=== PATIENT | male | born 1945 | race Caucasian/White ===

== ENCOUNTER → 2016-06-27 | Outpatient (CLI) | payer OTHER ==
[~2016-06-27] MED LIST: ACET-1256 PO; ADVIN10/60 INH; ALBU18002 INH; ALG PO; ANT25 PO; ASPI-428 PO; CEPH-571 PO; CEPH500C2 PO; DIPH1TAB87 PO; ERGO500037 PO; IBUP-103 PO; KFL500 PO; SPRIN/30 INH; TIOTCAP INH
[2016-06-27 13:53] LABS: BLOOD UREA NITROGEN 14 mg/dl (7-18); BUN/CREATININE RATIO 16.4 (10-20); CALCIUM 9.4 mg/dl (8.5-10.1); CARBON DIOXIDE 27 mmol/L (21-32); CHLORIDE 103 mmol/L (98-107); CREATININE 0.84 mg/dl (0.60-1.40); GLUCOSE 81 mg/dl (70-99); POTASSIUM 4.2 mmol/L (3.5-5.1); SODIUM 139 mmol/L (136-145)
== END | disposition home or self-care (01) ==
LOC: C.LABMFLN 10:56
PROVIDERS: ATTEND Family Medicine
DX: R73.01 Impaired fasting glucose (principal)

== ENCOUNTER → 2016-07-14 | Outpatient (CLI) | payer OTHER ==
[~2016-07-14] MED LIST changes: +AMOX1TAB43 PO; +RXC5 PO
--- NOTE | 2016-07-15 07:38 | PULMONARY FUNCTION TEST ---
Interpretation is based off ATS criteria. SPIROMETRY: Moderately severe obstructive ventilatory disease with borderline reversibility based off FVC standards. DICTATION ENDS HERE
== END | disposition home or self-care (01) ==
LOC: C.RC 08:47
PROVIDERS: ATTEND Family Medicine
DX: J44.0 Chronic obstructive pulmonary disease with (acute) lower respiratory infection (principal); R91.1 Solitary pulmonary nodule

== ENCOUNTER → 2016-08-16 | Day surgery (SDC) | payer OTHER ==
[~2016-08-16] VITALS: Ht 177.8 cm; Wt 83.0 kg
[~2016-08-16] MED LIST changes: -AMOX1TAB43 PO; +DIPH1TAB PO; -DIPH1TAB87 PO; -RXC5 PO; -SPRIN/30 INH
[2016-08-16 09:18] VITALS: BP 135/74; PULSE 74; TEMP 36.7; O2SAT 96; Ht 177.8 cm; Wt 83.0 kg
[2016-08-16 09:35] LABS: PLATELET COUNT 292 K/uL (130-400)
[2016-08-16 09:44] LABS: PARTIAL THROMBOPLASTIN RATIO 1.2; PROTHROMBIN TIME (PATIENT) 10.9 SECONDS (9.0-12.0)
== END | disposition home or self-care (01) ==
LOC: C.ACU 08:17
PROVIDERS: ATTEND Internal Medicine Critical Care Medicine
DX: R91.1 Solitary pulmonary nodule (principal); Z53.9 Procedure and treatment not carried out, unspecified reason

== ENCOUNTER 2016-08-17 10:45 | Day surgery (SDC) | payer OTHER ==
[2016-08-17] VITALS (9 sets, daily range): BP systolic 92–126; BP diastolic 64–75; PULSE 80–88; TEMP 36.8–37.1; O2SAT 95–98; Ht 177.8 cm; Wt 83.0 kg
[~2016-08-17] VITALS: Ht 177.8 cm; Wt 83.0 kg
[~2016-08-17 10:45] MED LIST changes: -ALG PO; -ASPI-428 PO; -CEPH-571 PO; -CEPH500C2 PO; -DIPH1TAB PO; -ERGO500037 PO; -KFL500 PO
[2016-08-17] MEDS ORDERED: ERGO500037 PO (12:11)
--- NOTE | 2016-08-17 14:28 | Discharge Instructions ---
Discharge Instructions Procedure Procedure Date: Aug 17, 2016. Reason for visit: Right Lung Nodule *Dr Zamarripa Doing*. Discharge Discharge Date: Aug 17, 2016. Discharge Diagnosis: Right lung nodule Instructions Activity Recommendations: 1 Day-May resume regular activity, 48 Hours of decreased exertion, 1 Day with no exercise/sex/sports, 1 Day with no driving/ machine use Return to School/Work: limitations (light activity x 48 hours) Recommended Home Diet: Resume Previous Diet Provider Instructions: ACTIVITY RECOMMENDATIONS: * Rest today. * Resume regular activity in one day. MEDICATIONS: * May take Tylenol or Ibuprofen as needed for pain. DIET: * Resume previous diet. SPECIAL CARE INSTRUCTIONS: Call your doctor if: * Temperature above 101 degrees F. * Pain not relieved by pain medicine ordered. * Increased drainage or redness from incision. * Notify your doctor with any questions or concerns. Call your doctor or go to the nearest Emergency Department if you experience: * Increased chest pain or shortness of breath. FOLLOW UP VISIT: Follow-up with Referring Physician as scheduled. Allergies Coded Allergies: Codeine (Verified Adverse Reaction, Intermediate, "sick in stomach", ) Ritika Wise Recommendations: Call your doctor if: * Temperature above 101 degrees * Pain not relieved by pain medicine ordered * There is increased drainage or redness from any incision * You have any unanswered questions or concerns. Your Doctors Instructions noted above were prepared by provider Troy Zamarripa. Patient Signature Section: Patient Instructions Signature Page Noah Emmanuel Patient (or Guardian) Signature/Date: I have read and understand the instructions given to me by my caregivers. Caregiver/RN/Doctor Signature/Date: The above-named patient and/or guardian has received patient instructions on this date. + Original Patient Signature Page (only) stays with chart. Please make copy for patient.
[2016-08-17] MEDS ORDERED: ACETAMINOPHEN 500 MG TAB PO PRN (14:30)
--- NOTE | 2016-08-17 14:45 | DIAGNOSTIC IMAGING REPORT ---
CT GUIDED LUNG BIOPSY CLINICAL HISTORY: Right pulmonary nodule. COMPARISON STUDY: Chest CT dated 07/06/2016 and PET/CT dated 07/18/2016. PROCEDURE: The risks, benefits, and alternatives to the procedure were discussed with patient who voiced understanding. Written informed consent was obtained. The patient was placed in the left lateral decubitus position and the patient's right lower lobe pulmonary nodule was localized for biopsy. The area was prepped and draped in the usual sterile fashion. 1% lidocaine was used for local anesthetic. The nodule was aspirated under CT guidance with 2 passes utilizing 25-gauge needles. This showed malignant cells, and to 18-gauge 1 cm core biopsies were performed without adequate tissue. An additional 25-gauge fine-needle aspiration was performed and submitted for cell block. A trace pneumothorax was identified at this time of the procedure was discontinued. The specimens were reviewed by the pathologist in real-time during the examination. The procedure was well tolerated, and postprocedural chest radiograph is performed at 3 hours prior to discharge. CT DOSE: 1144.46 mGycm FINDINGS: Again seen is a 1.9 cm irregular nodule at the lateral right lung base with irregular margins. This abuts the pleura. Surrounding emphysematous change is noted. There is a trace pneumothorax identified on the post procedure imaging. There is also trace pleural-based hemorrhage. IMPRESSION: 1. Completed fine-needle aspiration of a pulmonary nodule at the right lung base which showed neoplastic cells. See subsequent pathology report for detailed findings. 2. A trace pneumothorax is identified post procedure. A follow-up chest x-ray will be obtained prior to discharge. Electronically signed by: Troy Zamarripa M.D. 08/17/2016 2:44 PM Dictated Date/Time: 08/17/2016 2:38 PM
--- NOTE | 2016-08-17 17:45 | DIAGNOSTIC IMAGING REPORT ---
INSPIRATION AND EXPIRATION PORTABLE CHEST RADIOGRAPHS CLINICAL HISTORY: Right lung biopsy. COMPARISON STUDY: CT-guided right lung biopsy performed earlier today. FINDINGS: No pneumothorax is identified. Cardiac size is normal. Mediastinal contours are normal. There is minimal right lower lung opacity. IMPRESSION: No pneumothorax status post right lung biopsy. Electronically signed by: Obdulio Alexander M.D. 08/17/2016 5:43 PM Dictated Date/Time: 08/17/2016 5:39 PM
[2016-08-19] MEDS ORDERED: DIPH1TAB PO (09:55)
== END 2016-08-17 17:55 | disposition home or self-care (01) ==
LOC: C.ACU 10:45
PROVIDERS: ATTEND Internal Medicine Critical Care Medicine
DX: R10.9 Unspecified abdominal pain (principal); E55.9 Vitamin D deficiency, unspecified; R91.1 Solitary pulmonary nodule

== ENCOUNTER → 2016-08-18 | Outpatient (CLI) | payer OTHER ==
[~2016-08-18] MED LIST changes: +DIPH1TAB PO; +ERGO500037 PO
--- NOTE | 2016-08-18 11:38 | DIAGNOSTIC IMAGING REPORT ---
CHEST 2 VIEWS ROUTINE CLINICAL HISTORY: RIGHT LUNG NODULE, COPD, COUGH dyspnea COMPARISON STUDY: 08/17/2016 FINDINGS: The bones soft tissues and hemidiaphragms are normal. The cardiomediastinal silhouette is normal. The pulmonary vasculature is normal. No evidence pneumothorax. IMPRESSION: No evidence pneumothorax status post lung biopsy Electronically signed by: Leandro Jain M.D. 08/18/2016 11:37 AM Dictated Date/Time: 08/18/2016 11:36 AM
== END | disposition home or self-care (01) ==
LOC: C.RADBBURG 11:13
PROVIDERS: ATTEND Physician Assistant
DX: J44.0 Chronic obstructive pulmonary disease with (acute) lower respiratory infection (principal); R05 Cough; R91.1 Solitary pulmonary nodule

== ENCOUNTER 2016-08-26 05:05 | Day surgery (SDC) | payer OTHER ==
[2016-08-19 09:56] VITALS: BMI 26.0
--- NOTE | 2016-08-19 10:30 | PAT Medication Instructions ---
Service Date Aug 19, 2016. Current Home Medication List Acetaminophen (Tylenol), 1,000 MG PO Q6 Albuterol Sulfate (Proair Respiclick), 1 PUFF INH BID PRN for Wheezing Diphenhydramine Hcl (Benadryl Allergy), 25 MG PO PRN Ergocalciferol (Vitamin D 57918 Unit), 50,000 UNIT PO every two weeks Fluticasone Prop/Salmeterol (Advair Diskus 100/50 60 Dose), 1 PUFFS INH BID PRN for SOB/Wheezing Ibuprofen Tab (Advil), 200-400 MG PO BID PRN for Pain or Fever Meclizine HCl (Meclizine HCl), 25 MG PO tid PRN for Dizziness or Vertigo Tiotropium [place] (Spiriva Handihaler), 1 CAP INH DAILY PRN for Shortness of Breath Medication Instructions For Your Scheduled Surgery - Hold the following medications the morning of surgery: Diphenhydramine Hcl (Benadryl Allergy), 25 MG PO PRN Ergocalciferol (Vitamin D 69122 Unit), 50,000 UNIT PO every two weeks Ibuprofen Tab (Advil), 200-400 MG PO BID PRN for Pain or Fever (otherwise okay to continue per surgeon) - Take the following medications the morning of surgery with a sip of water OTHERWISE NOTHING TO EAT OR DRINK AFTER MIDNIGHT: Acetaminophen (Tylenol), 1,000 MG PO Q6 (may take if needed up to 4 hours prior to surgery) Albuterol Sulfate (Proair Respiclick), 1 PUFF INH BID PRN for Wheezing (use if needed; BRING TO HOSPITAL) Fluticasone Prop/Salmeterol (Advair Diskus 100/50 60 Dose), 1 PUFFS INH BID PRN for SOB/Wheezing Tiotropium [place] (Spiriva Handihaler), 1 CAP INH DAILY PRN for Shortness of Breath Meclizine HCl (Meclizine HCl), 25 MG PO tid PRN for Dizziness or Vertigo - Take the following medications as scheduled the night before surgery: Acetaminophen (Tylenol), 1,000 MG PO Q6 Albuterol Sulfate (Proair Respiclick), 1 PUFF INH BID PRN for Wheezing Fluticasone Prop/Salmeterol (Advair Diskus 100/50 60 Dose), 1 PUFFS INH BID PRN for SOB/Wheezing Tiotropium [place] (Spiriva Handihaler), 1 CAP INH DAILY PRN for Shortness of Breath Ibuprofen Tab (Advil), 200-400 MG PO BID PRN for Pain or Fever Meclizine HCl (Meclizine HCl), 25 MG PO tid PRN for Dizziness or Vertigo If you have any questions please call us at [phone] or [phone] or [phone]
[2016-08-19 11:41] LABS: BASO % 0.4 %; BASO ABS # 0.03 K/uL (0-0.2); COMPLETE YES; EOS % 0.7 %; IG% 0.1 %; LYMPH % 14.3 %; MEAN CELL VOLUME 83.7 fL (80-100); MEAN CORPUSCULAR HEMOGLOBIN 27.8 pg (25-34); MEAN CORPUSCULAR HGB CONC 33.2 g/dl (32-36); MEAN PLATELET VOLUME 9.5 fL (7.4-10.4); MONO % 12.1 %; NEUT % 72.4 %; PLATELET COUNT 358 K/uL (130-400); WHITE BLOOD COUNT 8.37 K/uL (4.8-10.8)
[~2016-08-26] VITALS: Ht 177.8 cm; Wt 81.9 kg
[2016-08-26 05:35] VITALS: BP 134/75; PULSE 85; TEMP 36.6; O2SAT 98; Ht 177.8 cm; Wt 81.9 kg
[2016-08-26] MEDS ORDERED: LACTATED RINGER'S 1000ML 1,000 ML IV SCH (06:00)
[2016-08-26] MEDS ORDERED: ROCURONIUM BROMIDE 10 MG/ML 5 ML VIAL ONE (06:33)
[2016-08-26] MEDS ORDERED: NEOSTIGMINE METHYLSULFATE 5 MG/5 ML SYR ONE (06:33)
[2016-08-26] MEDS ORDERED: GLYCOPYRROLATE INJ 0.2 MG/ML VIAL ONE (06:33)
[2016-08-26] MEDS ORDERED: ONDANSETRON INJ 2 MG/ML 2 ML VIAL ONE (06:33)
[2016-08-26] MEDS ORDERED: MIDAZOLAM HCL 1 MG/ML 2ML VIAL ONE (06:34)
[2016-08-26] MEDS ORDERED: FENTANYL CITRATE INJ 50 MCG/1 ML 2 ML VIAL ONE (06:34)
--- NOTE | 2016-08-26 07:11 | History & Physical Bridge Note ---
H&P Re-Evaluation Bridge Note: I have examined the patient, reviewed the History & Physical and in the interval since the performance of the History & Physical I have noted the following changes of clinical significance: No changes noted
[2016-08-26] MEDS ORDERED: CLINDAMYCIN PHOS 150 MG/ML 2 ML VIAL ONE (07:14)
--- NOTE | 2016-08-26 07:47 | Discharge Instructions ---
Discharge Instructions Date of Service Aug 26, 2016. Visit Reason for Visit: Non-Small Cell Lung Cancer Discharge Discharge Diagnosis / Problem: Non-Small Cell Lung Cancer Discharge Goals Goal(s): Learn about illness Activity Recommendations Activity Limitations: resume your previous activity (in 24 hours) Anesthesia . Post Anesthesia Instructions: If you have had General Anesthesia or IV Sedation: * Do not drive today. * Resume driving when surgeon permits. * Do not make important decisions or sign legal documents today. * Call surgeon for: 1. Temperature elevations greater than 101 degrees F. 2. Uncontrollable pain. 3. Excessive bleeding. 4. Persistent nausea and vomiting. 5. Medication intolerance (nausea, vomiting or rash). * For nausea and vomiting use only clear liquids such as: tea, soda, bouillon until nausea subsides, then gradually increase diet as tolerated. * If you have any concerns or questions, call your surgeon's office. If physician is unavailable and it is an emergency, call 911 or go to the nearest emergency room. . Instructions / Follow-Up Instructions / Follow-Up 1. You may cough up some blood. Call physician if excessive amount noted. 2. Keep your scheduled appointment with Dr. Mittal on September 01 @ 11:00. Diet Recommendations Recommended Home Diet: resume previous diet Pending Studies Studies pending at discharge: no Medical Emergencies . Who to Call and When: Medical Emergencies: If at any time you feel your situation is an emergency, please call 911 immediately. . Non-Emergent Contact Non-Emergency issues call your: Surgeon Call Non-Emergent contact if: you have a fever . . "Provider Documentation" section prepared by Lalo Jones. .
[2016-08-26] MEDS ORDERED: DEXAMETHASONE SOD INJ 4 MG/ML VIAL ONE (08:07)
[2016-08-26] MEDS ORDERED: ONDANSETRON INJ 2 MG/ML 2 ML VIAL IV PRN (09:15)
[2016-08-26] MEDS ORDERED: ATROPINE SULFATE 0.1 MG/ML 5ML SYR IV PRN (09:15)
[2016-08-26] MEDS ORDERED: FENTANYL CITRATE INJ 50 MCG/1 ML 2 ML VIAL IV PRN (09:15)
--- NOTE | 2016-08-26 09:50 | Anesthesiology Progress Note ---
Anesthesia Post Op Note Date & Time Aug 26, 2016 at 09:50 Vital Signs Pain Intensity: 0 Vital Signs Past 12 Hours Date Time Temp Pulse Resp B/P (MAP) Pulse Ox O2 Delivery O2 Flow Rate FiO2 08/26/16 09:40 98 18 130/72 96 Nasal Cannula 2 08/26/16 09:30 98 18 127/94 98 Oxymask 10 08/26/16 09:21 98 22 132/72 97 Oxymask 10 08/26/16 09:11 36.4 104 22 155/86 95 Oxymask 10 08/26/16 05:35 36.6 85 18 134/75 (94) 98 Room Air Notes Mental Status: alert / awake / arousable, participated in evaluation Pt Amnestic to Procedure: Yes Nausea / Vomiting: adequately controlled Pain: adequately controlled Airway Patency, RR, SpO2: stable & adequate BP & HR: stable & adequate Hydration State: stable & adequate Anesthetic Complications: no major complications apparent
--- NOTE | 2016-08-26 10:07 | DIAGNOSTIC IMAGING REPORT ---
CHEST ONE VIEW PORTABLE CLINICAL HISTORY: s/p EBU postoperative evaluation COMPARISON STUDY: 08/18/2016 FINDINGS: No evidence pneumothorax. Mild pulmonary vascular prominence. Diaphragms smooth. IMPRESSION: No evidence pneumothorax. Pulmonary vascular congestion The above report was generated using voice recognition software. It may contain grammatical, syntax or spelling errors. Electronically signed by: Leandro Jain M.D. 08/26/2016 10:05 AM Dictated Date/Time: 08/26/2016 10:05 AM
[2016-08-26 10:08] VITALS: BP 138/68; PULSE 91; TEMP 36.9; O2SAT 94
[2016-08-26 10:38] VITALS: BP 130/70; PULSE 90; O2SAT 93
[2016-08-26 11:08] VITALS: BP 126/63; PULSE 89; TEMP 36.9; O2SAT 93
--- NOTE | 2016-08-26 15:45 | OPERATIVE REPORT ---
DATE OF OPERATION: 08/26/2016 PREOPERATIVE DIAGNOSIS: Nonsmall cell lung carcinoma, right lower lobe. POSTOPERATIVE DIAGNOSIS: Nonsmall cell lung carcinoma, right lower lobe. PROCEDURE: Endobronchial ultrasound with biopsy. SURGEON: Dr. Mittal. FUR REPAIR INSPECTOR: Sherif Jones PA-C. ANESTHESIA: General anesthesia with laryngeal mask airway using an iGel. SPECIFICS OF PROCEDURE: Noah Emmanuel is a 71-year-old man who had a peripheral lung nodule and underwent a needle biopsy was found to have nonsmall cell lung carcinoma. PET scan was performed and 2 really not very large nodes, 1 at the hilar area at the level 11 was hypermetabolic and also what appears to be a paraesophageal or level 8 node. I actually presented this patient at the cancer conference this past week because this is a very interesting finding. If the level 8 node is positive he has N2 disease. If the level 11 node is positive he has N1 disease. This is important because if it is indeed N1 disease he needs a lobectomy now. If it is N2 disease he needs neoadjuvant chemotherapy and radiation. I felt the endobronchial ultrasound was indicated not only to diagnosis this hilar node but also to stage his mediastinum. He may require endoscopic ultrasound to biopsy the paraesophageal node. PROCEDURE: On 08/26/2016 the patient was brought to the operating room. General anesthesia induced and endotracheal intubation was performed. After antibiotics were given and an appropriate timeout had been called the laryngeal mask airway was placed and I went down through the cords and sprayed them with Xylocaine. I also sprayed the trachea. There were no endobronchial lesions. I closely inspected the tourniquet down to the tertiary bronchi and saw no abnormalities. I then started off on the left side and biopsied the level 11 nodes on the left, but they were very very small and we really did not get blood cells. I did get some level 10 and level 4's on the left as well as level 7 although I had to biopsy it 10 times to get any lymph yvette tissue. I then biopsied the right level 11 node and indeed this was positive for metastatic disease. I then came up and biopsied some right level 4 nodes. I really did not see any level 2 nodes. It was difficult to see the level 4 nodes. In fact all of the nodes except for this right level 11 node were all very small. There was no pathological enlargement on CT and no hypermetabolic activity on PET scan. At any rate, I irrigated out and suctioned out both airways and at the conclusion of the case will remove the endobronchial ultrasound and I really did not see any bleeding. I attest to the content of the Intraoperative Record and any orders documented therein. Any exception s are noted below.
== END 2016-08-26 11:16 | disposition home or self-care (01) ==
LOC: C.ACU 05:05
PROVIDERS: ATTEND Surgery
DX: C34.31 Malignant neoplasm of lower lobe, right bronchus or lung (principal); C77.1 Secondary and unspecified malignant neoplasm of intrathoracic lymph nodes; H81.10 Benign paroxysmal vertigo, unspecified ear; J44.0 Chronic obstructive pulmonary disease with (acute) lower respiratory infection; R73.01 Impaired fasting glucose; E55.9 Vitamin D deficiency, unspecified; M81.0 Age-related osteoporosis without current pathological fracture; N40.1 Benign prostatic hyperplasia with lower urinary tract symptoms; N13.8 Other obstructive and reflux uropathy; Z87.891 Personal history of nicotine dependence; Z79.899 Other long term (current) drug therapy

== ENCOUNTER → 2016-08-30 | Outpatient (CLI) | payer OTHER ==
[~2016-08-30] MED LIST changes: +GADAVIST IV PRN
--- NOTE | 2016-08-30 13:08 | DIAGNOSTIC IMAGING REPORT ---
ORBITS FOR MRI HISTORY: 71 years-old Male R/O FOREIGN BODY FOR MRI COMPARISON: PET CT 07/18/2016 TECHNIQUE: 3 views of the orbits FINDINGS: No acute fracture or dislocation of the orbits or facial bones identified. There is no radiopaque foreign body identified. Dental hardware noted. IMPRESSION: No radiopaque foreign body of the orbits. The above report was generated using voice recognition software. It may contain grammatical, syntax or spelling errors. Electronically signed by: Oneal Sorenson M.D. 08/30/2016 1:06 PM Dictated Date/Time: 08/30/2016 1:03 PM
[2016-08-30 13:12] LABS: ISTAT CREATININE 0.8 mg/dl (0.6-1.3); ISTAT HEMOGLOBIN 15.3 g/dl (14.0-18.0); ISTAT IONIZED CALCIUM 1.18 mmol/l (1.12-1.32)
--- NOTE | 2016-08-30 14:53 | DIAGNOSTIC IMAGING REPORT ---
THORACIC SPINE COMBO HISTORY: 71 years-old Male C34.90 Non-small cell lung cancer . Questionable mass of the thoracic spine. COMPARISON: Chest radiograph 08/26/2016, PET/CT 07/18/2016, CT chest low-dose study 07/06/2016. TECHNIQUE: Multiplanar multisequence MRI of the thoracic spine was obtained both with and without the use of 8 mL Gadavist. FINDINGS: There is a 2.0 x 1.6 cm lesion of the lateral right lung base which likely correlates with the noncalcified FDG avid nodule seen on comparison PET CT. The vertebral body heights are well-maintained without compression deformity. There is no focal bone marrow edema, fracture or marrow replacing process identified. T1 marrow signal is maintained. There is multilevel endplate spurring and facet arthropathy without evidence of high-grade central canal or foraminal narrowing identified. Broad-based posterior disc bulge is seen at T7-T8 without central canal or foraminal narrowing. Circumferential annular disc bulge at T8-T9 is present causing mild effacement of the ventral thecal sac without significant central canal or foraminal narrowing. Broad-based posterior disc bulge is also present at T11-T12 effacing the ventral thecal sac and causing mild right foraminal narrowing. Conus medullaris terminates at T12-L1. Partially imaged increased T2 signal within the central canal at C6-C7 measuring up to at least 1.3 cm in craniocaudal dimension is noted correlating with a 2 x 2 mm T2 hyperintense focus of the central cord on the axial images. There is no associated enhancement within this region. No abnormal enhancement identified to suggest metastasis. No soft tissue mass is identified. IMPRESSION: 1. No abnormal enhancement or evidence of metastatic disease within the thoracic spine. 2. 2.0 cm mass in the right lung base correlates with FDG avid nodule on comparison PET CT. 3. Partially imaged linear area of T2 hyperintensity of the lower cervical spine seen at C6-C7 and is nonspecific and may reflect a small syrinx. This can be further evaluated with MRI of the cervical spine. 4. Mild discogenic degeneration at several levels within the thoracic spine without significant central canal or foraminal narrowing. The above report was generated using voice recognition software. It may contain grammatical, syntax or spelling errors. Electronically signed by: Oneal Sorenson M.D. 08/30/2016 2:52 PM Dictated Date/Time: 08/30/2016 2:34 PM
--- NOTE | 2016-08-30 14:56 | DIAGNOSTIC IMAGING REPORT ---
ULTRASOUND OF THE CAROTID ARTERIES CLINICAL HISTORY: Carotid bruit. Non-small cell lung cancer. COMPARISON STUDY: No priors. TECHNIQUE: Real-time, grayscale, and color Doppler sonography of the carotid arteries is performed. Images are reviewed in the transverse and longitudinal planes. FINDINGS: Blood pressure in the right arm measures 133/73 and blood pressure in the left arm measures 133/79. The carotid arteries are patent bilaterally and demonstrate antegrade flow. There is mild atherosclerotic plaque identified. Normal doppler arterial waveforms are seen throughout. Velocity measurements are listed below. Common carotid peak systolic velocity (cm/sec): RIGHT: 78 LEFT: 61 ICA proximal peak systolic velocity (cm/sec): RIGHT: 42 LEFT: 28 ICA mid peak systolic velocity (cm/sec): RIGHT: 46 LEFT: 46 ICA distal peak systolic velocity (cm/sec): RIGHT: 60 LEFT: 51 ICA/CC peak systolic ratio: RIGHT: 0.8 LEFT: 0.8 Antegrade flow was shown in the vertebral arteries. The external carotid arteries are patent. IMPRESSION: 1. There is no sonographic evidence of hemodynamically significant stenosis in the right or left carotid arterial system. 2. Antegrade flow is shown in the vertebral arteries. Electronically signed by: Troy Zamarripa M.D. 08/30/2016 2:55 PM Dictated Date/Time: 08/30/2016 2:45 PM
== END | disposition home or self-care (01) ==
LOC: C.MRI 12:07
PROVIDERS: ATTEND Surgery
DX: C34.90 Malignant neoplasm of unspecified part of unspecified bronchus or lung (principal); R09.89 Other specified symptoms and signs involving the circulatory and respiratory systems

== ENCOUNTER → 2016-12-26 | Outpatient (CLI) | payer OTHER ==
[~2016-12-26] MED LIST changes: -DIPH1TAB PO; +DIPH1TAB87 PO; -GADAVIST IV PRN
--- NOTE | 2016-12-26 13:34 | DIAGNOSTIC IMAGING REPORT ---
PET/CT HISTORY: NON SMALL CELL LUNG CANCER TECHNIQUE: PET/CT was performed from the base of the skull through the pelvis following the intravenous administration of 12.7 mCi of F18-FDG. Non-contrast CT imaging was performed over the same range without breath-hold for attenuation correction of PET images and anatomic correlation, but not for primary interpretation as it is not of standard diagnostic quality. CT DOSE: COMPARISON: Outside hospital PET CT 07/18/2016. FINDINGS: HEAD AND NECK: There is no FDG-avid disease or significant lymphadenopathy in the imaged portions of the head and the neck. CHEST: The right lower lobe pulmonary nodule has essentially resolved in the interval with only minimal patchy density remaining at this location. No FDG uptake identified this location. Emphysema. No new or FDG avid pulmonary nodules identified. FDG avid mediastinal lymph nodes have also resolved in the interval. No FDG avid or enlarged. Hilar lymph nodes identified this time. FDG uptake within the mid to distal esophagus is improved. This is likely physiologic. ABDOMEN/PELVIS: Below the diaphragm, tracer is distributed physiologically in the gastrointestinal and genitourinary tracts. The FDG uptake within the left adrenal gland has improved and demonstrates an SUV max of 1.9, previously measuring 2.4. A 1 cm focus of FDG uptake seen within the lateral wall of the ascending colon on image 164. No corresponding CT abnormality. This is likely physiologic. Stable 2.4 cm lipoma within the third portion of the duodenum. MUSCULOSKELETAL: There is no FDG-avid or destructive bone lesion. IMPRESSION: 1. Interval resolution of the FDG avid right lower lobe pulmonary nodule and FDG avid mediastinal lymphadenopathy. 2. Mild nonspecific FDG uptake seen within the mid to distal esophagus and left adrenal gland has also improved. 3. No new sites of FDG uptake identified. Electronically signed by: Cuco Garcia M.D. 12/26/2016 1:33 PM Dictated Date/Time: 12/26/2016 1:23 PM
== END | disposition home or self-care (01) ==
LOC: C.PET 09:41
PROVIDERS: ATTEND Surgery
DX: C34.90 Malignant neoplasm of unspecified part of unspecified bronchus or lung (principal)

== ENCOUNTER 2017-01-09 05:15 | Inpatient (IN) | payer OTHER ==
[2017-01-05 09:06] VITALS: BMI 25.0
[~2017-01-09] VITALS: Ht 175.3 cm; Wt 79.5 kg
[2017-01-09] VITALS (10 sets, daily range): BP systolic 93–138; BP diastolic 54–83; PULSE 78–104; TEMP 36.1–36.8; O2SAT 93–97; Ht 175.3 cm; Wt 79.5 kg
[~2017-01-09 05:15] MED LIST changes: -IBUP-103 PO; +SPRIN/30 INH; -TIOTCAP INH
[2017-01-09 05:43] LABS: BASO % 0.6 %; BASO ABS # 0.04 K/uL (0-0.2); EOS % 2.4 %; EOS ABS # 0.17 K/uL (0-0.5); HEMATOCRIT 39.7 % (42-52); HEMOGLOBIN 13.8 g/dL (14.0-18.0); IG# 0.01 K/uL (0.00-0.02); LYMPH % 16.6 %; LYMPH ABS # 1.17 K/uL (1.2-3.4); MEAN CELL VOLUME 87.6 fL (80-100); MEAN CORPUSCULAR HEMOGLOBIN 30.5 pg (25-34); MEAN PLATELET VOLUME 9.1 fL (7.4-10.4); MONO % 16.8 %; MONO ABS # 1.18 K/uL (0.11-0.59); NEUT % 63.5 %; NEUT ABS # 4.46 K/uL (1.4-6.5); PLATELET COUNT 232 K/uL (130-400); RED CELL DISTRIBUTION WIDTH CV 15.4 % (11.5-14.5); RED CELL DISTRIBUTION WIDTH SD 49.3 fL (36.4-46.3); WHITE BLOOD COUNT 7.03 K/uL (4.8-10.8)
[2017-01-09 05:48] LABS: MEAN CORPUSCULAR HGB CONC 34.8 g/dl (32-36)
[2017-01-09] MEDS ORDERED: LACTATED RINGER'S 1000ML 1,000 ML IV SCH (06:00)
[2017-01-09] MEDS ORDERED: BUPIVACAINE LIPOSOME 1/3% 266 MG/20 ML VIAL INFIL ONE (06:53)
[2017-01-09] MEDS ORDERED: SODIUM CHLORIDE 0.9% PF 50 ML VIAL ONE (06:53)
[2017-01-09] MEDS ORDERED: SUCCINYLCHOLINE CHLORIDE 20 MG/ML 10 ML VIAL IV ONE (06:59)
[2017-01-09] MEDS ORDERED: LIDOCAINE HCL 2% 2 ML VIAL (20MG/ML) ONE (06:59)
[2017-01-09] MEDS ORDERED: GLYCOPYRROLATE INJ 0.2 MG/ML VIAL ONE (06:59)
[2017-01-09] MEDS ORDERED: NEOSTIGMINE METHYLSULFATE 5 MG/5 ML SYR ONE (06:59)
[2017-01-09] MEDS ORDERED: ONDANSETRON INJ 2 MG/ML 2 ML VIAL ONE ×2 (06:59→12:51)
[2017-01-09] MEDS ORDERED: EpHEDrine SULFATE INJ 50 MG/ML AMP ONE (06:59)
[2017-01-09] MEDS ORDERED: DEXAMETHASONE SOD INJ 4 MG/ML VIAL ONE ×2 (06:59→12:51)
[2017-01-09] MEDS ORDERED: PHENYLEPHRINE HCL INJ 10 MG/ML VIAL ONE ×2 (06:59→12:51)
[2017-01-09] MEDS ORDERED: PROPOFOL IV EMULSION 10 MG/ML 20 ML VIAL IV ONE (06:59)
[2017-01-09] MEDS ORDERED: FENTANYL CITRATE INJ 50 MCG/1 ML 2 ML VIAL ONE (07:00)
[2017-01-09] MEDS ORDERED: MIDAZOLAM HCL 1 MG/ML 2ML VIAL ONE (07:00)
[2017-01-09] MEDS ORDERED: ATROPINE SULFATE 0.1 MG/ML 5ML SYR IV PRN (08:45)
[2017-01-09] MEDS ORDERED: HYDROmorphone INJ 1 MG/ML SYR IV PRN (08:45)
[2017-01-09] MEDS ORDERED: EpHEDrine SULFATE INJ 50 MG/ML AMP IV PRN (08:45)
[2017-01-09] MEDS ORDERED: LABETALOL HCL IV 5 MG/ML 20ML IV PRN (08:45)
[2017-01-09] MEDS ORDERED: MEPERIDINE HCL 25 MG/ML CARP IV PRN (08:45)
[2017-01-09] MEDS ORDERED: ONDANSETRON INJ 2 MG/ML 2 ML VIAL IV PRN ×2 (08:45→12:00)
[2017-01-09] MEDS ORDERED: SURGICEL ABSORB HEMOSTAT 2IN X 14IN TOP ONE (09:00)
[2017-01-09] MEDS ORDERED: MECLIZINE HCL 25 MG TAB PO PRN (12:00)
[2017-01-09] MEDS: FENTANYL CITRATE INJ 50 MCG/1 ML 2 ML VIAL IV PRN ×2 (12:39→13:03)
[2017-01-09] MEDS ORDERED: NURSING VERBAL MED ORDER ONE (12:45)
--- NOTE | 2017-01-09 12:47 | DIAGNOSTIC IMAGING REPORT ---
CHEST ONE VIEW PORTABLE CLINICAL HISTORY: RLL postoperative COMPARISON STUDY: 08/26/2016 FINDINGS: Interval right-sided thoracotomy. Right-sided chest tube in position. Small right apical pneumothorax . Maximum pleural separation 1.3 cm. Mild interstitial prominence throughout both hemithoraces. No evidence for cardiac enlargement. Diaphragms are smooth. Trace subcutaneous emphysema lateral aspect right base. IMPRESSION: Postoperative changes of the chest status post right thoracotomy. Right-sided chest tube in good position. Small right apical pneumothorax with maximal pleural separation of 1.3 cm. The above report was generated using voice recognition software. It may contain grammatical, syntax or spelling errors. Electronically signed by: Leandro Jain M.D. 01/09/2017 12:45 PM Dictated Date/Time: 01/09/2017 12:40 PM
[2017-01-09] MEDS ORDERED: ROCURONIUM BROMIDE 10 MG/ML 5 ML VIAL IV ONE (12:51)
[2017-01-09] MEDS ORDERED: PROMETHAZINE HCL INJ 25 MG in SODIUM CHLORIDE 0.9% 50ML 50 ML IV ONE (13:00)
[2017-01-09 13:45] LABS: HEMATOCRIT 33.7 % (42-52); HEMOGLOBIN 11.6 g/dL (14.0-18.0); MEAN CELL VOLUME 87.8 fL (80-100); MEAN CORPUSCULAR HEMOGLOBIN 30.2 pg (25-34); PLATELET COUNT 192 K/uL (130-400); RED CELL DISTRIBUTION WIDTH CV 15.2 % (11.5-14.5); RED CELL DISTRIBUTION WIDTH SD 49.4 fL (36.4-46.3); WHITE BLOOD COUNT 12.46 K/uL (4.8-10.8)
[2017-01-09 13:48] LABS: MEAN CORPUSCULAR HGB CONC 34.4 g/dl (32-36)
[2017-01-09 14:03] LABS: CALCIUM 8.1 mg/dl (8.5-10.1); CREATININE 0.73 mg/dl (0.60-1.40); POTASSIUM 3.5 mmol/L (3.5-5.1)
--- NOTE | 2017-01-09 14:12 | Anesthesiology Progress Note ---
Anesthesia Post Op Note Date & Time Jan 09, 2017 at 14:12 Vital Signs Pain Intensity: 4 Vital Signs Past 12 Hours Date Time Temp Pulse Resp B/P (MAP) Pulse Ox O2 Delivery O2 Flow Rate FiO2 01/09/17 14:01 77 14 01/09/17 14:01 77 14 95/40 99 01/09/17 14:00 98/56 01/09/17 13:56 76 13 01/09/17 13:56 76 13 92/38 98 01/09/17 13:55 99/56 01/09/17 13:51 78 13 01/09/17 13:51 78 13 95/55 99 01/09/17 13:46 76 16 01/09/17 13:46 76 16 89/37 98 01/09/17 13:45 89/57 01/09/17 13:42 76 23 94/38 99 01/09/17 13:42 76 23 01/09/17 13:40 94/57 01/09/17 13:37 75 12 86/36 98 01/09/17 13:37 75 12 01/09/17 13:35 87/57 01/09/17 13:32 75 14 82/12 99 01/09/17 13:32 75 14 01/09/17 13:31 75 17 101/50 98 84/59 01/09/17 13:31 75 17 01/09/17 13:26 75 13 98/53 98 01/09/17 13:26 75 13 01/09/17 13:21 74 11 94/48 97 01/09/17 13:21 74 11 01/09/17 13:20 84/52 01/09/17 13:19 74 12 94/49 97 01/09/17 13:19 74 12 01/09/17 13:15 84/53 01/09/17 13:14 74 13 01/09/17 13:14 73 13 92/47 96 01/09/17 13:10 81/50 01/09/17 13:09 72 12 01/09/17 13:09 72 12 85/46 95 01/09/17 13:08 71 16 01/09/17 13:08 71 16 86/46 94 01/09/17 13:05 85/52 01/09/17 13:03 70 15 97/49 96 01/09/17 13:03 70 15 01/09/17 13:00 93/53 01/09/17 12:58 71 15 01/09/17 12:58 71 15 91/35 96 01/09/17 12:55 89/62 01/09/17 12:53 68 15 01/09/17 12:53 68 15 89/43 95 01/09/17 12:52 68 17 01/09/17 12:52 68 17 88/43 96 01/09/17 12:50 87/50 01/09/17 12:47 67 16 01/09/17 12:47 67 16 90/43 97 01/09/17 12:46 98/51 01/09/17 12:42 66 16 01/09/17 12:42 67 16 90/44 95 01/09/17 12:41 94/54 01/09/17 12:37 67 19 97/49 99 01/09/17 12:37 67 19 01/09/17 12:36 98/60 01/09/17 12:32 67 18 01/09/17 12:32 67 18 89/35 98 01/09/17 12:31 98/59 01/09/17 12:27 73 16 01/09/17 12:27 88 16 116/84 97 01/09/17 12:22 70 18 01/09/17 12:22 36.0 68 20 100/59 97 Oxymask 10 116/84 (94) 01/09/17 12:22 70 18 98 01/09/17 05:45 36.7 104 20 138/83 94 Room Air Notes Mental Status: alert / awake / arousable, participated in evaluation Pt Amnestic to Procedure: Yes Nausea / Vomiting: adequately controlled Pain: adequately controlled Airway Patency, RR, SpO2: stable & adequate BP & HR: stable & adequate Hydration State: stable & adequate Anesthetic Complications: no major complications apparent
[2017-01-09] MEDS: D5W AND 1/2NSS 1,000 ML IV SCH (18:01)
[2017-01-09] MEDS: CEFAZOLIN IV 2,000 MG in SYRINGE 0 ML IV SCH (18:03)
[2017-01-09] MEDS: KETOROLAC TROMETHAMINE 15 MG/ML VIAL IV. SCH (18:04)
[2017-01-09] MEDS: DOCUSATE SODIUM 100 MG CAP PO SCH (21:15)
[2017-01-09] MEDS: METOCLOPRAMIDE HCL INJ 5 MG/ML 2 ML VIAL IV. SCH (22:37)
[2017-01-09] MEDS: ACETAMINOPHEN IV 1,000 MG in EMPTY BAG 0 ML IV SCH (22:42)
[2017-01-10] VITALS (7 sets, daily range): BP systolic 96–136; BP diastolic 58–75; PULSE 74–115; TEMP 36.4–36.9; O2SAT 92–95
[2017-01-10] MEDS: KETOROLAC TROMETHAMINE 15 MG/ML VIAL IV. SCH ×3 (02:19→18:06)
[2017-01-10] MEDS: CEFAZOLIN IV 2,000 MG in SYRINGE 0 ML IV SCH (02:19)
[2017-01-10] MEDS: D5W AND 1/2NSS 1,000 ML IV SCH (03:53)
[2017-01-10] MEDS: ACETAMINOPHEN IV 1,000 MG in EMPTY BAG 0 ML IV SCH (05:32)
[2017-01-10] MEDS: METOCLOPRAMIDE HCL INJ 5 MG/ML 2 ML VIAL IV. SCH ×2 (05:32→13:34)
[2017-01-10 07:37] LABS: BASO % 0.1 %; BASO ABS # 0.01 K/uL (0-0.2); HEMATOCRIT 29.8 % (42-52); HEMOGLOBIN 10.1 g/dL (14.0-18.0); IG# 0.02 K/uL (0.00-0.02); LYMPH % 5.9 %; LYMPH ABS # 0.52 K/uL (1.2-3.4); MEAN CELL VOLUME 87.6 fL (80-100); MEAN CORPUSCULAR HEMOGLOBIN 29.7 pg (25-34); MEAN CORPUSCULAR HGB CONC 33.9 g/dl (32-36); MEAN PLATELET VOLUME 9.3 fL (7.4-10.4); MONO % 10.7 %; MONO ABS # 0.94 K/uL (0.11-0.59); NEUT % 83.1 %; NEUT ABS # 7.31 K/uL (1.4-6.5); PLATELET COUNT 195 K/uL (130-400); RED CELL DISTRIBUTION WIDTH CV 15.4 % (11.5-14.5); RED CELL DISTRIBUTION WIDTH SD 49.4 fL (36.4-46.3)
--- NOTE | 2017-01-10 07:44 | DIAGNOSTIC IMAGING REPORT ---
CHEST ONE VIEW PORTABLE CLINICAL HISTORY: Postoperative evaluation. COMPARISON STUDY: Chest radiograph January 09, 2017. FINDINGS: A lateral right chest tube is in place. A small right pneumothorax is similar to prior exam with apical and medial component. Right infrahilar opacity has increased. Subcutaneous gas within the right chest wall has increased. There is no evidence of pulmonary edema. Cardiac size is normal. IMPRESSION: 1. No significant change in a small right pneumothorax with lateral right chest tube in place. Increase in subcutaneous gas within the right chest wall. 2. Increase in right infrahilar opacity. Electronically signed by: Obdulio Alexander M.D. 01/10/2017 7:43 AM Dictated Date/Time: 01/10/2017 7:37 AM
[2017-01-10 08:08] LABS: CREATININE 0.87 mg/dl (0.60-1.40); POTASSIUM 4.2 mmol/L (3.5-5.1)
--- NOTE | 2017-01-10 09:02 | Anesthesiology Progress Note ---
Anesthesia Post Op Note Date & Time Jan 10, 2017 at 08:59 Vital Signs Pain Intensity: 0.0 Vital Signs Past 12 Hours Date Time Temp Pulse Resp B/P (MAP) Pulse Ox O2 Delivery O2 Flow Rate FiO2 01/10/17 07:55 36.4 91 16 126/65 (85) 94 Room Air 01/10/17 03:45 36.7 74 16 96/62 (73) 92 Room Air 01/10/17 01:45 36.7 82 16 99/58 (72) 93 Room Air 01/09/17 23:45 Room Air 01/09/17 23:45 36.6 80 18 103/62 (76) 94 Room Air 01/09/17 21:45 36.5 86 18 112/64 (80) 94 Room Air Notes Mental Status: alert / awake / arousable, participated in evaluation Pt Amnestic to Procedure: Yes Nausea / Vomiting: adequately controlled Pain: adequately controlled Airway Patency, RR, SpO2: stable & adequate BP & HR: stable & adequate Hydration State: stable & adequate Anesthetic Complications: no major complications apparent Pt states his Right rib cage still feels slightly numb, csm completely intact in all extremities, pt appears well and not exhibiting any signs of distress. Breathing is adequate and non labored.
[2017-01-10] MEDS: ENOXAPARIN 40 MG/0.4 ML SYR SQ SCH (09:30)
[2017-01-10] MEDS: DOCUSATE SODIUM 100 MG CAP PO SCH ×2 (09:30→20:52)
[2017-01-10] MEDS: ACETAMINOPHEN 325 MG TAB PO SCH ×3 (11:51→23:38)
--- NOTE | 2017-01-10 13:06 | Surgery Progress Note ---
Subjective Date of Service: Jan 10, 2017. Pt. denies CP or SOB. He is ambulating and tolerating oral intake. Objective Vitals Date Time Temp Pulse Resp B/P (MAP) Pulse Ox O2 Delivery O2 Flow Rate FiO2 01/10/17 11:45 36.6 106 16 129/75 (93) 93 Room Air 01/10/17 07:55 36.4 91 16 126/65 (85) 94 Room Air 01/10/17 07:45 Room Air 01/10/17 03:45 36.7 74 16 96/62 (73) 92 Room Air 01/10/17 01:45 36.7 82 16 99/58 (72) 93 Room Air 01/09/17 23:45 Room Air 01/09/17 23:45 36.6 80 18 103/62 (76) 94 Room Air 01/09/17 21:45 36.5 86 18 112/64 (80) 94 Room Air 01/09/17 20:06 36.8 84 20 96/60 (72) 95 Nasal Cannula 2.0 01/09/17 19:06 36.5 85 16 121/75 (90) 93 Nasal Cannula 2.0 01/09/17 17:50 36.5 88 18 93/54 (67) 97 Nasal Cannula 4.0 01/09/17 16:43 36.4 84 18 98/62 (74) 97 Nasal Cannula 4.0 01/09/17 15:45 36.2 79 18 110/72 (85) 95 Nasal Cannula 4.0 01/09/17 15:15 93 Nasal Cannula 4.0 01/09/17 15:15 36.1 78 18 109/74 (86) 93 Nasal Cannula 4.0 01/09/17 15:15 95 Nasal Cannula 2.0 01/09/17 14:45 36.5 82 16 107/72 (84) 93 Nasal Cannula 4.0 01/09/17 14:32 80 15 01/09/17 14:32 80 15 96 01/09/17 14:30 108/66 01/09/17 14:27 79 16 01/09/17 14:27 79 16 98 01/09/17 14:26 79 13 99 01/09/17 14:26 81 13 01/09/17 14:25 99/59 01/09/17 14:21 75 18 101/41 99 01/09/17 14:21 77 18 01/09/17 14:20 96/60 01/09/17 14:16 76 20 01/09/17 14:16 76 20 97/41 99 01/09/17 14:15 36.3 01/09/17 14:15 105/58 01/09/17 14:11 77 15 98/41 99 01/09/17 14:11 77 15 01/09/17 14:10 103/58 01/09/17 14:07 75 16 01/09/17 14:07 75 16 96/40 99 01/09/17 14:05 100/59 01/09/17 14:02 76 15 01/09/17 14:02 75 15 95/40 99 01/09/17 14:01 77 14 01/09/17 14:01 77 14 95/40 99 01/09/17 14:00 98/56 01/09/17 13:56 76 13 01/09/17 13:56 76 13 92/38 98 01/09/17 13:55 99/56 01/09/17 13:51 78 13 01/09/17 13:51 78 13 95/55 99 01/09/17 13:46 76 16 01/09/17 13:46 76 16 89/37 98 01/09/17 13:45 89/57 01/09/17 13:42 76 23 94/38 99 01/09/17 13:42 76 23 01/09/17 13:40 94/57 01/09/17 13:37 75 12 86/36 98 01/09/17 13:37 75 12 01/09/17 13:35 87/57 01/09/17 13:32 75 14 82/12 99 01/09/17 13:32 75 14 01/09/17 13:31 75 17 101/50 98 84/59 01/09/17 13:31 75 17 01/09/17 13:26 75 13 98/53 98 01/09/17 13:26 75 13 01/09/17 13:21 74 11 94/48 97 01/09/17 13:21 74 11 01/09/17 13:20 84/52 01/09/17 13:19 74 12 94/49 97 01/09/17 13:19 74 12 01/09/17 13:15 84/53 01/09/17 13:14 74 13 01/09/17 13:14 73 13 92/47 96 01/09/17 13:10 81/50 01/09/17 13:09 72 12 01/09/17 13:09 72 12 85/46 95 01/09/17 13:08 71 16 01/09/17 13:08 71 16 86/46 94 01/09/17 13:05 85/52 Physical Exam General: + well developed, + well nourished CV: + RRR Pulmonary: + pertinent finding (decreasedat righ base), No accessory muscle use, No respiratory distress, No wheezing Extremities: No calf tenderness Neurologic: + alert & oriented x 3 Laboratory Item Value Date Time White Blood Count 8.80 K/uL 01/10/17 0704 Hemoglobin 10.1 g/dL L 01/10/17 0704 Hematocrit 29.8 % L 01/10/17 0704 Platelet Count 195 K/uL 01/10/17 0704 Item Value Date Time Sodium Level 135 mmol/L L 01/10/17 0704 Potassium Level 4.2 mmol/L # 01/10/17 0704 Blood Urea Nitrogen 12 mg/dl 01/10/17 0704 Creatinine 0.87 mg/dl 01/10/17 0704 Radiology CXR today showed small apical and medial pneumothorax Drains / Tubes chest tube (no air leak; 80 cc last shift) Assessment & Plan 71 year old male s/p RLL -continue pain mgt. -encourage ambulation and use of IS -keep CT in today ACUTE BLOOD LOSS ANEMIA -hemodynamically stable -follow clinically OTHER -lovenox for DVT prevention
[2017-01-10] MEDS: HYDROmorphone INJ 0.5 MG/0.5 ML SYR IV PRN ×2 (15:10→21:02)
[2017-01-10] MEDS ORDERED: NURSING VERBAL MED ORDER ONE ×2 (18:00→18:30)
[2017-01-10] MEDS: ALBUTEROL HFA 8 GM INHALER INH PRN (18:02)
[2017-01-10] MEDS: TIOTROPIUM BROMIDE 5 PUFF/90 MCG INH INH PRN (18:02)
[2017-01-10] MEDS: FLUTICASONE/SALMETEROL 100/50 (ADVAIR) 14 PUFF/1 INHALER INH PRN (18:02)
[2017-01-10] MEDS ORDERED: LORATADINE 10 MG TAB PO ONE (18:30)
[2017-01-10] MEDS ORDERED: LORAZEPAM 0.5 MG TAB PO ONE (18:45)
--- NOTE | 2017-01-10 20:47 | DIAGNOSTIC IMAGING REPORT ---
CHEST ONE VIEW PORTABLE CLINICAL HISTORY: MD Aparicio dyspnea. COMPARISON STUDY: 01/10/2017 7:24 AM FINDINGS: Right-sided chest tube has been pulled back slightly. Small right apical pneumothorax persists. Interval development of diffuse subcutaneous emphysema throughout the cervical regions bilaterally as well as right lateral hemithorax. Slightly progressive bibasilar interstitial change. Diaphragms are smooth. IMPRESSION: 1. Slight interval pullback a right-sided chest tube. 2. Minimal residual right apical pneumothorax. 3. Interval development of a diffuse cervical and right lateral hemithoracic subcutaneous emphysema 4. Slightly progressive bibasilar interstitial change. The above report was generated using voice recognition software. It may contain grammatical, syntax or spelling errors. Electronically signed by: Leandro Jain M.D. 01/10/2017 8:46 PM Dictated Date/Time: 01/10/2017 8:44 PM
--- NOTE | 2017-01-10 20:50 | SURGERY PROGRESS NOTE ---
DATE: 01/10/2017 Mr. Emmanuel was seen about 8:00 on the evening of 01/10/2017. He began complaining of breathlessness and shortness of breath and then had subcutaneous emphysema. I checked his chest tube, we had no fluctuation. He also had subcutaneous emphysema involving his neck and face and right side of his chest. I cut the suture, pulled it back about 3 cm and rotated it 360 degrees and then resutured it back in place. He now has an air leak. He had initial mayorga of air and now it is a small but persistent leak. We will check a chest x-ray and see how he looks in the morning.
[2017-01-11] VITALS (12 sets, daily range): BP systolic 115–149; BP diastolic 71–84; PULSE 81–123; TEMP 36.7–37.1; O2SAT 84–98
[2017-01-11] MEDS: KETOROLAC TROMETHAMINE 15 MG/ML VIAL IV. SCH ×2 (02:35→10:36)
[2017-01-11] MEDS: ACETAMINOPHEN 325 MG TAB PO SCH ×4 (05:25→23:44)
[2017-01-11] MEDS: HYDROmorphone INJ 0.5 MG/0.5 ML SYR IV PRN ×4 (05:26→20:32)
--- NOTE | 2017-01-11 07:15 | DIAGNOSTIC IMAGING REPORT ---
CHEST ONE VIEW PORTABLE CLINICAL HISTORY: Postoperative evaluation. COMPARISON STUDY: Chest radiograph January 10, 2017 at 8:33 PM. FINDINGS: A lateral right chest tube remains in place. Extensive subcutaneous gas within the lower neck and right chest wall is noted. There is suspected pneumomediastinum. A small to moderate right pneumothorax is present with apical and inferomedial component. There is no left pneumothorax. Linear bibasilar opacities suggest atelectasis. There is mild right infrahilar opacity. IMPRESSION: 1. Lateral right chest tube in place. Persistent small to moderate right pneumothorax with apical and inferomedial components. 2. Persistent extensive subcutaneous gas within the neck and right chest wall with suspected pneumomediastinum. 3. Right infrahilar opacity. Electronically signed by: Obdulio Alexander M.D. 01/11/2017 7:13 AM Dictated Date/Time: 01/11/2017 7:09 AM
[2017-01-11] MEDS: ENOXAPARIN 40 MG/0.4 ML SYR SQ SCH (08:50)
[2017-01-11] MEDS: DOCUSATE SODIUM 100 MG CAP PO SCH ×2 (09:12→20:31)
[2017-01-11] MEDS: FLUTICASONE/SALMETEROL 100/50 (ADVAIR) 14 PUFF/1 INHALER INH PRN (17:38)
[2017-01-11] MEDS: TIOTROPIUM BROMIDE 5 PUFF/90 MCG INH INH PRN (17:38)
[2017-01-11] MEDS: ALBUTEROL HFA 8 GM INHALER INH PRN (17:39)
--- NOTE | 2017-01-11 18:05 | DIAGNOSTIC IMAGING REPORT ---
CHEST ONE VIEW PORTABLE CLINICAL HISTORY: Chest tube, SOB dyspnea COMPARISON STUDY: 01/11/2017 FINDINGS: Baseline to slightly improved postprocedural chest dimension. No pneumothorax present described is perhaps slightly diminished. Subcutaneous emphysema is stable. Diaphragms remain smooth. IMPRESSION: Stable to slightly improved exam. No significant and/or only minimal residual pneumothorax. Stable subcutaneous emphysema The above report was generated using voice recognition software. It may contain grammatical, syntax or spelling errors. Electronically signed by: Leandro Jain M.D. 01/11/2017 6:04 PM Dictated Date/Time: 01/11/2017 6:01 PM
[2017-01-11] MEDS: AMOXICILLIN/CLAVULANATE TAB 875 MG TAB PO SCH (20:31)
[2017-01-11] MEDS: GUAIFENESIN 600 MG TABCR PO SCH (20:32)
[2017-01-12 03:30] VITALS: BP 134/83; PULSE 104; TEMP 36.6; O2SAT 99
[2017-01-12] MEDS: ACETAMINOPHEN 325 MG TAB PO SCH ×4 (05:28→23:53)
--- NOTE | 2017-01-12 07:22 | DIAGNOSTIC IMAGING REPORT ---
CHEST ONE VIEW PORTABLE CLINICAL HISTORY: lobectomy postoperative COMPARISON STUDY: 01/11/2017 FINDINGS: Unchanged exam. Subcutaneous emphysema bilaterally is similar. No significant postprocedural pneumothorax. Right-sided chest tube is unchanged in position. Focal atelectatic change medial right base is diminished. IMPRESSION: Stable exam with unchanging subcutaneous emphysema The above report was generated using voice recognition software. It may contain grammatical, syntax or spelling errors. Electronically signed by: Leandro Jain M.D. 01/12/2017 7:21 AM Dictated Date/Time: 01/12/2017 7:20 AM
[2017-01-12 07:43] VITALS: BP 129/75; PULSE 106; TEMP 36.7; O2SAT 93
[2017-01-12] MEDS ORDERED: FLUTICASONE PROPIONATE NA SPR 16 GM BTL ONE (08:45)
[2017-01-12] MEDS: FLUTICASONE/SALMETEROL 100/50 (ADVAIR) 14 PUFF/1 INHALER INH PRN ×2 (08:46→21:17)
[2017-01-12] MEDS: DOCUSATE SODIUM 100 MG CAP PO SCH ×2 (08:47→21:16)
[2017-01-12] MEDS: GUAIFENESIN 600 MG TABCR PO SCH ×2 (08:47→21:16)
[2017-01-12] MEDS: HYDROmorphone INJ 0.5 MG/0.5 ML SYR IV PRN ×3 (08:50→18:47)
[2017-01-12] MEDS: ENOXAPARIN 40 MG/0.4 ML SYR SQ SCH (08:51)
[2017-01-12] MEDS: AMOXICILLIN/CLAVULANATE TAB 875 MG TAB PO SCH ×2 (09:51→18:42)
[2017-01-12] MEDS: ALBUTEROL HFA 8 GM INHALER INH PRN ×2 (11:03→21:17)
[2017-01-12 12:00] VITALS: BP_SYST 127; BP_SYST 144; BP_DIAS 74; BP_DIAS 75; PULSE 68; PULSE 99; TEMP 36.5; TEMP 36.7; O2SAT 91; O2SAT 94
[2017-01-12 15:00] VITALS: BP 111/73; PULSE 119; TEMP 36.7; O2SAT 93
--- NOTE | 2017-01-12 18:33 | SURGERY PROGRESS NOTE ---
DATE: 01/12/2017 Mr. Emmanuel looks very good today. Subcutaneous emphysema is resolving. His x-ray looks better. He has drained a fair amount of fluid from his chest tube. He put out 460 mL yesterday, but this is decreasing. It is serous in nature. Mr. Emmanuel looks pretty good. At this point, I would hold off pulling chest tube until tomorrow in which case we will remove it if his drainage remains low and let him go home. I had a long talk with the patient and his . Pathology came out and we see no evidence of residual cancer which is extremely encouraging. In addition, all these lymph nodes are negative for carcinoma. At this point, I am quite pleased with findings. It appears that he had a complete response to chemotherapy and radiation. I have discussed this with Dr. Alexandro Cavazos. ASSESSMENT AND PLAN: Postoperative day #3. We will probably allow him to be discharged tomorrow after his chest tube is pulled.
--- NOTE | 2017-01-12 18:38 | SURGERY PROGRESS NOTE ---
DATE: 01/11/2017 Mr. Emmanuel was seen on 3 separate occasions today. There have been some issues with his chest tube and it does not appear to have an air leak now and subcutaneous emphysema seems to be decreasing. He does get a bit anxious. At this point, I am happy with how well he looks. He is afebrile. His pulse ox has dropped at times as low as 84, but 97% currently on room air. He did have some wheezing last night, this wheezing has resolved. He coughed up a large mucous plug this morning and I will start him on antibiotics and Mucinex to help get the sputum up. I will tentatively plan to pull his chest tube in the next day or so. TAYLOR
--- NOTE | 2017-01-12 18:43 | SURGERY PROGRESS NOTE ---
DATE: 01/12/2017 Mr. Emmanuel is seen today on 01/12/2017. He is now postop day 3 status post a thoracoscopic right lower lobectomy, status post chemotherapy and radiation for IIIA disease. Went over the pathology results with Dr. Zaki Sharp from pathology and all of his nodes are negative and they do not find any viable tumor in the scar which was the original cancer. His subcutaneous emphysema is better. He is draining a bit more serous fluid than I would like from his chest tube, but overall I think he looks quite good. He is ambulating in the hallway. He is on room air. He is tolerating house diet. I am going to give him 1 more day and remove his chest tube in the morning and allow him to be discharged. I am quite pleased with results of his pathology.
[2017-01-12 22:56] VITALS: BP 115/73; PULSE 110; TEMP 36.9; O2SAT 91
[2017-01-13 04:19] VITALS: O2SAT 93
[2017-01-13] MEDS: HYDROmorphone INJ 0.5 MG/0.5 ML SYR IV PRN ×2 (04:34→09:39)
[2017-01-13] MEDS: ACETAMINOPHEN 325 MG TAB PO SCH ×4 (05:23→23:38)
[2017-01-13 07:53] VITALS: BP 122/74; PULSE 116; TEMP 36.5; O2SAT 92
--- NOTE | 2017-01-13 07:55 | DIAGNOSTIC IMAGING REPORT ---
SINGLE VIEW CHEST CLINICAL HISTORY: Status post lobectomy FINDINGS: An AP, portable, upright chest radiograph is compared to study dated 01/12/2017. Correlation is made with PET/CT dated 12/26/2016. The examination is degraded by portable technique and patient rotation. The cardiomediastinal silhouette is unremarkable. There is atherosclerotic calcification of the thoracic aorta. A right-sided chest tube is in place. Suture material is seen at the right apex. A small residual right apical pneumothorax is suspected. There is volume loss in the right lung consistent with a history of surgical resection. Consolidative change and pleural fluid is seen at the right lung base. Atelectasis is seen at the left lung base. The skeletal structures are osteopenic. The bony thorax is grossly intact. Extensive subcutaneous emphysema is similar to previous. IMPRESSION: 1. Postoperative changes and right-sided chest tube as above. 2. Suspect a small residual right apical pneumothorax. 3. Consolidative change and pleural fluid is seen at the right lung base. 4. Emphysema and postoperative change from right-sided pulmonary resection as above. Electronically signed by: Troy Zamarripa M.D. 01/13/2017 7:54 AM Dictated Date/Time: 01/13/2017 7:27 AM
[2017-01-13 08:00] VITALS: O2SAT 92
[2017-01-13] MEDS: ENOXAPARIN 40 MG/0.4 ML SYR SQ SCH (08:29)
[2017-01-13] MEDS: FLUTICASONE PROPIONATE NA SPR 16 GM BTL SCH (08:30)
[2017-01-13] MEDS: DOCUSATE SODIUM 100 MG CAP PO SCH ×2 (08:30→21:51)
[2017-01-13] MEDS: GUAIFENESIN 600 MG TABCR PO SCH ×2 (08:30→21:51)
[2017-01-13] MEDS: AMOXICILLIN/CLAVULANATE TAB 875 MG TAB PO SCH ×2 (08:30→17:59)
[2017-01-13] MEDS: ALBUTEROL HFA 8 GM INHALER INH PRN ×2 (09:29→21:50)
[2017-01-13] MEDS: FLUTICASONE/SALMETEROL 100/50 (ADVAIR) 14 PUFF/1 INHALER INH PRN ×2 (09:29→21:50)
[2017-01-13] MEDS: TIOTROPIUM BROMIDE 5 PUFF/90 MCG INH INH PRN ×2 (09:30→21:51)
--- NOTE | 2017-01-13 10:33 | DIAGNOSTIC IMAGING REPORT ---
CHEST 2 VIEWS ROUTINE CLINICAL HISTORY: s/p chest tube removal subcutaneous emphysema COMPARISON STUDY: 01/14/2000 1717 a.m. FINDINGS: Interval removal of the right hemithoracic chest tube. The study is otherwise identical compared to the prior exam. There are new or interval findings. IMPRESSION: 1. Interval removal of the patient's right sided chest tube. 2. Study is otherwise identical compared to the prior exam. The above report was generated using voice recognition software. It may contain grammatical, syntax or spelling errors. Electronically signed by: Leandro Jain M.D. 01/13/2017 10:31 AM Dictated Date/Time: 01/13/2017 10:31 AM
[2017-01-13 11:58] VITALS: BP 116/74; PULSE 112; TEMP 36.7; O2SAT 92
--- NOTE | 2017-01-13 12:34 | SURGERY PROGRESS NOTE ---
DATE: 01/13/2017 SUBJECTIVE: Mr. Emmanuel was seen today. The subcutaneous emphysema has not really changed much. He still has episodes where he becomes hypoxic and in fact dropped down into the high 70s today when he became anxious. I listened to him and he sounds good on auscultation. He does not have any wheezing. When he settles down, his saturations improved and he was able to get off the oxygen again. I removed his chest tube and I am concerned about his x-ray. He has no evidence of a pneumothorax and subcutaneous emphysema was resolving; however, there are some changes in the right lower lung field, which are concerning to me. We have him on Augmentin. He is not really been producing sputum, but I am concerned about an acute lung injury. I feel this is especially in light of the fact that he desaturated today. I am going to watch him overnight and see what he looks like in the morning.
[2017-01-13] MEDS ORDERED: NURSING VERBAL MED ORDER ONE (14:00)
[2017-01-13] MEDS: OXYCODONE HCL IR 5 MG TAB (IMMEDIATE RELEASE) PO PRN (14:24)
[2017-01-13 15:40] VITALS: BP 102/64; PULSE 111; TEMP 36.6; O2SAT 92
[2017-01-13 23:12] VITALS: BP 105/68; PULSE 109; TEMP 36.8; O2SAT 92
[2017-01-14] MEDS: ACETAMINOPHEN 325 MG TAB PO SCH (06:06)
--- NOTE | 2017-01-14 07:00 | DIAGNOSTIC IMAGING REPORT ---
CHEST ONE VIEW PORTABLE CLINICAL HISTORY: Lobectomy. COMPARISON STUDY: Chest radiograph January 13, 2017 10:23 AM. FINDINGS: Subcutaneous gas within the right chest wall and neck persists. A small right apical pneumothorax with pleural separation of 2.7 cm is unchanged. There are mild bibasilar opacities, right greater than left. There is mild interstitial thickening within the right lung. Curvilinear lucency projecting of the right lower hemithorax is indeterminate although pneumoperitoneum is considered unlikely. IMPRESSION: 1. No change in a small right pneumothorax with extensive subcutaneous gas within the lower neck and chest wall since prior exam. 2. Persistent mild interstitial thickening and right basilar opacity within the right lung. Electronically signed by: Obdulio Alexander M.D. 01/14/2017 6:58 AM Dictated Date/Time: 01/14/2017 6:55 AM
[2017-01-14 07:54] VITALS: BP 129/62; PULSE 92; TEMP 36.3; O2SAT 92
[2017-01-14] MEDS: FLUTICASONE PROPIONATE NA SPR 16 GM BTL SCH (07:57)
[2017-01-14] MEDS: AMOXICILLIN/CLAVULANATE TAB 875 MG TAB PO SCH (07:57)
[2017-01-14] MEDS: GUAIFENESIN 600 MG TABCR PO SCH (07:57)
[2017-01-14] MEDS: DOCUSATE SODIUM 100 MG CAP PO SCH (07:57)
[2017-01-14] MEDS: ENOXAPARIN 40 MG/0.4 ML SYR SQ SCH (07:58)
[2017-01-14] MEDS: OXYCODONE HCL IR 5 MG TAB (IMMEDIATE RELEASE) PO PRN (07:58)
[2017-01-14] MEDS ORDERED: RXC5 PO (09:05)
[2017-01-14] MEDS ORDERED: AMOX1TAB43 PO (09:05)
--- NOTE | 2017-01-14 09:08 | Discharge Instructions ---
Discharge Instructions Date of Service Jan 14, 2017. Admission Reason for Admission: Lung Cancer Discharge Discharge Diagnosis / Problem: lung cancer Discharge Goals Goal(s): Decrease discomfort (Use pain meds as needed) Activity Recommendations Activity Limitations: as noted below Lifting Limitations: gradually increase as tolerated Exercise/Sports Limitations: as tolerated May Resume Sexual Activity: when tolerated Shower/Bathe: may shower/bathe in 3 days Driving or Machine Use: resume 3 days after discharge . Instructions / Follow-Up Instructions / Follow-Up Remove all dressings on 01-16-[address] Mittal with any problems ([phone]) and page him. My office will call to make appointment for next week with a chest xray. Current Hospital Diet Patient's current hospital diet: Regular Diet Discharge Diet Recommended Diet: Regular Diet Procedures Procedures Performed: Right Video Assisted Thoracoscopy, with Right Lower Lobectomy and Mediastinal Lymphadenectomy Pending Studies Studies pending at discharge: no Medical Emergencies . Who to Call and When: Medical Emergencies: If at any time you feel your situation is an emergency, please call 911 immediately. . Non-Emergent Contact Non-Emergency issues call your: Surgeon Contact Number: [phone] Call Non-Emergent contact if: temperature is above 101.5, wound has increased drainage, wound has increased redness, wound has increased pain, you have any medication questions . "Provider Documentation" section prepared by Andrew Mittal. . VTE Core Measure Inpt VTE Proph given/why not?: Enoxaparin (Lovenox)SQ, SCD's
[2017-01-14 09:50] VITALS: BP 129/62; PULSE 92; TEMP 36.3; O2SAT 92
--- NOTE | 2017-01-16 07:48 | DISCHARGE SUMMARY ---
DISCHARGE DIAGNOSES: 1. Stage IIIa nonsmall cell lung carcinoma, right lower lobe, status post chemotherapy and radiation in neoadjuvant fashion. 2. Status post thoracoscopic right lower lobectomy with mediastinal lymphadenectomy. 3. Right pulmonary infiltrate. HOSPITAL COURSE: Noah Emmanuel is a very nice 71-year-old male who was found to have a stage IIIa lung carcinoma. His level 8 and level 11 nodes were positive for a peripheral right lower lobe lung nodule. On 01/09/2017, after restaging the patient following his neoadjuvant chemoradiation, he was felt to be a candidate for surgery. He underwent uncomplicated thoracoscopic right lower lobectomy with mediastinal lymphadenectomy. He did well and we watched him on the floor. He had some subcutaneous emphysema, but he developed a cough. He had had a cough, but it had worsened. It really was not producing much in the way of sputum but coughed a great deal and had some subcutaneous emphysema. I elected to leave his chest tube until the 4th postoperative day. Even he really did not have much of an air leak after postop day #1. Subcutaneous emphysema, was a bit concerning. At any rate, I was a bit concerned about the infiltrative pattern on the x-ray in his right lower lung field. This was actually his right upper lobe. At any rate, he was on room air, ambulating and he sounded good. His x-ray did not really change much but I kept him on amoxicillin. He had a couple episodes where he coughed up some thick sputum, but really this had abated. He had no leukocytosis, no fever, but I was just concerned given the fact that he had had chemotherapy and radiation preoperatively. I kept him an extra day to make sure we did not run into an acute lung injury, which could potentially be a major problem. His incisions were clean. He was having some mild pain and we gave him oxycodone to go home with. We are also going to continue the Augmentin for a week just to be on the safe side. I will see him back in the office this week with a chest x-ray. He is to call me should any problems arise.
--- NOTE | 2017-01-20 12:52 | OPERATIVE REPORT ---
DATE OF OPERATION: 01/09/2017 PREOPERATIVE DIAGNOSIS: Stage IIIa non-small cell lung carcinoma right upper lobe. He had a right level 11 and level 8 nodes on the right positive and underwent neoadjuvant chemoradiation. We restaged him and felt he was a candidate. PROCEDURE: On 01/09/2017 he underwent an uncomplicated thoracoscopic right lower lobectomy and mediastinal lymphadenectomy. He tolerated it very well. SURGEON: Dr. Mittal. ANESTHESIOLOGIST: Lalo Jones PA-C. (MrTaty Jones was present for the entirety of the case. He handled the camera and was instrumental and first assisted in closing the incisions at the end.) ANESTHESIA: General anesthesia endotracheal intubation with a double lumen tube. SPECIFICS OF PROCEDURE: This 71-year-old male has stage III lung carcinoma. He presented to [facility] on 01/09/2017 and underwent uncomplicated intubation and induction of anesthesia. A double lumen tube was inserted. The patient was placed in the left lateral decubitus position, his right chest was prepped and draped in the usual sterile fashion. After appropriate timeout had been called and antibiotics had been given incision was made at about the fourth interspace anterior to the mid axillary line and latissimus dorsi muscle. Upon entering the chest it could be seen there was very little in the way of adhesions. I then made another incision down at about the seventh interspace anteriorly and then about the eighth interspace below the scapular tip. We were then able to grasp the lung. The inferior pulmonary ligament was taken down and lymph nodes were biopsied. I dissected out the the posterior hilum here and identified the lower lobe bronchus as well as the upper lobe bronchus and the bronchus intermedius. Level 7, level 4, and level 2 lymph nodes were sent as well as level 10. I then slipped the lung back posteriorly and anteriorly came up and was able to separate the middle lobe from the lower lobe anteriorly. The dissection was a bit difficult because of the prior chemotherapy and radiation but was able to dissect off the vessels and identified the branches to the middle lobe. I then dissected out the artery and was able to fire an Endo-SHANNON stapler across this. I then freed up the inferior pulmonary vein and dissected it out and after assuring there were 2 veins, 1 superiorly and 1 inferiorly, I divided the inferior pulmonary vein with Endo-SHANNON stapler. Upon pulling this up I then dissected out the bronchus and I could see the takeoff of the middle lobe very nicely. The Endo-SHANNON stapler was fired without difficulty distal to this. The specimen was then delivered off through an Endobag. We took out a few more lymph nodes and then performed an intercostal block with 266 mg of Exparel and 20 mL of solution mixed with 40 mL more of normal saline, so a total of 60 mL were injected from the 2nd to the 11th rib under thoracoscopic guidance intrathoracically for this intercostal block. The margins came back negative for carcinoma on the bronchus. I then placed a 24-Palauan chest tube and directed towards the apex and brought it out through the inferior thoracoscopy incision. It was sutured in place with heavy silk suture. 0 Polysorb was used to close the muscle layers of the other 2 port sites and then 4-0 Monocryl was used in running subcuticular fashion to approximate wound edges. He had a tiny air leak and was extubated in the room. He really did not lose much much in the way of blood. He tolerated it quite well really. I attest to the content of the Intraoperative Record and any orders documented therein. Any exception s are noted below.
== END 2017-01-14 11:16 | disposition home or self-care (01) | DRG 164 ==
LOC: C.ACU 05:15 → C.MSN 12:01 → ENRESERV 14:10
PROVIDERS: ADMIT Surgery; ATTEND Surgery
PROC: 0BTF4ZZ Resection of Right Lower Lung Lobe, Percutaneous Endoscopic Approach (ICD-10-PCS; principal; 2017-01-09 07:15)
PROC: 07B74ZX Excision of Thorax Lymphatic, Percutaneous Endoscopic Approach, Diagnostic (ICD-10-PCS; principal; 2017-01-09 07:15)
DX: C34.11 Malignant neoplasm of upper lobe, right bronchus or lung (principal); D62 Acute posthemorrhagic anemia; J44.9 Chronic obstructive pulmonary disease, unspecified; Z80.42 Family history of malignant neoplasm of prostate; Z87.891 Personal history of nicotine dependence

== ENCOUNTER → 2017-01-24 | Outpatient (CLI) | payer OTHER ==
[~2017-01-24] MED LIST changes: +AMOX1TAB43 PO; +RXC5 PO
--- NOTE | 2017-01-24 13:06 | DIAGNOSTIC IMAGING REPORT ---
CHEST 2 VIEWS ROUTINE CLINICAL HISTORY: 71 years-old Male presenting with R91.1 Nodule of right [id number]. TECHNIQUE: PA and lateral views of the chest were obtained. COMPARISON: 01/14/2017. FINDINGS: Atherosclerosis of aortic arch. Cardiac silhouette normal in size. Persistent elevation of the right hemidiaphragm. Extensive subcutaneous emphysema along the right chest wall. A surgical clip projects over the right apex. Suture margin also noted at the right apex. No convincing evidence of apical pneumothorax. Reticular and hazy opacities at the right lung base with small right pleural effusion. Osseous structures normal. Lucency at the right lung base may represent a subpulmonic pneumothorax rather than free intraperitoneal gas. IMPRESSION: 1. A subpulmonic pneumothorax on the right may be present versus, less likely, free intraperitoneal gas. 2. Persistent right basilar consolidation and effusion. 3. Postsurgical changes of the right apex. Electronically signed by: Luc Abrams M.D. 01/24/2017 1:05 PM Dictated Date/Time: 01/24/2017 1:02 PM
== END | disposition home or self-care (01) ==
LOC: C.RAD 12:47
PROVIDERS: ATTEND Surgery
DX: R91.1 Solitary pulmonary nodule (principal)

== ENCOUNTER → 2017-02-27 | Outpatient (CLI) | payer BC ==
--- NOTE | 2017-02-27 10:22 | DIAGNOSTIC IMAGING REPORT ---
CHEST 2 VIEWS ROUTINE HISTORY: C34.90 Non-small cell lung [id number] COMPARISON: Chest 01/24/2017. FINDINGS: Suspect a small loculated right medial pneumothorax which is likely unchanged. Suture material within the right lung apex. Small right pleural effusion persist. Right basilar interstitial thickening, unchanged. The left lung is clear. The heart is normal in size. IMPRESSION: 1. Small right pleural effusion, unchanged. 2. Suspect a small loculated right medial pneumothorax which is likely unchanged. Electronically signed by: Cuco Garcia M.D. 02/27/2017 10:21 AM Dictated Date/Time: 02/27/2017 10:18 AM
== END | disposition home or self-care (01) ==
LOC: C.RAD 09:23
PROVIDERS: ATTEND Surgery
DX: C34.90 Malignant neoplasm of unspecified part of unspecified bronchus or lung (principal); J90 Pleural effusion, not elsewhere classified

== ENCOUNTER → 2017-03-01 | Outpatient (CLI) | payer BC | END | disposition home or self-care (01) | LOC: C.LABMFLN 11:59 | PROVIDERS: ATTEND Family Medicine | DX: E55.9 Vitamin D deficiency, unspecified (principal) ==

== ENCOUNTER → 2017-05-31 | Outpatient (CLI) | payer BC ==
--- NOTE | 2017-05-31 12:00 | DIAGNOSTIC IMAGING REPORT ---
THORACIC SPINE WITHOUT HISTORY: Compression fracture C34.90 Non-small cell lung [id number] Vertebral compression TECHNIQUE: Multiplanar multisequence MRI of the thoracic spine was performed without the use of contrast. COMPARISON: 08/30/2016 FINDINGS: Alignment and curvature are intact. 75% compression deformity of T9. No significant retropulsion of any component of vertebral body. Signal characteristics are nonspecific but are suggestive of a potential osteoporotic compression deformity. There is suggestion of a possible decrease in signal involving the superior aspect of the T1 vertebral body. No significant increase in sagittal inversion recovery sequence activity is present. Possibility of artifact is considered old possibly of a bone marrow replacing process is not excluded. All remaining components of the thoracic region are negative for significant disc herniation or spinal stenosis. There is moderate degenerative disc change throughout. IMPRESSION: 1. Indeterminate compression deformity of T9 and possibly 9 osteoporotic in nature. 2. Potential abnormal signal characteristics of T1. Other specific MRI of the region or bone scan is suggested as follow-up. 3. Mild degenerative disc change throughout the remainder of the thoracic region with no evidence for disc herniation or compromise of the spinal canal. The above report was generated using voice recognition software. It may contain grammatical, syntax or spelling errors. Electronically signed by: Leandro Jain M.D. 05/31/2017 11:59 AM Dictated Date/Time: 05/31/2017 11:01 AM
== END | disposition home or self-care (01) ==
LOC: C.MRI 09:29
PROVIDERS: ATTEND Family Medicine
DX: C34.90 Malignant neoplasm of unspecified part of unspecified bronchus or lung (principal); M48.50XA Collapsed vertebra, not elsewhere classified, site unspecified, initial encounter for fracture

== ENCOUNTER → 2017-06-12 | Outpatient (CLI) | payer BC ==
--- NOTE | 2017-06-12 15:03 | DIAGNOSTIC IMAGING REPORT ---
PET/CT HISTORY: LUNG CANCER TECHNIQUE: PET/CT was performed from the base of the skull through the pelvis following the intravenous administration of 12.5 mCi of F18-FDG. Non-contrast CT imaging was performed over the same range without breath-hold for attenuation correction of PET images and anatomic correlation, but not for primary interpretation as it is not of standard diagnostic quality. CT DOSE: COMPARISON: Thoracic spine MRI 05/31/2017. PET CT 12/26/2016. FINDINGS: HEAD AND NECK: There is no FDG-avid disease or significant lymphadenopathy in the imaged portions of the head and the neck. CHEST: Emphysema. Interval postoperative changes consistent with a right lower lobectomy. Trace right pleural effusion. Linear scarlike density seen within the base of the right lung. No pneumothorax. Right mediastinal shift due to the volume loss from the recent postoperative change. No suspicious or FDG avid pulmonary nodules. There is right retrohilar FDG avid soft tissue density and fluid which demonstrates mild patchy FDG uptake with an SUV max of 3. There is associated suture material at this location. Therefore, these findings favor postoperative changes at this time. Subcentimeter mediastinal lymph nodes do not demonstrate significant FDG uptake. No FDG avid or supraclavicular lymphadenopathy. ABDOMEN/PELVIS: Below the diaphragm, tracer is distributed physiologically in the gastrointestinal and genitourinary tracts. There is no significant lymphadenopathy and no FDG-avid disease. MUSCULOSKELETAL: Linear FDG uptake associated with the T9 vertebral body. This demonstrates an SUV max of 3.8. This is likely due to the subacute moderate compression fracture. Patchy sclerosis within the right lateral eighth rib without corresponding FDG uptake. This may be due to postoperative change. IMPRESSION: 1. Interval right lower lobectomy. 2. Trace right pleural effusion. 3. Right retrohilar soft tissue and fluid density with associated suture material. This demonstrates mild patchy FDG uptake. This favors postoperative change at this time. However, follow-up is recommended to ensure stability/resolution and to exclude the less likely possibility of residual disease. 4. Otherwise, no evidence for FDG avid metastatic disease. 5. Emphysema. 6. Linear FDG uptake associated with the moderate T9 compression fracture. This favors a subacute fracture. Electronically signed by: Cuco Garcia M.D. 06/12/2017 3:01 PM Dictated Date/Time: 06/12/2017 2:50 PM
== END | disposition home or self-care (01) ==
LOC: C.PET 11:52
PROVIDERS: ATTEND Family Medicine
DX: C34.90 Malignant neoplasm of unspecified part of unspecified bronchus or lung (principal); M48.50XA Collapsed vertebra, not elsewhere classified, site unspecified, initial encounter for fracture

== ENCOUNTER → 2017-09-19 | Outpatient (CLI) | payer BC ==
--- NOTE | 2017-09-19 09:39 | DIAGNOSTIC IMAGING REPORT ---
CT SCAN OF THE CHEST WITHOUT IV CONTRAST CLINICAL HISTORY: Follow-up lung cancer. COMPARISON STUDY: Chest x-ray dated 02/27/2017. PET/CT dated 06/12/2017. Chest CT dated 07/06/2016. TECHNIQUE: CT scan of the thorax was performed from the thoracic inlet to the upper abdomen. Images are reviewed in the axial, sagittal, and coronal planes. IV contrast was not administered for this examination as per the referring clinician. A dose lowering technique was utilized adhering to the principles of ALARA. CT DOSE: 627.21 mGycm FINDINGS: Thyroid: Imaged portions of the thyroid gland are normal in size and attenuation. Thoracic aorta: There is atherosclerotic calcification of the thoracic aorta, which is normal in caliber and demonstrates standard 3-vessel arch anatomy. Heart: The heart is normal in size and without pericardial effusion. There are coronary artery calcifications. The main pulmonary arteries are dilated suggesting pulmonary artery hypertension. Lungs and pleural spaces: Advanced emphysema is identified. There are postoperative changes from right lower lobe resection, with volume loss in the right lung and compensatory hyperinflation of the left lung. Pleural fluid is noted at the right lung base. The trachea and central airways are clear. An indeterminant 3 mm pulmonary nodule seen in the right lower lung image #175. Mediastinum: There is rightward shift of mediastinum. No mediastinal lymphadenopathy is seen. Susan: Not well assessed without IV contrast. Axillae: There is no axillary lymphadenopathy. Upper abdomen: There is a small hiatal hernia. No adrenal lesion is identified. Skeletal structures: The skeletal structures are osteopenic. There is a severe compression deformity of T9, unchanged from the 06/12/[address] No lytic or blastic bony lesions are seen. Degenerative change is noted in the shoulders. There is sclerotic change from a healed right eighth rib fracture as well as healed left-sided rib fractures. IMPRESSION: 1. There is no evidence of intrathoracic metastatic disease. 2. Advanced emphysema with postoperative change from right lower lobe resection. 3. There is no airspace consolidation typical for pneumonia. 4. A 3 mm indeterminate pulmonary nodule in the right lower lung is unchanged from 06/12/2017. Continued attention at follow-up is recommended. 5. Additional findings as above. Electronically signed by: Troy Zamarripa M.D. 09/19/2017 9:37 AM Dictated Date/Time: 09/19/2017 9:21 AM
== END | disposition home or self-care (01) ==
LOC: C.CTS 09:05
PROVIDERS: ATTEND Surgery
DX: C34.90 Malignant neoplasm of unspecified part of unspecified bronchus or lung (principal); J43.9 Emphysema, unspecified

== ENCOUNTER 2018-09-23 12:43 | Inpatient (IN) ==
[2018-09-23] MEDS ORDERED: ONDANSETRON INJ 2 MG/ML 2 ML VIAL ONE (12:48)
[2018-09-23] MEDS ORDERED: DiphenhydrAMINE 12.5 MG in SYRINGE 0 ML IV STA (13:03)
[2018-09-23] MEDS ORDERED: DIAZEPAM 5 MG/ML INJ 10ML VIAL IV STA (13:03)
[2018-09-23] MEDS ORDERED: METOCLOPRAMIDE HCL INJ 5 MG/ML 2 ML VIAL IV ONE ×2 (13:03→15:24)
[2018-09-23] MEDS ORDERED: SODIUM CHLORIDE 0.9% 1000ML 500 ML IV ONE (13:04)
[2018-09-23] MEDS ORDERED: SODIUM CHLORIDE 0.9% 1000ML 1,000 ML IV STA (13:04)
[2018-09-23] MEDS ORDERED: DiphenhydrAMINE HCL 50 MG/ML VIAL ONE (13:10)
[2018-09-23 13:17] LABS: Hematocrit (blood only) 41.6 % (42-52); Hemoglobin 14.7 g/dL (14.0-18.0); Mean Corpuscular Hemoglobin 29.8 pg (25-34); Mean Corpuscular Hgb Conc 35.3 g/dL (32-36); Mean Corpuscular Volume 84.4 fL (80-100); Mean Platelet Volume 9.6 fL (7.4-10.4); Platelet Count 275 K/uL (130-400); RDW Coefficient of Variation 12.5 % (11.5-14.5); RDW Standard Deviation 38.3 fL (36.4-46.3); Red Blood Count 4.93 M/uL (4.7-6.1); White Blood Count 16.59 K/uL (4.8-10.8)
[2018-09-23 13:24] LABS: iSTAT Creatinine 0.9 mg/dl (0.6-1.3); iSTAT Ionized Calcium 1.18 mmol/l (1.12-1.32); iSTAT Potassium 3.3 mEq/L (3.3-5.0)
[2018-09-23 13:28] LABS: Partial Thromboplastin Ratio 0.8; Partial Thromboplastin Time 22.1 Seconds (21.0-31.0); Prothrombin Time 10.7 Seconds (9.0-12.0)
[2018-09-23 13:32] LABS: Alanine Aminotransferase 17 U/L (12-78); Albumin Level 3.5 gm/dl (3.4-5.0); Aspartate Aminotransferase 14 U/L (15-37); BUN Creatinine Ratio 15.1 (10-20); Blood Urea Nitrogen 15 mg/dl (7-18); Calcium 8.6 mg/dl (8.5-10.1); Carbon Dioxide 23 mmol/L (21-32); Chloride 105 mmol/L (98-107); Creatinine Clr Calc Pharmacy 75.4 ml/min; Est GFR (African American) 88.4; Est GFR (Non-African American) 76.3; Glucose 155 mg/dl (70-99); Potassium 3.3 mmol/L (3.5-5.1); Sodium 140 mmol/L (136-145)
[2018-09-23] MEDS ORDERED: TPA for Stroke IV STA ×2 (13:34→15:50)
[2018-09-23 13:35] LABS: Basophils # (auto) 0.05 K/uL (0-0.2); Basophils % (auto) 0.3 %; Eosinophils # (auto) 0.07 K/uL (0-0.5); Eosinophils % (auto) 0.4 %; Immature Granulocytes # (auto) 0.07 K/uL (0.00-0.02); Immature Granulocytes % (auto) 0.4 %; Lymphocytes # (auto) 1.39 K/uL (1.2-3.4); Lymphocytes % (auto) 8.4 %; Monocytes # (auto) 1.26 K/uL (0.11-0.59); Monocytes % (auto) 7.6 %; Neutrophils # (auto) 13.75 K/uL (1.4-6.5); Neutrophils % (auto) 82.9 %
[2018-09-23 13:37] LABS: Albumin Globulin Ratio 0.9 (0.9-2); Alkaline Phosphatase 75 U/L (45-117); Bilirubin,Total 0.3 mg/dl (0.2-1); Globulin 3.7 gm/dl (2.5-4.0); Total Protein 7.2 gm/dl (6.4-8.2); Troponin I < 0.015 ng/ml (0-0.045)
[2018-09-23] MEDS ORDERED: OPTIRAY 320 125ml IV PRN (13:41)
[2018-09-23] MEDS ORDERED: ALTEPLASE IV ONE ×2 (13:44)
[2018-09-23] MEDS ORDERED: RECOMBINANT IV ONE ×2 (13:44)
[2018-09-23] MEDS ORDERED: ALTEPLASE, RECOMBINANT 72 MG in EMPTY BAG 0 ML IV ONE (13:45)
--- NOTE | 2018-09-23 13:53 | CT Scan Report ---
CT angio head wo/w HISTORY: Mental status change severe vertigo, neck pain TECHNIQUE: Multiaxial CT angiography of the head was performed IV contrast: 100 cc Maximum intensi ty projection images were also obtained. A dose lowering technique was utilized adhering to the prin ciples of MESERET. COMPARISON: None. FINDINGS: There is no mass, hematoma, midline shift, or acute infarct. Visualized intracranial communications marketing intern al carotid arteries, distal vertebral arteries, and basilar artery are widely patent. There is no sig nificant stenosis, occlusion, or aneurysm seen within the bilateral ACAs, MCAs, or senior quality assurance analyst. IMPRESSION: No significant stenosis, occlusion, or aneurysm within the [place]. Negative CT of the brain The above report was generated using voice recognition software. It may contain grammatical, syntax or spelling errors. Electronically signed by: Leandro Jain M.D. 09/23/2018 1:52 PM
--- NOTE | 2018-09-23 14:19 | History & Physical Report ---
Date of Service September 23, 2018 Assessment & Plan (1) CVA (cerebral vascular accident): Telemed eval recs for tpa given sx and pt within window Pt much improved s/p tpa per pt and family CTA head/neck WNL MRI pending CBC WNL Mild hypoK on PRP, otherwise WNL Trop neg x1, serials pending ECHO pending Admit to ICU for monitoring with neuro checks (2) Hypokalemia: Mild, monitor with IVF (3) Lung cancer: s/p chemo and lobectomy in 2017 No current tx (4) COPD (chronic obstructive pulmonary disease): continue home meds (5) DVT prophylaxis: SCDs History of Present Illness Primary Care Provider: Morro Wilde MD 73 y/o M c/o vertigo. states that pt did note feeling like his "ears were full" earlier today during breakfast. He has no other concerns at that time. They were at the grocery when pt had sudden onset of intense ear fullness, dizziness, lightheadedness, n/v, and inability to keep his balance. had to help him to the car. They went home, but pt got worse so they called EMS. Pt had some SOB and chest tightness as sx worsened. Family states that his face was white and "he looked terrible". He had no issues using his UE/LE but required assistance to walk due to balance. Pt has hx of vertigo, which is what he thought was happening initially, however states that he has never had sx as intense as today. He was not confused or slurring his speech, but thought his voice sounded "weak". Pt had a syncopal episode during some portion of EMS assistance. states that pt had a usual day yesterday. They attended a and the luncheon after without incident. Pt denies fever, abd pain, c/d, LE pain or swelling. Pt was evaluated by [facility] telemed neurology upon arrival to the ED. CTA was read as neg, however pt was within tpa window and given sx, it was decided that pt s hould be tx with tpa. Family states that pt looks much improved. His color is almost at his usual. Pt states he is still mildly nauseated, but better. Ear fullness and dizziness are present but much better. No further SOB or chest tightness. Allergies Allergy/AdvReac Type Severity Reaction Status Date / Time pneumococcal vaccine Allergy Intermediate ARM Verified 09/23/18 13:24 SWELLING codeine AdvReac Intermediate "sick in Verified 09/23/18 13:24 stomach" Home Medications Home Medications Medication Instructions Recorded Confirmed Type meclizine 25 mg PO BID PRN #0 10/03/14 09/23/18 History acetaminophen [Tylenol Extra 1,000 mg PO Q6H #20 tab 08/16/16 09/23/18 History Strength] cholecalciferol (vitamin D3) 2,000 unit PO DAILY #0 cap 08/17/16 09/23/18 History [Vitamin D3] diphenhydramine HCl [Benadryl 25 mg PO HS PRN #0 08/19/16 09/23/18 History Allergy] tiotropium bromide [Spiriva with 1 cap INHALATION DAILY PRN #0 01/05/17 09/23/18 History HandiHaler] albuterol sulfate [ProAir 1 inh INHALATION BID PRN 09/23/18 09/23/18 History RespiClick] alendronate 70 mg PO WK 09/23/18 09/23/18 History calcium carbonate-vitamin D3 1 tab PO DAILY 09/23/18 09/23/18 History [Calcium 600 + D(3)] Past Med/Surg History Medical History Lung cancer Pulmonary infiltrate in right lung on chest x-ray Surgical History S/P lobectomy of lung Family History Father Stroke Social History Feels Safe at Home: Yes Smoking Status: Former smoker Cigarettes Per Day: 20 ; Number of Years Since Quit: 6 ; Hx Alcohol Use: Yes (one beer a few times a month) Hx Substance Use: No Review of Systems Review of Systems: Pertinent positives and negatives reviewed in HPI--all others negative Physical Exam Constitutional: WD/WN, vitals as above Eyes: normal visual ontiver[place] by confrontation and + anicteric sclerae Neck: normal visual inspection and trachea midline Respiratory: normal respiratory effort, lungs clear to auscultation Cardiovascular: Rate/Rhythm: regular rate and regular rhythm Gastrointestinal (Abdomen): Inspection/Auscultation: abdomen not distended Percussion/Palpation: abdomen soft; abdomen nontender Musculoskeletal: Head/Neck/Chest: normocephalic and head atraumatic negative for edema, peripheral pulses intact Skin: no rashes, warm and dry Neurologic: CN's II-XI intact bilaterally and awake; not confused Speech / Cognition: normal speech moving all extremities calciner feeder strength 5/5 b/l LE strength against resistance 5/5 b/l Psychiatric: A+Ox3, euthymic affect Results & Data Vital Signs (Past 12 Hours) Vital Signs Temp Pulse Resp BP Pulse Ox 09/23/18 12:59 37.4 C 85 24 131/92 97 Diagnostic Findings CTA head/neck: neg for acute ECG Rhythm: normal sinus Code Status & VTE Plan Code Status Full code, although family states no prolonged mechanical life support, feeding tubes, etc PG Care Time/CCT Total # of Minutes Spent Total Time Spent with Patient: Total time spent is greater than 50% in coordination of care (as documented) at patient's floor/unit and/or counseling patient:
--- NOTE | 2018-09-23 14:27 | XRay Report ---
XR chest 1V portable CLINICAL HISTORY: dizziness, GET IMAGE AFTER STOKE PROTOCOL IS FINISHED COMPARISON STUDY: 01/14/2017 FINDINGS: Interstitial infiltrative process left lung base. Slight blunting right lateral costophreni c angle. Baseline emphysematous changes noted. IMPRESSION: Parenchymal infiltrate left base. The above report was generated using voice recognition software. It may contain grammatical, syntax or spelling errors. Electronically signed by: Leandro Jain M.D. 09/23/2018 2:25 PM
[2018-09-23] MEDS ORDERED: METOCLOPRAMIDE HCL INJ 5 MG/ML 2 ML VIAL ONE (15:25)
[2018-09-23] MEDS ORDERED: MECLIZINE HCL 25 MG TAB PO PRN (15:50)
[2018-09-23] MEDS ORDERED: ICU PROTOCOL FOR HYPERGLYCEMIA PRN (15:50)
[2018-09-23] MEDS ORDERED: ALBUTEROL HFA INHALER 8.5 GM INH PRN (16:15)
[2018-09-23] MEDS: D5NSS + 20MEQ KCL 20 MEQ/1,000 ML BAG IV SCH (16:32)
[2018-09-23] MEDS: ACETAMINOPHEN 500 MG TAB PO SCH (16:33)
--- NOTE | 2018-09-23 17:59 | Magnetic Resonance Report ---
MR brain wo con HISTORY: Mental status change stroke TECHNIQUE: Multiplanar multisequence MRI of the brain was performed without the use of contrast. COMPARISON STUDY: None. FINDINGS: There are no areas of restricted diffusion to suggest acute infarction. The midline structu res are intact. The paranasal sinuses are clear. The mastoid air cells are clear. The ventricles and sulci are within normal limits for age. There is no mass, hematoma, midline shift. The major vascular flow-voids at the skull base are well maintained. Age-related atrophy and chronic small vessel or[place] e is noted throughout. IMPRESSION: 1. No evidence for an acute ischemic insult.. 2. Atrophy and chronic small vessel change. The above report was generated using voice recognition software. It may contain grammatical, syntax or spelling errors. Electronically signed by: Leandro Jain M.D. 09/23/2018 5:58 PM
--- NOTE | 2018-09-23 18:05 | Emergency Department Note ---
Entered by Nell Ocampo acting as a scribe for ED Provider Note CHIEF COMPLAINT: Vertigo HISTORY OF PRESENT ILLNESS: The patient is a 73 year old male who presents to the Emergency Room with complaints of vertigo that began 4 hours ago. Per , the patient walked into the grocery store less than 1 hour ago and complained that the room was spinning. The patient states that he had cold sweats, was nauseas, and felt like he was going to pass out. Per EMS, the patient had a syncopal episode in the ambulance. The patient states that he now has a headache, neck pain and chest pain. Per , the patient has had vertigo in the past, but it has never been this bad. Per , the patient said that his ears felt closed a few hours ago. The patient notes that he has double vision. Pt denies fevers, breathing difficulties, abdominal pain, back pain, melena, hematochezia, urinary symptoms, numbness, weakness, lymphadenopathy, rash, or other complaints. REVIEW OF SYSTEMS: See HPI for pertinent positives and negatives. A total of ten systems were reviewed and were otherwise negative. PMHx/PSHx: Lung cancer, lobectomy of lung. SOCIAL HISTORY: Patient lives at home. PHYSICAL EXAM: GENERAL: Awake, alert, uncomfortable-appearing, in severe distress HENT: Vertical and rotatory nystagmus. Normocephalic, atraumatic. Oropharynx unremarkable. EYES: PERRL. Normal conjunctiva. Sclera non-icteric. NECK: Inspection normal. Non-tender. Supple. No nuchal rigidity. FROM. No masses. RESPIRATORY: Clear to auscultation. No wheezes. No rales. Normal respiratory effort. CARDIAC: Normal rate. Normal rhythm. No murmurs. No rubs. Extremities warm and well perfused. Pulses equal. No JVD. GI: Soft, non-distended. No tenderness to palpation. No rebound or guarding. No masses. RECTAL: Deferred. MUSCULOSKELETAL: Atraumatic. Chest examination reveals no tenderness. The back is symmetrical on inspection without obvious abnormality. There is no CVA tenderness to palpation. No joint edema. LOWER EXTREMITIES: Calves are equal size bilaterally and non-tender. No edema. No discoloration. NEURO: Normal sensorium. No sensory or motor deficits noted. SKIN: No rash or jaundice noted. EMERGENCY DEPARTMENT COURSE: 1257: Past medical records reviewed. The patient was evaluated in room C3, and a complete history and physical examination were performed. 1320: The patient had a near syncopal episode and complains to trouble breathing. The patient is lethargic. The patient's O2 Sat is in the 80s. We put the patient on a nonrebreather and his O2 Sat increased to 100. The patient states the nausea and dizziness is better. 1325: I discussed the patient's case with Dr. Kari Garber Neurology. She recommends transfer once CT is complete. I will consult with pharmacy about TPA. 1401: I spoke with Dr. Pinto again and she is concerned about posterior circulation stroke. She requested TPA to be given. 1406: The patient's consents to the TPA. TPA administering. 1416: I discussed the patient's case with Dr. Islas- [facility] Hospitalist. She will evaluate the patient for further management. 1434: I reevaluated the patient and he is feeling better, but is still slightly nauseated. He looks better clinically. Patient has already been evaluated by Dr. Islas for admission. MEDICAL DECISION MAKING: C3 Triage Nursing notes reviewed and agree them. The patient's history was concerning for dizziness, vomiting, syncope. Differential diagnosis: Etiologies such as benign positional vertigo, tumor, infection, hypoglycemia, electrolyte abnormalities, cardiac sources, intracerebral event, toxicologic, neurologic, as well as others were entertained. Physical examination: As above. Concerning for vertical and rotatory nystagmus. Patient was noting double vision. ER treatment provided: Supplemental oxygen IV Zofran 4 mg On reassessment the patient was still very nauseated and dry heaving. IV Reglan 5 mg IV Benadryl 12.5 mg IV Valium 2.5 mg On reassessment the patient was feeling somewhat better. His nausea had improved. Dizziness had improved somewhat. IV TPA On reassessment the patient was doing much better. Symptoms improved significantly. Patient still has some mild nausea IV Reglan Diagnostics interpretation by me: ECG: Normal sinus rhythm without ischemic change or evidence of dysrhythmia. Laboratory studies: The labs revealed a mild leukocytosis on CBC and chemistry panel was unremarkable. Imaging studies: CT angiography of the head and neck were performed. No acute process noted. The patient had acute onset of his symptoms at 10 AM. He was significantly ill and had a near syncopal episode in the emergency department when x-ray attempted to get his portable chest. The patient had a near syncopal episode prior to EMS arrival and then had a syncopal episode for EMS. His physical examination was concerning for posterior circulation event. He did note neck pain, double vision and had intense dizziness and vomiting. After I initially evaluated the patient I was concerned and a stroke alert was initiated. Consultation: A consultation was placed with Dr. Gallego was at [facility]. We discussed the case. Given the presentation she has for TPA to be mixed. I did consult with the pharmacy and ordered the TPA. She evaluated the patient via tele-stroke. She felt the patient was dealing with a posterior circulation event even though the CTA was negative. She recommended initiation of IV TPA and admission to the ICU. She did discuss this with the patient and family. I also discussed the risks and benefits with the patient and family. We had a long discussion. Patient was consented. Given the patient's disability it was felt that the patient was at risk for significant impairment and that TPA would be beneficial. I gave my usual and customary discussion regarding this issue. A consultation was placed with the hospitalist, Dr. Islas. The case was discussed and diagnostics were reviewed. The patient was evaluated in the ER for further treatment. The patient had a presentation that was somewhat atypical and therefore a prehospital stroke alert was not initiated. After seeing the patient and gaining additional history and physical examination findings the stroke alert was performed and the patient underwent emergent treatment. Prior to admission he was doing much better and clinically looked well. IMPRESSION: Stroke-like symptoms, dizziness, vomiting, syncope. PLAN: Evaluated by Hospitalist CRITICAL CARE: I have personally spent 80 minutes of critical care time in the direct management of this patient. This includes bedside care, interpretation of ej gnostic studies, and testing, discussion with consultants, patient, and family members, and other required patient management activities. This 80 minutes is in excess of all separately billable procedures. The scribe's documentation has been prepared under my direction and personally reviewed by me in its entirety. I confirm that the note above accurately reflects all work, treatment, procedures, and medical decision making performed by me. Impression & Plan Stroke-like symptoms, Dizziness, Vomiting, Syncope Past Med/Surg History Medical History Lung cancer Pulmonary infiltrate in right lung on chest x-ray Surgical History S/P lobectomy of lung Family History Father Stroke Social History Preferred Language: Polish Communication Ability: Effective Typewriters Functional Tester Required: No Beliefs That Will Affect Care: None Current Living Situation: Spouse Other Information That Helps Us Care for You: No Feels Safe at Home: Yes Safety Concerns: Feels Safe At This Time Smoking Status: Former smoker Cigarettes Per Day: 20 ; Smoking End Date: quit approx 7 years ago ; Number of Years Since Quit: 6 ; Hx Alcohol Use: Yes Alcohol type: beer Hx Substance Use: No Results & Data Vital Signs Vital Signs - 24 hr 09/23/18 12:47 09/23/18 12:59 09/23/18 13:00 Temperature 37.4 C Temperature Source Oral Sepsis Recent Fever Within 48 Hours No Sepsis Action Taken by Nursing No Action Required Pulse Rate 99 H 85 82 Pulse Rate from SpO2 Sensor 84 Pulse Rhythm Regular Pulse Strength Normal Respiratory Rate 26 H 24 22 Respiratory Effort / Characteristics Non-Labored Spontaneous Respiratory Depth Normal Blood Pressure 131/92 131/92 134/74 Blood Pressure Mean 105 105 94 Blood Pressure Position Sitting Pulse Oximetry 97 91 Oxygen Delivery Method Room Air Oxygen Flow Rate 09/23/18 13:15 09/23/18 13:18 09/23/18 13:36 Temperature Temperature Source Sepsis Recent Fever Within 48 Hours Sepsis Action Taken by Nursing Pulse Rate 136 H 88 85 Pulse Rate from SpO2 Sensor 128 H 88 85 Pulse Rhythm Pulse Strength Respiratory Rate 22 23 19 Respiratory Effort / Characteristics Respiratory Depth Blood Pressure 133/69 110/60 Blood Pressure Mean 90 76 Blood Pressure Position Pulse Oximetry 90 100 100 Oxygen Delivery Method Oxygen Flow Rate 09/23/18 13:45 09/23/18 13:56 09/23/18 14:00 Temperature Temperature Source Sepsis Recent Fever Within 48 Hours Sepsis Action Taken by Nursing Pulse Rate 88 82 85 Pulse Rate from SpO2 Sensor Pulse Rhythm Pulse Strength Respiratory Rate 19 19 19 Respiratory Effort / Characteristics Respiratory Depth Blood Pressure 117/66 121/72 Blood Pressure Mean 83 88 Blood Pressure Position Pulse Oximetry Oxygen Delivery Method Oxygen Flow Rate 09/23/18 14:15 09/23/18 14:20 09/23/18 14:30 Temperature Temperature Source Sepsis Recent Fever Within 48 Hours Sepsis Action Taken by Nursing Pulse Rate 82 82 Pulse Rate from SpO2 Sensor 82 81 Pulse Rhythm Pulse Strength Respiratory Rate 16 13 Respiratory Effort / Characteristics Respiratory Depth Blood Pressure 116/69 115/64 Blood Pressure Mean 84 81 Blood Pressure Position Pulse Oximetry 95 96 96 Oxygen Delivery Method Nasal Cannula Oxygen Flow Rate 2 Home Medications Current Medication List: was personally reviewed by me Laboratory Data Attestation: I reviewed the patient's lab results. Result diagrams: 09/23/18 13:08 09/23/18 13:08 Lab Results 09/23/18 09/23/18 09/23/18 Range/Units 13:08 13:08 13:08 WBC 16.59 H (4.8-10.8) K/uL RBC 4.93 (4.7-6.1) M/uL Hgb 14.7 (14.0-18.0) g/dL POC Hgb (14.0-18.0) g/dl Hct 41.6 L (42-52) % POC Hct (42-52) % MCV 84.4 (80-100) fL MCH 29.8 (25-34) pg MCHC 35.3 (32-36) g/dL RDW Std Deviation 38.3 (36.4-46.3) fL RDW Coeff of Ap 12.5 (11.5-14.5) % Plt Count 275 (130-400) K/uL MPV 9.6 (7.4-10.4) fL Immature Gran % (Auto) 0.4 % Neut % (Auto) 82.9 % Lymph % (Auto) 8.4 % [place] % (Auto) 7.6 % Eos % (Auto) 0.4 % Baso % (Auto) 0.3 % Immature Gran # (Auto) 0.07 H (0.00-0.02) K/uL Neut # (Auto) 13.75 H (1.4-6.5) K/uL Lymph # (Auto) 1.39 (1.2-3.4) K/uL [place] # (Auto) 1.26 H (0.11-0.59) K/uL Eos # (Auto) 0.07 (0-0.5) K/uL Baso # (Auto) 0.05 (0-0.2) K/uL PT 10.7 (9.0-12.0) Seconds INR 1.0 (0.9-1.1) APTT 22.1 (21.0-31.0) Seconds PTT Ratio 0.8 POC Sodium (135-144) mEq/L Sodium 140 (136-145) mmol/L POC Potassium (3.3-5.0) mEq/L Potassium 3.3 L (3.5-5.1) mmol/L POC Chloride (101-112) mEq/L Chloride 105 (98-107) mmol/L Carbon Dioxide 23 (21-32) mmol/L POC Total CO2 (24-31) mEq/l Anion Gap 12.0 H (3-11) POC Anion Gap (16-25) mmol/L POC BUN (7-18) mg/dl BUN 15 (7-18) mg/dl Creatinine 0.99 (0.6-1.4) mg/dl POC Creatinine (0.6-1.3) mg/dl Est Cr Clr Drug Dosing 75.4 ml/min Est GFR ( Amer) 88.4 Est GFR (Non-Af Amer) 76.3 BUN/Creatinine Ratio 15.1 (10-20) Glucose 155 H (70-99) mg/dl POC Glucose (other) (70-99) mg/dl Calcium 8.6 (8.5-10.1) mg/dl POC Ioniz Calcium Qamar (1.12-1.32) mmol/l Total Bilirubin 0.3 (0.2-1) mg/dl AST 14 L (15-37) U/L ALT 17 (12-78) U/L Alkaline Phosphatase 75 (45-117) U/L Troponin I < 0.015 (0-0.045) ng/ml Total Protein 7.2 (6.4-8.2) gm/dl Albumin 3.5 (3.4-5.0) gm/dl Globulin 3.7 (2.5-4.0) gm/dl Albumin/Globulin Ratio 0.9 (0.9-2) / Range/Units 13:11 WBC (4.8-10.8) K/uL RBC (4.7-6.1) M/uL Hgb (14.0-18.0) g/dL POC Hgb 15.0 (14.0-18.0) g/dl Hct (42-52) % POC Hct 44 (42-52) % MCV (80-100) fL MCH (25-34) pg MCHC (32-36) g/dL RDW Std Deviation (36.4-46.3) fL RDW Coeff of Ap (11.5-14.5) % Plt Count (130-400) K/uL MPV (7.4-10.4) fL Immature Gran % (Auto) % Neut % (Auto) % Lymph % (Auto) % [place] % (Auto) % Eos % (Auto) % Baso % (Auto) % Immature Gran # (Auto) (0.00-0.02) K/uL Neut # (Auto) (1.4-6.5) K/uL Lymph # (Auto) (1.2-3.4) K/uL [place] # (Auto) (0.11-0.59) K/uL Eos # (Auto) (0-0.5) K/uL Baso # (Auto) (0-0.2) K/uL PT (9.0-12.0) Seconds INR (0.9-1.1) APTT (21.0-31.0) Seconds PTT Ratio POC Sodium 139 (135-144) mEq/L Sodium (136-145) mmol/L POC Potassium 3.3 (3.3-5.0) mEq/L Potassium (3.5-5.1) mmol/L POC Chloride 104 (101-112) mEq/L Chloride (98-107) mmol/L Carbon Dioxide (21-32) mmol/L POC Total CO2 22 L (24-31) mEq/l Anion Gap (3-11) POC Anion Gap 17.0 (16-25) mmol/L POC BUN 15 (7-18) mg/dl BUN (7-18) mg/dl Creatinine (0.6-1.4) mg/dl POC Creatinine 0.9 (0.6-1.3) mg/dl Est Cr Clr Drug Dosing ml/min Est GFR ( Amer) Est GFR (Non-Af Amer) BUN/Creatinine Ratio (10-20) Glucose (70-99) mg/dl POC Glucose (other) 162 H (70-99) mg/dl Calcium (8.5-10.1) mg/dl POC Ioniz Calcium Qamar 1.18 (1.12-1.32) mmol/l Total Bilirubin (0.2-1) mg/dl AST (15-37) U/L ALT (12-78) U/L Alkaline Phosphatase (45-117) U/L Troponin I (0-0.045) ng/ml Total Protein (6.4-8.2) gm/dl Albumin (3.4-5.0) gm/dl Globulin (2.5-4.0) gm/dl Albumin/Globulin Ratio (0.9-2) Administered Medications Acetaminophen (Tylenol) 1,000 mg PO Q6 HAILEY Stop: 10/23/18 16:14 Last Admin: 09/23/18 16:33 Dose: Not Given Documented by: [id number] Sodium Chloride (Nss 1000ml) 1,000 mls @ 125 mls/hr IV .Q8H STA Stop: 09/23/18 21:03 Last Admin: 09/23/18 14:16 Dose: 125 mls/hr Documented by: [id number] Potassium Chloride/Dextrose/Sod Cl (D5nss + 20meq Kcl) 20 meq in 1,000 mls @ 110 mls/hr IV .Q9H6M HAILEY Stop: 10/23/18 16:14 Last Admin: 09/23/18 16:32 Dose: 110 mls/hr Documented by: [id number] Ioversol (Optiray 320 125ml) 119 ml IV ONCE PRN PRN Reason: Interaction Checking Stop: 09/27/18 13:40 Last Admin: 09/23/18 13:41 Dose: 1 ml Documented by: [id number] Discontinued Medications Alteplase, Recombinant (Activase For Stroke) 1 ea IV NOW STA; Protocol Stop: 09/23/18 13:35 Last Admin: 09/23/18 14:46 Dose: Not Given Documented by: [id number] Alteplase, Recombinant (Activase For Stroke) 1 ea IV NOW STA; Protocol Stop: 09/23/18 15:51 Last Admin: 09/23/18 17:05 Dose: Not Given Documented by: [id number] Diazepam (Valium) 2.5 mg IV NOW STA Stop: 09/23/18 13:04 Last Admin: 09/23/18 13:10 Dose: 2.5 mg Documented by: [id number] Diphenhydramine HCl (Benadryl) Confirm Administered Dose 50 mg .ROUTE .STK-MED ONE Stop: 09/23/18 13:11 Last Admin: 09/23/18 14:26 Dose: Not Given Documented by: [id number] Diphenhydramine HCl 12.5 mg/ (Syringe) 0.25 mls @ 1 mls/hr IV NOW STA Stop: 09/23/18 13:17 Last Admin: 09/23/18 13:10 Dose: 1 mls/hr Documented by: [id number] Sodium Chloride (Nss 1000ml) 500 mls @ 999 mls/hr IV .Q31M ONE Stop: 09/23/18 13:34 Last Infusion: 09/23/18 14:00 Dose: 999 mls/hr Documented by: [id number] Admin: 09/23/18 13:10 Dose: 999 mls/hr Documented by: [id number] Alteplase, Recombinant 72 mg/ (EMPTY BAG) 72 mls @ 72 mls/hr IV NOW ONE Stop: 09/23/18 13:46 Last Infusion: 09/23/18 15:08 Dose: 0 mls/hr Documented by: [id number] Cosigned by: [id number] Admin: 09/23/18 14:08 Dose: 72 mls/hr Documented by: [id number] Cosigned by: [id number] Alteplase, Recombinant 8 mg/ (Syringe) 8 mls @ 8 mls/min IV ONE ONE Stop: 09/23/18 13:45 Last Admin: 09/23/18 14:05 Dose: 8 mls/min Documented by: [id number] Cosigned by: [id number] Metoclopramide HCl (Reglan) 5 mg IV ONE ONE Stop: 09/23/18 13:04 Last Admin: 09/23/18 13:10 Dose: 5 mg Documented by: [id number] Metoclopramide HCl (Reglan) 5 mg IV ONE ONE Stop: 09/23/18 15:25 Last Admin: 09/23/18 15:27 Dose: Not Given Documented by: [id number] Metoclopramide HCl (Reglan) Confirm Administered Dose 10 mg .ROUTE .STK-MED ONE Stop: 09/23/18 15:26 Last Admin: 09/23/18 15:27 Dose: 5 mg Documented by: [id number] Ondansetron HCl (Zofran) Confirm Administered Dose 4 mg .ROUTE .Digistrive-Vyatta ONE Stop: 09/23/18 12:49 Last Admin: 09/23/18 13:01 Dose: 4 mg Documented by: [id number] Imaging Data Radiologist's Impression: Radiology results as stated below per my review and the radiologist's interpretation: CT angio head wo/w HISTORY: Mental status change severe vertigo, neck pain TECHNIQUE: Multiaxial CT angiography of the head was performed IV contrast: 100 cc Maximum intensity projection images were also obtained. A dose lowering technique was utilized adhering to the principles of ALARA. COMPARISON: None. FINDINGS: There is no mass, hematoma, midline shift, or acute infarct. Visuali zed intracranial internal carotid arteries, distal vertebral arteries, and basilar artery are widely patent. There is no significant stenosis, occlusion, or aneurysm seen within the bilateral ACAs, MCAs, or garage laborer. IMPRESSION: No significant stenosis, occlusion, or aneurysm within the [place] of [place]. Negative CT of the brain The above report was generated using voice recognition software. It may contain grammatical, syntax or spelling errors. Electronically signed by: Leandro Jain M.D. 09/23/2018 1:52 PM XR chest 1V portable CLINICAL HISTORY: dizziness, GET IMAGE AFTER STOKE PROTOCOL IS FINISHED COMPARISON STUDY: 01/14/2017 FINDINGS: Interstitial infiltrative process left lung base. Slight blunting right lateral costophrenic angle. Baseline emphysematous changes noted. IMPRESSION: Parenchymal infiltrate left base. The above report was generated using voice recognition software. It may contain grammatical, syntax or spelling errors. Electronically signed by: Leandro Jain M.D. 09/23/2018 2:25 PM ECG Data Attestation: I personally reviewed and interpreted this ECG as follows: Indication: syncope and vomiting Rate (beats per minute): 87 Rhythm: normal sinus Findings: + nonspecific-ST abn and + prolonged QT; no PVC Blood Pressure Blood Pressure Findings: Normal blood pressure Blood Pressure Disposition: did not require urgent referral Discharge Plan Visit Data *Final* Discharge Date/Time: 09/23/18 15:44 Chief Complaint: Vertigo Stated Complaint: dizzy/nausea ED Provider: Elvis Lund Discharge Problem: Stroke-like symptoms, Dizziness, Vomiting, Syncope Patient Disposition: Admitted As Inpatient Discharge Instructions Interventions: ED Discharge Assessment Last Done: 09/23/18 15:44 Discharge Problem: Vomiting Qualifiers: Vomiting type: unspecified Vomiting Intractability: unspecified Nausea presence: unspecified Qualified Code(s): R11.10 - Vomiting, unspecified Syncope Qualifiers: Syncope type: unspecified Qualified Code(s): R55 - Syncope and collapse The scribe's documentation has been prepared under my direction and personally reviewed by me in its entirety. I confirm that the note above accurately reflects all work, treatment, procedures, and medical decision making performed by me.
--- NOTE | 2018-09-23 23:34 | Critical Care Consultation ---
Date of Consultation September 23, 2018 Assessment & Plan (1) Stroke-like symptoms: Reason Critically Ill: 73-year-old male status post TPA administration PLAN: Neuro: Initial NIH stroke scale in emergency department was 1: Drowsy level of consciousness -TPA administered at 1405 -NIH stroke scale subsequently have been 0 Dizziness -Vertigo and inner ear pathology should also be considered. Resp: COPD Lung cancer status post pneumonectomy -Continue bronchodilators CV: Syncope -Troponins negative x3 -Patient does have history of lung cancer, pulmonary embolism doubtful, patient did receive TPA for possible stroke which would also have beneficial effects for acute PE Fluids/Renal: Hypokalemia: Mild -20 M EQ potassium chloride tomorrow x2 doses GI/Nutrition: Patient passed bedside swallow -Heart healthy diet -Fasting lipid profile Heme: Status post TPA administration of 1400 DVT prophylaxis: SCDs Endocrine: ICU hyperglycemia protocol Vascular access: Peripheral IVs Code Status: Full code (2) Dizziness: (3) Vomiting: (4) Syncope: (5) COPD (chronic obstructive pulmonary disease): History of Present Illness Attending Physician: Dot Islas DO Patient is a 73-year-old male with significant medical history of COPD, status post lobectomy of lung who presented via EMS after progressive dizziness and unsteadiness and episode of nausea vomiting and reported syncopal episode. During evaluation in the emergency department there was concern of a posterior circulation stroke given the dizziness and unsteadiness, he was still within the TPA window. The patient was nauseated and had experienced vomiting. In consultation with the [facility] stroke service they administered TPA. Since the time of administration of the TPA the patient has felt significantly improved. During my evaluation the patient has no complaints of headache, dizziness, nausea, vomiting, chest pain, shortness of breath. He also reports he was not dysarthric nor had any facial droop or weakness during the presenting events. Allergies Allergy/AdvReac Type Severity Reaction Status Date / Time pneumococcal vaccine Allergy Intermediate ARM Verified 09/23/18 13:24 SWELLING codeine AdvReac Intermediate "sick in Verified 09/23/18 13:24 stomach" Home Medications Home Medications Medication Instructions Recorded Confirmed Type meclizine 25 mg PO BID PRN #0 10/03/14 09/23/18 History acetaminophen [Tylenol Extra 1,000 mg PO Q6H #20 tab 08/16/16 09/23/18 History Strength] cholecalciferol (vitamin D3) 2,000 unit PO DAILY #0 cap 08/17/16 09/23/18 History [Vitamin D3] diphenhydramine HCl [Benadryl 25 mg PO HS PRN #0 08/19/16 09/23/18 History Allergy] tiotropium bromide [Spiriva with 1 cap INHALATION DAILY #0 01/05/17 09/23/18 History HandiHaler] albuterol sulfate [ProAir 1 inh INHALATION BID PRN 09/23/18 09/23/18 History RespiClick] alendronate 70 mg PO WK 09/23/18 09/23/18 History calcium carbonate-vitamin D3 1 tab PO DAILY 09/23/18 09/23/18 History [Calcium 600 + D(3)] Patient History Medical History Lung cancer Pulmonary infiltrate in right lung on chest x-ray Surgical History S/P lobectomy of lung Family History Father Stroke Social History Preferred Language: Turkmen Communication Ability: Effective 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 Beliefs That Will Affect Care: None Current Living Situation: Spouse Other Information That Helps Us Care for You: No Feels Safe at Home: Yes Safety Concerns: Feels Safe At This Time Smoking Status: Former smoker Cigarettes Per Day: 20 ; Smoking End Date: quit approx 7 years ago ; Number of Years Since Quit: 6 ; Hx Alcohol Use: Yes Alcohol type: beer Hx Substance Use: No Review of Systems Review of Systems: All systems reviewed & are unremarkable except as noted in HPI & below No diarrhea no abdominal pain Physical Exam Physical Exam: General: Well-nourished elderly male who appears his stated age I have reviewed the recorded vital signs Neurological: RASS score: 0, Moves all 4 extremities, cranial nerves II through XII are grossly intact, no cerebellar findings of pronator drift and normal heel men[place], finger-nose function. No facial drooping. Psychological: GCS 15 following complex commands Eyes: Pupils are equal, round and reactive to light, anicteric sclera. Symmetrical lids. HENT: Oropharynx Clear, moist Mucous Membranes, tympanic membranes are clear without effusion bilaterally Neck: Supple. Symmetric. trachea midline. No thyromegaly. Cardiovascular: Normal peripheral perfusion. Distal pulses and capillary refill intact. No JVD. Respiratory: Respirations are non-labored, no accessory muscle use. Breath sounds are equal. Gastrointestinal: Soft. Non-distended. Lymphatic: No cervical lymphadenopathy. Musculoskeletal: No deformity. No clubbing nor cyanosis. 5 out of 5 strength bilaterally of the upper and lower extremities. Results & Data Vital Signs (Past 12 Hours) Vital Signs Temp Pulse Pulse Resp BP BP Pulse Ox 09/23/18 22:00 89 20 126/75 94 09/23/18 21:30 82 14 115/66 94 09/23/18 21:00 80 16 116/61 95 09/23/18 20:30 86 18 117/68 95 09/23/18 20:00 36.4 C L 84 18 113/74 96 09/23/18 19:30 86 22 113/71 96 09/23/18 19:00 86 20 115/70 96 09/23/18 18:31 85 16 117/66 96 09/23/18 18:00 36.2 C L 89 17 119/66 96 09/23/18 17:30 88 16 124/70 97 09/23/18 17:00 36.2 C L 88 20 110/63 95 09/23/18 16:30 36.2 C L 82 17 116/73 93 09/23/18 16:11 36.4 C L 79 16 111/63 94 09/23/18 16:00 36.4 C L 80 15 116/64 93 09/23/18 15:45 36.4 C L 79 16 111/63 94 09/23/18 15:15 79 15 126/69 99 09/23/18 15:00 79 15 115/68 97 09/23/18 14:45 82 17 116/69 98 09/23/18 14:30 82 13 115/64 96 09/23/18 14:20 96 09/23/18 14:15 82 16 116/69 95 09/23/18 14:00 85 19 121/72 09/23/18 13:56 82 19 117/66 09/23/18 13:45 88 19 09/23/18 13:36 85 19 110/60 100 09/23/18 13:18 88 23 133/69 100 09/23/18 13:15 136 H 22 90 09/23/18 13:00 82 22 134/74 91 09/23/18 12:59 37.4 C 85 24 131/92 97 09/23/18 12:47 99 H 26 H 131/92 Laboratory Results 09/23/18 09/23/18 09/23/18 Range/Units 21:49 21:47 16:24 WBC (4.8-10.8) K/uL RBC (4.7-6.1) M/uL Hgb (14.0-18.0) g/dL POC Hgb (14.0-18.0) g/dl Hct (42-52) % POC Hct (42-52) % MCV (80-100) fL MCH (25-34) pg MCHC (32-36) g/dL RDW Std Deviation (36.4-46.3) fL RDW Coeff of Ap (11.5-14.5) % Plt Count (130-400) K/uL MPV (7.4-10.4) fL Immature Gran % (Auto) % Neut % (Auto) % Lymph % (Auto) % [place] % (Auto) % Eos % (Auto) % Baso % (Auto) % Immature Gran # (Auto) (0.00-0.02) K/uL Neut # (Auto) (1.4-6.5) K/uL Lymph # (Auto) (1.2-3.4) K/uL [place] # (Auto) (0.11-0.59) K/uL Eos # (Auto) (0-0.5) K/uL Baso # (Auto) (0-0.2) K/uL PT (9.0-12.0) Seconds INR (0.9-1.1) APTT (21.0-31.0) Seconds PTT Ratio POC Sodium (135-144) mEq/L Sodium (136-145) mmol/L POC Potassium (3.3-5.0) mEq/L Potassium (3.5-5.1) mmol/L POC Chloride (101-112) mEq/L Chloride (98-107) mmol/L Carbon Dioxide (21-32) mmol/L POC Total CO2 (24-31) mEq/l Anion Gap (3-11) POC Anion Gap (16-25) mmol/L POC BUN (7-18) mg/dl BUN (7-18) mg/dl Creatinine (0.6-1.4) mg/dl POC Creatinine (0.6-1.3) mg/dl Est Cr Clr Drug Dosing ml/min Est GFR ( Amer) Est GFR (Non-Af Amer) BUN/Creatinine Ratio (10-20) Glucose (70-99) mg/dl POC Glucose 126 H (70-99) POC Glucose (other) (70-99) mg/dl Calcium (8.5-10.1) mg/dl POC Ioniz Calcium Qamar (1.12-1.32) mmol/l Total Bilirubin (0.2-1) mg/dl AST (15-37) U/L ALT (12-78) U/L Alkaline Phosphatase (45-117) U/L Troponin I < 0.015 < 0.015 (0-0.045) ng/ml Total Protein (6.4-8.2) gm/dl Albumin (3.4-5.0) gm/dl Globulin (2.5-4.0) gm/dl Albumin/Globulin Ratio (0.9-2) Nasal Screen MRSA (PCR) (Negative) 09/23/18 09/23/18 09/23/18 Range/Units 15:43 13:11 13:08 WBC (4.8-10.8) K/uL RBC (4.7-6.1) M/uL Hgb (14.0-18.0) g/dL POC Hgb 15.0 (14.0-18.0) g/dl Hct (42-52) % POC Hct 44 (42-52) % MCV (80-100) fL MCH (25-34) pg MCHC (32-36) g/dL RDW Std Deviation (36.4-46.3) fL RDW Coeff of Ap (11.5-14.5) % Plt Count (130-400) K/uL MPV (7.4-10.4) fL Immature Gran % (Auto) % Neut % (Auto) % Lymph % (Auto) % [place] % (Auto) % Eos % (Auto) % Baso % (Auto) % Immature Gran # (Auto) (0.00-0.02) K/uL Neut # (Auto) (1.4-6.5) K/uL Lymph # (Auto) (1.2-3.4) K/uL [place] # (Auto) (0.11-0.59) K/uL Eos # (Auto) (0-0.5) K/uL Baso # (Auto) (0-0.2) K/uL PT (9.0-12.0) Seconds INR (0.9-1.1) APTT (21.0-31.0) Seconds PTT Ratio POC Sodium 139 (135-144) mEq/L Sodium 140 (136-145) mmol/L POC Potassium 3.3 (3.3-5.0) mEq/L Potassium 3.3 L (3.5-5.1) mmol/L POC Chloride 104 (101-112) mEq/L Chloride 105 (98-107) mmol/L Carbon Dioxide 23 (21-32) mmol/L POC Total CO2 22 L (24-31) mEq/l Anion Gap 12.0 H (3-11) POC Anion Gap 17.0 (16-25) mmol/L POC BUN 15 (7-18) mg/dl BUN 15 (7-18) mg/dl Creatinine 0.99 (0.6-1.4) mg/dl POC Creatinine 0.9 (0.6-1.3) mg/dl Est Cr Clr Drug Dosing 75.4 ml/min Est GFR ( Amer) 88.4 Est GFR (Non-Af Amer) 76.3 BUN/Creatinine Ratio 15.1 (10-20) Glucose 155 H (70-99) mg/dl POC Glucose (70-99) POC Glucose (other) 162 H (70-99) mg/dl Calcium 8.6 (8.5-10.1) mg/dl POC Ioniz Calcium Qamar 1.18 (1.12-1.32) mmol/l Total Bilirubin 0.3 (0.2-1) mg/dl AST 14 L (15-37) U/L ALT 17 (12-78) U/L Alkaline Phosphatase 75 (45-117) U/L Troponin I < 0.015 (0-0.045) ng/ml Total Protein 7.2 (6.4-8.2) gm/dl Albumin 3.5 (3.4-5.0) gm/dl Globulin 3.7 (2.5-4.0) gm/dl Albumin/Globulin Ratio 0.9 (0.9-2) Nasal Screen MRSA (PCR) Negative (Negative) 09/23/18 09/23/18 Range/Units 13:08 13:08 WBC 16.59 H (4.8-10.8) K/uL RBC 4.93 (4.7-6.1) M/uL Hgb 14.7 (14.0-18.0) g/dL POC Hgb (14.0-18.0) g/dl Hct 41.6 L (42-52) % POC Hct (42-52) % MCV 84.4 (80-100) fL MCH 29.8 (25-34) pg MCHC 35.3 (32-36) g/dL RDW Std Deviation 38.3 (36.4-46.3) fL RDW Coeff of Ap 12.5 (11.5-14.5) % Plt Count 275 (130-400) K/uL MPV 9.6 (7.4-10.4) fL Immature Gran % (Auto) 0.4 % Neut % (Auto) 82.9 % Lymph % (Auto) 8.4 % [place] % (Auto) 7.6 % Eos % (Auto) 0.4 % Baso % (Auto) 0.3 % Immature Gran # (Auto) 0.07 H (0.00-0.02) K/uL Neut # (Auto) 13.75 H (1.4-6.5) K/uL Lymph # (Auto) 1.39 (1.2-3.4) K/uL [place] # (Auto) 1.26 H (0.11-0.59) K/uL Eos # (Auto) 0.07 (0-0.5) K/uL Baso # (Auto) 0.05 (0-0.2) K/uL PT 10.7 (9.0-12.0) Seconds INR 1.0 (0.9-1.1) APTT 22.1 (21.0-31.0) Seconds PTT Ratio 0.8 POC Sodium (135-144) mEq/L Sodium (136-145) mmol/L POC Potassium (3.3-5.0) mEq/L Potassium (3.5-5.1) mmol/L POC Chloride (101-112) mEq/L Chloride (98-107) mmol/L Carbon Dioxide (21-32) mmol/L POC Total CO2 (24-31) mEq/l Anion Gap (3-11) POC Anion Gap (16-25) mmol/L POC BUN (7-18) mg/dl BUN (7-18) mg/dl Creatinine (0.6-1.4) mg/dl POC Creatinine (0.6-1.3) mg/dl Est Cr Clr Drug Dosing ml/min Est GFR ( Amer) Est GFR (Non-Af Amer) BUN/Creatinine Ratio (10-20) Glucose (70-99) mg/dl POC Glucose (70-99) POC Glucose (other) (70-99) mg/dl Calcium (8.5-10.1) mg/dl POC Ioniz Calcium Qamar (1.12-1.32) mmol/l Total Bilirubin (0.2-1) mg/dl AST (15-37) U/L ALT (12-78) U/L Alkaline Phosphatase (45-117) U/L Troponin I (0-0.045) ng/ml Total Protein (6.4-8.2) gm/dl Albumin (3.4-5.0) gm/dl Globulin (2.5-4.0) gm/dl Albumin/Globulin Ratio (0.9-2) Nasal Screen MRSA (PCR) (Negative) Diagnostic Findings I have reviewed the MRI report: No evidence for acute ischemic insult, atrophy and chronic small vessel change. I reviewed the CTA report of the head, no significant stenosis, occlusion, or aneurysm within the cervical of Hameed. PG Care Time/CCT Total # of Minutes Spent Total Time Spent with Patient: Total time spent is greater than 50% in coordination of care (as documented) at patient's floor/unit and/or counseling patient: (1) Vomiting Nausea presence: unspecified Vomiting Intractability: unspecified Vomiting type: unspecified Qualified Code(s): R11.10 - Vomiting, unspecified (2) Syncope Syncope type: unspecified Qualified Code(s): R55 - Syncope and collapse
[2018-09-24] MEDS: ACETAMINOPHEN 500 MG TAB PO SCH ×3 (00:43→12:42)
[2018-09-24] MEDS: D5NSS + 20MEQ KCL 20 MEQ/1,000 ML BAG IV SCH ×2 (02:29→11:44)
[2018-09-24 04:48] LABS: Basophils # (auto) 0.02 K/uL (0-0.2); Basophils % (auto) 0.2 %; Eosinophils # (auto) 0.06 K/uL (0-0.5); Eosinophils % (auto) 0.6 %; Hematocrit (blood only) 37.6 % (42-52); Hemoglobin 12.8 g/dL (14.0-18.0); Immature Granulocytes # (auto) 0.02 K/uL (0.00-0.02); Immature Granulocytes % (auto) 0.2 %; Lymphocytes # (auto) 0.72 K/uL (1.2-3.4); Lymphocytes % (auto) 7.5 %; Mean Corpuscular Hemoglobin 28.8 pg (25-34); Mean Corpuscular Volume 84.7 fL (80-100); Mean Platelet Volume 9.6 fL (7.4-10.4); Monocytes # (auto) 1.03 K/uL (0.11-0.59); Monocytes % (auto) 10.7 %; Neutrophils # (auto) 7.75 K/uL (1.4-6.5); Neutrophils % (auto) 80.8 %; Platelet Count 178 K/uL (130-400); RDW Coefficient of Variation 12.7 % (11.5-14.5); RDW Standard Deviation 38.8 fL (36.4-46.3); Red Blood Count 4.44 M/uL (4.7-6.1)
[2018-09-24 05:10] LABS: BUN Creatinine Ratio 13.9 (10-20); Calcium 7.6 mg/dl (8.5-10.1); Creatinine Clr Calc Pharmacy 98.3 ml/min; Est GFR (African American) 106.4; Est GFR (Non-African American) 91.8; Magnesium 2.1 mg/dl (1.8-2.4); Phosphorus 2.3 mg/dl (2.5-4.9)
--- NOTE | 2018-09-24 07:19 | CT Scan Report ---
CT angio neck with con HISTORY: Mental status change severe vertigo, neck pain TECHNIQUE: Multiaxial CT angiography of the neck was performed IV contrast: On 100 cc All measuremen ts were calculated based on NASCET criteria. Maximum intensity projection images were also obtained. A dose lowering technique was utilized adhering to the principles of ALARA. COMPARISON STUDY: None. FINDINGS: The aortic arch and proximal great vessels are widely patent. There is no significant sten osis, occlusion, or dissection identified within the bilateral common carotid, internal carotid, or v ertebral arteries. Mild plaque aeration bilaterally IMPRESSION: No significant stenosis, occlusion, or dissection identified within the carotid or vertebral arteries . Mild scattered plaque formation bilaterally The above report was generated using voice recognition software. It may contain grammatical, syntax or spelling errors. Electronically signed by: Leandro Jain M.D. 09/23/2018 1:50 PM
[2018-09-24] MEDS: CALCIUM 600MG + VIT D 400 IU TAB PO SCH (08:43)
[2018-09-24] MEDS: CHOLECALCIFEROL 1,000 UNITS TAB PO SCH (08:43)
[2018-09-24] MEDS: TIOTROPIUM BROMIDE 5 PUFF/90 MCG INH INH SCH (08:44)
[2018-09-24] MEDS: POTASSIUM CHLORIDE 20 MEQ/15 ML UDC PO SCH ×3 (08:44→20:38)
--- NOTE | 2018-09-24 11:00 | Critical Care Progress Note ---
Date of Service September 24, 2018 Assessment & Plan (1) Stroke-like symptoms: Reason Critically Ill: 73-year-old male status post TPA administration PLAN: Neuro: Initial NIH stroke scale in emergency department was 1: Drowsy level of consciousness -TPA administered at 1405 -NIH stroke scale subsequently have been 0 -CT and MRI negative -Day 2 TPA protocol to be initiated after 24 hours -We will follow-up 24-hour head CT -Follow-up echo with bubble study -Neurology consult -PT OT eval's Resp: COPD Lung cancer status post pneumonectomy -Continue bronchodilators -Currently maintaining sats on room air, monitor CV: Syncope -Troponins negative x3 -Patient does have history of lung cancer, pulmonary embolism doubtful, patient did receive TPA for possible stroke which would also have beneficial effects for acute PE Patient sinus rhythm on monitor, remains hemodynamically stable without need for pressors Fluids/Renal: Creatinine stable, monitor routine BMPs and replete electrolytes as necessary GI/Nutrition: Patient passed bedside swallow, speech consulted for official eval Heart healthy diet Heme: Status post TPA administration of 1400 DVT prophylaxis: SCDs Endocrine: ICU hyperglycemia protocol Vascular access: Peripheral IVs Code Status: Full code (2) Dizziness: (3) Vomiting: (4) Syncope: (5) COPD (chronic obstructive pulmonary disease): Supervising Physician Co-Signing Physician Notes I personally evaluated and examined this patient. I agree with the assessment and plan of Cira DON. 73-year-old male who came in initially due to vertigo. Was found to have an NIH score of 1 in the emergency department. His main symptoms were dizziness and nausea. He said some the nausea actually resolved prior to receiving TPA and after he received antiemetics. Initial head CT was negative for any bleed. MRI was negative for any acute stroke. He received TPA and did not have any complications. His subsequent stroke scale was 0. He appears to be doing comfortably today. He denies any weakness and has no obvious focal weakness on exam. CT of the head 24 hours status post TPA was negative. Troponins were negative. Neurology was consulted. At this time, we are still waiting for their note. He is stable and transferred to the floor with monitoring. Subjective 73-year-old male that was admitted to ICU following TPA administration at 1405 on 09/24. All imaging negative at this point, will obtain CT head at 24 hours post administration. If negative, patient stable for downgrade from ICU status. Patient denies headache, nausea vomiting, dizziness or syncope, shortness of breath, palpitations or chest pain, abdominal pain, trouble speaking or swallowing, numbness or tingling, extremity weakness. He does report dizziness described as the room spinning from the prior day but denies current symptoms. Of note patient has past medical history of vertigo. Review of Systems Review of Systems: All systems reviewed & are unremarkable except as noted in HPI & below Physical Exam Eyes: PERRL, conjunctivae normal, anicteric sclerae ENMT: external ear and nose normal, oropharynx normal Neck: trachea midline, no thyromegaly Respiratory: normal respiratory effort, lungs clear to auscultation Cardiovascular: RRR, no murmur, no edema Gastrointestinal (Abdomen): normal bowel sounds, soft, nontender, no hepatosplenomegaly Musculoskeletal: no cyanosis or clubbing, extremities motor strength 5/5 Skin: no rashes, warm and dry Neurologic: PERRL, EOMI, accommodation nl, no face palsy, no dysarthria CN's II-XI intact bilaterally Psychiatric: A+Ox3, euthymic affect Results & Data Vital Signs (Past 12 Hours) Vital Signs Temp Pulse Pulse Resp BP BP Pulse Ox 09/24/18 10:00 88 20 117/75 94 09/24/18 09:00 87 18 116/72 96 09/24/18 08:00 36.4 C L 84 21 123/65 96 09/24/18 07:00 79 16 118/72 95 09/24/18 06:00 80 14 136/91 97 09/24/18 05:00 78 16 117/70 97 09/24/18 04:00 36.6 C 72 15 122/64 97 09/24/18 03:00 76 17 122/71 96 09/24/18 02:00 80 14 108/66 97 09/24/18 01:00 77 17 121/63 96 09/24/18 00:00 36.6 C 78 14 117/61 95 09/23/18 23:00 83 14 125/74 94 Laboratory Results Laboratory Results - last 24 hr 09/23/18 09/23/18 09/23/18 13:08 13:08 13:08 WBC 16.59 H RBC 4.93 Hgb 14.7 POC Hgb Hct 41.6 L POC Hct MCV 84.4 MCH 29.8 MCHC 35.3 RDW Std Deviation 38.3 RDW Coeff of Ap 12.5 Plt Count 275 MPV 9.6 Immature Gran % (Auto) 0.4 Neut % (Auto) 82.9 Lymph % (Auto) 8.4 [place] % (Auto) 7.6 Eos % (Auto) 0.4 Baso % (Auto) 0.3 Immature Gran # (Auto) 0.07 H Neut # (Auto) 13.75 H Lymph # (Auto) 1.39 Placer # (Auto) 1.26 H Eos # (Auto) 0.07 Baso # (Auto) 0.05 PT 10.7 INR 1.0 APTT 22.1 PTT Ratio 0.8 POC Sodium Sodium 140 POC Potassium Potassium 3.3 L POC Chloride Chloride 105 Carbon Dioxide 23 POC Total CO2 Anion Gap 12.0 H POC Anion Gap POC BUN BUN 15 Creatinine 0.99 POC Creatinine Est Cr Clr Drug Dosing 75.4 Est GFR ( Amer) 88.4 Est GFR (Non-Af Amer) 76.3 BUN/Creatinine Ratio 15.1 Glucose 155 H POC Glucose POC Glucose (other) Calcium 8.6 POC Ioniz Calcium Qamar Phosphorus Magnesium Total Bilirubin 0.3 AST 14 L ALT 17 Alkaline Phosphatase 75 Troponin I < 0.015 Total Protein 7.2 Albumin 3.5 Globulin 3.7 Albumin/Globulin Ratio 0.9 Triglycerides Cholesterol LDL Cholesterol, Calc VLDL Cholesterol, Calc HDL Cholesterol Cholesterol/HDL Ratio Specimen Hemolysis Nasal Screen MRSA (PCR) 09/23/18 09/23/18 09/23/18 13:11 15:43 16:24 WBC RBC Hgb POC Hgb 15.0 Hct POC Hct 44 MCV MCH MCHC RDW Std Deviation RDW Coeff of Ap Plt Count MPV Immature Gran % (Auto) Neut % (Auto) Lymph % (Auto) [place] % (Auto) Eos % (Auto) Baso % (Auto) Immature Gran # (Auto) Neut # (Auto) Lymph # (Auto) Placer # (Auto) Eos # (Auto) Baso # (Auto) PT INR APTT PTT Ratio POC Sodium 139 Sodium POC Potassium 3.3 Potassium POC Chloride 104 Chloride Carbon Dioxide POC Total CO2 22 L Anion Gap POC Anion Gap 17.0 POC BUN 15 BUN Creatinine POC Creatinine 0.9 Est Cr Clr Drug Dosing Est GFR ( Amer) Est GFR (Non-Af Amer) BUN/Creatinine Ratio Glucose POC Glucose POC Glucose (other) 162 H Calcium POC Ioniz Calcium Qamar 1.18 Phosphorus Magnesium Total Bilirubin AST ALT Alkaline Phosphatase Troponin I < 0.015 Total Protein Albumin Globulin Albumin/Globulin Ratio Triglycerides Cholesterol LDL Cholesterol, Calc VLDL Cholesterol, Calc HDL Cholesterol Cholesterol/HDL Ratio Specimen Hemolysis Nasal Screen MRSA (PCR) Negative 09/23/18 09/23/18 09/24/18 21:47 21:49 04:29 WBC 9.60 RBC 4.44 L Hgb 12.8 L POC Hgb Hct 37.6 L POC Hct MCV 84.7 MCH 28.8 MCHC 34.0 RDW Std Deviation 38.8 RDW Coeff of Ap 12.7 Plt Count 178 MPV 9.6 Immature Gran % (Auto) 0.2 Neut % (Auto) 80.8 Lymph % (Auto) 7.5 [place] % (Auto) 10.7 Eos % (Auto) 0.6 Baso % (Auto) 0.2 Immature Gran # (Auto) 0.02 Neut # (Auto) 7.75 H Lymph # (Auto) 0.72 L [place] # (Auto) 1.03 H Eos # (Auto) 0.06 Baso # (Auto) 0.02 PT INR APTT PTT Ratio POC Sodium Sodium POC Potassium Potassium POC Chloride Chloride Carbon Dioxide POC Total CO2 Anion Gap POC Anion Gap POC BUN BUN Creatinine POC Creatinine Est Cr Clr Drug Dosing Est GFR ( Amer) Est GFR (Non-Af Amer) BUN/Creatinine Ratio Glucose POC Glucose 126 H POC Glucose (other) Calcium POC Ioniz Calcium Qamar Phosphorus Magnesium Total Bilirubin AST ALT Alkaline Phosphatase Troponin I < 0.015 Total Protein Albumin Globulin Albumin/Globulin Ratio Triglycerides Cholesterol LDL Cholesterol, Calc VLDL Cholesterol, Calc HDL Cholesterol Cholesterol/HDL Ratio Specimen Hemolysis Nasal Screen MRSA (PCR) 09/24/18 04:29 WBC RBC Hgb POC Hgb Hct POC Hct MCV MCH MCHC RDW Std Deviation RDW Coeff of Ap Plt Count MPV Immature Gran % (Auto) Neut % (Auto) Lymph % (Auto) [place] % (Auto) Eos % (Auto) Baso % (Auto) Immature Gran # (Auto) Neut # (Auto) Lymph # (Auto) Placer # (Auto) Eos # (Auto) Baso # (Auto) PT INR APTT PTT Ratio POC Sodium Sodium 142 POC Potassium Potassium 4.0 D POC Chloride Chloride 111 H Carbon Dioxide 24 POC Total CO2 Anion Gap 7.0 POC Anion Gap POC BUN BUN 10 D Creatinine 0.76 POC Creatinine Est Cr Clr Drug Dosing 98.3 Est GFR ( Amer) 106.4 Est GFR (Non-Af Amer) 91.8 BUN/Creatinine Ratio 13.9 Glucose 123 H POC Glucose POC Glucose (other) Calcium 7.6 L POC Ioniz Calcium Qamar Phosphorus 2.3 L Magnesium 2.1 Total Bilirubin AST ALT Alkaline Phosphatase Troponin I Total Protein Albumin Globulin Albumin/Globulin Ratio Triglycerides 99 Cholesterol 156 LDL Cholesterol, Calc 96 VLDL Cholesterol, Calc 20 HDL Cholesterol 40 Cholesterol/HDL Ratio 4 Specimen Hemolysis Nasal Screen MRSA (PCR) Medications Administered Home Medications meclizine 25 mg PO BID PRN #0 10/03/14 [History Confirmed 09/23/18] acetaminophen [Tylenol Extra Strength] 1,000 mg PO Q6H #20 tab 08/16/16 [History Confirmed 09/23/18] cholecalciferol (vitamin D3) [Vitamin D3] 2,000 unit PO DAILY #0 cap 08/17/16 [History Confirmed 09/23/18] diphenhydramine HCl [Benadryl Allergy] 25 mg PO HS PRN #0 08/19/16 [History Confirmed 09/23/18] tiotropium bromide [Spiriva with HandiHaler] 1 cap INHALATION DAILY #0 01/05/17 [History Confirmed 09/23/18] albuterol sulfate [ProAir RespiClick] 1 inh INHALATION BID PRN 09/23/18 [History Confirmed 09/23/18] alendronate 70 mg PO WK 09/23/18 [History Confirmed 09/23/18] calcium carbonate-vitamin D3 [Calcium 600 + D(3)] 1 tab PO DAILY 09/23/18 [History Confirmed 09/23/18] Active Medications Acetaminophen (Tylenol) 1,000 mg PO Q6 HAILEY Stop: 10/23/18 16:14 Last Admin: 09/24/18 05:36 Dose: Not Given Documented by: Albuterol (Proair Hfa) 1 puffs INH BID PRN PRN Reason: Shortness Of Breath Stop: 10/23/18 16:14 Diphenhydramine HCl (Benadryl Capsule) 25 mg PO HS PRN PRN Reason: Allergy Symptoms Potassium Chloride/Dextrose/Sod Cl (D5nss + 20meq Kcl) 20 meq in 1,000 mls @ 110 mls/hr IV .Q9H6M HAILEY Stop: 10/23/18 16:14 Last Admin: 09/24/18 02:29 Dose: 110 mls/hr Documented by: Ioversol (Optiray 320 125ml) 119 ml IV ONCE PRN PRN Reason: Interaction Checking Stop: 09/27/18 13:40 Last Admin: 09/23/18 13:41 Dose: 1 ml Documented by: Meclizine HCl (Antivert) 25 mg PO BID PRN PRN Reason: Vertigo Stop: 10/23/18 15:49 Miscellaneous (Icu Protocol For Hyperglycemia) 1 ea N/A PRN PRN; Protocol PRN Reason: Hyperglycemia Protocol Stop: 09/25/18 15:49 Multivitamins/Minerals (Caltrate Plus) 1 tab PO DAILY HAILEY Stop: 10/24/18 08:59 Last Admin: 09/24/18 08:43 Dose: 1 tab Documented by: Potassium Chloride (Stacy Ciel Elix) 20 meq PO BID HAILEY Stop: 09/24/18 21:01 Last Admin: 09/24/18 08:59 Dose: Not Given Documented by: Tiotropium [place] (Spiriva) 1 puffs INH DAILY HAILEY Stop: 10/24/18 08:59 Last Admin: 09/24/18 08:44 Dose: 1 puffs Documented by: Vitamin D (Vitamin D3) 2,000 units PO DAILY HAILEY Stop: 10/24/18 08:59 Last Admin: 09/24/18 08:43 Dose: 2,000 units Documented by: PG Care Time/CCT Total # of Minutes Spent Total Time Spent with Patient: Total time spent is greater than 50% in coordination of care (as documented) at patient's floor/unit and/or counseling patient: Critical Care Time: No (1) Syncope Syncope type: unspecified Qualified Code(s): R55 - Syncope and collapse (2) Vomiting Nausea presence: unspecified Vomiting Intractability: unspecified Vomiting type: unspecified Qualified Code(s): R11.10 - Vomiting, unspecified
[2018-09-24] MEDS ORDERED: ACETAMINOPHEN 500 MG TAB PO PRN (12:39)
--- NOTE | 2018-09-24 14:06 | Hospitalist Progress Note ---
Date of Service September 24, 2018 Assessment & Plan (1) CVA (cerebral vascular accident): Telemed eval recs for tpa given sx and pt within window Pt much improved s/p tpa per pt and family initially on admission, now WNL CTA head/neck WNL MRI neg Repeat CT pending CBC WNL Mild hypoK on PRP, otherwise WNL Trop neg x3 ECHO pending Can transfer from ICU once cleared from the tpa monitoring window Neuro c/s pending PT/OT/ST pending Lipid panel WNL (2) Hypokalemia: Mild, monitor with IVF (3) Lung cancer: s/p chemo and lobectomy in 2017 No current tx (4) COPD (chronic obstructive pulmonary disease): continue home meds (5) DVT prophylaxis: SCDs Subjective Pt is markedly improved today. He has had no further vertigo, n/v. He has been tolerating PO without issue. No new concerns. Pt denies fever, SOB, chest pain, abd pain, n/v/c/d, LE pain or swelling. Review of Systems Review of Systems: Pertinent positives and negatives reviewed in HPI--all others negative Physical Exam Constitutional: WD/WN, vitals as above Eyes: normal visual ontiveros by confrontation and + anicteric sclerae Neck: normal visual inspection and trachea midline Respiratory: normal respiratory effort, lungs clear to auscultation Cardiovascular: Rate/Rhythm: regular rate and regular rhythm Gastrointestinal (Abdomen): Inspection/Auscultation: abdomen not distended Percussion/Palpation: abdomen soft; abdomen nontender Musculoskeletal: Head/Neck/Chest: normocephalic and head atraumatic Skin: no rashes, warm and dry Neurologic: CN's II-XI intact bilaterally and awake; not confused Speech / Cognition: normal speech Much more alert and conversant today Psychiatric: A+Ox3, euthymic affect Results & Data Vital Signs (Past 12 Hours) Vital Signs Temp Pulse Pulse Resp BP BP Pulse Ox 09/24/18 13:00 85 23 125/74 91 09/24/18 12:00 36.5 C 85 18 128/76 94 09/24/18 11:00 82 17 124/70 92 09/24/18 10:00 88 20 117/75 94 09/24/18 09:00 87 18 116/72 96 09/24/18 08:00 36.4 C L 84 21 123/65 96 09/24/18 07:00 79 16 118/72 95 09/24/18 06:00 80 14 136/91 97 09/24/18 05:00 78 16 117/70 97 09/24/18 04:00 36.6 C 72 15 122/64 97 09/24/18 03:00 76 17 122/71 96 PG Care Time/CCT Total # of Minutes Spent Total Time Spent with Patient: Total time spent is greater than 50% in coordination of care (as documented) at patient's floor/unit and/or counseling patient:
--- NOTE | 2018-09-24 14:38 | CT Scan Report ---
CT head/brain wo con CT DOSE: 614.27 mGy.cm HISTORY: Mental status change post 24 hr TPA administration TECHNIQUE: Multiaxial CT images of the head were performed without the use of intravenous contrast. A dose lowering technique was utilized adhering to the principles of ALARA. Comparison: 09/23/2018 Findings: The paranasal sinuses and mastoid air cells are clear. The calvarium and skull base are int act. The ventricles and sulci are within normal limits. There is no mass, hematoma, midline shift, or acute infarct. Age-related atrophy and chronic small vessel change is stable. Impression: No acute intracranial abnormality. No evidence for acute intracranial hemorrhage. Chronic and age-rel ated change. The above report was generated using voice recognition software. It may contain grammatical, syntax or spelling errors. Electronically signed by: Leandro Jain M.D. 09/24/2018 2:36 PM
[2018-09-24] MEDS ORDERED: ASPIRIN 81 MG ECTAB PO ONE (15:15)
[2018-09-25 06:22] LABS: Basophils # (auto) 0.04 K/uL (0-0.2); Basophils % (auto) 0.5 %; Eosinophils % (auto) 1.3 %; Hematocrit (blood only) 40.3 % (42-52); Immature Granulocytes # (auto) 0.02 K/uL (0.00-0.02); Immature Granulocytes % (auto) 0.3 %; Lymphocytes # (auto) 0.74 K/uL (1.2-3.4); Lymphocytes % (auto) 9.5 %; Mean Corpuscular Hemoglobin 29.2 pg (25-34); Mean Corpuscular Hgb Conc 34.7 g/dL (32-36); Mean Corpuscular Volume 84.1 fL (80-100); Mean Platelet Volume 9.5 fL (7.4-10.4); Monocytes # (auto) 0.66 K/uL (0.11-0.59); Monocytes % (auto) 8.5 %; Neutrophils % (auto) 79.9 %; Platelet Count 217 K/uL (130-400); RDW Coefficient of Variation 12.5 % (11.5-14.5); RDW Standard Deviation 38.2 fL (36.4-46.3); Red Blood Count 4.79 M/uL (4.7-6.1); White Blood Count 7.76 K/uL (4.8-10.8)
[2018-09-25 06:55] LABS: BUN Creatinine Ratio 13.9 (10-20); Calcium 8.3 mg/dl (8.5-10.1); Creatinine Clr Calc Pharmacy 96.6 ml/min; Est GFR (African American) 105.8; Est GFR (Non-African American) 91.3; Magnesium 2.2 mg/dl (1.8-2.4); Potassium 3.6 mmol/L (3.5-5.1)
[2018-09-25 06:56] LABS: Phosphorus 2.1 mg/dl (2.5-4.9)
[2018-09-25] MEDS: TIOTROPIUM BROMIDE 5 PUFF/90 MCG INH INH SCH (08:30)
[2018-09-25] MEDS: CHOLECALCIFEROL 1,000 UNITS TAB PO SCH (08:31)
[2018-09-25] MEDS: CALCIUM 600MG + VIT D 400 IU TAB PO SCH (08:32)
--- NOTE | 2018-09-25 08:57 | Neurology Consultation ---
Date of Consultation September 25, 2018 Assessment & Plan (1) Syncope: Many of this patient's reported symptoms including dizziness/vertigo, nausea, diaphoresis followed by a syncopal episode in the ambulance the most consistent with a vasovagal episode. However, vertigo was a more prominent s ymptom and he had reported some associated diplopia as well prompting some concern for vertebrobasilar insufficiency. However, there were no objective findings on his neurological examination that would otherwise have suggested a posterior circulation stroke or TIA. Also, his neuro imaging including CT of the head, CT angiography of the head and neck, and follow-up brain MRI are completely unremarkable in terms of any evidence of acute or subacute infarct or thrombus. Ultimately, I do not think this patient had a stroke or TIA but rather suspect that his symptoms are best explained by a vasovagal episode or possibly benign positional paroxysmal vertigo given his history of this disorder. However, given that it is impossible to completely exclude a vertebrobasilar territory TIA with absolute certainty, I think continuing with daily low-dose aspirin is reasonable for this patient. I do not have any further recommendations for this issue at this time. (2) Vertigo: Vertigo/spinning sensation as described above. Patient does relate a history of what sounds like benign positional paroxysmal vertigo with episodes triggered by lying back and looking up. In fact, he has a prescription for meclizine for this issue and also has some home exercises that were given to him by his PCP, Dr. Wilde. His vertigo is currently resolved. He may continue to use meclizine on an as-needed basis. I also discussed a referral to physical therapy for Jag maneuvers if his symptoms should become a more recurrent problem. History of Present Illness Reason for Consultation: Stroke alert status post TPA Requesting Physician: Dot Islas Attending Physician: Dot Islas, DO History of Present Illness The patient is a 73-year old male with a chief complaint of vertigo that began acutely while walking into a grocery store about 1 hour prior to arrival in the emergency department. He reported that it felt as if the room was spinning. He also complained of associated nausea, cold sweats, and feeling rather dizzy, as if he was going to pass out. He apparently had a brief syncopal episode while in the ambulance. He was complaining of a headache, ear fullness, neck pain, and chest pain during his assessment in the emergency department and had also reported some vision disturbance/diplopia although he now attributes this to sweat in his eyes. The patient does endorse a past medical history of episodic vertigo, typically triggered by lying back and/or looking up. He is often had episodes while working underneath his car and has a prescription for meclizine. Given that his initial symptoms were somewhat concerning for a possible posterior circulation stroke he underwent emergent CT of the head and CT a ngiography of the head and neck. These tests were unremarkable. A tele-stroke consultation with [facility] was obtained as well. Given persistent concerns regarding a possible posterior circulation stroke and lack of contraindications, TPA was administered. The patient's symptoms were completely resolved yesterday. He has had an unremarkable follow-up brain MRI and CT of the head. Additional details as below. Allergies Allergy/AdvReac Type Severity Reaction Status Date / Time pneumococcal vaccine Allergy Intermediate ARM Verified 09/23/18 13:24 SWELLING codeine AdvReac Intermediate "sick in Verified 09/23/18 13:24 stomach" Home Medications Home Medications Medication Instructions Recorded Confirmed Type meclizine 25 mg PO BID PRN #0 10/03/14 09/23/18 History acetaminophen [Tylenol Extra 1,000 mg PO Q6H #20 tab 08/16/16 09/23/18 History Strength] cholecalciferol (vitamin D3) 2,000 unit PO DAILY #0 cap 08/17/16 09/23/18 History [Vitamin D3] diphenhydramine HCl [Benadryl 25 mg PO HS PRN #0 08/19/16 09/23/18 History Allergy] tiotropium bromide [Spiriva with 1 cap INHALATION DAILY #0 01/05/17 09/23/18 History HandiHaler] albuterol sulfate [ProAir 1 inh INHALATION BID PRN 09/23/18 09/23/18 History RespiClick] alendronate 70 mg PO WK 09/23/18 09/23/18 History calcium carbonate-vitamin D3 1 tab PO DAILY 09/23/18 09/23/18 History [Calcium 600 + D(3)] Patient History Medical History Lung cancer Pulmonary infiltrate in right lung on chest x-ray Surgical History S/P lobectomy of lung Family History Father Stroke Social History Preferred Language: Macanese Communication Ability: Effective 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 Beliefs That Will Affect Care: None Current Living Situation: Spouse Other Information That Helps Us Care for You: No Feels Safe at Home: Yes Safety Concerns: Feels Safe At This Time Smoking Status: Former smoker Cigarettes Per Day: 20 ; Smoking End Date: quit approx 7 years ago ; Number of Years Since Quit: 6 ; Hx Alcohol Use: Yes Alcohol type: beer Hx Substance Use: No Review of Systems Constitutional: no fever and no chills Eyes: no blind spots and no eye pain Ear, Nose, Mouth, Throat: as per Subjective / HPI and + dizziness; no tinnitus and no hearing loss Respiratory: no cough and no dyspnea Cardiovascular: no chest pain and no palpitations Gastrointestinal: + nausea Genitourinary: no dysuria and no urinary incontinence Musculoskeletal: no myalgia Integumentary: no rash and no lesions Neurologic: as per Subjective / HPI Psychiatric: no depression and no anxiety Hematologic / Lymphatic: no easy bleeding and no easy bruising Physical Exam Physical Exam: The patient is a well-developed, well-nourished elderly male. He is alert and fully oriented. Recent and remote memory intact. Attention and concentration normal. Patient exhibits a normal spontaneous speech pattern as well as an age-appropriate fund of knowledge and normal comprehension of vocabulary. Visual ontiveros full to confrontation. Visual acuity normal. Pupils equal round react to light and accommodation. Eye movements normal. No nystagmus. Facial sensation intact. There is no facial droop or weakness. Hearing intact. Palate elevates to midline. Shoulder shrug intact. Tongue protrudes to midline. Sensation intact to all modalities in all 4 limbs. Deep tendon reflexes intact and symmetrical for the arms and legs. Plantar responses downgoing bilaterally. There is no dysdiadochokinesia or dysmetria fing er-to-nose or [id number] bilaterally. Ophthalmoscopic examination reveals normal-appearing optic disks and posterior segments. No papilledema or hemorrhages. Carotid pulses normal bilaterally. There are bilateral carotid bruits although probably radiating heart sounds from a loud systolic murmur. Cardiac rhythm regular. Gait and station not tested due to safety concerns. Patient exhibits normal muscle strength and tone for all 4 limbs proximally and distally. There is no atrophy. No abnormal movements observed. Results & Data Vital Signs (Past 12 Hours) Vital Signs Temp Pulse Resp BP BP Pulse Ox 09/25/18 07:58 139/90 09/25/18 06:57 36.9 C 94 H 16 177/97 H 90 09/25/18 03:35 36.7 C 80 16 153/90 H 91 09/24/18 23:29 36.5 C 80 16 138/89 95 Laboratory Results WBC 7.76, hemoglobin 14.0, hematocrit 40.3, platelet count 217, sodium 140, potassium 3.6, BUN 11, creatinine 0.77, glucose 103, calcium 8.3, triglycerides 99, cholesterol 156, LDL 96, VLDL 20, HDL [address] of the head including CT angiography of the head and neck completed September 23, 2018 were unremarkable. Images and report reviewed. MRI of the brain completed September 23, 2018- for acute or subacute infarct. There is mild cerebral atrophy and chronic small vessel ischemic change. No specific evidence for vertebrobasilar territory infarct. Images and report reviewed. Follow-up CT of the head completed yesterday unremarkable. No evidence for interval development of hemorrhage or subacute/acute infarct. Images and report reviewed. An echocardiogram completed yesterday revealed normal left ventricular systolic function. No regional wall motion abnormalities. No intra-atrial shunt. No evidence for cardioembolic source. Electrocardiogram completed today revealed a normal sinus rhythm, 95 bpm. PG Care Time/CCT Total # of Minutes Spent Total Time Spent with Patient: Total time spent is greater than 50% in coordination of care (as documented) at patient's floor/unit and/or counseling patient: (1) Syncope Syncope type: unspecified Qualified Code(s): R55 - Syncope and collapse
[2018-09-25] MEDS ORDERED: ASPIRIN 81 MG ECTAB PO SCH (09:00)
--- NOTE | 2018-09-25 09:40 | Discharge Summary ---
Date of Service September 25, 2018 Admission HPI Per Admitting Provider 73 y/o M c/o vertigo. states that pt did note feeling like his "ears were full" earlier today during breakfast. He has no other concerns at that time. They were at the grocery when pt had sudden onset of intense ear fullness, dizziness, lightheadedness, n/v, and inability to keep his balance. had to help him to the car. They went home, but pt got worse so they called EMS. Pt had some SOB and chest tightness as sx worsened. Family states that his face was white and "he looked terrible". He had no issues using his UE/LE but required assistance to walk due to balance. Pt has hx of vertigo, which is what he thought was happening initially, however states that he has never had sx as intense as today. He was not confused or slurring his speech, but thought his voice sounded "weak". Pt had a syncopal episode during some portion of EMS assistance. states that pt had a usual day yesterday. They attended a and the luncheon after without incident. Pt denies fever, abd pain, c /d, LE pain or swelling. Pt was evaluated by [facility] telemed neurology upon arrival to the ED. CTA was read as neg, however pt was within tpa window and given sx, it was decided that pt should be tx with tpa. Family states that pt looks much improved. His color is almost at his usual. Pt states he is still mildly nauseated, but better. Ear fullness and dizziness are present but much better. No further SOB or chest tightness. Principal Diagnosis Pt continues to feel well. He has had no return of sx, even mild vertigo, since admission. He is tolerating PO without issue. Pt denies fever, SOB, chest pain, abd pain, n/v/c/d, LE pain or swelling. Discharge Exam Constitutional WD/WN, vitals as above Eyes normal visual ontiveros by confrontation and + anicteric sclerae Neck normal visual inspection and trachea midline Respiratory normal respiratory effort, lungs clear to auscultation Cardiovascular Rate/Rhythm: regular rate and regular rhythm Gastrointestinal (Abdomen) Inspection/Auscultation: abdomen not distended Percussion/Palpation: abdomen soft; abdomen nontender Musculoskeletal Head/Neck/Chest: normocephalic and head atraumatic Skin no rashes, warm and dry Neurologic CN's II-XI intact bilaterally and awake; not confused Speech / Cognition: normal speech Psychiatric A+Ox3, euthymic affect Discharge Data Allergies Allergy/AdvReac Type Severity Reaction Status Date / Time pneumococcal vaccine Allergy Intermediate ARM Verified 09/23/18 13:24 SWELLING codeine AdvReac Intermediate "sick in Verified 09/23/18 13:24 stomach" Consultations 09/23/18 15:50 Consult Case Management - Discharge Planning Routine Consult Producer Routine 09/24/18 11:35 Consult Neurology Routine Ordered Studies 09/23/18 13:02 CT angio head wo/w Stat CT angio neck with con Stat 09/23/18 15:50 MR brain wo con Stat 09/24/18 13:29 CT head/brain wo con Routine Hospital Course (1) CVA (cerebral vascular accident): Telemed eval recs for tpa given sx and pt within window Pt much improved s/p tpa per pt and family initially on admission, now WNL CTA head/neck WNL MRI neg Repeat CT s/p tpa WNL CBC WNL Mild hypoK on PRP on admission, otherwise WNL Trop neg x3 ECHO with EF 55-60% and moderate Neuro feels that pt's sx were not related to a CVA given neg imaging, but more likely a very severe episode of BPPV Recs for aspirin 81mg and PT eval for Jag's PT/OT/ST WNL Lipid panel WNL (2) Hypokalemia: Resolved (3) Lung cancer: s/p chemo and lobectomy in 2017 No current tx (4) COPD (chronic obstructive pulmonary disease): continue home meds (5) DVT prophylaxis: SCDs Total Time Total Time Spent Total Time Spent (In Minutes): >30 Discharge Plan Discharge Items Patient Disposition: Home - Self-Care Reason For Visit: STROKE Discharge Diagnosis: benign positional paroxysmal vertigo Discharge Goals: Decrease discomfort and Improve function Activity: Resume your previous activity Non-emergency contact: Primary Care Provider Call non-emergency contact if: you have any medication questions and your symptoms worsen Follow-up/Referrals: Morro Wilde MD [Primary Care Provider] - 10/01/18 3:00 pm (Please, follow up with Dr. Morro Wilde on MondayOctober 01 at 3:00 pm. *If you need to change this appointment, call the office at [phone].) Diet: Regular Addtl Provider Instructions: You can pursue physical therapy if you have ongoing vertigo issues. It may be helpful to meet with them at least once, even if you are feeling fine, so they can show you maneuvers that will help if you do have repeat of your symptoms. Prescriptions: New aspirin 81 mg tablet,delayed release (DR/EC) 81 mg PO DAILY Qty: 1 RF: 0 Continued meclizine 25 mg Tablet 25 mg PO BID PRN (Reason: Vertigo) Qty: 0 RF: 0 acetaminophen [Tylenol Extra Strength] 500 mg Tablet 1,000 mg PO Q6H Qty: 20 RF: 3 cholecalciferol (vitamin D3) [Vitamin D3] 2,000 unit Tablet 2,000 unit PO DAILY Qty: 0 RF: 0 diphenhydramine HCl [Benadryl Allergy] 25 mg Tablet 25 mg PO HS PRN (Reason: Allergy Symptoms) Qty: 0 RF: 0 Spiriva with HandiHaler 18 mcg Capsule, W/Inhalation Device 1 cap INHALATION DAILY Qty: 0 RF: 0 alendronate 70 mg tablet 70 mg PO WK RF: 0 calcium carbonate-vitamin D3 [Calcium 600 + D(3)] 600 mg(1,500mg) -400 unit Tablet 1 tab PO DAILY RF: 0 ProAir RespiClick 90 mcg/actuation Aerosol Powdr Breath Activated 1 inh INHALATION BID PRN (Reason: copd) Qty: 1 RF: 0 Stand-Alone Forms: [facility] Discharge Orders: Discharge Order (Routine); Ordered 09/25/18 Ordered By: Dot Islas Admission Data Admit Date/Time: 09/23/18 14:44 Attending Provider: Dot Islas Admit Provider: Dot Islas Primary Care Provider: Morro Wilde Other Providers: Bull Hyde ; Bull Hendrix Service: Telemetry Other Interventions: Discharge Summary Assessment (RN) Last Done: 09/25/18 11:15 DC Date/Time DO NOT enter until pt leaves facility: 09/25/18 12:30
--- NOTE | 2018-10-24 05:58 | Coding Query ---
CODING QUERY To promote full compliance with coding requirements relating to patient care, provider participation is requested in all cases of label printing machinist uncertainty. Please assist us with the question(s) below: Coding Question(s): CVA is documented as PDx throughout the record along with documentation of a negative brain MRI and "neuro feels that pt's sx were not related to a CVA given neg imaging, but more likely a very severe episode of BPPV". Please indicate below if CVA was ruled out or not. Thank you. Physician's Response(s): ( ) CVA is a possible diagnosis along with BPPV ( x ) CVA is ruled out, PDx is BPPV ( ) Other, please specify Thank you Cher Mason Principal Diagnosis: "that condition established after study, to be chiefly responsible for occasioning the admission of the patient to the hospital for care." Co-Existing Principal Diagnosis: "when two or more diagnoses equally meet the criteria for principal diagnosis as determined by the circumstances of admission, diagnostic work up, and/or therapy provided, and the Alphabetic Index, Tabular List, or another coding guideline does not provide sequencing direction, any one of the diagnoses may be sequenced first." "When the physician has documented what appears to be a current diagnosis in the body of the record, but has not included the diagnosis in the final diagnostic statement, the physician should be asked whether the diagnosis should be added." (Source Coding [facility] 2 QTR90. p3-4) TAYLOR
== END 2018-09-25 12:30 | disposition home or self-care (01) | DRG 149 ==
LOC: ED 12:43 → 1E 14:44 → 2E 09-24 16:19

== ENCOUNTER 2019-01-09 09:03 | Inpatient (IN) ==
--- NOTE | 2019-01-02 10:16 | Anesthesiology Consultation ---
Date of Service January 02, 2019 Assessment & Plan Chart Review Chart Review: Acceptable Risk for Surgery and Patient NOT seen in Pre Admission Testing Consults Requested none ASA ASA4 Proposed Anesthesia Anesthesia Type: General Anesthesia Line Insertion: Arterial line History Surgery Operation Date: 01/09/19 11:00 Proposed Procedures p Navigational Bronchoscopy with ICG Markings, - Andrew Mittal MD, FACS s Robotic Left Video Assisted Thoracoscopy with Left Upper Lobe Wedge Resection, Possible Left Upper Lobectomy with Mediastinal Lymphadenectomy - Andrew Mittal MD, FACS Height/Weight Height: 5 ft 9 in Weight: 88.451 kg Allergies Allergy/AdvReac Type Severity Reaction Status Date / Time pneumococcal vaccine Allergy Intermediate ARM Verified 12/26/18 08:34 SWELLING codeine AdvReac Intermediate "sick in Verified 12/26/18 08:34 stomach" Medications Home Medications Medication Instructions Recorded Confirmed Last Taken acetaminophen [Tylenol Extra 1,000 mg PO Q6H #20 tab 08/16/16 12/26/18 Unknown Strength] diphenhydramine HCl [Benadryl 25 mg PO HS PRN #0 08/19/16 12/26/18 12/08/18 21:00 Allergy] calcium carbonate-vitamin D3 1 tab PO 1300 09/23/18 12/26/18 12/09/18 14:00 [Calcium 600 + D(3)] ProAir RespiClick 1 inh INHALATION BID PRN #1 ea 09/25/18 12/26/18 12/07/18 14:00 alendronate 70 mg PO WK 12/07/18 12/26/18 12/09/18 09:00 aspirin 81 mg PO 1300 12/07/18 12/26/18 12/09/18 14:00 cholecalciferol (vitamin D3) 1,000 unit PO 1300 12/07/18 12/26/18 12/09/18 14:00 [Vitamin D3] tiotropium bromide 18 mcg capsule See Rx Instructions .ROUTE 12/28/18 Unknown with inhalation device .COMPLEX #30 capsule Past Medical History Medical History 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, 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 COPD (chronic obstructive pulmonary disease) Left upper lobe pulmonary nodule Lung cancer CHEMO AND RADIATION Osteoarthritis Osteoporosis (Acute) Vertigo Exercise / Class Metabolic Activity III < 4 Walking/Shop/Light housework Past Family History Family History Father FHx: bladder cancer Mother Family history of diabetes mellitus Past Surgical History Surgical History History of cataract surgery RT History of herniorrhaphy INGUINAL History of tonsillectomy History of tooth extraction S/P bronchoscopy with biopsy (12/10/18) S/P lobectomy of lung (01/09/17) Right lower lobectomy and mediastinal lymphadenectomy 01-09-17 Past Anesthesia History No Hx of Anesthesia Complications and No Family Hx of Anesthesia Complications History of PONV No Hx of PONV and No Hx of Motion Sickness Social History Smoking Status: Former smoker tobacco type: cigarettes Do You Dip or Chew Tobacco: No Smoking End Date: 7-8 YEARS AGO Hx Alcohol Use: Yes Alcohol type: beer alcohol intake frequency: holidays/special occasions only Hx Substance Use: No substance use type: does not use Testing Laboratory Results WBC: 6.42 Hc.2 Hct: 44 PLATELETS:263 SODIUM: 136 POTASSIUM: 4.0 CHLORIDE: 105 CO2: 27 BUN: 13 CREATININE: 0.92 GLUCOSE: 81 PT: 10.7 PTT: 22.1 INR: 1.0 UA: TYPE AND SCREEN: Electrocardiogram Date: 09/28/18 Findings: + NSR @ (at 80) Chest X-Ray Date: 12/10/18 Findings: + NAD and + other (emphysema;chronic volume loss right lung) Echocardiogram Date: 09/24/18 EF: 55 LV Function: normal RWMA: + none Other Findings: + LVH (mild) Valvular Disease: + (moderate -JOSELO-0.97 cm2)
[~2019-01-09 09:03] MED LIST changes: -ACET-1256 PO; -ADVIN10/60 INH; -ALBU18002 INH; -AMOX1TAB43 PO; -ANT25 PO; +DEXAMETHASONE SOD INJ 4 MG/ML VIAL ONE; -DIPH1TAB87 PO; -ERGO500037 PO; +LARYING-O-JET KIT (LTA) ONE; +LIDOCAINE HCL 2% 2 ML VIAL/AMP(20MG/ML) INFIL ONE; +LR 15ML/HR IV SCH; +MIDAZOLAM HCL 1 MG/ML 2ML VIAL ONE; +ONDANSETRON INJ 2 MG/ML 2 ML VIAL ONE; +PROPOFOL IV EMULSION 10 MG/ML 20 ML VIAL IV ONE; +ROCURONIUM BROMIDE 10 MG/ML 5 ML VIAL ONE; -RXC5 PO; -SPRIN/30 INH; +fentaNYL citrate 100 MCG/2 ML VIAL ONE
--- NOTE | 2019-01-09 09:30 | History & Physical Bridge Note ---
Date of Service January 09, 2019 History & Physical Bridge Note I have examined the patient, reviewed the History & Physical and in the interval since the performance of the History & Physical I have noted the following changes of clinical significance: no changes noted
[2019-01-09] MEDS ORDERED: ATROPINE SULFATE 0.1 MG/ML 10ML SYR IV PRN (10:33)
[2019-01-09] MEDS ORDERED: ONDANSETRON INJ 2 MG/ML 2 ML VIAL IV PRN ×2 (10:33→17:17)
[2019-01-09] MEDS ORDERED: PROMETHAZINE HCL 12.5 MG in SODIUM CHLORIDE 0.9% 50 ML IV PRN (10:33)
[2019-01-09] MEDS ORDERED: fentaNYL citrate 100 MCG/2 ML VIAL IV PRN (10:33)
[2019-01-09] MEDS ORDERED: HYDROmorphone INJ 2 MG/ML SYR/VIAL IV PRN (10:33)
[2019-01-09] MEDS ORDERED: METOCLOPRAMIDE HCL INJ 5 MG/ML 2 ML VIAL IV PRN (10:33)
[2019-01-09] MEDS ORDERED: ePHEDrine sulfate 50 MG/ML AMP IV PRN (10:33)
[2019-01-09] MEDS ORDERED: SODIUM CHLORIDE 0.9% PF 50 ML VIAL ONE (11:14)
[2019-01-09] MEDS ORDERED: BUPIVACAINE 0.5 % 5 MG/1 ML MPF 30ML VIAL ONE (11:14)
[2019-01-09] MEDS ORDERED: BUPIVACAINE LIPOSOME 1.3% 266 MG/20 ML VIAL ONE (11:15)
[2019-01-09] MEDS ORDERED: ONDANSETRON INJ 2 MG/ML 2 ML VIAL ONE (11:52)
[2019-01-09] MEDS ORDERED: PROPOFOL IV EMULSION 10 MG/ML 20 ML VIAL IV ONE (11:52)
[2019-01-09] MEDS ORDERED: GLYCOPYRROLATE 0.2 MG/ML VIAL ONE (11:53)
[2019-01-09] MEDS ORDERED: CLINDAMYCIN PHOS 300 MG/2 ML VIAL ONE (11:53)
[2019-01-09] MEDS ORDERED: NEOSTIGMINE METHYLSULFATE 5 MG/5 ML SYR ONE (11:53)
[2019-01-09] MEDS ORDERED: PHENYLEPHRINE 100MCG/ML 5ML SYR ONE (12:32)
[2019-01-09] MEDS ORDERED: ePHEDrine sulfate 50 MG/ML SYR ONE (12:32)
--- NOTE | 2019-01-09 12:35 | Fluoroscopy Report ---
FL chest 1V frontal CLINICAL HISTORY: FLORECITA BRONCH WITH ICG MARKINGS COMPARISON STUDY: None FLUOROSCOPY TIME: 39 seconds NUMBER OF FLUOROSCOPIC IMAGES: 1 FINDINGS: No additional bronchoscopy IMPRESSION: Image intensifier support for navigational bronchoscopy The above report was generated using voice recognition software. It may contain grammatical, syntax or spelling errors. Electronically signed by: Leandro Jain M.D. 01/09/2019 12:34 PM
[2019-01-09] MEDS ORDERED: fentaNYL citrate 100 MCG/2 ML VIAL ONE ×2 (14:16→16:08)
--- NOTE | 2019-01-09 15:01 | Operative Report ---
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 I identified the patient and participated in the time-out.: Yes Procedure Operation Date: 01/09/19 11:00 Actual Procedures p Navigational Bronchoscopy with ICG Markings, - Andrew Mittal MD, FACS s Robotic Left Video Assisted Thoracoscopy with wedge Resection SATNAM nodule with Mediastinal Lymph node sampling (Left) - Andrew Mittal MD, FACS Surgeon Andrew Mittal MD, FACS Watch And Clock Repairer Ivania ALVAREZ Estimated Blood Loss 75 Findings Consistent with Post-Op Diagnosis Specimens lymph nodes, wedge resections SATNAM X 2, Small wedge LLL Drains 24 ecuadorean chest tube Anesthesia Type General Complications none Disposition Accompanied Patient To Recovery: No Disposition: Recovery Room Indications Alton Emmanuel is a 73-year-old male well-known to me who underwent neoadjuvant chemotherapy and radiation and then underwent a robot-assisted thoracoscopic right lower lobectomy 2 years ago on 01/09/2017. I been following the patient was found to have a small but hypermetabolic mass in his left upper lobe. We were unable to get a diagnosis of the navigational bronchoscopy. He was not a candidate for a needle biopsy. We had a long talk and I brought him to the operating room and explained we may do an anatomic resection however, the pathology showed this may be metastatic disease we would stop it a wedge. On 01/09/2019 the patient brought the operating room and underwent uncomplicated robot-assisted thoracoscopic wedge resection. Took down a few adhesions. I performed a navigational bronchoscopy and marked this area with indocyanine green dye and then upon placing the robotic camera was then in switching to firefly fluorescence we were able to see the mass and wedged it out. Unfortunately we did not get an answer with this so I made a larger wedge resection and indeed the patient did have a poorly differentiated carcinoma. I discussed this with Dr. Luc Wilde. I did stick out several lymph nodes. I was concerned because the patient was not tolerating one lung ventilation well which is not surprising however, of more concern to me is the fact that I saw him before the operation as he was getting undressed and he was markedly short of breath and tachypneic. He states "I been like this since the surgery ". Even though his pulmonary function showed he would tolerate a lobectomy I was concerned about offering him such. For this reason I did a wedge resection as it may well prove to be metastatic. He tolerated it well. Description of Procedure Patient brought to the operating room laid supine position. General anesthesia induced was taken before and single-lumen tube. Appropriate timeout was called and prophylactic antibiotics given a fiberoptic bronchoscope was placed to the adapter with an endotracheal tube and the airways were mapped. His prior right lower lobe bronchial staple line is intact. We then placed a navigational probe and we were able to get out to the mass fairly easily. I then injected a cc of indocyanine green dye with a biopsy needle under fluoroscopic guidance. I suctioned out the patient well and we really had no bleeding and no significant mucus. Patient was then switched over to a double-lumen tube in place in the right lateral decub position his left chest prepped and draped in sterile fashion. Again a timeout was been called and he had already received a dose of prophylactic antibiotics. I then proceeded to go to [facility] and his saturations promptly dropped. He was maintained in the mid to low 80s. I then placed 5 ports. A 12 mm camera port was placed in the mid axillary line at about the eighth interspace. We then placed an 8 mm port posterior and anterior and then a 5 mm port even further posterior. A 12 mm assistance port was then placed anterior just above the diaphragm between the anterior port and camera port although several interspaces below. The robot was docked. There were adhesions noted from the upper lobe to the chest wall these were taken down using cautery. We then switched to firefly fluorescence and we are able to see the area we had marked. Grasping this with a forcep we then fired an Endo SHANNON stapler several times removed a wedge. This was sent to the lab. I was not comfortable as I did not feel a mass in this. For this reason we wedged out another portion of the left upper lobe and I could feel a mass in this specimen. Dr. Luc Wilde confirmed that this indeed was a carcinoma. It was a poorly differentiated carcinoma. I elected to stop at this point as he was not able to maintain his saturations well and symptomatically I was more concerned about him. In addition, if this is metastatic disease, a lobectomy is not indicated. While waiting for the frozen section I dissected out several level 7 nodes, level 5 node, level 10 node, level 11 node. Frozen section came back consistent with a poorly differentiated carcinoma. We had grossly free margins so I decided to stop here. 24 Greenlandic chest tube was placed for the media center assistant's port and sutured in place with heavy silk suture. We then closed the camera port muscle layers with a single 0 Polysorb. Skin was reapproximated using 4-0 Monocryl in a running subcuticular fashion. Beginning the case we had mixed 266 mg of Exparel and 20 cc of solution with 30 cc of 0.5% bupivacaine and 250 cc of normal saline. We injected each of the port sites before making our incisions and then used the remainder to perform an intercostal block from the second to the 12th rib under thoracoscopic guidance. He tolerated it well. Did not have a significant air leak conclusion of the case and a blood loss was negligible. Extubated in the room and transported to the postanesthesia care unit stable condition. I attest to the content of the Intraoperative Record and any orders documented therein. Any exceptions are noted below.
[2019-01-09] MEDS ORDERED: METOCLOPRAMIDE HCL INJ 5 MG/ML 2 ML VIAL IV STA (15:03)
--- NOTE | 2019-01-09 15:51 | XRay Report ---
SINGLE VIEW CHEST CLINICAL HISTORY: Status post wedge resection of the left upper lobe. FINDINGS: An AP, portable, upright chest radiograph is compared to study dated 12/10/2018 and correlat ed with chest CT dated 09/28/2018. The examination is degraded by portable technique and patient rotat ion. The heart is enlarged noting atherosclerotic calcification of the thoracic aorta. Advanced emphy sema and chronic interstitial thickening are similar to previous. Volume loss in the left lung is con sistent with the reported history of surgical resection. A chest tube is present at the left apex. No pneumothorax is seen. Patchy airspace opacities are noted at the left apex. A small pleural effusion is noted on the right. The skeletal structures are osteopenic. The bony thorax is grossly intact. IMPRESSION: 1. Cardiomegaly, advanced emphysema, and postoperative change from left upper lobe wedge resection. 2. A left apical chest tube is in place. No pneumothorax is seen. 3. Patchy airspace opacities are noted at the left apex, likely on a postoperative basis. 4. A small right pleural effusion. Electronically signed by: Troy Zamarripa M.D. 01/09/2019 3:49 PM
--- NOTE | 2019-01-09 16:20 | Anesthesiology Progress Note ---
Date of Service January 09, 2019 Anesthesia Post Procedure Vital Signs Vital Signs: Temp Pulse Pulse Resp BP Pulse Ox 01/09/19 16:15 85 15 87/59 L 92 01/09/19 16:05 88 20 98/62 L 93 01/09/19 15:55 85 16 93/55 L 94 01/09/19 15:45 84 16 97/55 L 97 01/09/19 15:35 82 17 88/52 L 97 01/09/19 15:25 90 17 96/65 L 98 01/09/19 15:15 95 H 16 117/71 98 01/09/19 15:09 36.1 C L 106 H 18 134/66 96 01/09/19 09:58 36.9 C 105 H 18 136/93 96 Pain Intensity Left Chest: Pain Intensity: 0 Transfer of Care Handoff Completed per policy Notes Mental Status: alert / awake / arousable Patient Amnestic to Procedure: Yes Nausea / Vomiting: adequately controlled Pain: adequately controlled Airway Patency, RR, SpO2: stable & adequate BP & HR: stable & adequate Hydration State: stable & adequate Anesthetic Complications: no major complications apparent
[2019-01-09] MEDS ORDERED: ALBUTEROL HFA 8 GM INHALER INH PRN (17:53)
--- NOTE | 2019-01-09 17:54 | Anesthesiology Progress Note ---
Date of Service January 09, 2019 Anesthesia Post Procedure Vital Signs Vital Signs: Temp Pulse Pulse Resp BP Pulse Ox 01/09/19 17:42 36.6 C 97 H 16 100/66 94 01/09/19 16:55 36.7 C 94 H 17 107/64 94 01/09/19 16:45 95 H 16 91/67 L 93 01/09/19 16:35 91 H 16 96/57 L 93 01/09/19 16:25 90 17 91/58 L 95 01/09/19 16:15 85 15 87/59 L 92 01/09/19 16:05 88 20 98/62 L 93 01/09/19 15:55 85 16 93/55 L 94 01/09/19 15:45 84 16 97/55 L 97 01/09/19 15:35 82 17 88/52 L 97 01/09/19 15:25 90 17 96/65 L 98 01/09/19 15:15 95 H 16 117/71 98 01/09/19 15:09 36.1 C L 106 H 18 134/66 96 01/09/19 09:58 36.9 C 105 H 18 136/93 96 Pain Intensity Left Chest: Pain Intensity: 8 Transfer of Care Handoff Completed per policy Notes Mental Status: alert / awake / arousable Patient Amnestic to Procedure: Yes Nausea / Vomiting: adequately controlled Pain: adequately controlled (Pain with coughing mostly) Airway Patency, RR, SpO2: stable & adequate BP & HR: stable & adequate Hydration State: stable & adequate Anesthetic Complications: no major complications apparent Notes: patient c/o his lleft eye hurting and watering when opened - noticed as soon as got to floor - eye is slightly red and watering. will treat with erythromycin ointment and told him and his family to make sure to let us know if it isnt improving
[2019-01-09] MEDS: ACETAMINOPHEN 1,000 MG/100 ML VIAL IV SCH (17:59)
[2019-01-09] MEDS ORDERED: ERYTHROMYCIN OP OINT 1 GM PKT OP SCH (18:00)
[2019-01-09] MEDS: D5W AND 1/2NSS 1,000 ML IV SCH (18:24)
[2019-01-09] MEDS: ERYTHROMYCIN OP OINT 5 MG/GM 3.5 GM TUBE OP SCH (18:46)
[2019-01-09] MEDS: DOCUSATE SODIUM 100 MG CAP PO SCH (20:34)
[2019-01-09] MEDS ORDERED: COUGH DROP (SUGAR FREE) LOZ 24 LOZ/1 BOX BUCCAL PRN (21:01)
[2019-01-10] MEDS: ACETAMINOPHEN 1,000 MG/100 ML VIAL IV SCH (00:37)
[2019-01-10] MEDS: MoRPHine SULFATE 2 MG/ML CARP IV PRN ×2 (00:37→05:26)
[2019-01-10] MEDS: ERYTHROMYCIN OP OINT 5 MG/GM 3.5 GM TUBE OP SCH ×4 (00:37→17:46)
[2019-01-10] MEDS: METOCLOPRAMIDE HCL INJ 5 MG/ML 2 ML VIAL IV SCH ×5 (00:37→19:38)
[2019-01-10] MEDS ORDERED: TAMSULOSIN HCL 0.4 MG CAP PO ONE (03:04)
[2019-01-10] MEDS: D5W AND 1/2NSS 1,000 ML IV SCH (03:18)
[2019-01-10] MEDS: OXYCODONE HCL IR 5 MG TAB (IMMEDIATE RELEASE) PO PRN ×2 (03:30→12:22)
[2019-01-10] MEDS ORDERED: CLINDAMYCIN PHOS 900 MG/6 ML VIAL IV SCH (06:00)
--- NOTE | 2019-01-10 07:10 | XRay Report ---
XR chest 1V portable CLINICAL HISTORY: left lung wedge resection postoperative COMPARISON STUDY: 01/09/2019 FINDINGS: Left-sided catheter has been pulled back somewhat. No evidence of thorax. Stable postoperat pablo change the left upper lobe is noted. Lung remains clear. Diaphragms are smooth. IMPRESSION: Unchanged exam from the prior study. Left-sided chest tube has been pulled back slightly . The above report was generated using voice recognition software. It may contain grammatical, syntax or spelling errors. Electronically signed by: Leandro Jain M.D. 01/10/2019 7:09 AM
[2019-01-10 07:51] LABS: Creatinine Clr Calc Pharmacy 28.4 ml/min; Est GFR (African American) 91.8; Est GFR (Non-African American) 79.2
[2019-01-10] MEDS: DOCUSATE SODIUM 100 MG CAP PO SCH ×2 (08:05→19:38)
[2019-01-10] MEDS: ENOXAPARIN INJ 40 MG/0.4 ML SYR SQ SCH (08:06)
[2019-01-10] MEDS: TIOTROPIUM BROMIDE 5 PUFF/90 MCG INH INH SCH (08:06)
[2019-01-10] MEDS: ACETAMINOPHEN 325 MG TAB PO SCH ×3 (08:37→19:38)
[2019-01-10] MEDS ORDERED: POLYETHYLENE (MIRALAX) 17 GM PACK PO PRN (08:46)
[2019-01-10] MEDS ORDERED: bisacodyL 10 MG SUPP PR STA (08:46)
--- NOTE | 2019-01-10 09:01 | Surgery Progress Note ---
Date of Service January 10, 2019 Assessment & Plan (1) Status post lung surgery: Mr. Emmanuel is uncomfortable. He looked better yesterday afternoon. His chest x-ray looks pretty good. We are going to give him a suppository try to get his bowels moving. He is also having pain in his chest. It is more medial and he feels it may be from his abdominal distention. I will see him later this afternoon. I would like for him to get up and walk which I think would be very helpful although he states he is very "weak". Present on Admission?: Yes Subjective "I am not feeling good ". Physical Exam Physical Exam: Patient is draining some serous fluid around his chest tube. He has a tiny air leak which is intermittent. He has good fluctuation in the chest tube. He has decreased breath sounds with some rhonchi and some mild wheezing. He has a regular rate and rhythm his heart at about 100 bpm. His abdomen is distended and tympanitic. A Quintanilla catheter was placed and is draining clear urine. Logically is intact. He is requiring 3 L of O2 with a 95% saturation. Results & Data Vital Signs (Past 12 Hours) Vital Signs Temp Pulse Pulse Resp BP Pulse Ox 01/10/19 07:12 36.7 C 98 H 20 119/70 95 01/10/19 04:16 91 01/10/19 04:15 36.5 C 92 H 17 106/69 86 L 01/10/19 02:15 36.5 C 90 17 127/72 92 01/09/19 23:11 36.7 C 88 18 108/67 96 01/09/19 22:19 36.7 C 98 H 16 116/70 93 01/09/19 21:19 36.5 C 107 H 16 116/67 92 PG Care Time/CCT Total # of Minutes Spent Total Time Spent with Patient: Total time spent is greater than 50% in coordination of care (as documented) at patient's floor/unit and/or counseling patient:
[2019-01-10] MEDS: TAMSULOSIN HCL 0.4 MG CAP PO SCH (09:36)
--- NOTE | 2019-01-10 09:39 | XRay Report ---
KUB HISTORY: Abdominal distention. ileus COMPARISON: PET/CT 11/07/2018. FINDINGS: Multiple nondilated gas-filled loops of large and small bowel seen throughout the abdomen. Findings favor a low-grade ileus. No evidence for bowel obstruction. No renal calculi. No ureteral c alculi. No pneumoperitoneum or pneumatosis. IMPRESSION: Multiple nondilated gas-filled loops of large and small bowel seen throughout the abdomen. Findings f avor low-grade ileus. Electronically signed by: Cuco Garcia M.D. 01/10/2019 9:38 AM
[2019-01-10] MEDS: SODIUM CHLORIDE 0.9% 1000ML 1,000 ML IV SCH (11:02)
[2019-01-10] MEDS: CHOLECALCIFEROL 1,000 UNITS TAB PO SCH (12:23)
[2019-01-10] MEDS: CALCIUM 600MG + VIT D 400 IU TAB PO SCH (12:23)
[2019-01-10] MEDS: ASPIRIN 81 MG ECTAB PO SCH (12:23)
[2019-01-11] MEDS: ERYTHROMYCIN OP OINT 5 MG/GM 3.5 GM TUBE OP SCH ×4 (00:09→17:46)
[2019-01-11] MEDS: ACETAMINOPHEN 325 MG TAB PO SCH ×4 (02:47→21:50)
[2019-01-11] MEDS: SODIUM CHLORIDE 0.9% 1000ML 1,000 ML IV SCH ×2 (03:01→19:59)
[2019-01-11] MEDS: METOCLOPRAMIDE HCL INJ 5 MG/ML 2 ML VIAL IV SCH ×4 (03:02→21:53)
--- NOTE | 2019-01-11 07:08 | XRay Report ---
XR KUB/Abdomen 1 view CLINICAL HISTORY: ileus pain COMPARISON STUDY: 01/10/2019 FINDINGS: Improved bowel pattern. Mild residual nonobstructive ileus. No evidence for free air. IMPRESSION: Improving nonobstructive ileus. The above report was generated using voice recognition software. It may contain grammatical, syntax or spelling errors. Electronically signed by: Leandro Jain M.D. 01/11/2019 7:07 AM
--- NOTE | 2019-01-11 07:08 | XRay Report ---
XR chest 1V portable CLINICAL HISTORY: left lung wedge resection COMPARISON STUDY: 01/10/2019 FINDINGS: The cardiac and mediastinal contours remain stable. There is pulmonary emphysema. There is a left-sided chest tube. There is no significant pneumothorax. There is diffuse asymmetric interstiti al thickening left greater than right. There are right basilar atelectatic changes. There is slight i mproved aeration of the left paramediastinal region.[ IMPRESSION: Postsurgical change. Slight improved aeration of the left paramediastinal region. No lópez ge in the position left-sided chest tube. No significant pneumothorax. Electronically signed by: Uche Montemayor M.D. 01/11/2019 7:07 AM
--- NOTE | 2019-01-11 08:44 | XRay Report ---
XR chest 1V portable HISTORY: 73 years-old Male tube removal follow-up study in a patient with recent left sided chest tu be removal COMPARISON: Chest radiograph 01/11/2019 at 6:52 AM TECHNIQUE: Portable AP view of the chest FINDINGS: Status post removal of the left-sided chest tube. No definite pneumothorax. Cardiomediastinal and hil ar silhouettes are unchanged. Postoperative changes of the left lung redemonstrated with persistent l eft perihilar and medial left upper lung opacities. Diffuse left greater than right asymmetric inters titial thickening redemonstrated along with bibasilar atelectasis. Chronic blunting of the right cost ophrenic angle. Emphysema. Degenerative changes of the shoulders and spine. IMPRESSION: 1. Status post removal of the left-sided chest tube. No definite pneumothorax identified. 2. The remainder of the chest appears unchanged as above. The above report was generated using voice recognition software. It may contain grammatical, syntax o r spelling errors. Electronically signed by: Oneal Sorenson M.D. 01/11/2019 8:43 AM
[2019-01-11] MEDS ORDERED: bisacodyL 10 MG SUPP PR PRN (09:04)
--- NOTE | 2019-01-11 09:04 | Surgery Progress Note ---
Date of Service January 11, 2019 Assessment & Plan (1) Non-small cell lung cancer: -pt. underwent RLL on 01/09/17 after completing chemo and XRT ( stage IIIa) -due to left lung nodule EBUS and ENB completed 12/10/18 with all specimens noted to be (-) for malignancy -LVATS with SATNAM wedge resection performed 01/09/19: -NSCLA noted on frozen section with final path pending -as chest tube had minimal drainage last shift, had no air leak and no Pneumothrax noted on CXR it was removed today: -post-pull CXR showed no pneumothorax -encourage use of IS, coughing, deep breathing and ambulation -wean oxygen off -continue pain control measure, but attempt to limit narcotics due to ileus -lovenox in place for DVT prevention (2) Ileus: -this appears to be resolving clinically as well as radiographiaclly -as pt. does not feel hungry will continue IVF for hydration -advance diet once this resolves further -bowel regimen in place (mirilax, dulcolax, reglan, colace) -ambulation encouraged -attempt to minimize narcotics (3) Urinary retention: -flomax has been initiated -guillen removed this am for voiding trial: -if this is not successful will ask urology to see Subjective Pt. notes his breathing is not labored. He denies significant pain. He had guillen removed this am but has yet to void. He notes he is belching but also passing flatus. He does not feel hungry. No abdominal pain or N/V. He feels as though he abdomen is "softer" than yesterday. He has been ambulating in hallway. Physical Exam Constitutional: well developed and well nourished; no acute distress Respiratory: normal respiratory effort; no respiratory distress and no labored breathing BS are present but decreased at bases L>R Cardiovascular: Rate/Rhythm: regular rate and regular rhythm Gastrointestinal (Abdomen): Percussion/Palpation: abdomen nontender mild distention noted; BS are present, no pain with palaption Musculoskeletal: no calf tenderness Results & Data Vital Signs (Past 12 Hours) Vital Signs Temp Pulse Resp BP Pulse Ox Pulse Ox 01/11/19 08:00 96 01/11/19 07:11 36.9 C 123 H 20 125/67 95 01/11/19 00:06 111 H 01/11/19 00:00 37.1 C 116 H 17 138/69 92 PG Care Time/CCT Total # of Minutes Spent Total Time Spent with Patient: Total time spent is greater than 50% in coordination of care (as documented) at patient's floor/unit and/or counseling patient:
[2019-01-11] MEDS: TIOTROPIUM BROMIDE 5 PUFF/90 MCG INH INH SCH (09:31)
[2019-01-11] MEDS: ENOXAPARIN INJ 40 MG/0.4 ML SYR SQ SCH (09:33)
[2019-01-11] MEDS: DOCUSATE SODIUM 100 MG CAP PO SCH ×2 (09:33→21:50)
[2019-01-11] MEDS: TAMSULOSIN HCL 0.4 MG CAP PO SCH (09:33)
[2019-01-11] MEDS: CALCIUM 600MG + VIT D 400 IU TAB PO SCH (13:08)
[2019-01-11] MEDS: ASPIRIN 81 MG ECTAB PO SCH (13:08)
[2019-01-11] MEDS: CHOLECALCIFEROL 1,000 UNITS TAB PO SCH (13:08)
[2019-01-12] MEDS: ERYTHROMYCIN OP OINT 5 MG/GM 3.5 GM TUBE OP SCH ×3 (01:10→12:42)
[2019-01-12] MEDS: ACETAMINOPHEN 325 MG TAB PO SCH ×2 (03:00→07:51)
[2019-01-12] MEDS: METOCLOPRAMIDE HCL INJ 5 MG/ML 2 ML VIAL IV SCH ×2 (03:01→07:56)
[2019-01-12] MEDS: ENOXAPARIN INJ 40 MG/0.4 ML SYR SQ SCH (07:51)
[2019-01-12] MEDS: DOCUSATE SODIUM 100 MG CAP PO SCH (07:51)
[2019-01-12] MEDS: TAMSULOSIN HCL 0.4 MG CAP PO SCH (07:52)
[2019-01-12] MEDS: TIOTROPIUM BROMIDE 5 PUFF/90 MCG INH INH SCH (07:54)
--- NOTE | 2019-01-12 08:43 | XRay Report ---
XR chest 1V portable HISTORY: s/p lung resection COMPARISON: Chest 01/11/2019. FINDINGS: Suture material again noted within the lung apices. Volume loss within the right hemithorax likely due to the postoperative change. This also likely accounts for the blunting of the right late ral costophrenic sulcus. Mild diffuse interstitial thickening, unchanged is likely chronic. Bandlike opacity within the left suprahilar location is also stable. No pneumothorax. IMPRESSION: 1. No pneumothorax. 2. Chronic interstitial thickening and postoperative changes as described above. Electronically signed by: Cuco Garcia M.D. 01/12/2019 8:42 AM
--- NOTE | 2019-01-12 09:51 | Discharge Summary ---
Date of Service January 12, 2019 Discharge Data Procedures Performed Operation Date: 01/09/19 11:00 Actual Procedures s Navigational Bronchoscopy with ICG Markings, - Andrew Mittal MD, FACS p Robotic Left Video Assisted Thoracoscopy with Left Upper Lobe Wedge Resection with Mediastinal Lymphadenectomy(Left) - Andrew Mittal MD, FACS Hospital Course (1) Status post lung surgery: (2) Non-small cell lung cancer: Noah Emmanuel is a 73-year-old male that I know very well. He was diagnosed as having a non-small cell lung carcinoma of the right lower lobe more than 2 years ago and underwent neoadjuvant chemotherapy and radiation as it was a stage IIIa. Brought the patient to the operating room after he completed this regimen and performed a pot assisted thoracoscopic right lower lobectomy with mediastinal lymphadenectomy. His lymph nodes were negative. He essentially had a near complete response to the chemotherapy and radiation. I have been followi ng for the last 2 years we see no evidence of disease however he came back in with a new nodule in his left upper lobe which was hypermetabolic although small. We discussed this at our multidisciplinary cancer conference it was felt that a needle biopsy should be offered however it was very small in the interventional radiologist here at [facility] did not think they would be successful. The consensus of the group was that we should send the patient to a tertiary care center where a needle biopsy could potentially be offered. Mr. Emmanuel refused this. He did not want to leave town. For this reason I brought him to the operating room and did an electromagnetic navigational bronchoscopy and marked to this lesion and wedged it out. Mr. Emmanuel did not tolerate one lung ventilation very well. In addition he concerns me somewhat preoperatively it was quite short of breath just getting undressed. Frozen section showed this to be a carcinoma and appeared we had clean margins. I also did add a lymphadenectomy. Mr. Emmanuel struggled a bit with some urinary retention and he also had problems with a postoperative ileus. Both of these resolved in short order. The patient was discharged home on postoperative day 3 after he removed his chest tube and had him ambulating. We removed the chest tube on postop day 2 was there was no air leak and the patient's ambulation helped him more than anything. Unfortunately remained a bit hypoxic so we put him on home oxygen. I am sure he will get off of this quite soon. His x-ray look quite good. His final pathology was a poorly differentiated carcinoma. Lymph nodes were negative as were his margins. Having said that, we did not do an anatomic resection due to his poor lung function. We are going to present him at the multidisciplinary cancer conference again. I feel like he is going to need treatment it still unclear to me whether we are dealing with recurrent disease or new primary. He look quite good time of his discharge ambulating in the hallway. Is also tolerating a diet and his GI function returned quite nicely.
[2019-01-12] MEDS: SODIUM CHLORIDE 0.9% 1000ML 1,000 ML IV SCH (12:43)
[2019-01-12] MEDS: ASPIRIN 81 MG ECTAB PO SCH (12:46)
[2019-01-12] MEDS: CALCIUM 600MG + VIT D 400 IU TAB PO SCH (12:46)
[2019-01-12] MEDS: CHOLECALCIFEROL 1,000 UNITS TAB PO SCH (12:46)
[2019-01-13] MEDS ORDERED: ALENDRONATE SODIUM 70 MG TAB PO SCH (09:00)
--- NOTE | 2019-01-22 04:55 | Coding Query ---
CODING QUERY To promote full compliance with coding requirements relating to patient care, provider participation is requested in all cases of house painting instructor uncertainty. Please assist us with the question(s) below: Coding Question(s): Patient status post lung wedge biopsy developed postoperative ileus. Please check below the phrase that describes the ileus. Thanks for your help! VEE Waddell [facility] Physician's Response(s): The Postoperative ileus is an expected outcome of the surgery The Postoperative ileus is a complication of the surgery __X Cannot Clinically correlate if the Postoperative Ileus is a complication or expected outcome of the surgery Other / Please document: Principal Diagnosis: "that condition established after study, to be chiefly responsible for occasioning the admission of the patient to the hospital for care." Co-Existing Principal Diagnosis: "when two or more diagnoses equally meet the criteria for principal diagnosis as determined by the circumstances of admission, diagnostic work up, and/or therapy provided, and the Alphabetic Index, Tabular List, or another coding guideline does not provide sequencing direction, any one of the diagnoses may be sequenced first." "When the physician has documented what appears to be a current diagnosis in the body of the record, but has not included the diagnosis in the final diagnostic statement, the physician should be asked whether the diagnosis should be added." (Source Coding Clinic 2 QTR90. p3-4) TAYLOR
== END 2019-01-12 13:34 | disposition home or self-care (01) | DRG 167 ==
LOC: ASU 09:03 → 3N 14:57

== ENCOUNTER 2022-05-29 09:36 | Inpatient (IN) ==
[2022-05-29] MEDS ORDERED: CEFEPIME 2,000 MG/20 ML VIAL IV STA (09:53)
[2022-05-29] MEDS ORDERED: SODIUM CHLORIDE 0.9% 1000ML 1,000 ML IV SCH (10:00)
[2022-05-29] MEDS ORDERED: ALBUT/IPRATROP 3MG/0.5MG NEB 3 ML VIAL NEB ONE (10:18)
[2022-05-29] MEDS ORDERED: VANCOMYCIN HCL 2,000 MG in SODIUM CHLORIDE 0.9% 500 ML IV ONE (10:19)
[2022-05-29] MEDS ORDERED: VANCOMYCIN CONSULT ACTIVE PRN (10:19)
--- NOTE | 2022-05-29 10:21 | XRay Report ---
XR chest 1V portable HISTORY: 76 years-old Male Sepsis acute sepsis COMPARISON: 05/11/2022 TECHNIQUE: AP view of the chest FINDINGS: Cardiac silhouette is enlarged. Mild right hemidiaphragmatic elevation. No pneumothorax. Unchanged ri ght hemidiaphragmatic elevation with costophrenic angle blunting. Pulmonary vascular congestion. Ther e are new right greater left bibasilar and right midlung patchy airspace opacities. Bones appear karena sly intact. IMPRESSION: 1. Cardiomegaly with unchanged right hemidiaphragmatic elevation. 2. New bibasilar and right midlung patchy airspace opacities suspicious for pneumonia. ACT 112: Negative or not required by law. The above report was generated using voice recognition software. It may contain grammatical, syntax o r spelling errors. Electronically signed by: Dom Sorenson M.D. 05/29/2022 10:19 AM
[2022-05-29 10:40] LABS: Base Excess ABG 0.3 mEq/L (-9-1.8); HCO3 ABG 23 mmol/L (19-24); Oxygen Saturation ABG 96.6 % (90-95); PCO2 ABG 32 mmHg (35-46); PO2 ABG 68 mmHg (80-95); pH ABG 7.47 (7.35-7.45)
[2022-05-29 10:41] LABS: Allen Test POS (Pos)
[2022-05-29 10:43] LABS: Hematocrit (blood only) 44.3 % (42.0-52.0); Hemoglobin 15.2 g/dl (14.0-18.0); Mean Corpuscular Hgb Conc 34.3 g/dL (32.0-36.0); Mean Corpuscular Volume 84.4 fL (80.0-100.0); Mean Platelet Volume 9.6 fL (9.4-12.4); Platelet Count 351 K/uL (130-400); RDW Coefficient of Variation 12.9 % (11.5-14.5); RDW Standard Deviation 39.7 fL (36.4-46.3); Red Blood Count 5.25 M/uL (4.70-6.10); White Blood Count 20.39 K/ul (4.8-10.8)
[2022-05-29] MEDS ORDERED: Patient's HEIGHT &/or WEIGHT Needed STA (10:55)
[2022-05-29 11:02] LABS: Alanine Aminotransferase 23 U/L (7-52); Albumin Level 3.6 gm/dl (3.4-5.0); Alkaline Phosphatase 118 U/L (34-104); Anion Gap 11 (3-11); Aspartate Aminotransferase 19 U/L (13-39); BUN Creatinine Ratio 15.3 (10-20); Bilirubin Direct 0.5 mg/dl (0-0.2); Bilirubin,Total 1.4 mg/dl (0.2-1.0); Blood Urea Nitrogen 13 mg/dl (6-23); Calcium 9.1 mg/dl (8.6-10.3); Carbon Dioxide 26 mmol/L (21-32); Chloride 94 mmol/L (98-107); Est GFR (African American) 99.5 ml/min; Est GFR (Non-African American) 85.8 ml/min; Glucose 149 mg/dl (70-99(Fasting)); Potassium 3.8 mmol/L (3.5-5.1); Sodium 131 mmol/L (136-145)
[2022-05-29 11:05] LABS: Basophils # (auto) 0.07 K/uL (0-0.2); Basophils % (auto) 0.3 %; Dohle Bodies 1+; Eosinophils # (auto) 0.15 K/uL (0-0.50); Eosinophils % (auto) 0.7 %; Immature Granulocytes # (auto) 0.13 K/uL (0.01-0.20); Immature Granulocytes % (auto) 0.6 %; Lymphocytes # (auto) 0.36 K/uL (1.2-3.4); Lymphocytes % (auto) 1.8 %; Monocytes % (auto) 5.9 %; Neutrophils # (auto) 18.48 K/uL (1.40-6.50); Neutrophils % (auto) 90.7 %
[2022-05-29 11:09] LABS: Troponin I High Sensitivity 31.7 pg/ml (0-20)
[2022-05-29] MEDS ORDERED: LACTATED RINGER'S 1,000 ML IV ONE (11:14)
[2022-05-29] MEDS ORDERED: AZITHROMYCIN 500 MG in DEXTROSE 5% 250 ML IV STA (11:15)
[2022-05-29] MEDS ORDERED: OPTIRAY 320 500ml IV ONE (11:25)
--- NOTE | 2022-05-29 11:33 | Emergency Department Note ---
Impression & Plan Bilateral interstitial pneumonia ED Provider Note INFORMANT: Patient and ED PROVIDER(S): Jesus Amaya DO CHIEF COMPLAINT: Shortness of breath PLAN: Disposition: Admission Outpatient prescription management: none Discussion with: I spoke with the hospitalist, who will see the patient for ad mission/observation and further evaluation and consultation. MEDICAL DECISION MAKING: This is a 76-year-old male who presents to the ED with a chief complaint of shortness of breath. The patient, according to the did not require oxygen up until a few weeks ago. He does have history of a right lower lobeectomy in the past related to a non-small cell lung cancer. The patient recently has been seeing Dr. Plummer from pulmonology for his shortness of breath. The patient's shortness of breath is worsened over the past week or so with a productive cough of brown and green sputum. He was found to be hypoxic on 8 L of oxygen here. The patient does use 4 L of oxygen at all times. The patient required oxy mask oxygen at 8 to 10 L to maintain saturations in the low 90s. He does appear to be in mild respiratory distress with tachypnea on my exam. Lungs reveal some crackles in the bases. Heart is tachycardic. No significant pedal edema. The patient has a leukocytosis of 20. Lactic acid is elevated 2.8. EKG shows a sinus tach in the 120s. ABG shows a pH of 7.47 with a PCO2 of 32 and a oxygen of 168 on 3 L. Chest x-ray reveals bilateral lower lobe pneumonia. Procalcitonin is elevated. Troponin is mildly elevated. Metabolic panel was without electrolyte abnormality. Bio fire nasal swab is negative the patient was treated with IV fluids. He was given 30 cc/kg of IV fluids between my orders and the hospitalist orders. The patient was also given IV cefepime as well as IV vancomycin. The patient was given a DuoNeb treatment for 1 hour but did not tolerate this as he developed SVT intermittently during the nebulizer treatment. The patient will be seen for further evaluation and care by the hospitalist. Triage Nursing notes reviewed. Vital Signs: reviewed Prior /Outside records reviewed: none Differential diagnosis: The differential was considered includes acute myocardial infarction, acute coronary syndrome, myocarditis, pericarditis, pericardial effusions /tamponad, e sophageal perforation, pulmonary embolism, pneumonia, pneumothorax, cardiomyopathy, congestive heart, anemia , COPD/asthma exacerbation. Diagnostics, as interpreted by me: 12 lead ECG: Sinus tachycardia rate of 123. No ST elevation. No PVCs. Normal QTc. Cardiac Monitoring ordered: Sinus tachycardia and occasional SVT during the nebulizer treatment. Medical decision rules: [none] Imaging studies: Chest x-ray: Bilateral lower lobe pneumonia. CT scan of the chest: No PE. Bilateral pneumonia. Procedures: none. Critical care: none. HPI: See MDM above. PAST MEDICAL HISTORY: See Below PAST SURGICAL HISTORY: See Below SOCIAL HISTORY: See Below HOME MEDICATIONS: See Below ALLERGIES: See Below VITALS: See Below PHYSICAL EXAMINATION: See MDM for positive findings otherwise unremarkable. CONSTITUTIONAL/VITAL SIGNS: Reviewed GENERAL:done as appropriate INTEGUMENTARY: done as appropriate HEAD: done as appropriate EYES: done as appropriate RESPIRATORY: done as appropriate CARDIOVASCULAR:done as appropriate GI/ABDOMEN:done as appropriate EXTREMITIES: done as appropriate NEUROLOGICAL: done as appropriate PSYCHIATRIC:done as appropriate MUSCULOSKELETAL:done as appropriate TRIAGE NURSING DOCUMENTATION REVIEWED. Past Med/Surg History Medical History 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, no leverman COPD (chronic obstructive pulmonary disease) Left upper lobe pulmonary nodule Lung cancer CHEMO AND RADIATION Osteoarthritis Osteoporosis Vertigo Surgical History History of cataract surgery RT History of herniorrhaphy INGUINAL History of tonsillectomy History of tooth extraction S/P bronchoscopy with biopsy (12/10/18) S/P lobectomy of lung (01/09/17) Right lower lobectomy and mediastinal lymphadenectomy 01-09-17 Family History Father FHx: bladder cancer Mother Family history of diabetes mellitus Social History Smoking Status: Former smoker Tobacco Type: Cigarettes Age Started Using Tobacco: 12; Age Quit Using Tobacco: 68; Cigarettes Per Day: 20; Second Hand Exposure: No; Hx Alcohol Use: No Hx Substance Use: No Preferred Language: Guinean Communication Ability: Effective Visual Impairment: No Limitations Hearing Ability: Normal Director Corporate Communications Required: No Beliefs That Will Affect Care: None marital status: Current Living Situation: Alone How many Children do You have: 3 Feels Safe at Home: Yes Childhood Exposure to Second-Hand Smoke: Yes Seatbelt Use: always Sunscreen Use: No Assistive Devices: Denture - Upper, Denture - Lower and Glasses Allergies Allergies Allergy/AdvReac Type Severity Reaction Status Date / Time pneumococcal vaccine Allergy Intermediate ARM Verified 05/10/22 13:33 SWELLING codeine AdvReac Intermediate "sick in Verified 05/10/22 13:33 stomach" Home Meds Home Medications Medication Instructions Recorded Confirmed diphenhydramine HCl 25 mg tablet 25 mg PO HS PRN Allergy Symptoms 08/19/16 05/10/22 (Benadryl Allergy) ##0 aspirin 81 mg tablet,delayed 81 mg PO 1300 12/07/18 05/10/22 release cholecalciferol (vitamin D3) 25 1,000 unit PO 1300 12/07/18 05/10/22 mcg (1,000 unit) capsule (Vitamin D3) acetaminophen 500 mg tablet 1,000 mg PO Q6H PRN Pain or Fever 05/13/20 05/10/22 (Tylenol Extra Strength) #20 tabs Previous Rx's Medication Instructions Recorded albuterol sulfate 90 mcg/actuation 2 puff inhalation Q6H PRN 05/11/22 aerosol inhaler (ProAir HFA) shortness of breath or wheezing #8.5 grams Portable Oxygen #1 ea 05/13/22 azithromycin 250 mg tablet See Rx Instructions PO .COMPLEX #6 05/25/22 tabs budesonide 0.25 mg/2 mL suspension 0.25 mg (2 mL) inhalation BID #180 05/25/22 for nebulization mL nebulizers (Aeroneb Go Nebulizer) #1 ea 05/25/22 prednisone 20 mg tablet 20 mg PO .as directed #15 tabs 05/25/22 tiotropium 2.5 mcg-olodaterol 2.5 2 puff inhalation DAILY #3 Inhalers 05/25/22 mcg/actuation mist for inhalation (Stiolto Respimat) Results & Data (ED) Vital Signs Vital Signs - 24 hr 05/29/22 09:37 05/29/22 09:37 05/29/22 10:05 Temperature 37.5 C Temperature Source Temporal Artery Scan Pulse Rate 125 H 124 H Pulse Rate [Right Finger] Respiratory Rate 18 Respiratory Effort / Characteristics Blood Pressure 126/66 Blood Pressure Mean 86 Pulse Oximetry 89 L Oxygen Delivery Method Nasal Cannula Nasal Cannula Oxymask Oxygen Flow Rate 8 8 Sepsis Recent Fever Within 48 Hours No Sepsis New/Unexplained Change in Mental Status N/A Sepsis Action Taken by Nursing No Action Required 05/29/22 10:17 05/29/22 10:34 05/29/22 11:11 Temperature Temperature Source Pulse Rate 185 H Pulse Rate [Right Finger] 123 H Respiratory Rate 26 H Respiratory Effort / Characteristics Spontaneous Short of Breath Blood Pressure Blood Pressure Mean Pulse Oximetry 91 93 Oxygen Delivery Method Oxymask Oxymask Oxygen Flow Rate 8 7 Sepsis Recent Fever Within 48 Hours Sepsis New/Unexplained Change in Mental Status Sepsis Action Taken by Nursing 05/29/22 10:00 05/29/22 10:30 05/29/22 11:38 Temperature Temperature Source Pulse Rate 125 H 122 H 129 H Pulse Rate [Right Finger] Respiratory Rate 26 H 23 27 H Respiratory Effort / Characteristics Blood Pressure 146/89 H 127/77 151/87 H Blood Pressure Mean 108 93 108 Pulse Oximetry 91 94 91 Oxygen Delivery Method Oxymask Oxymask Oxymask Oxygen Flow Rate 8 8 8 Sepsis Recent Fever Within 48 Hours Sepsis New/Unexplained Change in Mental Status Sepsis Action Taken by Nursing Laboratory Data 05/29/22 09:54 05/29/22 09:54 Lab Results 05/29/22 05/29/22 05/29/22 Range/Units 09:54 09:54 09:54 WBC 20.39 H (4.8-10.8) K/ul RBC 5.25 (4.70-6.10) M/uL Hgb 15.2 (14.0-18.0) g/dl Hct 44.3 (42.0-52.0) % MCV 84.4 (80.0-100.0) fL MCH 29.0 (25.0-34.0) pg MCHC 34.3 (32.0-36.0) g/dL RDW Std Deviation 39.7 (36.4-46.3) fL RDW Coeff of Ap 12.9 (11.5-14.5) % Plt Count 351 (130-400) K/uL MPV 9.6 (9.4-12.4) fL Immature Gran % (Auto) 0.6 % Neut % (Auto) 90.7 % Lymph % (Auto) 1.8 % Sear[place] % (Auto) 5.9 % Eos % (Auto) 0.7 % Baso % (Auto) 0.3 % Neut # (Auto) 18.48 H (1.40-6.50) K/uL Lymph # (Auto) 0.36 L (1.2-3.4) K/uL [place] # (Auto) 1.20 H (0.11-0.59) K/uL Eos # (Auto) 0.15 (0-0.50) K/uL Baso # (Auto) 0.07 (0-0.2) K/uL Immature Gran # (Auto) 0.13 (0.01-0.20) K/uL Dohle Bodies 1+ PT Cancelled INR Cancelled APTT Cancelled PTT Ratio Cancelled ABG pH (7.35-7.45) ABG pCO2 (35-46) mmHg ABG pO2 (80-95) mmHg ABG HCO3 (19-24) mmol/L ABG O2 Saturation (90-95) % ABG Base Excess (-9-1.8) mEq/L Nelson Test (Pos) Oxygen Given Sodium 131 L (136-145) mmol/L Potassium 3.8 (3.5-5.1) mmol/L Chloride 94 L (98-107) mmol/L Carbon Dioxide 26 (21-32) mmol/L Anion Gap 11 (3-11) BUN 13 (6-23) mg/dl Creatinine 0.85 (0.6-1.4) mg/dl Est Cr Clr Drug Dosing Not Reportable Est GFR ( Amer) 99.5 ml/min Est GFR (Non-Af Amer) 85.8 ml/min BUN/Creatinine Ratio 15.3 (10-20) Glucose 149 H (70-99(Fasting)) mg/dl Lactate (0.4-2.0) mmol/L Calcium 9.1 (8.6-10.3) mg/dl Magnesium 2.0 (1.7-2.4) mg/dl Total Bilirubin 1.4 H (0.2-1.0) mg/dl Direct Bilirubin 0.5 H (0-0.2) mg/dl AST 19 (13-39) U/L ALT 23 (7-52) U/L Alkaline Phosphatase 118 H (34-104) U/L Troponin I High Sens 31.7 H (0-20) pg/ml Total Protein 8.0 (6.0-8.3) gm/dl Albumin 3.6 (3.4-5.0) gm/dl Procalcitonin (0-0.5) ng/ml Adenovirus (PCR) (NotDetected) B. pertussis DNA (PCR) (NotDetected) B.parapertussis DNA PCR (NotDetected) C. pneumoniae DNA (PCR) (NotDetected) Coronavirus OC43 (PCR) (NotDetected) Coronavirus HKU1 (PCR) (NotDetected) Coronavirus 229E (PCR) (NotDetected) SARS-CoV-2 (PCR) (NotDetected) Coronavirus NL63 (PCR) (NotDetected) Human Metapneumovir PCR (NotDetected) Influenza Type A (PCR) (NotDetected) Influenza Type B (PCR) (NotDetected) M. pneumoniae (PCR) (NotDetected) Parainfluenza 1 (PCR) (NotDetected) Parainfluenza 2 (PCR) (NotDetected) Parainfluenza 3 (PCR) (NotDetected) Parainfluenza 4 (PCR) (NotDetected) RSV (PCR) (NotDetected) Entero/Rhino (PCR) (NotDetected) 05/29/22 05/29/22 05/29/22 Range/Units 09:54 10:00 10:30 WBC (4.8-10.8) K/ul RBC (4.70-6.10) M/uL Hgb (14.0-18.0) g/dl Hct (42.0-52.0) % MCV (80.0-100.0) fL MCH (25.0-34.0) pg MCHC (32.0-36.0) g/dL RDW Std Deviation (36.4-46.3) fL RDW Coeff of Ap (11.5-14.5) % Plt Count (130-400) K/uL MPV (9.4-12.4) fL Immature Gran % (Auto) % Neut % (Auto) % Lymph % (Auto) % Sear[place] % (Auto) % Eos % (Auto) % Baso % (Auto) % Neut # (Auto) (1.40-6.50) K/uL Lymph # (Auto) (1.2-3.4) K/uL Sear[place] # (Auto) (0.11-0.59) K/uL Eos # (Auto) (0-0.50) K/uL Baso # (Auto) (0-0.2) K/uL Immature Gran # (Auto) (0.01-0.20) K/uL Dohle Bodies PT INR APTT PTT Ratio ABG pH (7.35-7.45) ABG pCO2 (35-46) mmHg ABG pO2 (80-95) mmHg ABG HCO3 (19-24) mmol/L ABG O2 Saturation (90-95) % ABG Base Excess (-9-1.8) mEq/L Nelson Test (Pos) Oxygen Given Sodium (136-145) mmol/L Potassium (3.5-5.1) mmol/L Chloride (98-107) mmol/L Carbon Dioxide (21-32) mmol/L Anion Gap (3-11) BUN (6-23) mg/dl Creatinine (0.6-1.4) mg/dl Est Cr Clr Drug Dosing Est GFR ( Amer) ml/min Est GFR (Non-Af Amer) ml/min BUN/Creatinine Ratio (10-20) Glucose (70-99(Fasting)) mg/dl Lactate 2.8 H* (0.4-2.0) mmol/L Calcium (8.6-10.3) mg/dl Magnesium (1.7-2.4) mg/dl Total Bilirubin (0.2-1.0) mg/dl Direct Bilirubin (0-0.2) mg/dl AST (13-39) U/L ALT (7-52) U/L Alkaline Phosphatase (34-104) U/L Troponin I High Sens (0-20) pg/ml Total Protein (6.0-8.3) gm/dl Albumin (3.4-5.0) gm/dl Procalcitonin 2.25 H (0-0.5) ng/ml Adenovirus (PCR) Not Detected (NotDetected) B. pertussis DNA (PCR) Not Detected (NotDetected) B.parapertussis DNA PCR Not Detected (NotDetected) C. pneumoniae DNA (PCR) Not Detected (NotDetected) Coronavirus OC43 (PCR) Not Detected (NotDetected) Coronavirus HKU1 (PCR) Not Detected (NotDetected) Coronavirus 229E (PCR) Not Detected (NotDetected) SARS-CoV-2 (PCR) Not Detected (NotDetected) Coronavirus NL63 (PCR) Not Detected (NotDetected) Human Metapneumovir PCR Not Detected (NotDetected) Influenza Type A (PCR) Not Detected (NotDetected) Influenza Type B (PCR) Not Detected (NotDetected) M. pneumoniae (PCR) Not Detected (NotDetected) Parainfluenza 1 (PCR) Not Detected (NotDetected) Parainfluenza 2 (PCR) Not Detected (NotDetected) Parainfluenza 3 (PCR) Not Detected (NotDetected) Parainfluenza 4 (PCR) Not Detected (NotDetected) RSV (PCR) Not Detected (NotDetected) Entero/Rhino (PCR) Not Detected (NotDetected) 05/29/22 05/29/22 Range/Units 10:33 11:03 WBC (4.8-10.8) K/ul RBC (4.70-6.10) M/uL Hgb (14.0-18.0) g/dl Hct (42.0-52.0) % MCV (80.0-100.0) fL MCH (25.0-34.0) pg MCHC (32.0-36.0) g/dL RDW Std Deviation (36.4-46.3) fL RDW Coeff of Ap (11.5-14.5) % Plt Count (130-400) K/uL MPV (9.4-12.4) fL Immature Gran % (Auto) % Neut % (Auto) % Lymph % (Auto) % [place] % (Auto) % Eos % (Auto) % Baso % (Auto) % Neut # (Auto) (1.40-6.50) K/uL Lymph # (Auto) (1.2-3.4) K/uL [place] # (Auto) (0.11-0.59) K/uL Eos # (Auto) (0-0.50) K/uL Baso # (Auto) (0-0.2) K/uL Immature Gran # (Auto) (0.01-0.20) K/uL Dohle Bodies PT 12.4 H INR 1.1 APTT 28.2 PTT Ratio 1.0 ABG pH 7.47 H (7.35-7.45) ABG pCO2 32 L (35-46) mmHg ABG pO2 68 L (80-95) mmHg ABG HCO3 23 (19-24) mmol/L ABG O2 Saturation 96.6 H (90-95) % ABG Base Excess 0.3 (-9-1.8) mEq/L Nelson Test POS (Pos) Oxygen Given 8 L Sodium (136-145) mmol/L Potassium (3.5-5.1) mmol/L Chloride (98-107) mmol/L Carbon Dioxide (21-32) mmol/L Anion Gap (3-11) BUN (6-23) mg/dl Creatinine (0.6-1.4) mg/dl Est Cr Clr Drug Dosing Est GFR ( Amer) ml/min Est GFR (Non-Af Amer) ml/min BUN/Creatinine Ratio (10-20) Glucose (70-99(Fasting)) mg/dl Lactate (0.4-2.0) mmol/L Calcium (8.6-10.3) mg/dl Magnesium (1.7-2.4) mg/dl Total Bilirubin (0.2-1.0) mg/dl Direct Bilirubin (0-0.2) mg/dl AST (13-39) U/L ALT (7-52) U/L Alkaline Phosphatase (34-104) U/L Troponin I High Sens (0-20) pg/ml Total Protein (6.0-8.3) gm/dl Albumin (3.4-5.0) gm/dl Procalcitonin (0-0.5) ng/ml Adenovirus (PCR) (NotDetected) B. pertussis DNA (PCR) (NotDetected) B.parapertussis DNA PCR (NotDetected) C. pneumoniae DNA (PCR) (NotDetected) Coronavirus OC43 (PCR) (NotDetected) Coronavirus HKU1 (PCR) (NotDetected) Coronavirus 229E (PCR) (NotDetected) SARS-CoV-2 (PCR) (NotDetected) Coronavirus NL63 (PCR) (NotDetected) Human Metapneumovir PCR (NotDetected) Influenza Type A (PCR) (NotDetected) Influenza Type B (PCR) (NotDetected) M. pneumoniae (PCR) (NotDetected) Parainfluenza 1 (PCR) (NotDetected) Parainfluenza 2 (PCR) (NotDetected) Parainfluenza 3 (PCR) (NotDetected) Parainfluenza 4 (PCR) (NotDetected) RSV (PCR) (NotDetected) Entero/Rhino (PCR) (NotDetected) Administered Medications Vancomycin HCl 2,000 mg/ (Sodium Chloride) 540 mls @ 200 mls/hr IV NOW ONE Stop: 05/29/22 12:48 Last Admin: 05/29/22 11:36 Dose: 200 mls/hr Documented By: SHIRLEY Discontinued Medications Albuterol (Albut/Ipratrop 3mg/0.5mg Neb 3 Ml Vial) 12 ml NEB ONE ONE; Protocol Stop: 05/29/22 10:19 Last Admin: 05/29/22 10:33 Dose: 12 ml Documented By: OFELIA Cefepime HCl (Maxipime) 2,000 mg in 20 mls @ 5 mls/min IV NOW STA; Protocol Stop: 05/29/22 09:56 Last Admin: 05/29/22 10:27 Dose: 5 mls/min Documented By: SHIRLEY Sodium Chloride (Nss 1000ml) 1,000 mls @ 999 mls/hr IV .Q1H1M HAILEY Stop: 05/29/22 11:00 Last Infusion: 05/29/22 11:36 Dose: 0 mls/hr Documented By: Admin: 05/29/22 10:29 Dose: 999 mls/hr Documented By: SHIRLEY Ioversol (Optiray 320 500ml) 117 ml IV ONCE ONE Stop: 05/29/22 11:26 Last Admin: 05/29/22 11:28 Dose: 117 ml Documented By: TIFFANY Miscellaneous (Patient's Height &/Or Weight Needed) 1 each N/A NOW STA Stop: 05/29/22 10:56 Last Admin: 05/29/22 11:10 Dose: 1 each Documented By: SHIRLEY Imaging Data Radiologist's Impression: Chest X-Ray 05/29/22 09:54 XR chest 1V portable HISTORY: 76 years-old Male Sepsis acute sepsis COMPARISON: 05/11/2022 TECHNIQUE: AP view of the chest FINDINGS: Cardiac silhouette is enlarged. Mild right hemidiaphragmatic elevation. No pneumothorax. Unchanged right hemidiaphragmatic elevation with costophrenic angle blunting. Pulmonary vascular congestion. There are new right greater left bibasilar and right midlung patchy airspace opacities. Bones appear grossly intact. IMPRESSION: 1. Cardiomegaly with unchanged right hemidiaphragmatic elevation. 2. New bibasilar and right midlung patchy airspace opacities suspicious for pneumonia. ACT 112: Negative or not required by law. The above report was generated using voice recognition software. It may contain grammatical, syntax or spelling errors. Electronically signed by: Dom Sorenson M.D. 05/29/2022 10:19 AM Chest CTA 05/29/22 10:00 CT angio chest PE protocol CT DOSE: 459.23 mGy.cm HISTORY: 76 years-old Male with sob. Acute shortness of breath. Prior right lower lobectomy with left upper lobe pulmonary resection. TECHNIQUE: Multiple CTA images of the chest were obtained after the intravenous administration of 117 ml Optiray. Coronal and sagittal MIPS were obtained from the axial data set and were submitted for review. All measurements were obtained according to NASCET criteria. A dose lowering technique was utilized adhering to the principles of ALARA. COMPARISON: Chest radiograph of same day, chest CT from outside hospital 01/18/2022 FINDINGS: CTA: Mild cardiomegaly without pericardial effusion. Moderate coronary artery calcifications. Thoracic aortic calcifications without aneurysm. No pulmonary emboli identified, however evaluation is limited secondary to respiratory motion artifact. CT CHEST: Unremarkable thyroid. Mediastinal and hilar lymphadenopathy again noted. Right tracheoesophageal recess lymph node on image 254 measures 1.2 cm in short axis is a 9 mm. Pretracheal lymph node measures 1.4 x 1.7 cm, previously 1.2 x 1.1 cm. Subcarinal lymph node measures 1.5 cm in short axis. Right hilar lymph node measures 1.5 cm. Additional subcarinal lymphadenopathy which is also progressed. Trace pleural effusions. No pneumothorax. Severe pulmonary emphysema with chronic interstitial coarsening. Prior wedge resection of the left upper lobe. Mild scarring noted along the staple line. Prior right lower lobectomy. Reticular interstitial with patchy bibasilar groundglass and alveolar opacities, most pronounced in the right greater than left lower lobes. Mild intralobular septal thickening. Central airways appear patent. No acute process of the imaged upper abdomen. Unremarkable soft tissues. No acute fracture. Chronic T9 burst fracture. IMPRESSION: 1. Limited study secondary to respiratory motion artifact. No central pulmonary emboli are identified. 2. Patchy multifocal multilobar distribution of groundglass and alveolar opacities which are most pronounced in the right greater than left lung bases suggestive of multifocal pneumonia. Follow-up imaging after treatment course recommended in order to document resolution. 3. Trace pleural effusions. 4. Enlarged mediastinal and hilar lymph nodes have increased in size from the 01/18/2022 exam. 5. Prior left upper lobe wedge resection and right lower lobectomy. ACT 112: Negative or not required by law. The above report was generated using voice recognition software. It may contain grammatical, syntax or spelling errors. Electronically signed by: Dom Sorenson M.D. 05/29/2022 11:52 AM Discharge Plan Visit Data Chief Complaint: Shortness of Breath/Dyspnea Stated Complaint: DIFFICULTY BREATHING ED Provider: Jesus Amaya Discharge Problem: Bilateral interstitial pneumonia Patient Disposition: Being Evaluated by Hospitalist Forms Stand Alone Forms: [facility] Prescriptions Prescriptions: No Action diphenhydramine HCl [Benadryl Allergy] 25 mg Tablet 25 mg PO HS PRN (Reason: Allergy Symptoms) Qty: 0 acetaminophen [Tylenol Extra Strength] 500 mg tablet 1,000 mg PO Q6H PRN (Reason: Pain or Fever) Qty: 20 (DME) Portable Oxygen Misc See Rx Instructions .MEDSUPPLY Qty: 1 0RF Rx Instructions: Oxygen 4 liters via nasal cannula on exertion with portablility azithromycin 250 mg tablet See Rx Instructions PO .COMPLEX Qty: 6 0RF Rx Instructions: take 500 mg today (day 1), then 250 mg for 4 days (days 2-5) budesonide 0.25 mg/2 mL suspension for nebulization 0.25 mg inhalation BID Qty: 180 4RF Stiolto Respimat 2.5-2.5 mcg/actuation mist 2 puff inhalation DAILY Qty: 3 4RF (DME) nebulizers [Aeroneb Go Nebulizer[place] [facility] [place] [facility] [place]MEDSUPPLY Qty: 1 0RF Rx Instructions: With tubing and supplies. J44.9. J45.9. prednisone 20 mg tablet 20 mg PO .as directed Qty: 15 0RF Rx Instructions: Take 2 tabs p.o. daily for the 3 days followed by 1 tab p.o. daily for 2 days.Stop after total of 5 days. albuterol sulfate [ProAir HFA] 90 mcg/actuation HFA aerosol inhaler 2 puff inhalation Q6H PRN (Reason: shortness of breath or wheezing) Qty: 8.5 3RF cholecalciferol (vitamin D3) [Vitamin D3] 1,000 unit Capsule 1,000 unit PO 1300 aspirin 81 mg tablet,delayed release (DR/EC) 81 mg PO 1300 Referrals Referrals: Morro Wilde MD [Primary Care Provider] -
[2022-05-29 11:54] LABS: INR 1.1 (0.9-1.1); Partial Thromboplastin Time 28.2 Seconds (21.0-31.0); Prothrombin Time 12.4 Seconds (9.0-12.0)
--- NOTE | 2022-05-29 11:54 | CT Scan Report ---
CT angio chest PE protocol CT DOSE: 459.23 mGy.cm HISTORY: 76 years-old Male with sob. Acute shortness of breath. Prior right lower lobectomy with le ft upper lobe pulmonary resection. TECHNIQUE: Multiple CTA images of the chest were obtained after the intravenous administration of 117 ml Optiray. Coronal and sagittal MIPS were obtained from the axial data set and were submitted for review. All measurements were obtained according to NASCET criteria. A dose lowering technique was u tilized adhering to the principles of ALARA. COMPARISON: Chest radiograph of same day, chest CT from outside hospital 01/18/2022 FINDINGS: CTA: Mild cardiomegaly without pericardial effusion. Moderate coronary artery calcifications. Thoracic ao rtic calcifications without aneurysm. No pulmonary emboli identified, however evaluation is limited s econdary to respiratory motion artifact. CT CHEST: Unremarkable thyroid. Mediastinal and hilar lymphadenopathy again noted. Right tracheoesophageal rece ss lymph node on image 254 measures 1.2 cm in short axis is a 9 mm. Pretracheal lymph node measures 1 .4 x 1.7 cm, previously 1.2 x 1.1 cm. Subcarinal lymph node measures 1.5 cm in short axis. Right yuriy r lymph node measures 1.5 cm. Additional subcarinal lymphadenopathy which is also progressed. Trace pleural effusions. No pneumothorax. Severe pulmonary emphysema with chronic interstitial coarse bisi. Prior wedge resection of the left upper lobe. Mild scarring noted along the staple line. Prior right lower lobectomy. Reticular interstitial with patchy bibasilar groundglass and alveolar opacities, most pronounced in t he right greater than left lower lobes. Mild intralobular septal thickening. Central airways appear p atent. No acute process of the imaged upper abdomen. Unremarkable soft tissues. No acute fracture. Chronic T 9 burst fracture. IMPRESSION: 1. Limited study secondary to respiratory motion artifact. No central pulmonary emboli are identified . 2. Patchy multifocal multilobar distribution of groundglass and alveolar opacities which are most pro nounced in the right greater than left lung bases suggestive of multifocal pneumonia. Follow-up imagi ng after treatment course recommended in order to document resolution. 3. Trace pleural effusions. 4. Enlarged mediastinal and hilar lymph nodes have increased in size from the 01/18/2022 exam. 5. Prior left upper lobe wedge resection and right lower lobectomy. ACT 112: Negative or not required by law. The above report was generated using voice recognition software. It may contain grammatical, syntax o r spelling errors. Electronically signed by: Dom Sorenson M.D. 05/29/2022 11:52 AM
[2022-05-29 12:01] LABS: Adenovirus PCR Not Detected (NotDetected); Bordetella parapertussis PCR Not Detected (NotDetected); Bordetella pertussis PCR Not Detected (NotDetected); Chlamydia pneumoniae PCR Not Detected (NotDetected); Coronavirus 229E PCR Not Detected (NotDetected); Coronavirus CoV-2 (COVID19)PCR Not Detected (NotDetected); Coronavirus HKU1 PCR Not Detected (NotDetected); Coronavirus NL63 PCR Not Detected (NotDetected); Coronavirus OC43PCR Not Detected (NotDetected); Human Metapneumovirus PCR Not Detected (NotDetected); Influenza A PCR Not Detected (NotDetected); Influenza B PCR Not Detected (NotDetected); Mycoplasma pneumoniae PCR Not Detected (NotDetected); Parainfluenza Virus 1 PCR Not Detected (NotDetected); Parainfluenza Virus 2 PCR Not Detected (NotDetected); Parainfluenza Virus 3 PCR Not Detected (NotDetected); Parainfluenza Virus 4 PCR Not Detected (NotDetected); Respiratory Syncytial VirusPCR Not Detected (NotDetected); Rhinovirus/Enterovirus PCR Not Detected (NotDetected)
[2022-05-29] MEDS ORDERED: guaiFENesin 600 MG TABCR PO STA (12:05)
[2022-05-29] MEDS ORDERED: DEXTROMETHORPHAN POLYMR COMPLX 60 MG/10 ML UDP PO STA (12:11)
[2022-05-29] MEDS ORDERED: DOXYCYCLINE HYCLATE 100 MG in DEXTROSE 5% 100 ML IV STA (12:11)
[2022-05-29] MEDS ORDERED: FORMOTEROL 20 MCG/2 ML VIAL NEB STA (12:29)
[2022-05-29] MEDS ORDERED: BUDESONIDE 0.5 MG/2 ML VIAL (PULMICORT) NEB STA (12:29)
[2022-05-29] MEDS ORDERED: methylPREDNISolone 125 MG/2 ML VIAL IV STA (12:30)
[2022-05-29 12:38] LABS: Appearance Urine Clear (Clear); Bacteria Urine Automated Negative (Negative); Bilirubin Urine Negative (Negative); Blood Urine 1+ (Negative); Color Urine Dark Yellow; Glucose Urine UA Negative (Negative); Ketones Urine 1+ (Negative); Leukocyte Esterase Urine Negative (Negative); Nitrite Urine Negative (Negative); Protein Urine 1+ (Negative); Specific Gravity Urine > 1.045 (1.000-1.030); Urobilinogen Urine Negative (Negative); pH Urine 5.5 (4.5-7.5)
--- NOTE | 2022-05-29 12:43 | History & Physical Report ---
Date of Service May 29, 2022 Assessment & Plan (1) Sepsis: Plan: Source multifocal Pneumonia Follow up blood and urine cultures Lactate 2.8 s/p NSS 1L bolus, will give addition LR 1L bolus now and repeat, since BP normal will avoid over hydration due maintain better respiratory status and determine further fluids based on repeat lactate (although this is going to be somewhat driven by his ongoing hypoxia and SVT in ER) Empiric antibiotics with vancomycin, cefepime and doxycycline (2) Multifocal pneumonia: Plan: Vancomycin, cefepime, doxycycline given in ER. Doxycycline chosen due to recent course of azithromycin for COPD exacerbation. If MRSA nasal swab negative can d/c vancomycin Urine legionella Biofire pending Given poor baseline, concurrent COPD and complex oncological/surgical history will consult pulmonology for their recommendations (3) Acute respiratory failure with hypoxia: Plan: ?baaseline 2LPM O2 however this is a recent phenomenon No CO2 retention on ABG Aim O2 sats > 90% Given severe respiratory distress will start patient on BiPAP Guaifenesin 1200mg PO BID, Dextromethorphan for cough PRN (4) COPD exacerbation: Plan: Solu-medrol 60mg IV now, then 40mg IV BID Levalbuterol/iptratroium, formeterol NEB BID, budesonide NEB BID Given ongoing severe respiratory distress despite duoneb will given Mg sulphate 2g over 20 minutes (5) Lung cancer: Plan: 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 Continue to monitor on telemetry with ongoing levalbuterol use. Relatively asymptomatic with this since (8) Elevated troponin: Plan: Suspect demand-ischemia in setting of hypoxia, sepsis, SVT etc... Continue to trend to peak Plan VTE Prophylaxis - Lovenox 40mg SQ QPM Diet - NPO pending improvement in respitory status Disposition - admit to PCU Admission and Anticipated Discharge Date Admission Date: May 29, 2022 History of Present Illness Chief Complaint: Shortness of breath Primary Care Provider: Morro Wilde MD Gt Emmanuel is a 76 year old male with COPD and history non-small cell lung cancer status post wedge resection and radiation treatment who presents to the ER with shortness of breath. Initial worsening when he switched from [facility] to [facility] he became progressively more short of breath on May 11. CXR at that time did not show pneumonia. He did not require oxygen prior to this but was started on 2LPM O2 at that time. Since his breathing was getting progressively worse his polysomnography technician treated him for COPD exacerbation on May 25, without repeat CXR, with prednisone and azithromycin and he appeared to get much worse. No fever or chills. Productive cough of brown sputum for the last three days. No chest pain or tightness. No nasal congestion or sinus pain. Due to progressive decline with reduced appetite and weakness This is on a background of COVID-19 diagnosis in March although he only had 3-4 days of mild nasal congestion symptoms with this, without hospitalization and complete resolution of symptoms. In the ER he received an hour long duoneb to good effect for his shortness of breath however he did go into a paroxysmal narrow complex regular tachycardia during the treatment with hour long duoneb and converted back to sinus tachycardia after this. Allergies Allergy/AdvReac Type Severity Reaction Status Date / Time pneumococcal vaccine Allergy Intermediate ARM Verified 05/10/22 13:33 SWELLING codeine AdvReac Intermediate "sick in Verified 05/10/22 13:33 stomach" Home Medications Medication Instructions Recorded Confirmed Type diphenhydramine HCl 25 mg tablet 25 mg PO HS PRN Allergy Symptoms 08/19/16 05/10/22 History (Benadryl Allergy) ##0 aspirin 81 mg tablet,delayed 81 mg PO 1300 12/07/18 05/10/22 History release cholecalciferol (vitamin D3) 25 1,000 unit PO 1300 12/07/18 05/10/22 History mcg (1,000 unit) capsule (Vitamin D3) acetaminophen 500 mg tablet 1,000 mg PO Q6H PRN Pain or Fever 05/13/20 05/10/22 History (Tylenol Extra Strength) #20 tabs albuterol sulfate 90 mcg/actuation 2 puff inhalation Q6H PRN 05/11/22 05/11/22 Rx aerosol inhaler (ProAir HFA) shortness of breath or wheezing #8.5 grams Portable Oxygen #1 ea 05/13/22 Rx azithromycin 250 mg tablet See Rx Instructions PO .COMPLEX #6 05/25/22 Rx tabs budesonide 0.25 mg/2 mL suspension 0.25 mg (2 mL) inhalation BID #180 05/25/22 Rx for nebulization mL nebulizers (Aeroneb Go Nebulizer) #1 ea 05/25/22 Rx prednisone 20 mg tablet 20 mg PO .as directed #15 tabs 05/25/22 Rx tiotropium 2.5 mcg-olodaterol 2.5 2 puff inhalation DAILY #3 Inhalers 05/25/22 Rx mcg/actuation mist for inhalation (Stiolto Respimat) Past Med/Surg History Medical History Acute anxiety Acute dyspnea Aortic stenosis 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, 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 COPD (chronic obstructive pulmonary disease) Left upper lobe pulmonary nodule Lung cancer CHEMO AND RADIATION Osteoarthritis Osteoporosis Vertigo Surgical History History of cataract surgery RT History of herniorrhaphy INGUINAL History of tonsillectomy History of tooth extraction S/P bronchoscopy with biopsy (12/10/18) S/P lobectomy of lung (01/09/17) Right lower lobectomy and mediastinal lymphadenectomy 01-09-17 Family History Father FHx: bladder cancer Mother Family history of diabetes mellitus Social History Smoking Status: Former smoker Tobacco Type: Cigarettes Age Started Using Tobacco: 12; Age Quit Using Tobacco: 68; Cigarettes Per Day: 20; Second Hand Exposure: No; Hx Alcohol Use: No Hx Substance Use: No Preferred Language: [place] Communication Ability: Effective Visual Impairment: No Limitations Hearing Ability: Normal Towel Hemmer Required: No Beliefs That Will Affect Care: None marital status: Current Living Situation: Spouse How many Children do You have: 3 Feels Safe at Home: Yes Childhood Exposure to Second-Hand Smoke: Yes Seatbelt Use: always Sunscreen Use: No Assistive Devices: Denture - Upper, Denture - Lower and Glasses Review of Systems Review of Systems: All systems reviewed & are unremarkable except as noted in HPI & below Physical Exam Constitutional: well developed and + acute distress (respiratory); + not well nourished Eyes: PERRL, conjunctivae normal, anicteric sclerae ENMT: external ear and nose normal, oropharynx normal Neck: trachea midline, no thyromegaly Respiratory: + respiratory distress, + labored breathing, + retractions and + uses accessory muscles; + abnormal respiratory effort (tripod breathing) Auscultation: + breath sounds absent (bibasal) and + diminished lung sounds (throughout); no crackles and no wheezes Cardiovascular: Rate/Rhythm: regular rhythm and + tachycardic Heart Sounds: no murmur Extremities: normal capillary refill; no calf tenderness and no pedal edema Gastrointestinal (Abdomen): Percussion/Palpation: abdomen soft; abdomen nontender, no guarding and abdomen not rigid Musculoskeletal: no cyanosis or clubbing, extremities motor strength 5/5 Skin: no rashes, warm and dry Neurologic: moves all extremities and awake; not confused Psychiatric: A+Ox3, euthymic affect Results & Data Results & Data Vital Signs (Past 12 Hours) Vital Signs Temp Pulse Pulse Resp BP Pulse Ox O2 Del Method 05/29/22 12:28 123 H 24 97 05/29/22 11:38 129 H 27 H 151/87 H 91 Oxymask 05/29/22 10:30 122 H 23 127/77 94 Oxymask 05/29/22 10:00 125 H 26 H 146/89 H 91 Oxymask 05/29/22 11:11 185 H 05/29/22 10:34 123 H 26 H 93 Oxymask 05/29/22 10:17 91 Oxymask 05/29/22 10:05 124 H 05/29/22 09:37 Nasal Cannula, Oxymask 05/29/22 09:37 37.5 C 125 H 18 126/66 89 L Nasal Cannula O2 Flow Rate FiO2 05/29/22 12:28 50 05/29/22 11:38 8 05/29/22 10:30 8 05/29/22 10:00 8 05/29/22 11:11 05/29/22 10:34 7 05/29/22 10:17 8 05/29/22 10:05 05/29/22 09:37 8 05/29/22 09:37 8 Laboratory Results Abnormal lab results 05/29/22 05/29/22 05/29/22 Range/Units 09:54 09:54 09:54 WBC 20.39 H (4.8-10.8) K/ul Neut # (Auto) 18.48 H (1.40-6.50) K/uL Lymph # (Auto) 0.36 L (1.2-3.4) K/uL [place] # (Auto) 1.20 H (0.11-0.59) K/uL PT (9.0-12.0) Seconds ABG pH (7.35-7.45) ABG pCO2 (35-46) mmHg ABG pO2 (80-95) mmHg ABG O2 Saturation (90-95) % Sodium 131 L (136-145) mmol/L Chloride 94 L (98-107) mmol/L Glucose 149 H (70-99(Fasting)) mg/dl Lactate (0.4-2.0) mmol/L Total Bilirubin 1.4 H (0.2-1.0) mg/dl Direct Bilirubin 0.5 H (0-0.2) mg/dl Alkaline Phosphatase 118 H (34-104) U/L Troponin I High Sens 31.7 H (0-20) pg/ml Procalcitonin 2.25 H (0-0.5) ng/ml Ur Specific [place] (1.000-1.030) Urine Protein (Negative) Urine Ketones (Negative) Urine Blood (Negative) Urine RBC (Auto) (0-4) /hpf U Epithel Cells (Auto) (0-5) /lpf 05/29/22 05/29/22 05/29/22 Range/Units 10:00 10:33 11:03 WBC (4.8-10.8) K/ul Neut # (Auto) (1.40-6.50) K/uL Lymph # (Auto) (1.2-3.4) K/uL [place] # (Auto) (0.11-0.59) K/uL PT 12.4 H (9.0-12.0) Seconds ABG pH 7.47 H (7.35-7.45) ABG pCO2 32 L (35-46) mmHg ABG pO2 68 L (80-95) mmHg ABG O2 Saturation 96.6 H (90-95) % Sodium (136-145) mmol/L Chloride (98-107) mmol/L Glucose (70-99(Fasting)) mg/dl Lactate 2.8 H* (0.4-2.0) mmol/L Total Bilirubin (0.2-1.0) mg/dl Direct Bilirubin (0-0.2) mg/dl Alkaline Phosphatase (34-104) U/L Troponin I High Sens (0-20) pg/ml Procalcitonin (0-0.5) ng/ml Ur Specific [place] (1.000-1.030) Urine Protein (Negative) Urine Ketones (Negative) Urine Blood (Negative) Urine RBC (Auto) (0-4) /hpf U Epithel Cells (Auto) (0-5) /lpf 05/29/22 Range/Units 12:17 WBC (4.8-10.8) K/ul Neut # (Auto) (1.40-6.50) K/uL Lymph # (Auto) (1.2-3.4) K/uL [place] # (Auto) (0.11-0.59) K/uL PT (9.0-12.0) Seconds ABG pH (7.35-7.45) ABG pCO2 (35-46) mmHg ABG pO2 (80-95) mmHg ABG O2 Saturation (90-95) % Sodium (136-145) mmol/L Chloride (98-107) mmol/L Glucose (70-99(Fasting)) mg/dl Lactate (0.4-2.0) mmol/L Total Bilirubin (0.2-1.0) mg/dl Direct Bilirubin (0-0.2) mg/dl Alkaline Phosphatase (34-104) U/L Troponin I High Sens (0-20) pg/ml Procalcitonin (0-0.5) ng/ml Ur Specific [place] > 1.045 H (1.000-1.030) Urine Protein 1+ H (Negative) Urine Ketones 1+ H (Negative) Urine Blood 1+ H (Negative) Urine RBC (Auto) 5-10 H (0-4) /hpf U Epithel Cells (Auto) 10-20 H (0-5) /lpf Diagnostic Findings XR chest 1V portable HISTORY: 76 years-old Male Sepsis acute sepsis COMPARISON: 05/11/2022 TECHNIQUE: AP view of the chest FINDINGS: Cardiac silhouette is enlarged. Mild right hemidiaphragmatic elevation. No pneumothorax. Unchanged right hemidiaphragmatic elevation with costophrenic angle blunting. Pulmonary vascular congestion. There are new right greater left bibasilar and right midlung patchy airspace opacities. Bones appear grossly intact. IMPRESSION: 1. Cardiomegaly with unchanged right hemidiaphragmatic elevation. 2. New bibasilar and right midlung patchy airspace opacities suspicious for pneumonia. CT angio chest PE protocol CT DOSE: 459.23 mGy.cm HISTORY: 76 years-old Male with sob. Acute shortness of breath. Prior right lower lobectomy with left upper lobe pulmonary resection. TECHNIQUE: Multiple CTA images of the chest were obtained after the intravenous administration of 117 ml Optiray. Coronal and sagittal MIPS were obtained from the axial data set and were submitted for review. All measurements were obtained according to NASCET criteria. A dose lowering technique was utilized adhering to the principles of ALARA. COMPARISON: Chest radiograph of same day, chest CT from outside hospital 01/18/2022 FINDINGS: CTA: Mild cardiomegaly without pericardial effusion. Moderate coronary artery calcifications. Thoracic aortic calcifications without aneurysm. No pulmonary emboli identified, however evaluation is limited secondary to respiratory motion artifact. CT CHEST: Unremarkable thyroid. Mediastinal and hilar lymphadenopathy again noted. Right tracheoesophageal recess lymph node on image 254 measures 1.2 cm in short axis is a 9 mm. Pretracheal lymph node measures 1.4 x 1.7 cm, previously 1.2 x 1.1 cm. Subcarinal lymph node measures 1.5 cm in short axis. Right hilar lymph node measures 1.5 cm. Additional subcarinal lymphadenopathy which is also progressed. Trace pleural effusions. No pneumothorax. Severe pulmonary emphysema with chronic interstitial coarsening. Prior wedge resection of the left upper lobe. Mild scarring noted along the staple line. Prior right lower lobectomy. Reticular interstitial with patchy bibasilar groundglass and alveolar opacities, most pronounced in the right greater than left lower lobes. Mild intralobular septal thickening. Central airways appear patent. No acute process of the imaged upper abdomen. Unremarkable soft tissues. No acute fracture. Chronic T9 burst fracture. IMPRESSION: 1. Limited study secondary to respiratory motion artifact. No central pulmonary emboli are identified. 2. Patchy multifocal multilobar distribution of groundglass and alveolar opacities which are most pronounced in the right greater than left lung bases suggestive of multifocal pneumonia. Follow-up imaging after treatment course recommended in order to document resolution. 3. Trace pleural effusions. 4. Enlarged mediastinal and hilar lymph nodes have increased in size from the 01/18/2022 exam. 5. Prior left upper lobe wedge resection and right lower lobectomy. Medications Administered ER Medications Given: Cefepime 2g IV NSS 1L bolus Duoneb 12ml ECG Indication: SOB/dyspnea Rate (beats per minute): 123 Rhythm: sinus tachycardia Findings: + nonspecific-ST abn Comparison ECG Date: from (September 28, 2018) Change: no significant change Code Status & VTE Plan Code Status Full VTE Prophylaxis Plan VTE Prophylaxis will be ordered: Yes Critical Care Time Critical Care Time: Yes Total Critical Care Time: 35 PG Care Time/CCT Total # of Minutes Spent Total Time Spent with Patient: Total time spent is greater than 50% in coordination of care (as documented) at patient's floor/unit and/or counseling patient: Critical Care Time: Yes Total Critical Care Time: 35 Coding Level of Care Code 60113 INT INP/OBS CARE 3/75MIN Diagnoses Sepsis A41.9 Multifocal pneumonia J18.9 Acute respiratory failure with hypoxia J96.01 COPD exacerbation J44.1 Lung cancer C34.90 S/P lobectomy of lung Z90.2 Paroxysmal supraventricular tachycardia I47.1 Elevated troponin R77.8 Additional Codes Critical Care Time - Critical Care Time: Yes ([id number])
[2022-05-29] MEDS: MAGNESIUM SULFATE / D5W 1 GM/100 ML BAG IV SCH ×2 (13:30→13:52)
--- NOTE | 2022-05-29 13:46 | Pulmonary Consultation ---
Date of Consultation May 29, 2022 Assessment & Plan (1) Multifocal pneumonia: (2) Acute respiratory failure with hypoxia: (3) Paroxysmal supraventricular tachycardia: (4) Acute dyspnea: (5) Acute anxiety: (6) Aortic stenosis: Plan 76-year-old male with a history of COPD (FEV1 61%, DLCO 37% in 2021), lung cancer status post radiation and resection, chronic hypoxia and extensive tobacco abuse history presenting to the hospital due to severe shortness of breath. Found to have multifocal pneumonia. Continue DuoNebs every 4 hours. Continue broad-spectrum antibiotics with doxycycline and cefepime. Vancomycin discontinued as MRSA screen was negative. Given the severity of his pneumonia and increased work of breathing, recommend admission to the ICU for close monitoring. Follow sputum and blood culture. Respiratory viral panel negative. Urine Legionella antigen ordered. He may benefit from Precedex given his severe anxiety, dyspnea and SVT. Recommend cardiology consultation as well. Echo from 2019 with moderate valvular aortic stenosis. EF 55 to 60%. Recommend repeating echo given prior history of aortic stenosis. Judicious use of fluids. Discussed with bedside RN, hospitalist and on-call case planner. History of Present Illness Reason for Consultation: COPD exacerbation multifocal pneumonia History of Present Illness 76-year-old male with history of non-small cell lung cancer status post wedge resection and radiation treatment presenting to the hospital due to rapidly increasing shortness of breath over the past 2 days. He was seen by Dr. Vegas 05/11/22 and was started on 4 L of oxygen at that time due to exertional hypoxemia. His Stiolto was also switched to Trelegy. He notes that he has been having thick sputum production. He denies any hemoptysis. He has been having chest tightness and severe dyspnea with minimal exertion over the last couple of days. He has roughly a [id number] smoking history and quit smoking about 10 years ago. While interviewing him he had periods of SVT with heart rates in the 200s which was spontaneously resolved with laying back down and resting. He is very anxious and saying that he feels warm. He is also requesting that the BiPAP mask be taken off. I discussed with nursing who endorsed that he has been very anxious and does appear slightly improved compared to when he first arrived. They were able to get a sputum sample. He has been started on cefepime and doxycycline. He received a dose of methylprednisone in the ER. He also completed a nebulizer treatment. His chest CTA reveals significant motion artifact. He has patchy multifocal infiltrates, right greater than left. There is evidence of severe emphysema. He has a prior left upper lobe wedge resection and right lower lobectomy for Allergies Allergy/AdvReac Type Severity Reaction Status Date / Time pneumococcal vaccine Allergy Intermediate ARM Verified 05/10/22 13:33 SWELLING codeine AdvReac Intermediate "sick in Verified 05/10/22 13:33 stomach" Home Medications Medication Instructions Recorded Confirmed Type diphenhydramine HCl 25 mg tablet 25 mg PO HS PRN Allergy Symptoms 08/19/16 05/10/22 History (Benadryl Allergy) ##0 aspirin 81 mg tablet,delayed 81 mg PO 1300 12/07/18 05/10/22 History release cholecalciferol (vitamin D3) 25 1,000 unit PO 1300 12/07/18 05/10/22 History mcg (1,000 unit) capsule (Vitamin D3) acetaminophen 500 mg tablet 1,000 mg PO Q6H PRN Pain or Fever 05/13/20 05/10/22 History (Tylenol Extra Strength) #20 tabs albuterol sulfate 90 mcg/actuation 2 puff inhalation Q6H PRN 05/11/22 05/11/22 Rx aerosol inhaler (ProAir HFA) shortness of breath or wheezing #8.5 grams Portable Oxygen #1 ea 05/13/22 Rx azithromycin 250 mg tablet See Rx Instructions PO .COMPLEX #6 05/25/22 Rx tabs budesonide 0.25 mg/2 mL suspension 0.25 mg (2 mL) inhalation BID #180 05/25/22 Rx for nebulization mL nebulizers (Aeroneb Go Nebulizer) #1 ea 05/25/22 Rx prednisone 20 mg tablet 20 mg PO .as directed #15 tabs 05/25/22 Rx tiotropium 2.5 mcg-olodaterol 2.5 2 puff inhalation DAILY #3 Inhalers 05/25/22 Rx mcg/actuation mist for inhalation (Stiolto Respimat) Patient History Medical History (Updated 05/29/22 @ 13:55 by Fabrice Clements MD) Acute anxiety Acute dyspnea Aortic stenosis 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, 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 COPD (chronic obstructive pulmonary disease) Left upper lobe pulmonary nodule Lung cancer CHEMO AND RADIATION Osteoarthritis Osteoporosis Vertigo Surgical History History of cataract surgery RT History of herniorrhaphy INGUINAL History of tonsillectomy History of tooth extraction S/P bronchoscopy with biopsy (12/10/18) S/P lobectomy of lung (01/09/17) Right lower lobectomy and mediastinal lymphadenectomy 01-09-17 Family History Father FHx: bladder cancer Mother Family history of diabetes mellitus Social History Smoking Status: Former smoker Tobacco Type: Cigarettes Age Started Using Tobacco: 12; Age Quit Using Tobacco: 68; Cigarettes Per Day: 20; Second Hand Exposure: No; Hx Alcohol Use: No Hx Substance Use: No Preferred Language: Greek Communication Ability: Effective Visual Impairment: No Limitations Hearing Ability: Normal Branch General Manager Required: No Beliefs That Will Affect Care: None marital status: Current Living Situation: Alone How many Children do You have: 3 Feels Safe at Home: Yes Childhood Exposure to Second-Hand Smoke: Yes Seatbelt Use: always Sunscreen Use: No Assistive Devices: Denture - Upper, Denture - Lower and Glasses Review of Systems Review of Systems: All systems reviewed & are unremarkable except as noted in HPI & below Physical Exam Physical Exam: Constitutional: Anxious appearing male in moderate distress. Tripoding at times. Eyes: Pupils are equal round and reactive to light. Conjunctivae are normal. Anicteric sclera. Ears nose, mouth and throat: Mallampati class 2. Normal posterior oropharynx. Uvula is midline. Neck: Trachea is midline. Visual inspection is normal. Respiratory: Crackles bilaterally with prolonged phase of exhalation. Mild wheezes. Cardiovascular: Tachycardic. Minimal edema in the lower extremities. No murmur. Gastrointestinal: Normal bowel sounds, soft, nontender and nondistended. No hepatosplenomegaly noted. Musculoskeletal: No cyanosis. Patient is able to move all extremities. Strength is 5 out of 5 in the upper and lower extremities. Skin: No rashes, warm dry and intact. Neurologic: No obvious focal neurological deficits seen. Psychiatric: Anxious appearing. Alert and oriented x3 Results & Data Results & Data Vital Signs (Past 12 Hours) Vital Signs Temp Pulse Pulse Resp BP Pulse Ox O2 Del Method 05/29/22 13:30 128 H 30 H 149/91 H 95 BiPAP 05/29/22 13:00 128 H 28 H 139/83 94 BiPAP 05/29/22 12:30 124 H 24 143/95 H 97 BiPAP 05/29/22 13:25 130 H 28 H 94 BiPAP 05/29/22 12:28 123 H 24 97 05/29/22 11:38 129 H 27 H 151/87 H 91 Oxymask 05/29/22 10:30 122 H 23 127/77 94 Oxymask 05/29/22 10:00 125 H 26 H 146/89 H 91 Oxymask 05/29/22 11:11 185 H 05/29/22 10:34 123 H 26 H 93 Oxymask 05/29/22 10:17 91 Oxymask 05/29/22 10:05 124 H 05/29/22 09:37 Nasal Cannula, Oxymask 05/29/22 09:37 37.5 C 125 H 18 126/66 89 L Nasal Cannula O2 Flow Rate FiO2 05/29/22 13:30 05/29/22 13:00 05/29/22 12:30 05/29/22 13:25 50 05/29/22 12:28 50 05/29/22 11:38 8 05/29/22 10:30 8 05/29/22 10:00 8 05/29/22 11:11 05/29/22 10:34 7 05/29/22 10:17 8 05/29/22 10:05 05/29/22 09:37 8 05/29/22 09:37 8 PG Care Time/CCT Total # of Minutes Spent Total Time Spent with Patient: Total time spent is greater than 50% in coordination of care (as documented) at patient's floor/unit and/or counseling patient: Coding Level of Care Code 88263 INT INP/OBS CARE 3/75MIN Diagnoses Multifocal pneumonia J18.9 Acute respiratory failure with hypoxia J96.01 Paroxysmal supraventricular tachycardia I47.1 Acute dyspnea R06.00 Acute anxiety F41.9 Aortic stenosis I35.0
[2022-05-29] MEDS ORDERED: LACTATED RINGER'S 500 ML IV ONE (13:47)
[2022-05-29] MEDS: LEVALBUTEROL HCL 0.63 MG/3 ML NEB NEB SCH ×2 (14:22→20:02)
--- NOTE | 2022-05-29 14:25 | Electrocardiogram Report ---
Test Reason : Blood Pressure : / mmHG Vent. Rate : 123 BPM Atrial Rate : 123 BPM P-R Int : 172 ms QRS Dur : 076 ms QT Int : 310 ms P-R-T Axes : 057 019 064 degrees QTc Int : 443 ms Poor data quality, interpretation may be adversely affected Sinus tachycardia Left atrial enlargement Nonspecific ST abnormality Abnormal ECG When compared with ECG of 28-SEP-2018 20:34, Vent. rate has increased BY 43 BPM Confirmed by Larry Otero ([id number]) on 05/29/2022 2:25:01 PM Referred By: Confirmed By:Larry Otero
[2022-05-29] MEDS: LACTATED RINGER'S 1,000 ML IV SCH (15:31)
[2022-05-29] MEDS: ICU Protocol for HYPERglycemia SCH ×2 (15:44→20:30)
[2022-05-29] MEDS ORDERED: ACETAMINOPHEN 1,000 MG/100 ML VIAL IV PRN (15:52)
[2022-05-29] MEDS: CEFEPIME 2,000 MG in SYRINGE 0 ML IV SCH (17:28)
[2022-05-29] MEDS ORDERED: BUDESONIDE 0.5 MG/2 ML VIAL (PULMICORT) NEB SCH (19:00)
[2022-05-29] MEDS ORDERED: FORMOTEROL 20 MCG/2 ML VIAL NEB SCH (19:00)
[2022-05-29] MEDS: FORMOTEROL 20 MCG/2 ML VIAL NEB SCH (20:02)
[2022-05-29] MEDS: BUDESONIDE 0.5 MG/2 ML VIAL (PULMICORT) NEB SCH (20:02)
[2022-05-29] MEDS: guaiFENesin 600 MG TABCR PO SCH (20:30)
[2022-05-29] MEDS: ENOXAPARIN INJ 40 MG/0.4 ML SYR SQ SCH (20:30)
[2022-05-29] MEDS ORDERED: methylPREDNISolone 40 MG in SYRINGE 0 ML IV SCH (21:00)
--- NOTE | 2022-05-29 21:01 | Critical Care Consultation ---
Date of Consultation May 29, 2022 Assessment & Plan (1) Acute respiratory failure with hypoxia: Impression: 76-year-old male with history of COPD and a lung cancer (status post lobectomy) that presents to the ICU following respiratory failure and CT imaging consistent with multifocal pneumonia. Now requiring BiPAP for respiratory support. Neuro - [facility] ICU: Negative Cardiac - Elevated troponinno chest pain and no ST elevation on EKG. Suspect this is likely demand ischemia due to hypoxia and SVT and will trend for now. Continuous monitoring on telemetry SVTno prior history and spontaneously resolved. Expect this was onset due to hypoxia. Patient was noted to have heart rate in the 200s. Continue to monitor for now as patient is currently in sinus rhythm. Respiratory - Acute on chronic hypoxic respiratory failuresecondary to multifocal pneumonia and patient with COPD (On 4 L nasal cannula at baseline) and previous lobectomy Lung cancer with non-small cell adenoma -CTA negative for PE, consistent with multifocal infiltrates -See ID for treatment of pneumonia below -Continue budesonide, formoterol, guaifenesin, leave albuterol -Continue Solu-Medrol - Follow-up a.m. checks x-ray - Appreciate pulmonary recommendations -Continue with BiPAP support for now, wean oxygen as tolerated - Continuous monitoring pulse ox GI - N.p.o. for now RENAL/LYTES - Creatinine within normal limits, monitor routine BMP and replete electrolytes as indicated Lactic acidosismild, likely due to sepsis versus hypoxia. Trend and treat underlying causes - FoleyStrict I's and O's ENDO - No history of diabetes or thyroid disease, ICU hyperglycemic protocol HEME - H&H stable, monitor routine CBC ID - PneumoniaCT imaging consistent with multifocal pneumonia. Elevated WBC, Procalcitonin, and lactate. -Sputum culture and blood cultures pending -Bio fire negative -Nasal MRSA negative -Continue cefepime and doxycycline LINES/IV ACCESS - Peripheral IVs DVT PROPHYLAXIS - SCDs, Lovenox Thank you for allowing us to participate in the care of this patient. Please refer to my attending physician's documentation for any further recommendations. (2) COPD with emphysema: (3) Status post lung surgery: (4) Aortic stenosis: (5) Paroxysmal supraventricular tachycardia: History of Present Illness Attending Physician: Shaji Moralez MD History of Present Illness Patient is a 76-year-old male with past medical history of non-small cell lung cancer status post wedge resection and radiation treatment, COPD, aortic stenosis, HTN, presented to the emergency department due to rapidly increased shortness of breath. Patient states that he has had progressive shortness of breath over the past few weeks and was placed on oxygen 3 weeks ago per pulmonology. Patient is currently on 4 L nasal cannula at home. Patient says that he has been having productive cough with green/yellow sputum production. In the emergency department he was found to be hypoxic and placed on BiPAP, he also had an an episode of SVT with heart rate in the 200s that spontaneously resolved. CTA chest negative for PE but imaging consistent with multifocal pneumonia. Patient was placed on broad-spectrum antibiotics. He is now admitted to the ICU for further management at this time. On evaluation the patient is currently maintaining oxygen saturations on BiPAP on FiO2 50%. He appears comfortable with no labored breathing and is mildly tachypneic. Patient reports progressive shortness of breath but feels better currently on BiPA and ongoing productive cough. He denies any headaches, dizziness, recent illness or fevers, sinus congestion, sore throat, chest pain or palpitations, abdominal pain, nausea vomiting or diarrhea, swelling in hands and feet, changes in gait. Allergies Allergy/AdvReac Type Severity Reaction Status Date / Time pneumococcal vaccine Allergy Intermediate ARM Verified 05/10/22 13:33 SWELLING codeine AdvReac Intermediate "sick in Verified 05/10/22 13:33 stomach" Home Medications Medication Instructions Recorded Confirmed Type diphenhydramine HCl 25 mg tablet 25 mg PO HS PRN Allergy Symptoms 08/19/16 05/10/22 History (Benadryl Allergy) ##0 aspirin 81 mg tablet,delayed 81 mg PO 1300 12/07/18 05/10/22 History release cholecalciferol (vitamin D3) 25 1,000 unit PO 1300 12/07/18 05/10/22 History mcg (1,000 unit) capsule (Vitamin D3) acetaminophen 500 mg tablet 1,000 mg PO Q6H PRN Pain or Fever 05/13/20 05/10/22 History (Tylenol Extra Strength) #20 tabs albuterol sulfate 90 mcg/actuation 2 puff inhalation Q6H PRN 05/11/22 05/11/22 Rx aerosol inhaler (ProAir HFA) shortness of breath or wheezing #8.5 grams Portable Oxygen #1 ea 05/13/22 Rx azithromycin 250 mg tablet See Rx Instructions PO .COMPLEX #6 05/25/22 Rx tabs budesonide 0.25 mg/2 mL suspension 0.25 mg (2 mL) inhalation BID #180 05/25/22 Rx for nebulization mL nebulizers (Aeroneb Go Nebulizer) #1 ea 05/25/22 Rx prednisone 20 mg tablet 20 mg PO .as directed #15 tabs 05/25/22 Rx tiotropium 2.5 mcg-olodaterol 2.5 2 puff inhalation DAILY #3 Inhalers 05/25/22 Rx mcg/actuation mist for inhalation (Stiolto Respimat) Patient History Medical History Acute anxiety Acute dyspnea Aortic stenosis 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, 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 COPD (chronic obstructive pulmonary disease) Left upper lobe pulmonary nodule Lung cancer CHEMO AND RADIATION Osteoarthritis Osteoporosis Vertigo Surgical History History of cataract surgery RT History of herniorrhaphy INGUINAL History of tonsillectomy History of tooth extraction S/P bronchoscopy with biopsy (12/10/18) S/P lobectomy of lung (01/09/17) Right lower lobectomy and mediastinal lymphadenectomy 01-09-17 Family History Father FHx: bladder cancer Mother Family history of diabetes mellitus Social History Smoking Status: Former smoker Tobacco Type: Cigarettes Age Started Using Tobacco: 12; Age Quit Using Tobacco: 68; Cigarettes Per Day: 20; Second Hand Exposure: No; Hx Alcohol Use: No Hx Substance Use: No Preferred Language: Kazakh Communication Ability: Effective Visual Impairment: No Limitations Hearing Ability: Normal 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 Beliefs That Will Affect Care: None marital status: Current Living Situation: Spouse How many Children do You have: 3 Feels Safe at Home: Yes Childhood Exposure to Second-Hand Smoke: Yes Seatbelt Use: always Sunscreen Use: No Assistive Devices: Denture - Upper, Denture - Lower and Glasses Review of Systems Review of Systems: All systems reviewed & are unremarkable except as noted in HPI & below Physical Exam Constitutional: WD/WN, vitals as above Eyes: PERRL, conjunctivae normal, anicteric sclerae ENMT: external ear and nose normal, oropharynx normal Neck: trachea midline, no thyromegaly Respiratory: Symmetrical chest wall movement, nonlabored breathing, mild tachypnea, lungs with coarse crackles bilaterally and diminished in bases. Cardiovascular: Rate/Rhythm: regular rate and + tachycardic Heart Sounds: normal S1 and normal S2; no murmur Extremities: normal capillary refill; no edema Gastrointestinal (Abdomen): normal bowel sounds, soft, nontender, no hepatosplenomegaly Musculoskeletal: no cyanosis or clubbing, extremities motor strength 5/5 Skin: no rashes, warm and dry Neurologic: PERRL, EOMI, accommodation nl, no face palsy, no dysarthria Psychiatric: A+Ox3, euthymic affect Results & Data Results & Data Vital Signs (Past 12 Hours) Vital Signs Temp Pulse Pulse Resp BP Pulse Ox O2 Del Method 05/29/22 20:02 104 H 23 96 BiPAP 05/29/22 20:02 103 H 23 96 05/29/22 17:00 37.8 C H 112 H 23 95 BiPAP 05/29/22 17:00 131/80 05/29/22 16:30 37.9 C H 115 H 23 96 BiPAP 05/29/22 16:30 131/79 05/29/22 16:00 37.9 C H 115 H 23 95 BiPAP 05/29/22 16:00 135/88 05/29/22 16:00 114 H 05/29/22 17:02 05/29/22 15:30 37.9 C H 119 H 28 H 93 BiPAP 05/29/22 15:30 143/82 H 05/29/22 15:00 38.0 C H 124 H 28 H 93 BiPAP 05/29/22 15:00 130/103 H 05/29/22 14:37 38.0 C H 126 H 16 05/29/22 14:37 147/105 H 05/29/22 14:36 121 H 23 05/29/22 14:00 124 H 27 H 94 BiPAP 05/29/22 14:00 144/110 H 05/29/22 15:31 120 H 26 H 94 05/29/22 13:30 128 H 30 H 149/91 H 95 BiPAP 05/29/22 13:00 128 H 28 H 139/83 94 BiPAP 05/29/22 12:30 124 H 24 143/95 H 97 BiPAP 05/29/22 13:25 130 H 28 H 94 BiPAP 05/29/22 12:28 123 H 24 97 05/29/22 11:38 129 H 27 H 151/87 H 91 Oxymask 05/29/22 10:30 122 H 23 127/77 94 Oxymask 05/29/22 10:00 125 H 26 H 146/89 H 91 Oxymask 05/29/22 11:11 185 H 05/29/22 10:34 123 H 26 H 93 Oxymask 05/29/22 10:17 91 Oxymask 05/29/22 10:05 124 H 05/29/22 09:37 Nasal Cannula, Oxymask 05/29/22 09:37 37.5 C 125 H 18 126/66 89 L Nasal Cannula O2 Flow Rate FiO2 05/29/22 20:02 50 05/29/22 20:02 50 05/29/22 17:00 05/29/22 17:00 05/29/22 16:30 05/29/22 16:30 05/29/22 16:00 05/29/22 16:00 05/29/22 16:00 05/29/22 17:02 50 05/29/22 15:30 05/29/22 15:30 05/29/22 15:00 05/29/22 15:00 05/29/22 14:37 05/29/22 14:37 05/29/22 14:36 05/29/22 14:00 05/29/22 14:00 05/29/22 15:31 50 05/29/22 13:30 05/29/22 13:00 05/29/22 12:30 05/29/22 13:25 50 05/29/22 12:28 50 05/29/22 11:38 8 05/29/22 10:30 8 05/29/22 10:00 8 05/29/22 11:11 05/29/22 10:34 7 05/29/22 10:17 8 05/29/22 10:05 05/29/22 09:37 8 05/29/22 09:37 8 Coding Level of Care Code 46366 IN/OBS CONSULT LVL 3,45M Diagnoses Acute respiratory failure with hypoxia J96.01 COPD with emphysema J43.9 Status post lung surgery Z98.890 Aortic stenosis I35.0 Paroxysmal supraventricular tachycardia I47.1 Time Spent (min) 45
[2022-05-29 23:24] LABS: BUN Creatinine Ratio 20.3 (10-20); Calcium 8.2 mg/dl (8.6-10.3); Creatinine Clr Calc Pharmacy 112.3 ml/min; Est GFR (African American) 115.6 ml/min; Est GFR (Non-African American) 99.7 ml/min
[2022-05-30] MEDS: LEVALBUTEROL HCL 0.63 MG/3 ML NEB NEB SCH ×2 (00:26→05:19)
[2022-05-30] MEDS: CEFEPIME 2,000 MG in SYRINGE 0 ML IV SCH ×3 (01:58→17:36)
[2022-05-30] MEDS: DOXYCYCLINE HYCLATE 100 MG in DEXTROSE 5% 100 ML IV SCH ×2 (03:24→17:36)
[2022-05-30] MEDS: LACTATED RINGER'S 1,000 ML IV SCH (03:25)
[2022-05-30] MEDS: BUDESONIDE 0.5 MG/2 ML VIAL (PULMICORT) NEB SCH ×2 (05:19→19:34)
[2022-05-30] MEDS: FORMOTEROL 20 MCG/2 ML VIAL NEB SCH ×2 (05:19→19:35)
[2022-05-30 06:04] LABS: Allen Test Pos (Pos); Base Excess ABG 2.4 mEq/L (-9-1.8); HCO3 ABG 26 mmol/L (19-24); Oxygen Saturation ABG 99.8 % (90-95); PCO2 ABG 38 mmHg (35-46); PO2 ABG 165 mmHg (80-95); pH ABG 7.45 (7.35-7.45)
[2022-05-30 06:15] LABS: Hemoglobin 12.8 g/dl (14.0-18.0); Mean Corpuscular Hemoglobin 28.8 pg (25.0-34.0); Mean Corpuscular Hgb Conc 33.7 g/dL (32.0-36.0); Mean Corpuscular Volume 85.6 fL (80.0-100.0); Mean Platelet Volume 9.5 fL (9.4-12.4); Platelet Count 270 K/uL (130-400); RDW Standard Deviation 40.5 fL (36.4-46.3); Red Blood Count 4.44 M/uL (4.70-6.10); White Blood Count 14.23 K/ul (4.8-10.8)
[2022-05-30 06:27] LABS: Albumin Globulin Ratio 0.8 (0.9-2); BUN Creatinine Ratio 22.2 (10-20); Bilirubin,Total 0.7 mg/dl (0.2-1.0); Calcium 8.4 mg/dl (8.6-10.3); Creatinine Clr Calc Pharmacy 105.1 ml/min; Est GFR (African American) 112.5 ml/min; Est GFR (Non-African American) 97.1 ml/min; Globulin 3.7 gm/dl (2.5-4.0); Magnesium 2.5 mg/dl (1.7-2.4); Potassium 3.9 mmol/L (3.5-5.1); Total Protein 6.7 gm/dl (6.0-8.3)
[2022-05-30 06:33] LABS: Basophils # (auto) 0.04 K/uL (0-0.2); Basophils % (auto) 0.3 %; Eosinophils # (auto) 0.04 K/uL (0-0.50); Eosinophils % (auto) 0.3 %; Immature Granulocytes # (auto) 0.09 K/uL (0.01-0.20); Immature Granulocytes % (auto) 0.6 %; Lymphocytes # (auto) 0.39 K/uL (1.2-3.4); Lymphocytes % (auto) 2.7 %; Monocytes # (auto) 0.55 K/uL (0.11-0.59); Monocytes % (auto) 3.9 %; Neutrophils # (auto) 13.12 K/uL (1.40-6.50); Neutrophils % (auto) 92.2 %
--- NOTE | 2022-05-30 07:37 | Critical Care Progress Note ---
Date of Service May 30, 2022 Assessment & Plan (1) Multifocal pneumonia: (2) COPD exacerbation: (3) Sepsis: (4) Paroxysmal supraventricular tachycardia: (5) Aortic stenosis: Plan Impression: 76-year-old male with oxygen dependent COPD and prior history of lung cancer status postresection admitted with multifocal pneumonia and hypoxemic respiratory failure. 24-hour events: Patient was admitted to the ICU. He is required noninvasive p ositive pressure ventilation. He has been weaned to high flow nasal cannula this morning. He is hemodynamically stable and appears to be making clinical progress. Recommendations: 1. Neurologic: No current issues. Continue to follow clinically. 2. Respiratory: Multifocal pneumonia with hypoxemic respiratory failure. Wean to high flow nasal cannula this morning and wean oxygen to maintain oxygen saturations at or above 90%. Patient is currently receiving nebulized budesonide, Perforomist and DuoNebs. He is also on IV Solu-Medrol. He does not appear bronchospastic this morning and I think steroids can be transitioned to oral and rapidly tapered off. Patient was on chronic azithromycin therapy as an outpatient. Biofire negative. 3. Cardiovascular: SVT. I think the patient would tolerate low-dose beta- karen which will be initiated this morning. Follow heart rate and blood pressure. No indication for anticoagulation. Lactate is cleared. 4. Renal: Mild hyponatremia this morning, slightly improved from admission. Electrolytes are improving. We will start ICU electrolyte replacement protocol. 5. GI: No current issues. If he is able to maintain off noninvasive positive pressure ventilation will advance diet as tolerated. 6. Heme-onc: Mild anemia this morning. Leukocytosis improving with treatment for antibiotics. Continue to trend. DVT prophylaxis initiated. History of prior lung cancer status postresection. Will need follow-up imaging to document resolution of the airspace opacities. 7. ID: Day #2 cefepime, and doxycycline. Received initial dose of vancomycin in the emergency room. Respiratory culture contaminated with oropharyngeal contents and culture unlikely to be beneficial. We will recheck procalcitonin in the morning and trend fever curve and white blood cell count. Can likely de- escalate antimicrobial therapy. Legionella pending. 8. Endocrine: Glycemic control per protocol. Patient was discussed with bedside critical care nurse and on multidisciplinary rounds. Total of 50 minutes was spent in evaluation management coordination of care for this patient. If he is able to maintain off of noninvasive positive pressure ventilation, we can likely transition him out of the intensive care unit to the floor. We will reassess later this afternoon. Admission and Anticipated Discharge Date Admission Date: May 29, 2022 Subjective Patient seen and examined. EMR reviewed. He was on noninvasive this morning. He was transitioned to facemask at 10 L/min and is doing reasonably well. He is coughing and expectorating some phlegm. He feels his breathing is better than yesterday. No chest pain or palpitations. No hemoptysis. Review of Systems Review of Systems: All systems reviewed & are unremarkable except as noted in Subjective Physical Exam Constitutional: WD/WN, vitals as above Neck: trachea midline, no thyromegaly Respiratory: + labored breathing and + tachypneic; no respiratory distress Auscultation: + crackles; no wheezes Cardiovascular: RRR, no murmur, no edema Gastrointestinal (Abdomen): normal bowel sounds, soft, nontender, no hepatosplenomegaly Musculoskeletal: Extremities: extremities normal to inspection Skin: no rashes, warm and dry Neurologic: Nonfocal exam Lymphatic: no cervical lymphadenopathy Results & Data Results & Data Vital Signs (Past 12 Hours) Vital Signs Temp Pulse Pulse Resp BP Pulse Ox O2 Del Method 05/30/22 06:00 36.5 C 101 H 21 98 05/30/22 06:00 121/77 05/30/22 05:00 36.7 C 100 H 19 96 05/30/22 05:00 126/82 05/30/22 05:24 100 H 20 96 05/30/22 05:19 110 H 24 93 Oxymask, BiPAP 05/30/22 04:00 36.6 C 98 H 20 96 05/30/22 04:00 127/82 05/30/22 04:00 95 H 20 96 05/30/22 03:00 36.6 C 95 H 20 95 05/30/22 03:00 128/73 05/30/22 02:00 36.6 C 97 H 33 H 95 05/30/22 02:00 120/73 05/30/22 01:00 36.7 C 95 H 24 97 05/30/22 01:00 136/83 05/30/22 00:00 36.8 C 101 H 23 96 05/30/22 00:00 142/85 H 05/29/22 23:00 36.9 C 96 H 23 95 05/29/22 23:00 114/73 05/30/22 00:00 95 H 05/30/22 00:27 93 H 24 95 BiPAP 05/29/22 22:00 37.0 C 98 H 21 95 05/29/22 22:00 113/76 05/29/22 21:00 37.1 C 99 H 39 H 95 05/29/22 21:00 129/79 05/29/22 20:00 37.2 C 101 H 19 95 05/29/22 20:00 123/83 05/29/22 22:53 100 H 20 95 05/29/22 20:00 BiPAP 05/29/22 20:02 104 H 23 96 BiPAP 05/29/22 20:02 103 H 23 96 O2 Flow Rate FiO2 05/30/22 06:00 05/30/22 06:00 05/30/22 05:00 05/30/22 05:00 05/30/22 05:24 50 05/30/22 05:19 6 50 05/30/22 04:00 05/30/22 04:00 05/30/22 04:00 50 05/30/22 03:00 05/30/22 03:00 05/30/22 02:00 05/30/22 02:00 05/30/22 01:00 05/30/22 01:00 05/30/22 00:00 05/30/22 00:00 05/29/22 23:00 05/29/22 23:00 05/30/22 00:00 05/30/22 00:27 50 05/29/22 22:00 05/29/22 22:00 05/29/22 21:00 05/29/22 21:00 05/29/22 20:00 05/29/22 20:00 05/29/22 22:53 50 05/29/22 20:00 05/29/22 20:02 50 05/29/22 20:02 50 Critical Care Results & Data Vital Signs (Past 12 Hours) Vital Signs Temp Pulse Pulse Resp BP Pulse Ox O2 Del Method 05/30/22 06:00 36.5 C 101 H 21 98 05/30/22 06:00 121/77 05/30/22 05:00 36.7 C 100 H 19 96 05/30/22 05:00 126/82 05/30/22 05:24 100 H 20 96 05/30/22 05:19 110 H 24 93 Oxymask, BiPAP 05/30/22 04:00 36.6 C 98 H 20 96 05/30/22 04:00 127/82 05/30/22 04:00 95 H 20 96 05/30/22 03:00 36.6 C 95 H 20 95 05/30/22 03:00 128/73 05/30/22 02:00 36.6 C 97 H 33 H 95 05/30/22 02:00 120/73 05/30/22 01:00 36.7 C 95 H 24 97 05/30/22 01:00 136/83 05/30/22 00:00 36.8 C 101 H 23 96 05/30/22 00:00 142/85 H 05/29/22 23:00 36.9 C 96 H 23 95 05/29/22 23:00 114/73 05/30/22 00:00 95 H 05/30/22 00:27 93 H 24 95 BiPAP 05/29/22 22:00 37.0 C 98 H 21 95 05/29/22 22:00 113/76 05/29/22 21:00 37.1 C 99 H 39 H 95 05/29/22 21:00 129/79 05/29/22 20:00 37.2 C 101 H 19 95 05/29/22 20:00 123/83 05/29/22 22:53 100 H 20 95 05/29/22 20:00 BiPAP 05/29/22 20:02 104 H 23 96 BiPAP 05/29/22 20:02 103 H 23 96 O2 Flow Rate FiO2 05/30/22 06:00 05/30/22 06:00 05/30/22 05:00 05/30/22 05:00 05/30/22 05:24 50 05/30/22 05:19 6 50 05/30/22 04:00 05/30/22 04:00 05/30/22 04:00 50 05/30/22 03:00 05/30/22 03:00 05/30/22 02:00 05/30/22 02:00 05/30/22 01:00 05/30/22 01:00 05/30/22 00:00 05/30/22 00:00 05/29/22 23:00 05/29/22 23:00 05/30/22 00:00 05/30/22 00:27 50 05/29/22 22:00 05/29/22 22:00 05/29/22 21:00 05/29/22 21:00 05/29/22 20:00 05/29/22 20:00 05/29/22 22:53 50 05/29/22 20:00 05/29/22 20:02 50 05/29/22 20:02 50 Lab & Micro Results (Past 24 Hours) RBC 4.44 M/uL (4.70-6.10) L 05/30/22 WBC 14.23 K/ul (4.8-10.8) H 05/30/22 Hgb 12.8 g/dl (14.0-18.0) L 05/30/22 Hct 38.0 % (42.0-52.0) L 05/30/22 MCV 85.6 fL (80.0-100.0) 05/30/22 MCH 28.8 pg (25.0-34.0) 05/30/22 MCHC 33.7 g/dL (32.0-36.0) 05/30/22 RDW Standard Deviation 40.5 fL (36.4-46.3) 05/30/22 RDW Coefficient of Variation 13.0 % (11.5-14.5) 05/30/22 Plt Count 270 K/uL (130-400) 05/30/22 MPV 9.5 fL (9.4-12.4) 05/30/22 Neutrophils (%) (Auto) 92.2 % 05/30/22 Lymphocytes (%) (Auto) 2.7 % 05/30/22 Monocytes # (Auto) 0.55 K/uL (0.11-0.59) 05/30/22 Eosinophils # (Auto) 0.04 K/uL (0-0.50) 05/30/22 Immature Granulocyte % (Auto) 0.6 % 05/30/22 Neutrophils # (Auto) 13.12 K/uL (1.40-6.50) H 05/30/22 Lymphocytes # (Auto) 0.39 K/uL (1.2-3.4) L 05/30/22 Monocytes # (Auto) 0.55 K/uL (0.11-0.59) 05/30/22 Eosinophils # (Auto) 0.04 K/uL (0-0.50) 05/30/22 Basophils # (Auto) 0.04 K/uL (0-0.2) 05/30/22 Immature Granulocyte # (Auto) 0.09 K/uL (0.01-0.20) 3 Dohle Bodies 1+ 05/29/22 Na 133 mmol/L (136-145) L 05/30/22 K 3.9 mmol/L (3.5-5.1) 05/30/22 Cl 99 mmol/L (98-107) 05/30/22 CO2 26 mmol/L (21-32) 05/30/22 Anion Gap 8 (3-11) 05/30/22 BUN 14 mg/dl (6-23) 05/30/22 Creatinine 0.63 mg/dl (0.6-1.4) 05/30/22 Estimated GFR ( Amer) 112.5 ml/min 05/30/22 Estimated GFR (Non-Af Amer) 97.1 ml/min 05/30/22 BUN/Creatinine Ratio 22.2 (10-20) H 05/30/22 Glu 163 mg/dl (70-99(Fasting)) H 05/30/22 Ca 8.4 mg/dl (8.6-10.3) L 05/30/22 Phosphorus Level 2.0 mg/dl (2.5-4.9) L 05/30/22 Total Bilirubin 0.7 mg/dl (0.2-1.0) 05/30/22 Direct Bilirubin 0.5 mg/dl (0-0.2) H 05/29/22 AST 11 U/L (13-39) L 05/30/22 ALT 16 U/L (7-52) 05/30/22 Alkaline Phosphatase 93 U/L (34-104) 05/30/22 TP 6.7 gm/dl (6.0-8.3) 05/30/22 Albumin 3.0 gm/dl (3.4-5.0) L 05/30/22 Globulin 3.7 gm/dl (2.5-4.0) 05/30/22 Albumin/Globulin Ratio 0.8 (0.9-2) L 05/30/22 Mg 2.5 mg/dl (1.7-2.4) H 05/30/22 05:51 Calcium Level 8.4 mg/dl (8.6-10.3) L 05/30/22 05:51 Prothromb Time International Ratio 1.1 (0.9-1.1) 05/29/22 11:0 3 Arterial Blood pH 7.45 (7.35-7.45) 05/30/22 05:51 Arterial Blood Partial Pressure CO2 38 mmHg (35-46) 05/30/22 05 :51 Arterial Blood Partial Pressure O2 165 mmHg (80-95) H 05/30/22 05:51 Arterial Blood HCO3 26 mmol/L (19-24) H 05/30/22 05:51 Arterial Blood Base Excess 2.4 mEq/L (-9-1.8) H 05/30/22 05:51 Arterial Blood Oxygen Saturation 99.8 % (90-95) H 05/30/22 05:5 1 Blood Gas Oxygen Given 50% FI02 05/30/22 05:51 Nelson Test Pos (Pos) 05/30/22 05:51 Microbiology 05/29/22 12:46 Gram Stain - Final Sputum, Expectorated Diagnostic Findings (Past 24 Hours) Chest X-Ray 05/29/22 09:54 XR chest 1V portable HISTORY: 76 years-old Male Sepsis acute sepsis COMPARISON: 05/11/2022 TECHNIQUE: AP view of the chest FINDINGS: Cardiac silhouette is enlarged. Mild right hemidiaphragmatic elevation. No pneumothorax. Unchanged right hemidiaphragmatic elevation with costophrenic angle blunting. Pulmonary vascular congestion. There are new right greater left bibasilar and right midlung patchy airspace opacities. Bones appear grossly intact. IMPRESSION: 1. Cardiomegaly with unchanged right hemidiaphragmatic elevation. 2. New bibasilar and right midlung patchy airspace opacities suspicious for pneumonia. ACT 112: Negative or not required by law. The above report was generated using voice recognition software. It may contain grammatical, syntax or spelling errors. Electronically signed by: Dom Sorenson M.D. 05/29/2022 10:19 AM Chest CTA 05/29/22 10:00 CT angio chest PE protocol CT DOSE: 459.23 mGy.cm HISTORY: 76 years-old Male with sob. Acute shortness of breath. Prior right lower lobectomy with left upper lobe pulmonary resection. TECHNIQUE: Multiple CTA images of the chest were obtained after the intravenous administration of 117 ml Optiray. Coronal and sagittal MIPS were obtained from the axial data set and were submitted for review. All measurements were obtained according to NASCET criteria. A dose lowering technique was utilized adhering to the principles of ALARA. COMPARISON: Chest radiograph of same day, chest CT from outside hospital 01/18/2022 FINDINGS: CTA: Mild cardiomegaly without pericardial effusion. Moderate coronary artery calcifications. Thoracic aortic calcifications without aneurysm. No pulmonary emboli identified, however evaluation is limited secondary to respiratory motion artifact. CT CHEST: Unremarkable thyroid. Mediastinal and hilar lymphadenopathy again noted. Right tracheoesophageal recess lymph node on image 254 measures 1.2 cm in short axis is a 9 mm. Pretracheal lymph node measures 1.4 x 1.7 cm, previously 1.2 x 1.1 cm. Subcarinal lymph node measures 1.5 cm in short axis. Right hilar lymph node measures 1.5 cm. Additional subcarinal lymphadenopathy which is also progressed. Trace pleural effusions. No pneumothorax. Severe pulmonary emphysema with c hronic interstitial coarsening. Prior wedge resection of the left upper lobe. Mild scarring noted along the staple line. Prior right lower lobectomy. Reticular interstitial with patchy bibasilar groundglass and alveolar opacities, most pronounced in the right greater than left lower lobes. Mild intralobular septal thickening. Central airways appear patent. No acute process of the imaged upper abdomen. Unremarkable soft tissues. No acute fracture. Chronic T9 burst fracture. IMPRESSION: 1. Limited study secondary to respiratory motion artifact. No central pulmonary emboli are identified. 2. Patchy multifocal multilobar distribution of groundglass and alveolar opacities which are most pronounced in the right greater than left lung bases suggestive of multifocal pneumonia. Follow-up imaging after treatment course recommended in order to document resolution. 3. Trace pleural effusions. 4. Enlarged mediastinal and hilar lymph nodes have increased in size from the 01/18/2022 exam. 5. Prior left upper lobe wedge resection and right lower lobectomy. ACT 112: Negative or not required by law. The above report was generated using voice recognition software. It may contain grammatical, syntax or spelling errors. Electronically signed by: Dom Sorenson M.D. 05/29/2022 11:52 AM I & O Totals 24 Hours 05/29/22 05/30/22 05/31/22 06:59 06:59 06:59 Intake Total 3472 / 3472 Output Total 1675 / 1675 Balance 1797 / 1797 Cumulative 05/29/22 09:36 thru 05/30/22 06:00 Intake Total 3472 Output Total 1675 Balance 1797 RT Ventilator Mngmt (Last Documented) Ventilator Ordered Settings Respiratory Rate 21 05/30/22 06:00 Fraction of Inspired Oxygen 50 05/30/22 05:24 Ventilator - PT Measurements Respiratory Rate 21 Coding Level of Care Code 28707 SUB INP/OBS CARE 3/50MIN Diagnoses Multifocal pneumonia J18.9 COPD exacerbation J44.1 Sepsis A41.9 Paroxysmal supraventricular tachycardia I47.1 Aortic stenosis I35.0
--- NOTE | 2022-05-30 09:25 | XRay Report ---
XR chest 1V portable CLINICAL HISTORY: Respiratory failure. COMPARISON STUDY: Chest radiograph and chest CT May 29, 2022. FINDINGS: Postoperative findings within both lungs are noted. There is no pneumothorax. Underlying em physema is better depicted on prior chest CT. Interstitial thickening and multifocal consolidation is again noted. The appearance of the chest is similar to prior chest radiograph and chest CT. Cardiome diastinal silhouette is stable. IMPRESSION: Persistent multifocal airspace opacities and interstitial thickening. The findings favor multifocal pneumonia. Radiographic follow-up is recommended to ensure resolution. ACT 112: Negative or not required by law. Electronically signed by: Obdulio Alexander M.D. 05/30/2022 9:23 AM
[2022-05-30] MEDS ORDERED: POTASSIUM PHOSPHATE 9 MMOL in SODIUM CHLORIDE 0.9% 250 ML IV ONE (10:00)
[2022-05-30] MEDS: ICU Protocol for HYPERglycemia SCH ×4 (10:43→22:20)
[2022-05-30] MEDS: predniSONE 20 MG TAB PO SCH (10:43)
[2022-05-30] MEDS: guaiFENesin 600 MG TABCR PO SCH ×2 (10:43→20:52)
[2022-05-30] MEDS: ACETAMINOPHEN 325 MG TAB PO PRN (13:14)
[2022-05-30] MEDS: ICU ELECTROLYTE REPLACEMENT PROTOCOL SCH (17:36)
[2022-05-30] MEDS: METOPROLOL TARTRATE 25 MG TAB PO SCH (20:31)
[2022-05-30] MEDS ORDERED: METOPROLOL TARTRATE 1 MG/ML VIAL IV STA (20:41)
[2022-05-30] MEDS ORDERED: METOPROLOL TARTRATE 1 MG/ML VIAL IV ONE (20:42)
[2022-05-30] MEDS: COUGH DROP (SUGAR FREE) LOZ 24 LOZ/1 BOX BUCCAL PRN (20:44)
[2022-05-30] MEDS: ENOXAPARIN INJ 40 MG/0.4 ML SYR SQ SCH (20:51)
[2022-05-30] MEDS ORDERED: STAT IV Infusion **Titration per Protocol STA (21:36)
--- NOTE | 2022-05-30 21:42 | Hospitalist Progress Note ---
Date of Service May 30, 2022 Assessment & Plan (1) Sepsis: Plan: Source multifocal Pneumonia Follow up blood and urine cultures Lactate 2.8 s/p NSS 1L bolus, will give addition LR 1L bolus now and repeat, since BP normal will avoid over hydration due maintain better respiratory status and determine further fluids based on repeat lactate (although this is going to be somewhat driven by his ongoing hypoxia and SVT in ER) Empiric antibiotics with vancomycin, cefepime and doxycycline will cont. doxycycline and cefepime. continue budesonide, perforomist, and duonebs. (2) Multifocal pneumonia: Plan: Vancomycin, cefepime, doxycycline given in ER. Doxycycline chosen due to recent course of azithromycin for COPD exacerbation. If MRSA nasal swab negative can d/c vancomycin Urine legionella Given poor baseline, concurrent COPD and complex oncological/surgical history will consult pulmonology for their recommendations (3) Acute respiratory failure with hypoxia: Plan: ?baaseline 2LPM O2 however this is a recent phenomenon No CO2 retention on ABG Aim O2 sats > 90% Given severe respiratory distress will start patient on BiPAP Guaifenesin 1200mg PO BID, Dextromethorphan for cough PRN (4) COPD exacerbation: Plan: Solu-medrol 60mg IV now, then 40mg IV BID Levalbuterol/iptratroium, formeterol NEB BID, budesonide NEB BID Given ongoing severe respiratory distress despite duoneb will given Mg sulphate 2g over 20 minutes (5) Lung cancer: Plan: 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 Continue to monitor on telemetry with ongoing levalbuterol use. Relatively asymptomatic with this since (8) Elevated troponin: Plan: Suspect demand-ischemia in setting of hypoxia, sepsis, SVT etc... Continue to trend to peak Plan VTE Prophylaxis - Lovenox 40mg SQ QPM currently in the ICU Admission and Anticipated Discharge Date Admission Date: May 29, 2022 Subjective 76 yo m reports feeling less short of breath. He continues to cough. Review of Systems Review of Systems: All systems reviewed & are unremarkable except as noted in HPI & below Physical Exam Physical Exam: Constitutional: well developed, on high flow; + not well nourished Eyes: PERRL, conjunctivae normal, anicteric sclerae ENMT: external ear and nose normal, oropharynx normal Neck: trachea midline, no thyromegaly Respiratory: clearer, not using accessory muscles to breath Cardiovascular: Rate/Rhythm: regular rhythm and + tachycardic Heart Sounds: no murmur Extremities: normal capillary refill; no calf tenderness and no pedal edema Gastrointestinal (Abdomen): Percussion/Palpation: abdomen soft; abdomen nontender, no guarding and abdomen not rigid Musculoskeletal: no cyanosis or clubbing, extremities motor strength 5/5 Skin: no rashes, warm and dry Neurologic: moves all extremities and awake; not confused Psychiatric: A+Ox3, euthymic affect Results & Data Results & Data Vital Signs (Past 12 Hours) Vital Signs Temp Pulse Pulse Resp BP Pulse Ox O2 Del Method 05/30/22 19:37 100 H 20 93 Nasal Cannula 05/30/22 17:00 37.2 C 100 H 21 92 05/30/22 17:00 137/82 05/30/22 16:00 37.2 C 103 H 22 91 05/30/22 16:00 138/81 05/30/22 15:00 37.3 C 109 H 24 88 L 05/30/22 15:00 142/87 H 05/30/22 14:01 37.2 C 112 H 21 95 05/30/22 14:01 130/82 05/30/22 14:00 37.2 C 101 H 25 H 05/30/22 13:00 37.1 C 109 H 22 91 05/30/22 13:00 138/83 05/30/22 12:00 37.0 C 109 H 23 88 L 05/30/22 12:00 141/85 H 05/30/22 14:47 101 H 05/30/22 11:00 36.9 C 108 H 21 91 05/30/22 11:00 138/79 05/30/22 10:00 36.8 C 103 H 20 91 05/30/22 10:00 125/79 05/30/22 11:31 101 H 05/30/22 11:03 High Flow Nasal Cannula O2 Flow Rate 05/30/22 19:37 10 05/30/22 17:00 05/30/22 17:00 05/30/22 16:00 05/30/22 16:00 05/30/22 15:00 05/30/22 15:00 05/30/22 14:01 05/30/22 14:01 05/30/22 14:00 05/30/22 13:00 05/30/22 13:00 05/30/22 12:00 05/30/22 12:00 05/30/22 14:47 05/30/22 11:00 05/30/22 11:00 05/30/22 10:00 05/30/22 10:00 05/30/22 11:31 05/30/22 11:03 10 PG Care Time/CCT Total # of Minutes Spent Total Time Spent with Patient: Total time spent is greater than 50% in coordination of care (as documented) at patient's floor/unit and/or counseling patient: Coding Level of Care Code 25918 SUB INP/OBS CARE 3/50MIN Diagnoses Sepsis A41.9 Multifocal pneumonia J18.9 Acute respiratory failure with hypoxia J96.01 COPD exacerbation J44.1 Lung cancer C34.90 S/P lobectomy of lung Z90.2 Paroxysmal supraventricular tachycardia I47.1 Elevated troponin R77.8
[2022-05-30] MEDS ORDERED: dilTIAZem HCL 125 MG in DEXTROSE 5% 100 ML IV SCH (22:00)
[2022-05-31] MEDS: CEFEPIME 2,000 MG in SYRINGE 0 ML IV SCH (01:54)
[2022-05-31] MEDS: COUGH DROP (SUGAR FREE) LOZ 24 LOZ/1 BOX BUCCAL PRN (01:54)
[2022-05-31] MEDS: DOXYCYCLINE HYCLATE 100 MG in DEXTROSE 5% 100 ML IV SCH (04:43)
[2022-05-31 06:39] LABS: BUN Creatinine Ratio 34.4 (10-20); Calcium 8.4 mg/dl (8.6-10.3); Creatinine Clr Calc Pharmacy 103.4 ml/min; Est GFR (African American) 111.8 ml/min; Est GFR (Non-African American) 96.5 ml/min; Magnesium 2.4 mg/dl (1.7-2.4); Phosphorus 2.2 mg/dl (2.5-4.9); Potassium 4.1 mmol/L (3.5-5.1)
[2022-05-31] MEDS: ICU ELECTROLYTE REPLACEMENT PROTOCOL SCH (06:42)
[2022-05-31 07:02] LABS: Basophils # (auto) 0.04 K/uL (0-0.2); Basophils % (auto) 0.2 %; Eosinophils # (auto) 0.03 K/uL (0-0.50); Eosinophils % (auto) 0.2 %; Hematocrit (blood only) 37.9 % (42.0-52.0); Hemoglobin 12.9 g/dl (14.0-18.0); Immature Granulocytes # (auto) 0.23 K/uL (0.01-0.20); Immature Granulocytes % (auto) 1.2 %; Lymphocytes # (auto) 0.68 K/uL (1.2-3.4); Lymphocytes % (auto) 3.5 %; Mean Corpuscular Hemoglobin 29.5 pg (25.0-34.0); Mean Corpuscular Volume 86.5 fL (80.0-100.0); Monocytes # (auto) 1.22 K/uL (0.11-0.59); Monocytes % (auto) 6.2 %; Neutrophils % (auto) 88.7 %; Platelet Count 350 K/uL (130-400); RDW Standard Deviation 40.9 fL (36.4-46.3); Red Blood Count 4.38 M/uL (4.70-6.10)
[2022-05-31] MEDS: BUDESONIDE 0.5 MG/2 ML VIAL (PULMICORT) NEB SCH ×2 (07:24→19:29)
[2022-05-31] MEDS: FORMOTEROL 20 MCG/2 ML VIAL NEB SCH ×2 (07:24→19:29)
--- NOTE | 2022-05-31 08:04 | XRay Report ---
XR chest 1V portable CLINICAL HISTORY: Pneumonia. Respiratory failure. COMPARISON STUDY: Chest CT May 29, 2022 and chest radiograph May 30, 2022. FINDINGS: Postoperative findings within the lungs are noted. No pneumothorax is present. Small right pleural effusion. Interstitial thickening and multifocal airspace opacities are similar to prior exam . These are greater within the right lung. Cardiomediastinal silhouette is stable. IMPRESSION: No change in multifocal airspace opacities and interstitial thickening greater within th e left lung. The findings favor multifocal pneumonia. Small right pleural effusion. ACT 112: Negative or not required by law. Electronically signed by: Obdulio Alexander M.D. 05/31/2022 8:02 AM
[2022-05-31] MEDS: POT PHOSPHATE MONOBASIC W/ SOD TAB PO SCH ×4 (08:05→16:32)
[2022-05-31] MEDS: METOPROLOL TARTRATE 25 MG TAB PO SCH ×5 (08:06→20:16)
[2022-05-31] MEDS: guaiFENesin 600 MG TABCR PO SCH ×2 (08:06→20:14)
[2022-05-31] MEDS: predniSONE 20 MG TAB PO SCH (08:07)
--- NOTE | 2022-05-31 08:23 | Critical Care Progress Note ---
Date of Service May 31, 2022 Assessment & Plan (1) Multifocal pneumonia: (2) COPD exacerbation: (3) Sepsis: (4) Paroxysmal supraventricular tachycardia: (5) Aortic stenosis: Plan Impression: 76-year-old male with oxygen dependent COPD and prior history of lung cancer status postresection admitted with multifocal pneumonia and hypoxemic respiratory failure. 24-hour events: A-fib with RVR last night converted with single dose of diltia zem. Hemodynamically stable. Oxygenation remained stable. No requirement for noninvasive positive pressure ventilation overnight. Recommendations: 1. Neurologic: No current issues. Continue to follow clinically. 2. Respiratory: Multifocal pneumonia with hypoxemic respiratory failure. Patient is currently receiving nebulized budesonide, Perforomist and DuoNebs. Continue prednisone taper. Chest x-ray today appears stable. There may be a small right-sided effusion which will be followed clinically at this point in time. No indication for thoracentesis. Patient was on chronic azithromycin therapy as an outpatient. Biofire negative. 3. Cardiovascular: SVT previously with A-fib last night. Increase metoprolol to 25 mg twice a day. Would favor using beta-blockers rather than calcium channel blockers. As this was a single episode last night, will hold off on anticoagulation currently. [id number] 2 score 2 4. Renal: Mild hyponatremia this morning, slightly improved from admission. Electrolytes are improving. We will start ICU electrolyte replacement protocol. 5. GI: Advancing diet as tolerated. 6. Heme-onc: Mild anemia this morning. Leukocytosis improving with treatment for antibiotics. Continue to trend. DVT prophylaxis initiated. History of prior lung cancer status postresection. Will need follow-up imaging to document resolution of the airspace opacities. 7. ID: Day #3 cefepime, and doxycycline. Received initial dose of vancomycin in the emergency room. Respiratory culture contaminated with oropharyngeal contents and culture unlikely to be beneficial. Fever curve improved but white count is slightly elevated today. Procalcitonin decreasing. Okay to de- escalate to oral Augmentin. 8. Endocrine: Glycemic control per protocol. Patient was discussed with bedside critical care nurse and on multidisciplinary rounds. Total of 50 minutes was spent in evaluation management coordination of care for this patient. Admission and Anticipated Discharge Date Admission Date: May 29, 2022 Subjective Patient seen and examined. EMR reviewed. Discussed with critical care REUBEN. The patient states he is improving. He had palpitations and was in A-fib with RVR last night. He converted with 1 additional dose of Cardizem. He is already started on metoprolol last night. Has been hemodynamically stable. He is not coughing or expectorating phlegm. He denies chest pain or palpitatio ns. He states his breathing continues to improve. He remains on nasal cannula at 8 to 10 L/min. Review of Systems Review of Systems: All systems reviewed & are unremarkable except as noted in Subjective Physical Exam Constitutional: WD/WN, vitals as above Neck: trachea midline, no thyromegaly Respiratory: normal respiratory effort, lungs clear to auscultation + labored breathing and + tachypneic; no respiratory distress Auscultation: + crackles; no wheezes Cardiovascular: RRR, no murmur, no edema Gastrointestinal (Abdomen): normal bowel sounds, soft, nontender, no hepatosplenomegaly Musculoskeletal: Extremities: extremities normal to inspection Skin: no rashes, warm and dry Lymphatic: no cervical lymphadenopathy Results & Data Results & Data Vital Signs (Past 12 Hours) Vital Signs Temp Pulse Pulse Resp BP Pulse Ox O2 Del Method 05/31/22 07:26 98 H 22 89 L Nasal Cannula 05/31/22 05:50 92 H 24 92 05/31/22 05:45 91 H 23 93 05/31/22 05:45 122/70 05/31/22 05:40 90 28 H 94 05/31/22 05:30 92 H 27 H 91 05/31/22 05:30 130/77 05/31/22 05:20 90 22 93 05/31/22 05:15 110/65 05/31/22 05:15 86 12 95 05/31/22 05:10 87 16 94 05/31/22 05:00 88 24 05/31/22 05:00 114/65 05/31/22 04:50 36.8 C 90 23 91 05/31/22 04:45 131/73 05/31/22 04:45 36.8 C 94 H 23 86 L 05/31/22 04:40 36.8 C 86 24 92 05/31/22 04:30 36.7 C 93 H 22 05/31/22 04:30 128/77 05/31/22 04:20 36.7 C 94 H 20 94 05/31/22 04:15 92 H 21 05/31/22 04:15 125/68 05/31/22 04:10 93 H 22 92 05/31/22 04:00 90 14 89 L 05/31/22 04:00 126/70 05/31/22 03:50 92 H 15 93 05/31/22 03:45 120/66 05/31/22 03:45 89 24 92 05/31/22 03:40 89 24 93 05/31/22 03:30 87 18 05/31/22 03:30 113/68 05/31/22 03:20 93 H 24 91 05/31/22 03:15 125/79 05/31/22 03:15 99 H 27 H 85 L 05/31/22 03:10 88 25 H 93 05/31/22 03:00 93 H 19 90 05/31/22 03:00 116/78 05/31/22 02:50 86 14 93 05/31/22 02:45 129/75 05/31/22 02:45 90 21 05/31/22 02:40 89 22 94 05/31/22 02:30 92 H 25 H 05/31/22 02:30 127/71 05/31/22 02:20 92 H 23 91 05/31/22 02:15 131/75 05/31/22 02:15 89 21 05/31/22 02:10 91 H 23 91 05/31/22 02:00 92 H 25 H 87 L 05/31/22 02:00 120/78 05/31/22 01:50 93 H 24 90 05/31/22 01:45 92 H 25 H 86 L 05/31/22 01:45 123/77 05/31/22 01:40 89 17 93 05/31/22 01:30 85 7 L 05/31/22 01:30 128/79 05/31/22 01:20 89 24 94 05/31/22 01:15 124/75 05/31/22 01:15 92 H 25 H 88 L 05/31/22 01:10 93 H 23 91 05/31/22 01:00 89 28 H 89 L 05/31/22 01:00 121/70 05/31/22 00:50 90 25 H 93 05/31/22 00:45 107/68 05/31/22 00:45 88 24 04/25/23 00:40 94 H 24 91 05/31/22 00:30 93 H 21 94 05/31/22 00:30 121/79 05/31/22 00:20 92 H 21 92 05/31/22 00:15 116/73 05/31/22 00:15 92 H 22 05/31/22 00:10 86 18 95 05/31/22 00:00 94 H 26 H 05/31/22 00:00 115/71 05/30/22 23:50 93 H 20 93 05/30/22 23:45 101 H 20 88 L 05/30/22 23:45 115/71 05/30/22 23:40 99 H 23 93 05/30/22 23:30 93 H 23 92 05/30/22 23:30 113/68 05/30/22 23:20 101 H 34 H 90 05/30/22 23:15 96 H 27 H 05/30/22 23:15 113/70 05/30/22 23:10 94 H 25 H 93 05/30/22 23:00 95 H 23 93 05/30/22 23:00 116/73 05/30/22 22:50 94 H 25 H 91 05/30/22 22:45 125/74 05/30/22 22:45 95 H 22 87 L 05/30/22 22:40 104 H 25 H 87 L 05/30/22 22:30 131 H 21 89 L 05/30/22 22:30 96/82 L 05/30/22 22:20 139 H 28 H 92 05/30/22 22:15 101/76 05/30/22 22:15 141 H 29 H 91 05/30/22 22:10 140 H 23 91 05/30/22 22:00 132 H 19 90 05/30/22 22:00 109/74 05/30/22 21:50 136 H 24 93 05/30/22 21:50 93/76 L 05/30/22 21:45 96/78 L 05/30/22 21:45 136 H 21 90 05/30/22 21:40 140 H 22 94 05/30/22 21:30 133 H 23 89 L 05/30/22 21:30 112/85 05/30/22 21:20 130 H 21 94 05/30/22 21:15 125 H 23 89 L 05/30/22 21:15 100/74 05/30/22 21:10 135 H 18 94 05/30/22 21:07 138 H 23 89 L 05/30/22 21:07 97/77 L 05/30/22 21:05 135 H 23 05/30/22 21:05 105/77 05/31/22 00:50 36.9 C 05/31/22 00:00 93 H 05/31/22 00:36 High Flow Nasal Cannula O2 Flow Rate 05/31/22 07:26 12 05/31/22 05:50 05/31/22 05:45 05/31/22 05:45 05/31/22 05:40 05/31/22 05:30 05/31/22 05:30 05/31/22 05:20 05/31/22 05:15 05/31/22 05:15 05/31/22 05:10 05/31/22 05:00 05/31/22 05:00 05/31/22 04:50 05/31/22 04:45 05/31/22 04:45 05/31/22 04:40 05/31/22 04:30 05/31/22 04:30 05/31/22 04:20 05/31/22 04:15 05/31/22 04:15 05/31/22 04:10 05/31/22 04:00 05/31/22 04:00 05/31/22 03:50 05/31/22 03:45 05/31/22 03:45 05/31/22 03:40 05/31/22 03:30 05/31/22 03:30 05/31/22 03:20 05/31/22 03:15 05/31/22 03:15 05/31/22 03:10 05/31/22 03:00 05/31/22 03:00 05/31/22 02:50 05/31/22 02:45 05/31/22 02:45 05/31/22 02:40 05/31/22 02:30 05/31/22 02:30 05/31/22 02:20 05/31/22 02:15 05/31/22 02:15 05/31/22 02:10 05/31/22 02:00 05/31/22 02:00 05/31/22 01:50 05/31/22 01:45 05/31/22 01:45 05/31/22 01:40 05/31/22 01:30 05/31/22 01:30 05/31/22 01:20 05/31/22 01:15 05/31/22 01:15 05/31/22 01:10 05/31/22 01:00 05/31/22 01:00 05/31/22 00:50 05/31/22 00:45 05/31/22 00:45 05/31/22 00:40 05/31/22 00:30 05/31/22 00:30 05/31/22 00:20 05/31/22 00:15 05/31/22 00:15 05/31/22 00:10 05/31/22 00:00 05/31/22 00:00 05/30/22 23:50 05/30/22 23:45 05/30/22 23:45 05/30/22 23:40 05/30/22 23:30 05/30/22 23:30 05/30/22 23:20 05/30/22 23:15 05/30/22 23:15 05/30/22 23:10 05/30/22 23:00 05/30/22 23:00 05/30/22 22:50 05/30/22 22:45 05/30/22 22:45 05/30/22 22:40 05/30/22 22:30 05/30/22 22:30 05/30/22 22:20 05/30/22 22:15 05/30/22 22:15 05/30/22 22:10 05/30/22 22:00 05/30/22 22:00 05/30/22 21:50 05/30/22 21:50 05/30/22 21:45 05/30/22 21:45 05/30/22 21:40 05/30/22 21:30 05/30/22 21:30 05/30/22 21:20 05/30/22 21:15 05/30/22 21:15 05/30/22 21:10 05/30/22 21:07 05/30/22 21:07 05/30/22 21:05 05/30/22 21:05 05/31/22 00:50 05/31/22 00:00 05/31/22 00:36 10 Critical Care Results & Data Vital Signs (Past 12 Hours) Vital Signs Temp Pulse Pulse Resp BP Pulse Ox O2 Del Method 05/31/22 07:26 98 H 22 89 L Nasal Cannula 05/31/22 05:50 92 H 24 92 05/31/22 05:45 91 H 23 93 05/31/22 05:45 122/70 05/31/22 05:40 90 28 H 94 05/31/22 05:30 92 H 27 H 91 05/31/22 05:30 130/77 05/31/22 05:20 90 22 93 05/31/22 05:15 110/65 05/31/22 05:15 86 12 95 05/31/22 05:10 87 16 94 05/31/22 05:00 88 24 05/31/22 05:00 114/65 05/31/22 04:50 36.8 C 90 23 91 05/31/22 04:45 131/73 05/31/22 04:45 36.8 C 94 H 23 86 L 05/31/22 04:40 36.8 C 86 24 92 05/31/22 04:30 36.7 C 93 H 22 05/31/22 04:30 128/77 05/31/22 04:20 36.7 C 94 H 20 94 05/31/22 04:15 92 H 21 05/31/22 04:15 125/68 05/31/22 04:10 93 H 22 92 05/31/22 04:00 90 14 89 L 05/31/22 04:00 126/70 05/31/22 03:50 92 H 15 93 05/31/22 03:45 120/66 05/31/22 03:45 89 24 92 05/31/22 03:40 89 24 93 05/31/22 03:30 87 18 05/31/22 03:30 113/68 05/31/22 03:20 93 H 24 91 05/31/22 03:15 125/79 05/31/22 03:15 99 H 27 H 85 L 05/31/22 03:10 88 25 H 93 05/31/22 03:00 93 H 19 90 05/31/22 03:00 116/78 05/31/22 02:50 86 14 93 05/31/22 02:45 129/75 05/31/22 02:45 90 21 05/31/22 02:40 89 22 94 05/31/22 02:30 92 H 25 H 05/31/22 02:30 127/71 05/31/22 02:20 92 H 23 91 05/31/22 02:15 131/75 05/31/22 02:15 89 21 05/31/22 02:10 91 H 23 91 05/31/22 02:00 92 H 25 H 87 L 05/31/22 02:00 120/78 05/31/22 01:50 93 H 24 90 05/31/22 01:45 92 H 25 H 86 L 05/31/22 01:45 123/77 05/31/22 01:40 89 17 93 05/31/22 01:30 85 7 L 05/31/22 01:30 128/79 05/31/22 01:20 89 24 94 05/31/22 01:15 124/75 05/31/22 01:15 92 H 25 H 88 L 05/31/22 01:10 93 H 23 91 05/31/22 01:00 89 28 H 89 L 05/31/22 01:00 121/70 05/31/22 00:50 90 25 H 93 05/31/22 00:45 107/68 05/31/22 00:45 88 24 05/31/22 00:40 94 H 24 91 05/31/22 00:30 93 H 21 94 05/31/22 00:30 121/79 05/31/22 00:20 92 H 21 92 05/31/22 00:15 116/73 05/31/22 00:15 92 H 22 05/31/22 00:10 86 18 95 05/31/22 00:00 94 H 26 H 05/31/22 00:00 115/71 05/30/22 23:50 93 H 20 93 05/30/22 23:45 101 H 20 88 L 05/30/22 23:45 115/71 05/30/22 23:40 99 H 23 93 05/30/22 23:30 93 H 23 92 05/30/22 23:30 113/68 05/30/22 23:20 101 H 34 H 90 05/30/22 23:15 96 H 27 H 05/30/22 23:15 113/70 05/30/22 23:10 94 H 25 H 93 05/30/22 23:00 95 H 23 93 05/30/22 23:00 116/73 05/30/22 22:50 94 H 25 H 91 05/30/22 22:45 125/74 05/30/22 22:45 95 H 22 87 L 05/30/22 22:40 104 H 25 H 87 L 05/30/22 22:30 131 H 21 89 L 05/30/22 22:30 96/82 L 05/30/22 22:20 139 H 28 H 92 05/30/22 22:15 101/76 05/30/22 22:15 141 H 29 H 91 05/30/22 22:10 140 H 23 91 05/30/22 22:00 132 H 19 90 05/30/22 22:00 109/74 05/30/22 21:50 136 H 24 93 05/30/22 21:50 93/76 L 05/30/22 21:45 96/78 L 05/30/22 21:45 136 H 21 90 05/30/22 21:40 140 H 22 94 05/30/22 21:30 133 H 23 89 L 05/30/22 21:30 112/85 05/30/22 21:20 130 H 21 94 05/30/22 21:15 125 H 23 89 L 05/30/22 21:15 100/74 05/30/22 21:10 135 H 18 94 05/30/22 21:07 138 H 23 89 L 05/30/22 21:07 97/77 L 05/30/22 21:05 135 H 23 05/30/22 21:05 105/77 05/31/22 00:50 36.9 C 05/31/22 00:00 93 H 05/31/22 00:36 High Flow Nasal Cannula O2 Flow Rate 05/31/22 07:26 12 05/31/22 05:50 05/31/22 05:45 05/31/22 05:45 05/31/22 05:40 05/31/22 05:30 05/31/22 05:30 05/31/22 05:20 05/31/22 05:15 05/31/22 05:15 05/31/22 05:10 05/31/22 05:00 05/31/22 05:00 05/31/22 04:50 05/31/22 04:45 05/31/22 04:45 05/31/22 04:40 05/31/22 04:30 05/31/22 04:30 05/31/22 04:20 05/31/22 04:15 05/31/22 04:15 05/31/22 04:10 05/31/22 04:00 05/31/22 04:00 05/31/22 03:50 05/31/22 03:45 05/31/22 03:45 05/31/22 03:40 05/31/22 03:30 05/31/22 03:30 05/31/22 03:20 05/31/22 03:15 05/31/22 03:15 05/31/22 03:10 05/31/22 03:00 05/31/22 03:00 05/31/22 02:50 05/31/22 02:45 05/31/22 02:45 05/31/22 02:40 05/31/22 02:30 05/31/22 02:30 05/31/22 02:20 05/31/22 02:15 05/31/22 02:15 05/31/22 02:10 05/31/22 02:00 05/31/22 02:00 05/31/22 01:50 05/31/22 01:45 05/31/22 01:45 05/31/22 01:40 05/31/22 01:30 05/31/22 01:30 05/31/22 01:20 05/31/22 01:15 05/31/22 01:15 05/31/22 01:10 05/31/22 01:00 05/31/22 01:00 05/31/22 00:50 05/31/22 00:45 05/31/22 00:45 05/31/22 00:40 05/31/22 00:30 05/31/22 00:30 05/31/22 00:20 05/31/22 00:15 05/31/22 00:15 05/31/22 00:10 05/31/22 00:00 05/31/22 00:00 05/30/22 23:50 05/30/22 23:45 05/30/22 23:45 05/30/22 23:40 05/30/22 23:30 05/30/22 23:30 05/30/22 23:20 05/30/22 23:15 05/30/22 23:15 05/30/22 23:10 05/30/22 23:00 05/30/22 23:00 05/30/22 22:50 05/30/22 22:45 05/30/22 22:45 05/30/22 22:40 05/30/22 22:30 05/30/22 22:30 05/30/22 22:20 05/30/22 22:15 05/30/22 22:15 05/30/22 22:10 05/30/22 22:00 05/30/22 22:00 05/30/22 21:50 05/30/22 21:50 05/30/22 21:45 05/30/22 21:45 05/30/22 21:40 05/30/22 21:30 05/30/22 21:30 05/30/22 21:20 05/30/22 21:15 05/30/22 21:15 05/30/22 21:10 05/30/22 21:07 05/30/22 21:07 05/30/22 21:05 05/30/22 21:05 05/31/22 00:50 05/31/22 00:00 05/31/22 00:36 10 Lab & Micro Results (Past 24 Hours) RBC 4.38 M/uL (4.70-6.10) L 05/31/22 WBC 19.60 K/ul (4.8-10.8) H 05/31/22 Hgb 12.9 g/dl (14.0-18.0) L 05/31/22 Hct 37.9 % (42.0-52.0) L 05/31/22 MCV 86.5 fL (80.0-100.0) 05/31/22 MCH 29.5 pg (25.0-34.0) 05/31/22 MCHC 34.0 g/dL (32.0-36.0) 05/31/22 RDW Standard Deviation 40.9 fL (36.4-46.3) 05/31/22 RDW Coefficient of Variation 13.0 % (11.5-14.5) 05/31/22 Plt Count 350 K/uL (130-400) 05/31/22 MPV 10.0 fL (9.4-12.4) 05/31/22 Neutrophils (%) (Auto) 88.7 % 05/31/22 Lymphocytes (%) (Auto) 3.5 % 05/31/22 Monocytes # (Auto) 1.22 K/uL (0.11-0.59) H 05/31/22 Eosinophils # (Auto) 0.03 K/uL (0-0.50) 05/31/22 Immature Granulocyte % (Auto) 1.2 % 05/31/22 Neutrophils # (Auto) 17.40 K/uL (1.40-6.50) H 05/31/22 Lymphocytes # (Auto) 0.68 K/uL (1.2-3.4) L 05/31/22 Monocytes # (Auto) 1.22 K/uL (0.11-0.59) H 05/31/22 Eosinophils # (Auto) 0.03 K/uL (0-0.50) 05/31/22 Basophils # (Auto) 0.04 K/uL (0-0.2) 05/31/22 Immature Granulocyte # (Auto) 0.23 K/uL (0.01-0.20) H 05/31 Na 134 mmol/L (136-145) L 05/31/22 K 4.1 mmol/L (3.5-5.1) 05/31/22 Cl 98 mmol/L (98-107) 05/31/22 CO2 30 mmol/L (21-32) 05/31/22 Anion Gap 6 (3-11) 05/31/22 BUN 22 mg/dl (6-23) 05/31/22 Creatinine 0.64 mg/dl (0.6-1.4) 05/31/22 Estimated GFR ( Amer) 111.8 ml/min 05/31/22 Estimated GFR (Non-Af Amer) 96.5 ml/min 05/31/22 BUN/Creatinine Ratio 34.4 (10-20) H 05/31/22 Glu 118 mg/dl (70-99(Fasting)) H 05/31/22 Ca 8.4 mg/dl (8.6-10.3) L 05/31/22 Phosphorus Level 2.2 mg/dl (2.5-4.9) L 05/31/22 Mg 2.4 mg/dl (1.7-2.4) 05/31/22 05:31 Calcium Level 8.4 mg/dl (8.6-10.3) L 05/31/22 05:31 Microbiology 05/29/22 10:00 Aerobic Blood Culture - Preliminary Blood No growth in Aerobic bottle after 24 hours. Anaerobic Blood Culture - Preliminary No growth in Anaerobic bottle after 24 hours. 05/29/22 10:10 Aerobic Blood Culture - Preliminary Blood No growth in Aerobic bottle after 24 hours. Anaerobic Blood Culture - Preliminary No growth in Anaerobic bottle after 24 hours. 05/29/22 12:46 Gram Stain - Final Sputum, Expectorated Sputum Culture - Preliminary Light normal elizabeth present, final report to follow. Diagnostic Findings (Past 24 Hours) Chest X-Ray 05/30/22 07:00 XR chest 1V portable CLINICAL HISTORY: Respiratory failure. COMPARISON STUDY: Chest radiograph and chest CT May 29, 2022. FINDINGS: Postoperative findings within both lungs are noted. There is no pneumothorax. Underlying emphysema is better depicted on prior chest CT. Interstitial thickening and multifocal consolidation is again noted. The appearance of the chest is similar to prior chest radiograph and chest CT. Cardiomediastinal silhouette is stable. IMPRESSION: Persistent multifocal airspace opacities and interstitial thick ening. The findings favor multifocal pneumonia. Radiographic follow-up is recommended to ensure resolution. ACT 112: Negative or not required by law. Electronically signed by: Obdulio Alexander M.D. 05/30/2022 9:23 AM Chest X-Ray 05/31/22 07:00 XR chest 1V portable CLINICAL HISTORY: Pneumonia. Respiratory failure. COMPARISON STUDY: Chest CT May 29, 2022 and chest radiograph May 30, 2022. FINDINGS: Postoperative findings within the lungs are noted. No pneumothorax is present. Small right pleural effusion. Interstitial thickening and multifocal airspace opacities are similar to prior exam. These are greater within the right lung. Cardiomediastinal silhouette is stable. IMPRESSION: No change in multifocal airspace opacities and interstitial thickening greater within the left lung. The findings favor multifocal pneumonia. Small right pleural effusion. ACT 112: Negative or not required by law. Electronically signed by: Obdulio Alexander M.D. 05/31/2022 8:02 AM I & O Totals 24 Hours 05/30/22 05/31/22 06/01/22 06:59 06:59 06:59 Intake Total 3472 / 3472 2123.416 / 2123.416 Output Total 1675 / 1675 1450 / 1450 Balance 1797 / 1797 673.416 / 673.416 Cumulative 05/29/22 09:36 thru 05/31/22 05:58 Intake Total 5595.416 Output Total 3125 Balance 2470.416 RT Ventilator Mngmt (Last Documented) Ventilator Ordered Settings Respiratory Rate 22 05/31/22 07:26 Fraction of Inspired Oxygen 50 05/30/22 05:24 Ventilator - PT Measurements Respiratory Rate 22 Coding Level of Care Code 73656 SUB INP/OBS CARE 3/50MIN Diagnoses Multifocal pneumonia J18.9 COPD exacerbation J44.1 Sepsis A41.9 Paroxysmal supraventricular tachycardia I47.1 Aortic stenosis I35.0
[2022-05-31] MEDS: ICU Protocol for HYPERglycemia SCH ×2 (08:34→11:31)
[2022-05-31] MEDS: DOXYCYCLINE HYCLATE 100 MG CAP PO SCH ×2 (10:15→20:16)
--- NOTE | 2022-05-31 12:50 | Electrocardiogram Report ---
Test Reason : Blood Pressure : / mmHG Vent. Rate : 153 BPM Atrial Rate : 163 BPM P-R Int : 000 ms QRS Dur : 094 ms QT Int : 244 ms P-R-T Axes : 000 020 148 degrees QTc Int : 389 ms Atrial fibrillation with rapid ventricular response Nonspecific ST and T wave abnormality Abnormal ECG When compared with ECG of 29-MAY-2022 10:05, Atrial fibrillation has replaced Sinus rhythm Nonspecific T wave abnormality, worse in Lateral leads Confirmed by Larry Otero ([id number]) on 05/31/2022 12:50:42 PM Referred By: REFERRED SELF Confirmed By:Larry Otero
[2022-05-31] MEDS: ACETAMINOPHEN 325 MG TAB PO PRN ×2 (15:10→20:21)
[2022-05-31] MEDS: DEXTROMETHORPHAN POLYMR COMPLX 30 MG/5 ML UDP PO PRN ×2 (15:12→22:20)
[2022-05-31] MEDS ORDERED: FAMOTIDINE 40 MG TABLET PO ONE (15:18)
[2022-05-31] MEDS: AMOXICILLIN/CLAVULANATE 875 MG TAB PO SCH (16:32)
[2022-05-31] MEDS: ENOXAPARIN INJ 40 MG/0.4 ML SYR SQ SCH (20:15)
--- NOTE | 2022-05-31 22:32 | Hospitalist Progress Note ---
Date of Service May 31, 2022 Assessment & Plan (1) Sepsis: Plan: Source multifocal Pneumonia Follow up blood and urine cultures Lactate 2.8 s/p NSS 1L bolus, will give addition LR 1L bolus now and repeat, since BP normal will avoid over hydration due maintain better respiratory status and determine further fluids based on repeat lactate (although this is going to be somewhat driven by his ongoing hypoxia and SVT in ER) Empiric antibiotics with vancomycin, cefepime and doxycycline will cont. doxycycline and cefepime. continue budesonide, perforomist, and duonebs. Patient on 10 liters high flow. will transfer out of the unit. (2) Multifocal pneumonia: Plan: Vancomycin, cefepime, doxycycline given in ER. Doxycycline chosen due to recent course of azithromycin for COPD exacerbation. If MRSA nasal swab negative can d/c vancomycin Urine legionella Given poor baseline, concurrent COPD and complex oncological/surgical history will consult pulmonology for their recommendations (3) Acute respiratory failure with hypoxia: Plan: ?baaseline 2LPM O2 however this is a recent phenomenon No CO2 retention on ABG Aim O2 sats > 90% Given severe respiratory distress will start patient on BiPAP Guaifenesin 1200mg PO BID, Dextromethorphan for cough PRN (4) COPD exacerbation: Plan: Solu-medrol 60mg IV now, then 40mg IV BID Levalbuterol/iptratroium, formeterol NEB BID, budesonide NEB BID Given ongoing severe respiratory distress despite duoneb will given Mg sulphate 2g over 20 minutes (5) Lung cancer: Plan: 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 Continue to monitor on telemetry with ongoing levalbuterol use. Relatively asymptomatic with this since (8) Elevated troponin: Plan: Suspect demand-ischemia in setting of hypoxia, sepsis, SVT etc... Continue to trend to peak Plan VTE Prophylaxis - Lovenox 40mg SQ QPM currently in the ICU Admission and Anticipated Discharge Date Admission Date: May 29, 2022 Subjective 76 yo male reports no new symptoms. He states he feels slightly better Review of Systems Review of Systems: All systems reviewed & are unremarkable except as noted in HPI & below Physical Exam Physical Exam: Constitutional: well developed, on high flow; + not well nourished Eyes: PERRL, conjunctivae normal, anicteric sclerae ENMT: external ear and nose normal, oropharynx normal Neck: trachea midline, no thyromegaly Respiratory: clearer, not using accessory muscles to breath Cardiovascular: Rate/Rhythm: regular rhythm and + tachycardic Heart Sounds: no murmur Extremities: normal capillary refill; no calf tenderness and no pedal edema Gastrointestinal (Abdomen): Percussion/Palpation: abdomen soft; abdomen nontender, no guarding and abdomen not rigid Musculoskeletal: no cyanosis or clubbing, extremities motor strength 5/5 Skin: no rashes, warm and dry Neurologic: moves all extremities and awake; not confused Psychiatric: A+Ox3, euthymic affect Results & Data Results & Data Vital Signs (Past 12 Hours) Vital Signs Temp Pulse Pulse Resp BP BP BP 05/31/22 19:48 107 H 05/31/22 20:15 36.4 C L 94 H 22 153/90 H 05/31/22 20:03 36.4 C L 103 H 20 136/87 05/31/22 19:35 05/31/22 19:30 18 05/31/22 19:19 36.6 C 106 H 22 153/85 H 05/31/22 18:00 36.9 C 105 H 24 05/31/22 18:00 137/85 05/31/22 17:00 36.9 C 105 H 21 132/76 05/31/22 16:00 36.8 C 98 H 27 H 143/88 H 05/31/22 16:00 36.6 C 05/31/22 16:00 96 H 05/31/22 15:00 36.8 C 96 H 23 145/82 H 05/31/22 14:00 36.9 C 99 H 25 H 137/89 05/31/22 13:20 37.1 C 111 H 24 146/108 H 05/31/22 13:00 37.2 C 103 H 26 H 142/87 H 05/31/22 12:00 37.2 C 44 H 142/80 H 05/31/22 11:00 37.3 C 91 H 23 127/79 Pulse Ox O2 Del Method O2 Flow Rate FiO2 05/31/22 19:48 05/31/22 20:15 92 Room Air 12 05/31/22 20:03 91 High Flow Nasal Cannula 10 05/31/22 19:35 High Flow Nasal Cannula 10 05/31/22 19:30 93 Nasal Cannula 10 05/31/22 19:19 90 High Flow Nasal Cannula 10 05/31/22 18:00 91 05/31/22 18:00 05/31/22 17:00 95 BiPAP 45 05/31/22 16:00 91 BiPAP 45 05/31/22 16:00 05/31/22 16:00 05/31/22 15:00 90 High Flow Nasal Cannula 10 05/31/22 14:00 91 High Flow Nasal Cannula 10 05/31/22 13:20 88 L High Flow Nasal Cannula 10 05/31/22 13:00 90 BiPAP 10 05/31/22 12:00 81 L High Flow Nasal Cannula 10 05/31/22 11:00 94 High Flow Nasal Cannula 10 PG Care Time/CCT Total # of Minutes Spent Total Time Spent with Patient: Total time spent is greater than 50% in coordination of care (as documented) at patient's floor/unit and/or counseling patient: Coding Level of Care Code 26673 SUB INP/OBS CARE 3/50MIN Diagnoses Sepsis A41.9 Multifocal pneumonia J18.9 Acute respiratory failure with hypoxia J96.01 COPD exacerbation J44.1 Lung cancer C34.90 S/P lobectomy of lung Z90.2 Paroxysmal supraventricular tachycardia I47.1 Elevated troponin R77.8
[2022-06-01] MEDS: FORMOTEROL 20 MCG/2 ML VIAL NEB SCH ×2 (07:15→19:05)
[2022-06-01] MEDS: BUDESONIDE 0.5 MG/2 ML VIAL (PULMICORT) NEB SCH ×2 (07:15→19:05)
[2022-06-01 08:30] LABS: BUN Creatinine Ratio 26.2 (10-20); Calcium 8.5 mg/dl (8.6-10.3); Creatinine Clr Calc Pharmacy 108.5 ml/min; Est GFR (Non-African American) 98.4 ml/min; Magnesium 2.2 mg/dl (1.7-2.4); Phosphorus 2.4 mg/dl (2.5-4.9); Potassium 3.7 mmol/L (3.5-5.1)
[2022-06-01] MEDS: AMOXICILLIN/CLAVULANATE 875 MG TAB PO SCH (08:38)
[2022-06-01] MEDS: METOPROLOL TARTRATE 25 MG TAB PO SCH ×3 (08:38→21:48)
[2022-06-01] MEDS: DOXYCYCLINE HYCLATE 100 MG CAP PO SCH ×2 (08:38→21:15)
[2022-06-01] MEDS: predniSONE 20 MG TAB PO SCH (08:38)
[2022-06-01] MEDS: guaiFENesin 600 MG TABCR PO SCH ×2 (08:39→21:15)
--- NOTE | 2022-06-01 10:07 | Pulmonology Progress Note ---
Date of Service June 01, 2022 Assessment & Plan (1) Acute respiratory failure with hypoxia: (2) Multifocal pneumonia: (3) COPD exacerbation: (4) Paroxysmal supraventricular tachycardia: Plan IMPRESSION: 76-year-old male with acute on chronic hypoxic respiratory failure presenting with COPD exacerbation in the setting of multifocal pneumonia he was downgraded from ICU status yesterday. Improving today. RECOMMENDATIONS: 1. Multifocal pneumonia with hypoxic respiratory failure - * Patient is currently on 2 L. His baseline is 4 L at home. * His symptoms are improving and he now reports that he is expectorating yellowish sputum. He feels that his breathing is improving he got a great night sleep last night. * Patient is completing course of antibiotics currently. * Continues with pulmonary toilet including flutter valve and incentive spirometry. * Continues with DuoNebs, budesonide, and Perforomist. 2. COPD with exacerbation - * Worsening in the setting of multifocal pneumonia. * Continue with above-mentioned nebulized therapies and pulmonary toilet. * He is now on 20 mg prednisone daily. * Approaching baseline oxygen requirement of 4 L. * Patient will eventually need reinstitution of his azithromycin Monday/Monday/Monday as well. 3. A. Fib - * Appears to be rate controlled at this time. Thank you for allowing us to participate in the care of this patient. We will continue to follow-up with the patient during his hospitalization. Admission and Anticipated Discharge Date Admission Date: May 29, 2022 Subjective Patient was seen and evaluated bedside today. He reports that he slept very well last night. He has had minimal cough, however he does report that he is now able to cough up yellowish sputum. He remains in sinus rhythm per nursing staff. He is fluctuating between 8 and 10 L nasal cannula at this time. Review of Systems Review of Systems: A complete 6 point review of systems was reviewed with the patient with pertinent positives and negatives as per history of present illness. All else were negative. Physical Exam Physical Exam: VITAL SIGNS - Vital signs and nursing notes were reviewed. GENERAL - 76-year-old male appearing his stated age who is in no acute distress. Communicates well with provider and answers questions appropriately. MOUTH/OROPHARYNX - Without perioral cyanosis. LUNGS - No distress. Auscultation reveals decreased air entry. Basilar rales. CARDIAC - RRR with S1/S2. No murmur, rubs, or gallops appreciated. ABDOMEN - Abdominal inspection demonstrates flat abdomen. BS normoactive all four quadrants. No tenderness, palpable masses, or ascites noted. EXTREMITIES - No pretibial edema present. +3/5 radial palpated throughout. PSYCH - A&Ox3 and cooperates fully with examiner. Pt is very pleasant and interacts well with examiner. Results & Data Results & Data Vital Signs (Past 12 Hours) Vital Signs Temp Pulse Pulse Resp BP Pulse Ox O2 Del Method 06/01/22 08:00 36.9 C 107 H 20 130/72 90 High Flow Nasal Cannula 06/01/22 07:25 102 H 20 98 Nasal Cannula 06/01/22 04:07 36.7 C 95 H 20 128/72 94 High Flow Nasal Cannula 05/31/22 21:59 94 H 05/31/22 23:23 36.5 C 94 H 20 116/71 97 High Flow Nasal Cannula O2 Flow Rate 06/01/22 08:00 10 06/01/22 07:25 12 06/01/22 04:07 10 05/31/22 21:59 05/31/22 23:23 10 PG Care Time/CCT Total # of Minutes Spent Total Time Spent with Patient: Total time spent is greater than 50% in coordination of care (as documented) at patient's floor/unit and/or counseling patient: Coding Level of Care Code 81623 SUB INP/OBS CARE 2/35MIN Diagnoses Acute respiratory failure with hypoxia J96.01 Multifocal pneumonia J18.9 COPD exacerbation J44.1 Paroxysmal supraventricular tachycardia I47.1
[2022-06-01] MEDS ORDERED: METOPROLOL TARTRATE 1 MG/ML VIAL IV STA ×3 (12:35→12:58)
[2022-06-01] MEDS ORDERED: STAT IV Infusion **Titration per Protocol STA (13:03)
[2022-06-01] MEDS ORDERED: dilTIAZem HCl 5 MG/ML 5 ML VIAL IV STA (13:06)
[2022-06-01] MEDS ORDERED: dilTIAZem HCL 125 MG in DEXTROSE 5% 100 ML IV SCH (13:15)
[2022-06-01] MEDS: cefTRIAXone SODIUM 2,000 MG in DEXTROSE 5% 50 ML IV SCH (15:11)
--- NOTE | 2022-06-01 16:55 | Electrocardiogram Report ---
Test Reason : Blood Pressure : / mmHG Vent. Rate : 124 BPM Atrial Rate : 141 BPM P-R Int : 000 ms QRS Dur : 092 ms QT Int : 328 ms P-R-T Axes : 000 022 063 degrees QTc Int : 471 ms Atrial fibrillation with rapid ventricular response Abnormal ECG When compared with ECG of 01-JUN-2022 12:41, (unconfirmed) Atrial fibrillation has replaced Sinus rhythm ST no longer depressed in Lateral leads Nonspecific T wave abnormality no longer evident in Inferior leads Confirmed by Larry Otero ([id number]) on 06/01/2022 4:55:43 PM Referred By: REFERRED SELF Confirmed By:Larry Otero
--- NOTE | 2022-06-01 16:55 | Electrocardiogram Report ---
Test Reason : Blood Pressure : / mmHG Vent. Rate : 164 BPM Atrial Rate : 159 BPM P-R Int : 000 ms QRS Dur : 092 ms QT Int : 294 ms P-R-T Axes : 000 037 147 degrees QTc Int : 485 ms Poor data quality, interpretation may be adversely affected Supraventricular tachycardia Septal infarct , age undetermined Abnormal ECG When compared with ECG of 30-MAY-2022 20:37, Sinus rhythm has replaced Atrial fibrillation Septal infarct is now Present Confirmed by Larry Otero ([id number]) on 06/01/2022 4:55:10 PM Referred By: REFERRED SELF Confirmed By:Larry Otero
--- NOTE | 2022-06-01 16:56 | Electrocardiogram Report ---
Test Reason : Blood Pressure : / mmHG Vent. Rate : 088 BPM Atrial Rate : 088 BPM P-R Int : 142 ms QRS Dur : 090 ms QT Int : 366 ms P-R-T Axes : 036 021 056 degrees QTc Int : 442 ms Normal sinus rhythm Septal infarct , age undetermined Abnormal ECG When compared with ECG of 01-JUN-2022 12:57, (unconfirmed) Sinus rhythm has replaced Atrial fibrillation Confirmed by Larry Otero ([id number]) on 06/01/2022 4:55:55 PM Referred By: REFERRED SELF Confirmed By:Larry Otero
[2022-06-01] MEDS: ENOXAPARIN INJ 40 MG/0.4 ML SYR SQ SCH (21:14)
--- NOTE | 2022-06-01 21:34 | Hospitalist Progress Note ---
Date of Service June 01, 2022 Assessment & Plan (1) Sepsis: Plan: Source multifocal Pneumonia Follow up blood and urine cultures Lactate 2.8 s/p NSS 1L bolus, will give addition LR 1L bolus now and repeat, since BP normal will avoid over hydration due maintain better respiratory status and determine further fluids based on repeat lactate (although this is going to be somewhat driven by his ongoing hypoxia and SVT in ER) Empiric antibiotics with vancomycin, cefepime and doxycycline transitioned to augmentin as patient grew H. influenza beta lactamase + Given tachycardia with SVT, and patient continuing to require 10 liters of high flow, will place on rocephin. Baseline is 4 liters. continue budesonide, perforomist, and duonebs. Patient on 10 liters high flow. (2) Multifocal pneumonia: Plan: Vancomycin, cefepime, doxycycline given in ER. Doxycycline chosen due to recent course of azithromycin for COPD exacerbation. If MRSA nasal swab negative can d/c vancomycin Urine legionella Given poor baseline, concurrent COPD and complex oncological/surgical history will consult pulmonology for their recommendations (3) Acute respiratory failure with hypoxia: Plan: ?baaseline 2LPM O2 however this is a recent phenomenon No CO2 retention on ABG Aim O2 sats > 90% Given severe respiratory distress will start patient on BiPAP Guaifenesin 1200mg PO BID, Dextromethorphan for cough PRN (4) COPD exacerbation: Plan: Solu-medrol 60mg IV now, then 40mg IV BID Levalbuterol/iptratroium, formeterol NEB BID, budesonide NEB BID Given ongoing severe respiratory distress despite duoneb will given Mg sulphate 2g over 20 minutes (5) Lung cancer: Plan: 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 Required 3 doses of 5 mg of metoprolol IV on 06/01 increased metoprolol 25 mg PO TID, HR now in the 90s. (8) Elevated troponin: Plan: Suspect demand-ischemia in setting of hypoxia, sepsis, SVT etc... Continue to trend to peak Plan VTE Prophylaxis - Lovenox 40mg SQ QPM currently in the ICU Admission and Anticipated Discharge Date Admission Date: May 29, 2022 Subjective Patient reports feeling better, denies any chest pain. Was called to room as patient is tachycardic in the 166s. SVT noted on EKG. Review of Systems Review of Systems: All systems reviewed & are unremarkable except as noted in HPI & below Physical Exam Physical Exam: Constitutional: well developed, on high flow; Eyes: PERRL, conjunctivae normal, anicteric sclerae ENMT: external ear and nose normal, oropharynx normal Neck: trachea midline, no thyromegaly Respiratory: wheezing, not using accessory muscles to breath Cardiovascular: Rate/Rhythm: tachycardic Heart Sounds: no murmur Extremities: normal capillary refill; no calf tenderness and no pedal edema Gastrointestinal (Abdomen): Percussion/Palpation: abdomen soft; abdomen nontender, no guarding and abdomen not rigid Musculoskeletal: no cyanosis or clubbing, extremities motor strength 5/5 Skin: no rashes, warm and dry Neurologic: moves all extremities and awake; not confused Psychiatric: A+Ox3, euthymic affect Results & Data Results & Data Vital Signs (Past 12 Hours) Vital Signs Temp Pulse Pulse Resp BP BP Pulse Ox 06/01/22 19:54 36.6 C 93 H 20 120/72 90 06/01/22 19:08 95 H 20 91 06/01/22 16:00 90 06/01/22 14:58 37.0 C 91 H 16 128/75 89 L 06/01/22 13:00 131 H 119/75 06/01/22 12:56 112 H 119/81 06/01/22 12:42 124 H 114/70 06/01/22 12:10 36.7 C 91 H 16 130/72 92 O2 Del Method O2 Flow Rate 06/01/22 19:54 High Flow Nasal Cannula 10 06/01/22 19:08 Nasal Cannula 10 06/01/22 16:00 06/01/22 14:58 High Flow Nasal Cannula 10 06/01/22 13:00 06/01/22 12:56 06/01/22 12:42 06/01/22 12:10 High Flow Nasal Cannula 10 PG Care Time/CCT Total # of Minutes Spent Total Time Spent with Patient: Total time spent is greater than 50% in coordination of care (as documented) at patient's floor/unit and/or counseling patient: Coding Level of Care Code 44624 SUB INP/OBS CARE 3/50MIN Diagnoses Sepsis A41.9 Multifocal pneumonia J18.9 Acute respiratory failure with hypoxia J96.01 COPD exacerbation J44.1 Lung cancer C34.90 S/P lobectomy of lung Z90.2 Paroxysmal supraventricular tachycardia I47.1 Elevated troponin R77.8
[2022-06-01] MEDS: DEXTROMETHORPHAN POLYMR COMPLX 30 MG/5 ML UDP PO PRN (21:48)
[2022-06-01] MEDS: ACETAMINOPHEN 325 MG TAB PO PRN (21:48)
[2022-06-02] MEDS: BUDESONIDE 0.5 MG/2 ML VIAL (PULMICORT) NEB SCH ×2 (07:14→19:06)
[2022-06-02] MEDS: FORMOTEROL 20 MCG/2 ML VIAL NEB SCH ×2 (07:14→19:06)
--- NOTE | 2022-06-02 07:33 | Hospitalist Progress Note ---
Date of Service June 02, 2022 Assessment & Plan (1) Sepsis: Plan: Acute unstable Source multifocal Pneumonia Acute on chronic respiratory failure with hypoxia Follow up blood and urine cultures, negative, sputum gram stain [place]. influenza, urine legionella is pending Volume resuscitated Empiric antibiotics with vancomycin, cefepime and doxycycline transitioned to augmentin as patient grew H. influenza beta lactamase + Given tachycardia with SVT, and patient continuing to require 10 liters of high flow, will place on rocephin. Baseline is 4 liters. continue budesonide, perforomist, and duonebs. 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 (4) Elevated troponin: Plan: Suspect demand-ischemia in setting of hypoxia, sepsis, SVT etc... Continue to trend to peak Plan VTE Prophylaxis - Lovenox 40mg SQ QPM currently in the ICU Admission and Anticipated Discharge Date Admission Date: May 29, 2022 Subjective Patient was seen in the company of his family. He says he feels that his respiratory status is stable however he is on significantly higher oxygen supplementation the need been in home. His oxygen use has been relatively recent in his history. Pulmonary medicine is noted he is climbing bicarbonate and we will order an arterial blood gas analysis in the morning of 06/03 Physical Exam Physical Exam: Patient has accessory muscle use for breathing. Reasonable air movement without focal loss or wheezing prolonged expiratory phase Card exam is distant but regular extremities are without edema Results & Data Results & Data Vital Signs (Past 12 Hours) Vital Signs Temp Pulse Pulse Resp BP Pulse Ox O2 Del Method 06/02/22 07:16 93 H 18 94 Nasal Cannula 06/01/22 22:00 92 H 06/02/22 04:18 98.2 F 96 H 20 119/72 92 Room Air 06/02/22 00:09 98.1 F 89 20 126/70 93 Free Flow/Blow-by 06/01/22 19:54 97.9 F 93 H 20 120/72 90 High Flow Nasal Cannula O2 Flow Rate 06/02/22 07:16 8 06/01/22 22:00 06/02/22 04:18 06/02/22 00:09 06/01/22 19:54 10 Laboratory Results Reviewed CBC reviewed PRP reviewed pulmonary medicine note PG Care Time/CCT Total # of Minutes Spent Total Time Spent with Patient: Total time spent is greater than 50% in coordination of care (as documented) at patient's floor/unit and/or counseling patient: Coding Level of Care Code 71232 SUB INP/OBS CARE 2/35MIN Diagnoses Sepsis A41.9 Lung cancer C34.90 Paroxysmal supraventricular tachycardia I47.1 Elevated troponin R77.8
[2022-06-02 08:08] LABS: BUN Creatinine Ratio 25.4 (10-20); Calcium 8.2 mg/dl (8.6-10.3); Creatinine Clr Calc Pharmacy 112.1 ml/min; Est GFR (African American) 115.6 ml/min; Est GFR (Non-African American) 99.7 ml/min; Magnesium 2.1 mg/dl (1.7-2.4); Phosphorus 2.6 mg/dl (2.5-4.9); Potassium 3.5 mmol/L (3.5-5.1)
[2022-06-02] MEDS: DOXYCYCLINE HYCLATE 100 MG CAP PO SCH ×2 (08:29→20:33)
[2022-06-02] MEDS: METOPROLOL TARTRATE 25 MG TAB PO SCH ×3 (08:29→20:32)
[2022-06-02] MEDS: guaiFENesin 600 MG TABCR PO SCH ×2 (08:29→20:32)
[2022-06-02] MEDS: predniSONE 20 MG TAB PO SCH (08:29)
--- NOTE | 2022-06-02 10:04 | Pulmonology Progress Note ---
Date of Service June 02, 2022 Assessment & Plan (1) Acute respiratory failure with hypoxia: (2) Multifocal pneumonia: (3) COPD exacerbation: (4) Paroxysmal supraventricular tachycardia: Plan IMPRESSION: 76-year-old male with acute on chronic hypoxic respiratory failure presenting with COPD exacerbation in the setting of multifocal pneumonia he was downgraded from ICU status yesterday. RECOMMENDATIONS: 1. Multifocal pneumonia with hypoxic respiratory failure - * Patient is currently on 8-10 L. His baseline is 4 L at home. * Patient on 8L NC at the time of evaluation. * Will repeat CXR to assess any change in infiltrates/RIGHT sided effusion. * Goal SaO2 90%. * He had a bad night's sleep. * Patient is completing course of antibiotics currently. * Continues with pulmonary toilet including flutter valve and incentive spirometry. * Continues with DuoNebs, budesonide, and Perforomist. 2. COPD with exacerbation - * Worsening in the setting of multifocal pneumonia. * Continue with above-mentioned nebulized therapies and pulmonary toilet. * He is now on 20 mg prednisone daily. * Patient will eventually need reinstitution of his azithromycin Monday/Monday/Monday as well. * On review of the patient's lab, it appears that his serum Co2 has been climbing over the last few days. Patient had previously been on NPPV. Given the patient's advanced pulmonary dysfunction, I question if the patient might benefit from NPPV/AVAPS. He has refused his BiPAP recently per RT docreyn tation. * Will add an AM ABG to assess CO2. 3. A. Fib - * Appears to be rate controlled at this time. Thank you for allowing us to participate in the care of this patient. We will continue to follow-up with the patient during his hospitalization. Admission and Anticipated Discharge Date Admission Date: May 29, 2022 Subjective Patient was seen and evaluated at bedside. He reports that his breathing is still okay, however he is more irritated that he has a [place] catheter and had to use a bedpan last night. Review of Systems Review of Systems: A complete 6 point review of systems was reviewed with the patient with pertinent positives and negatives as per history of present illness. All else were negative. Physical Exam Physical Exam: VITAL SIGNS - Vital signs and nursing notes were reviewed. GENERAL - 76-year-old male appearing his stated age who is in no acute distress. Communicates well with provider and answers questions appropriately. LUNGS - No distress. Auscultation reveals decreased air entry. Basilar rales. CARDIAC - RRR with S1/S2. No murmur, rubs, or gallops appreciated. ABDOMEN - BS normoactive all four quadrants. No tenderness, palpable masses, or ascites noted. PSYCH - A&Ox3 and cooperates fully with examiner. Pt is very pleasant and interacts well with examiner. Results & Data Results & Data Vital Signs (Past 12 Hours) Vital Signs Temp Pulse Resp BP Pulse Ox O2 Del Method O2 Flow Rate 06/02/22 08:01 36.3 C L 96 H 20 121/73 95 Nasal Cannula 10 06/02/22 07:16 93 H 18 94 Nasal Cannula 8 06/02/22 04:18 36.8 C 96 H 20 119/72 92 Room Air 06/02/22 00:09 36.7 C 89 20 126/70 93 Free Flow/Blow-by PG Care Time/CCT Total # of Minutes Spent Total Time Spent with Patient: Total time spent is greater than 50% in coordination of care (as documented) at patient's floor/unit and/or counseling patient: Coding Level of Care Code 82399 SUB INP/OBS CARE 3/50MIN Diagnoses Acute respiratory failure with hypoxia J96.01 Multifocal pneumonia J18.9 COPD exacerbation J44.1 Paroxysmal supraventricular tachycardia I47.1
[2022-06-02] MEDS: cefTRIAXone SODIUM 2,000 MG in DEXTROSE 5% 50 ML IV SCH (13:13)
--- NOTE | 2022-06-02 13:25 | XRay Report ---
XR chest 1V portable CLINICAL HISTORY: Hypoxia. COMPARISON STUDY: Chest CT May 29, 2022 and chest radiograph May 31, 2022. FINDINGS: Postoperative findings within the lungs are again noted. Small right pleural effusion is pr esent. There is no pneumothorax. Interstitial thickening and multifocal airspace opacities are simila r to prior exam. These are most pronounced within the right lower lung. Cardiomediastinal silhouette is stable. IMPRESSION: No significant change in multifocal airspace opacities and interstitial thickening sugge stive of pneumonia. ACT 112: Negative or not required by law. Electronically signed by: Obdulio Alexander M.D. 06/02/2022 1:24 PM
[2022-06-02] MEDS: DEXTROMETHORPHAN POLYMR COMPLX 30 MG/5 ML UDP PO PRN (20:31)
[2022-06-02] MEDS: ACETAMINOPHEN 325 MG TAB PO PRN (20:31)
[2022-06-02] MEDS: ENOXAPARIN INJ 40 MG/0.4 ML SYR SQ SCH (20:33)
[2022-06-03 06:04] LABS: Base Excess ABG 9.5 mEq/L (-9-1.8); HCO3 ABG 34 mmol/L (19-24); Oxygen Saturation ABG 97.9 % (90-95); PCO2 ABG 42 mmHg (35-46); PO2 ABG 71 mmHg (80-95)
[2022-06-03 06:11] LABS: Allen Test POS (Pos)
[2022-06-03 06:29] LABS: BUN Creatinine Ratio 27.1 (10-20); Calcium 8.2 mg/dl (8.6-10.3); Creatinine Clr Calc Pharmacy 137.4 ml/min; Est GFR (African American) 125.8 ml/min; Est GFR (Non-African American) 108.6 ml/min; Phosphorus 3.1 mg/dl (2.5-4.9)
[2022-06-03] MEDS: BUDESONIDE 0.5 MG/2 ML VIAL (PULMICORT) NEB SCH ×2 (07:03→19:40)
[2022-06-03] MEDS: FORMOTEROL 20 MCG/2 ML VIAL NEB SCH ×2 (07:03→19:40)
[2022-06-03] MEDS: METOPROLOL TARTRATE 25 MG TAB PO SCH ×3 (08:29→20:06)
[2022-06-03] MEDS: predniSONE 20 MG TAB PO SCH (08:30)
[2022-06-03] MEDS: DOXYCYCLINE HYCLATE 100 MG CAP PO SCH ×2 (08:30→20:05)
[2022-06-03] MEDS: guaiFENesin 600 MG TABCR PO SCH ×2 (08:30→20:05)
--- NOTE | 2022-06-03 08:33 | Hospitalist Progress Note ---
Date of Service June 03, 2022 Assessment & Plan (1) Sepsis: Plan: Acute unstable Source multifocal Pneumonia Acute on chronic respiratory failure with hypoxia Follow up blood and urine cultures, negative, sputum gram stain Haemo. influenza, urine legionella is pending Volume resuscitated Empiric antibiotics with vancomycin, cefepime and doxycycline, now on Ceftriaxone and po doxy continue budesonide, perforomist, and duonebs. 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 (4) Elevated troponin: Plan: Suspect demand-ischemia in setting of hypoxia, sepsis, SVT etc... Continue to trend to peak Plan VTE Prophylaxis - Lovenox 40mg SQ QPM currently in the ICU Admission and Anticipated Discharge Date Admission Date: May 29, 2022 Subjective Patient seen and examined. EMR reviewed. Patient is awake alert and conversant eating breakfast. He feels little better today. He continues to cough and expectorate brown phlegm. He is not having any fevers chills or night sweats. He remains in atrial fibrillation. They are working on weaning his oxygen. He has been up to the bedside commode and sitting in a chair but is not really been ambulatory. He denies chest pain or palpitations. No significant lower extremity edema Physical Exam Physical Exam: Patient continues using accessory muscle use for breathing. Reasonable air movement without focal loss or wheezing prolonged expiratory phase Card exam is distant but regular extremities are without edema Results & Data Results & Data Vital Signs (Past 12 Hours) Vital Signs Temp Pulse Pulse Resp BP Pulse Ox O2 Del Method 06/03/22 07:32 98.6 F 103 H 18 122/70 90 High Flow Nasal Cannula 06/03/22 07:06 89 18 91 Nasal Cannula 06/03/22 03:25 97.9 F 90 16 114/64 94 High Flow Nasal Cannula 06/02/22 22:05 85 06/02/22 23:33 98.6 F 96 H 18 116/61 94 High Flow Nasal Cannula O2 Flow Rate 06/03/22 07:32 9 06/03/22 07:06 9 06/03/22 03:25 9 06/02/22 22:05 06/02/22 23:33 9 Laboratory Results Reviewed ABG Reviewed chemistry PG Care Time/CCT Total # of Minutes Spent Total Time Spent with Patient: Total time spent is greater than 50% in coordination of care (as documented) at patient's floor/unit and/or counseling patient: Coding Level of Care Code 85469 SUB INP/OBS CARE 2/35MIN Diagnoses Sepsis A41.9 Lung cancer C34.90 Paroxysmal supraventricular tachycardia I47.1 Elevated troponin R77.8
--- NOTE | 2022-06-03 08:35 | Pulmonology Progress Note ---
Date of Service June 03, 2022 Assessment & Plan (1) Multifocal pneumonia: (2) COPD exacerbation: (3) Sepsis: (4) Paroxysmal supraventricular tachycardia: (5) Aortic stenosis: Plan Impression: 76-year-old male with oxygen dependent COPD and prior history of lung cancer status postresection admitted with multifocal pneumonia and hypoxemic respiratory failure. Recommendations: 1. Multifocal pneumonia, haemophilus positive beta-lactamase positive. Patient is currently on Rocephin and doxycycline. Day 5 total antibiotics. Okay to transition to Augmentin as the beta-lactamase haemophilus would be covered by the beta-lactamase inhibitor but will defer to the primary admitting service as they changed his antibiotics. Recommend treatment for 7 days. Follow-up CBC and procalcitonin in a.m. He is afebrile. His white count is elevated which may be related to steroids. 2. COPD: Not bronchospastic currently. Currently on prednisone 20 mg a day. Will taper off over the next 3 to 5 days. Currently receiving Pulmicort and Perforomist. 3. Hypoxemia: 4 L/min baseline requirement. Continue incentive spirometry flutter valve and out of bed to chair as tolerated. We will discontinue Quintanilla catheter. Ambulate patient on a regular basis. 4. Small pleural effusion: We will continue to follow at this point time. Patient is making slow progress. Think he would do better if we can get him ambulating and out of bed to chair. Above recommendations and plan were discussed with the patient. Questions were answered. He is in agreement with plan as outlined Admission and Anticipated Discharge Date Admission Date: May 29, 2022 Subjective Patient seen and examined. EMR reviewed. Patient is awake alert and conversant eating breakfast. He feels little better today. He continues to cough and expectorate brown phlegm. He is not having any fevers chills or night sweats. He remains in atrial fibrillation. They are working on weaning his oxygen. He has been up to the bedside commode and sitting in a chair but is not really been ambulatory. He denies chest pain or palpitations. No significant lower extremity edema Review of Systems Review of Systems: All systems reviewed & are unremarkable except as noted in Subjective Physical Exam Constitutional: WD/WN, vitals as above Neck: trachea midline, no thyromegaly Respiratory: normal respiratory effort, lungs clear to auscultation no respiratory distress, no labored breathing and not tachypneic Auscultation: + crackles; no wheezes Cardiovascular: Rate/Rhythm: + irregularly irregular Heart Sounds: normal S1 and normal S2; no murmur Extremities: no edema Gastrointestinal (Abdomen): normal bowel sounds, soft, nontender, no hepatosplenomegaly Musculoskeletal: Extremities: extremities normal to inspection Skin: no rashes, warm and dry Lymphatic: no cervical lymphadenopathy Results & Data Results & Data Vital Signs (Past 12 Hours) Vital Signs Temp Pulse Pulse Resp BP Pulse Ox O2 Del Method 06/03/22 07:32 37.0 C 103 H 18 122/70 90 High Flow Nasal Cannula 06/03/22 07:06 89 18 91 Nasal Cannula 06/03/22 03:25 36.6 C 90 16 114/64 94 High Flow Nasal Cannula 06/02/22 22:05 85 06/02/22 23:33 37 C 96 H 18 116/61 94 High Flow Nasal Cannula O2 Flow Rate 06/03/22 07:32 9 06/03/22 07:06 9 06/03/22 03:25 9 06/02/22 22:05 06/02/22 23:33 9 Laboratory Results 05/31/22 05:34 06/03/22 05:56 Sputum growing haemophilus beta-lactamase positive Diagnostic Findings Chest x-ray performed yesterday demonstrated stable lower lobe multifocal airspace opacities with asymmetrical right pleural effusion PG Care Time/CCT Total # of Minutes Spent Total Time Spent with Patient: Total time spent is greater than 50% in coordination of care (as documented) at patient's floor/unit and/or counseling patient: Coding Level of Care Code 15913 SUB INP/OBS CARE 2/35MIN Diagnoses Multifocal pneumonia J18.9 COPD exacerbation J44.1 Sepsis A41.9 Paroxysmal supraventricular tachycardia I47.1 Aortic stenosis I35.0
[2022-06-03] MEDS: predniSONE 10 MG TABLET PO SCH (09:15)
[2022-06-03 09:40] LABS: pH ABG 7.51 (7.35-7.45)
[2022-06-03] MEDS: cefTRIAXone SODIUM 2,000 MG in DEXTROSE 5% 50 ML IV SCH (13:25)
[2022-06-03] MEDS: ENOXAPARIN INJ 40 MG/0.4 ML SYR SQ SCH (20:06)
[2022-06-04] MEDS: FORMOTEROL 20 MCG/2 ML VIAL NEB SCH ×2 (07:04→19:03)
[2022-06-04] MEDS: BUDESONIDE 0.5 MG/2 ML VIAL (PULMICORT) NEB SCH ×2 (07:04→19:03)
[2022-06-04 07:21] LABS: BUN Creatinine Ratio 25.5 (10-20); Calcium 8.2 mg/dl (8.6-10.3); Creatinine Clr Calc Pharmacy 119.3 ml/min; Est GFR (Non-African American) 102.7 ml/min; Phosphorus 3.2 mg/dl (2.5-4.9); Potassium 4.1 mmol/L (3.5-5.1)
[2022-06-04 07:26] LABS: Hematocrit (blood only) 36.4 % (42.0-52.0); Hemoglobin 12.3 g/dl (14.0-18.0); Mean Corpuscular Hemoglobin 28.9 pg (25.0-34.0); Mean Corpuscular Hgb Conc 33.8 g/dL (32.0-36.0); Mean Corpuscular Volume 85.4 fL (80.0-100.0); RDW Coefficient of Variation 12.9 % (11.5-14.5); RDW Standard Deviation 39.8 fL (36.4-46.3); Red Blood Count 4.26 M/uL (4.70-6.10); White Blood Count 15.02 K/ul (4.8-10.8)
[2022-06-04 07:27] LABS: Mean Platelet Volume 9.8 fL (9.4-12.4); Platelet Count 360 K/uL (130-400)
[2022-06-04 07:51] LABS: Basophils # (auto) 0.06 K/uL (0-0.2); Basophils % (auto) 0.4 %; Eosinophils # (auto) 0.24 K/uL (0-0.50); Eosinophils % (auto) 1.6 %; Immature Granulocytes # (auto) 0.83 K/uL (0.01-0.20); Immature Granulocytes % (auto) 5.5 %; Lymphocytes # (auto) 1.29 K/uL (1.2-3.4); Lymphocytes % (auto) 8.6 %; Monocytes # (auto) 0.92 K/uL (0.11-0.59); Monocytes % (auto) 6.1 %; Neutrophils # (auto) 11.68 K/uL (1.40-6.50); Neutrophils % (auto) 77.8 %
--- NOTE | 2022-06-04 08:09 | Pulmonology Progress Note ---
Date of Service June 04, 2022 Assessment & Plan (1) Multifocal pneumonia: (2) COPD exacerbation: (3) Sepsis: (4) Paroxysmal supraventricular tachycardia: (5) Aortic stenosis: Plan Impression: 76-year-old male with oxygen dependent COPD and prior history of lung cancer status postresection admitted with multifocal pneumonia and hypoxemic respiratory failure. Recommendations: 1. Multifocal pneumonia, haemophilus positive beta-lactamase positive. Patient is currently on Rocephin and doxycycline. Day 6 total antibiotics. Okay to transition to Augmentin as the beta-lactamase haemophilus would be covered by the beta-lactamase inhibitor but will defer to the primary admitting service as they changed his antibiotics. Recommend treatment for 7 days. CBC improved. Procalcitonin decreasing. Follow-up chest x-ray in 2 to 4 weeks. 2. COPD: Not bronchospastic currently. Currently on prednisone 20 mg a day. Will continue to taper off over the next 3 to 5 days. Currently receiving Pulmicort and Perforomist. 3. Hypoxemia: 4 L/min baseline requirement. Continue incentive spirometry and flutter valve. Increase activity as tolerated and ambulate patient as tolerated. Would target oxygen saturations around 90%. 4. Small pleural effusion: We will continue to follow at this point time. Patient is making slow progress. Think he would do better if we can get him ambulating and out of bed to chair. Above recommendations and plan were discussed with the patient. Questions were answered. He is in agreement with plan as outlined The patient follows with Dr. Vegas in the outpatient setting. He should follow up with him at discharge. Admission and Anticipated Discharge Date Admission Date: May 29, 2022 Subjective Patient seen and examined. EMR reviewed. The patient states his breathing is better. His cough continues to be productive. His oxygen saturations are higher than required and I turned him down to 7 L/min. Would target an oxygen saturation around 90 to 92%. He is not had any hemoptysis. He denies chest pain or palpitations. He has when able to ambulate for short distances. Review of Systems Review of Systems: All systems reviewed & are unremarkable except as noted in Subjective Physical Exam Constitutional: WD/WN, vitals as above Neck: trachea midline, no thyromegaly Respiratory: normal respiratory effort, lungs clear to auscultation no respiratory distress, no labored breathing and not tachypneic Auscultation: + crackles; no wheezes Cardiovascular: RRR, no murmur, no edema Rate/Rhythm: + irregularly irregular Heart Sounds: normal S1 and normal S2; no murmur Extremities: no edema Gastrointestinal (Abdomen): normal bowel sounds, soft, nontender, no hepatosplenomegaly Musculoskeletal: Extremities: extremities normal to inspection Skin: no rashes, warm and dry Lymphatic: no cervical lymphadenopathy Results & Data Results & Data Vital Signs (Past 12 Hours) Vital Signs Temp Pulse Pulse Pulse Resp BP Pulse Ox 06/04/22 08:00 36.6 C 94 H 18 106/66 95 06/04/22 07:07 88 16 98 06/04/22 02:54 36.7 C 89 18 107/68 97 06/04/22 01:13 06/03/22 22:01 82 06/03/22 23:11 36.8 C 86 18 107/57 L 95 O2 Del Method O2 Flow Rate 06/04/22 08:00 High Flow Nasal Cannula 7 06/04/22 07:07 Nasal Cannula 10 06/04/22 02:54 High Flow Nasal Cannula 9 06/04/22 01:13 Nasal Cannula 7 06/03/22 22:01 06/03/22 23:11 High Flow Nasal Cannula 8 Laboratory Results 06/04/22 05:50 06/04/22 05:50 05/29/22 05/30/22 06/03/22 10:33 05:51 05:56 ABG pH 7.47 H 7.45 7.51 H* ABG pCO2 32 L 38 42 ABG pO2 68 L 165 H 71 L ABG HCO3 23 26 H 34 H ABG O2 Saturation 96.6 H 99.8 H 97.9 H ABG Base Excess 0.3 2.4 H 9.5 H Procalcitonin down to 0.32 from 2.25 PG Care Time/CCT Total # of Minutes Spent Total Time Spent with Patient: Total time spent is greater than 50% in coordination of care (as documented) at patient's floor/unit and/or counseling patient: Coding Level of Care Code 97479 SUB INP/OBS CARE 2/35MIN Diagnoses Multifocal pneumonia J18.9 COPD exacerbation J44.1 Sepsis A41.9 Paroxysmal supraventricular tachycardia I47.1 Aortic stenosis I35.0
[2022-06-04] MEDS: METOPROLOL TARTRATE 25 MG TAB PO SCH ×3 (08:57→20:53)
[2022-06-04] MEDS: predniSONE 10 MG TABLET PO SCH (08:58)
[2022-06-04] MEDS: guaiFENesin 600 MG TABCR PO SCH ×2 (08:58→20:54)
[2022-06-04] MEDS: DOXYCYCLINE HYCLATE 100 MG CAP PO SCH ×2 (08:58→20:52)
[2022-06-04] MEDS: cefTRIAXone SODIUM 2,000 MG in DEXTROSE 5% 50 ML IV SCH (14:35)
--- NOTE | 2022-06-04 15:13 | Hospitalist Progress Note ---
Date of Service June 04, 2022 Assessment & Plan (1) Sepsis: Plan: Acute unstable Source multifocal Pneumonia Acute on chronic respiratory failure with hypoxia Follow up blood and urine cultures, negative, sputum gram stain Haemo. influenza, urine legionella is negative Empiric antibiotics with vancomycin, cefepime and doxycycline, now on Ceftriaxone and po doxy continue budesonide, perforomist, and duonebs. 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 (4) Elevated troponin: Plan: Suspect demand-ischemia in setting of hypoxia, sepsis, SVT etc... Plan VTE Prophylaxis - Lovenox 40mg SQ QPM currently in the ICU Admission and Anticipated Discharge Date Admission Date: May 29, 2022 Subjective Patient feels slightly better than yesterday exam is about the same Pulmonary medicine is titrated him down to 7 L/min and recommends a target an oxygen saturation around 90 to 92%. He is not had any hemoptysis. Physical Exam Physical Exam: Patient's breathing seems more controlled but still with significant supplementation attempting to get to 6 L/min supplementation have the patient go home Reasonable air movement without focal loss or wheezing prolonged expiratory phase Card exam is distant but regular extremities are without edema Results & Data Results & Data Vital Signs (Past 12 Hours) Vital Signs Temp Pulse Pulse Pulse Resp BP Pulse Ox 06/04/22 14:35 97.8 F 91 H 18 117/71 91 06/04/22 11:22 98.1 F 95 H 18 96/56 L 94 06/04/22 08:00 06/04/22 08:00 89 06/04/22 08:00 97.9 F 94 H 18 106/66 95 06/04/22 07:07 88 16 98 O2 Del Method O2 Flow Rate 06/04/22 14:35 High Flow Nasal Cannula 8 06/04/22 11:22 High Flow Nasal Cannula 8 06/04/22 08:00 Nasal Cannula 9 06/04/22 08:00 06/04/22 08:00 High Flow Nasal Cannula 7 06/04/22 07:07 Nasal Cannula 10 PG Care Time/CCT Total # of Minutes Spent Total Time Spent with Patient: Total time spent is greater than 50% in coordination of care (as documented) at patient's floor/unit and/or counseling patient: Coding Level of Care Code 99810 SUB INP/OBS CARE 2/35MIN Diagnoses Sepsis A41.9 Lung cancer C34.90 Paroxysmal supraventricular tachycardia I47.1 Elevated troponin R77.8
[2022-06-04] MEDS: ENOXAPARIN INJ 40 MG/0.4 ML SYR SQ SCH (20:52)
[2022-06-05] MEDS: BUDESONIDE 0.5 MG/2 ML VIAL (PULMICORT) NEB SCH ×2 (07:16→19:54)
[2022-06-05] MEDS: FORMOTEROL 20 MCG/2 ML VIAL NEB SCH ×2 (07:16→19:54)
[2022-06-05 07:43] LABS: BUN Creatinine Ratio 20.3 (10-20); Calcium 8.2 mg/dl (8.6-10.3); Creatinine Clr Calc Pharmacy 102.8 ml/min; Est GFR (African American) 111.8 ml/min; Est GFR (Non-African American) 96.5 ml/min; Phosphorus 3.3 mg/dl (2.5-4.9); Potassium 4.3 mmol/L (3.5-5.1)
--- NOTE | 2022-06-05 07:52 | Pulmonology Progress Note ---
Date of Service June 05, 2022 Assessment & Plan (1) Multifocal pneumonia: (2) COPD exacerbation: (3) Sepsis: (4) Paroxysmal supraventricular tachycardia: (5) Aortic stenosis: Plan Impression: 76-year-old male with oxygen dependent COPD and prior history of lung cancer status postresection admitted with multifocal pneumonia and hypoxemic respiratory failure. He is hypoxemic today and its unclear whether this was a malfunction of his oxygen delivery system or progression of his underlying lung disease. Recommendations: 1. Multifocal pneumonia, haemophilus positive beta-lactamase positive. Completed 7 days of antimicrobial therapy and antibiotics can be discontinued at this point in time. Continue incentive spirometry and flutter valve 2. COPD: Not bronchospastic currently. Currently on prednisone 20 mg a day. Will continue to taper off over the next 3 to 5 days. Currently receiving Pulmicort and Perforomist. 3. Hypoxemia: 4 L/min baseline requirement. We will have respiratory therapy evaluate his oxygen delivery system and make sure that it is functioning appropriately. Will check blood gas given his elevated bicarb levels. Check chest x-ray. Try and keep oxygen saturations around 90% 4. Small pleural effusion: Await follow-up imaging Above recommendations and plan were discussed with the patient. Questions were answered. He is in agreement with plan as outlined The patient follows with Dr. Vegas in the outpatient setting. He should follow up with him at discharge. Admission and Anticipated Discharge Date Admission Date: May 29, 2022 Subjective Patient seen and examined. EMR reviewed. The patient states that he is feeling little bit better. Despite this when I assessed him his oxygen saturations were in the mid to low 70% range despite being on nasal cannula. It appeared that his nasal cannula was dysfunctional as it was flowing from the wall but there was nothing coming out through the cannula. We transitioned him off the humidifier to 10 L and were able to get his sats into the mid to high 80% range. Chest x-ray and labs were ordered. The patient is coughing and expectorating some phlegm. He is not reporting any chest pain or palpitations. No fevers chills night sweats. Has not had any hemoptysis. Despite his low oxygen saturations he actually feels pretty good Review of Systems Review of Systems: All systems reviewed & are unremarkable except as noted in Subjective Physical Exam Constitutional: WD/WN, vitals as above Neck: trachea midline, no thyromegaly Respiratory: normal respiratory effort, lungs clear to auscultation no respiratory distress, no labored breathing and not tachypneic Auscultation: + crackles; no wheezes Cardiovascular: RRR, no murmur, no edema Rate/Rhythm: + irregularly irregular Heart Sounds: normal S1 and normal S2; no murmur Extremities: no edema Gastrointestinal (Abdomen): normal bowel sounds, soft, nontender, no hepatosplenomegaly Musculoskeletal: Extremities: extremities normal to inspection Skin: no rashes, warm and dry Lymphatic: no cervical lymphadenopathy Results & Data Results & Data Vital Signs (Past 12 Hours) Vital Signs Temp Pulse Pulse Pulse Resp BP Pulse Ox 06/05/22 07:33 36.6 C 93 H 18 108/66 92 06/05/22 07:18 91 H 18 96 06/05/22 02:54 36.7 C 86 18 100/62 92 06/04/22 22:00 77 06/04/22 23:23 06/04/22 22:41 36.6 C 79 18 107/62 96 O2 Del Method O2 Flow Rate 06/05/22 07:33 High Flow Nasal Cannula 9 06/05/22 07:18 High Flow Nasal Cannula 8 06/05/22 02:54 Nasal Cannula 8 06/04/22 22:00 06/04/22 23:23 Nasal Cannula 9 06/04/22 22:41 High Flow Nasal Cannula 8 Laboratory Results 06/04/22 05:50 06/05/22 06:22 CBC from today is pending Diagnostic Findings Chest x-ray pending PG Care Time/CCT Total # of Minutes Spent Total Time Spent with Patient: Total time spent is greater than 50% in coordination of care (as documented) at patient's floor/unit and/or counseling patient: Coding Level of Care Code 96112 SUB INP/OBS CARE 3/50MIN Diagnoses Multifocal pneumonia J18.9 COPD exacerbation J44.1 Sepsis A41.9 Paroxysmal supraventricular tachycardia I47.1 Aortic stenosis I35.0
[2022-06-05] MEDS: ACETAMINOPHEN 325 MG TAB PO PRN (07:58)
[2022-06-05] MEDS: guaiFENesin 600 MG TABCR PO SCH ×2 (07:58→22:14)
[2022-06-05] MEDS: METOPROLOL TARTRATE 25 MG TAB PO SCH ×3 (07:59→22:15)
[2022-06-05] MEDS: DOXYCYCLINE HYCLATE 100 MG CAP PO SCH ×2 (07:59→22:14)
[2022-06-05] MEDS: predniSONE 10 MG TABLET PO SCH (08:00)
--- NOTE | 2022-06-05 08:28 | XRay Report ---
XR chest 1V portable HISTORY: hypoxemia COMPARISON: Chest 06/02/2022. FINDINGS: No pneumothorax. The cardiac silhouette remains top normal in size. Emphysema with bibasila r interstitial thickening again noted. Patchy densities within the right lung base persist. A small r ight pleural effusion is again noted. There are postoperative changes within the lungs. IMPRESSION: 1. Patchy right basilar densities and a small right pleural effusion persist. 2. No change in the emphysema and bibasilar interstitial thickening. ACT 112: Negative or not required by law. Electronically signed by: Cuco Garcia M.D. 06/05/2022 8:26 AM
[2022-06-05 08:43] LABS: Base Excess ABG 5.5 mEq/L (-9-1.8); HCO3 ABG 29 mmol/L (19-24); Oxygen Saturation ABG 98.6 % (90-95); PCO2 ABG 37 mmHg (35-46); PO2 ABG 77 mmHg (80-95)
[2022-06-05 08:46] LABS: Basophils # (auto) 0.03 K/uL (0-0.2); Basophils % (auto) 0.2 %; Eosinophils # (auto) 0.15 K/uL (0-0.50); Eosinophils % (auto) 1.1 %; Hematocrit (blood only) 39.2 % (42.0-52.0); Hemoglobin 13.3 g/dl (14.0-18.0); Immature Granulocytes # (auto) 0.58 K/uL (0.01-0.20); Immature Granulocytes % (auto) 4.4 %; Lymphocytes # (auto) 0.91 K/uL (1.2-3.4); Lymphocytes % (auto) 6.9 %; Mean Corpuscular Hemoglobin 28.7 pg (25.0-34.0); Mean Corpuscular Hgb Conc 33.9 g/dL (32.0-36.0); Mean Corpuscular Volume 84.7 fL (80.0-100.0); Mean Platelet Volume 9.5 fL (9.4-12.4); Monocytes # (auto) 0.54 K/uL (0.11-0.59); Monocytes % (auto) 4.1 %; Neutrophils # (auto) 11.04 K/uL (1.40-6.50); Neutrophils % (auto) 83.3 %; Platelet Count 377 K/uL (130-400); RDW Coefficient of Variation 13.1 % (11.5-14.5); RDW Standard Deviation 39.8 fL (36.4-46.3); Red Blood Count 4.63 M/uL (4.70-6.10); White Blood Count 13.25 K/ul (4.8-10.8)
[2022-06-05 08:49] LABS: Allen Test Pos (Pos)
[2022-06-05] MEDS: cefTRIAXone SODIUM 2,000 MG in DEXTROSE 5% 50 ML IV SCH (13:11)
--- NOTE | 2022-06-05 15:27 | Hospitalist Progress Note ---
Date of Service June 05, 2022 Assessment & Plan (1) Sepsis: Plan: Acute unstable Source multifocal Pneumonia Acute on chronic respiratory failure with hypoxia Follow up blood and urine cultures, negative, sputum gram stain Haemo. influenza, urine legionella is negative Empiric antibiotics with vancomycin, cefepime and doxycycline, now on Ceftriaxone and po doxy continue budesonide, perforomist, and duonebs. 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 (4) Elevated troponin: Plan: Suspect demand-ischemia in setting of hypoxia, sepsis, SVT etc... Plan VTE Prophylaxis - Lovenox 40mg SQ QPM currently in the ICU Admission and Anticipated Discharge Date Admission Date: May 29, 2022 Subjective Patient's is feeling ok today, did have rough night with oxygen malfunction, now back to near his baseline attempting to get to 6 L/min supplementation have the patient go home Physical Exam Physical Exam: Reasonable air movement without focal loss or wheezing prolonged expiratory phase Card exam is distant but regular extremities are without edema Results & Data Results & Data Vital Signs (Past 12 Hours) Vital Signs Temp Pulse Pulse Resp BP Pulse Ox O2 Del Method 06/05/22 11:42 97.9 F 93 H 16 104/62 97 High Flow Nasal Cannula 06/05/22 08:00 High Flow Nasal Cannula 06/05/22 08:00 90 06/05/22 07:33 97.9 F 93 H 18 108/66 92 High Flow Nasal Cannula 06/05/22 07:18 91 H 18 96 High Flow Nasal Cannula O2 Flow Rate 06/05/22 11:42 8 06/05/22 08:00 9 06/05/22 08:00 06/05/22 07:33 9 06/05/22 07:18 8 PG Care Time/CCT Total # of Minutes Spent Total Time Spent with Patient: Total time spent is greater than 50% in coordination of care (as documented) at patient's floor/unit and/or counseling patient: Coding Level of Care Code 60383 SUB INP/OBS CARE 03/02MIN Diagnoses Sepsis A41.9 Lung cancer C34.90 Paroxysmal supraventricular tachycardia I47.1 Elevated troponin R77.8
[2022-06-05] MEDS: ENOXAPARIN INJ 40 MG/0.4 ML SYR SQ SCH (22:15)
[2022-06-06] MEDS: BUDESONIDE 0.5 MG/2 ML VIAL (PULMICORT) NEB SCH ×2 (07:15→19:09)
[2022-06-06] MEDS: FORMOTEROL 20 MCG/2 ML VIAL NEB SCH ×2 (07:15→19:09)
[2022-06-06] MEDS: predniSONE 10 MG TABLET PO SCH (08:20)
[2022-06-06] MEDS: METOPROLOL TARTRATE 25 MG TAB PO SCH ×3 (08:20→21:41)
[2022-06-06] MEDS: guaiFENesin 600 MG TABCR PO SCH ×2 (08:20→21:41)
[2022-06-06] MEDS: DOXYCYCLINE HYCLATE 100 MG CAP PO SCH ×2 (08:20→21:42)
[2022-06-06 08:28] LABS: Calcium 8.3 mg/dl (8.6-10.3); Creatinine Clr Calc Pharmacy 93.2 ml/min; Est GFR (African American) 111.1 ml/min; Est GFR (Non-African American) 95.8 ml/min; Phosphorus 3.4 mg/dl (2.5-4.9); Potassium 4.3 mmol/L (3.5-5.1)
--- NOTE | 2022-06-06 08:35 | Pulmonology Progress Note ---
Date of Service June 06, 2022 Assessment & Plan (1) Multifocal pneumonia: (2) COPD exacerbation: (3) Sepsis: (4) Aortic stenosis: Plan CT chest 05/29/2022 personally reviewed: Severe centrilobular and paraseptal emphysema appreciated bilaterally Consolidative process appreciated bilaterally more on the right lower side more on the right lower side Left upper lobe wedge resection aleksandr in place, right lower lobectomy Significant mediastinal lymphadenopathy likely reactive -- Acute respiratory failure with hypoxia Secondary to multilobar pneumonia Continue with antibiotics Sputum culture growing haemophilus influenza Respiratory bio fire 05/29/2022 negative Patient was positive for COVID 03/14/2022 --COPD with emphysema Gold class C On Stiolto and nebulized budesonide at home. I will discontinue budesonide on discharge PFT 01/18/2022ersonally reviewed: Moderate obstructive lung dysfunction, insignificant bronchodilator response, normal TLC, severe decrease in DLCO (Decreased FVC by 230 mL, no change in FEV1, increased TLC 79-->95%, no change in DLCO compared to 05/2020) FVC 3.30 L 91%, FEV1 1.68 L 61%, FEV1/FVC 51%, ERV 129%, TLC 95%, RV 112%, RV/TLC 118%, DLCO 37% --PET positive left upper lobe nodule s/p SBRT With mild uptake in mediastinal lymph nodes Given that the nodule is right next to the previous staple line --> The possibility of recurrence of adenocarcinoma is high MRI brain 05/26/20 negative for metastasis --History of lung cancer Stage IIIa squamous cell in 2017 status post right lower lobectomy, patient received chemotherapy and radiation therapy preop Stage Ia adenocarcinoma 01/2019 s/p left upper lobe wedge resection --> no chemo or radiation PET positive enlarging left upper lobe nodule 04/2020 --> s/p SBRT --Ex-smoker Greater than [id number] smoking history,quit in 2009 Encouraged regarding abstinence Continue with treatment of COPD as above Plan: Complete course of doxycycline as well as Rocephin for total of 7-10 days Start titrating prednisone off Continue with diuretics I will add hypertonic saline nebulized twice a day Continue with incentive spirometry and flutter valve Patient will need a repeat CT chest done in approximately 8 weeks to make sure the pneumonia is improving Please note the above document was generated using voice recognition software. It may contain grammatical, syntax or spelling errors.Any formal questions or concerns about the content, text or information contained within the body of this dictation should be directly addressed to the provider for clarification. Admission and Anticipated Discharge Date Admission Date: May 29, 2022 Subjective Patient seen and examined at bedside. No acute distress, no adverse events overnight He was saturating 90% on 4 L nasal cannula at rest. He has been using incentive spirometry as well as flutter valve Is bringing up phlegm which is yellow in color. Denies any hemoptysis No headache, no nausea, no vomiting Denies any chest pain Fair appetite Case was discussed with outgoing thermite bomb loader. Review of Systems Review of Systems: All systems reviewed & are unremarkable except as noted in Subjective Physical Exam Physical Exam: Constitutional: No acute distress HEENT: EOMI, PERRLA Respiratory system: Decreased air entry bilaterally, no wheeze, no rhonchi, positive crackles bilateral lower lobes more on the right side CVS: S1-S2 positive, positive 4 out of 6 systolic murmur appreciated best at ao rta Abdomen: Soft, nontender, nondistended, positive bowel sounds x4 Extremities: +2 pulses bilaterally radialis/ dorsalis pedis, no cyanosis, no edema Neuro: Awake alert oriented x3 Psych: Normal mood and affect G/U: No [place] Skin: no rashes, warm and dry Lymphatic: no cervical or axillary lymphadenopathy Results & Data Results & Data Vital Signs (Past 12 Hours) Vital Signs Temp Pulse Pulse Resp BP Pulse Ox O2 Del Method 06/06/22 08:04 36.6 C 90 16 110/68 94 Nasal Cannula 06/06/22 07:15 91 H 18 95 Nasal Cannula 06/06/22 03:03 36.7 C 85 20 108/67 93 High Flow Nasal Cannula 06/05/22 22:00 Nasal Cannula 06/05/22 22:02 110 H 06/05/22 23:21 36.8 C 89 20 113/66 96 High Flow Nasal Cannula O2 Flow Rate 06/06/22 08:04 4 06/06/22 07:15 6 06/06/22 03:03 6 06/05/22 22:00 6 06/05/22 22:02 06/05/22 23:21 6 Laboratory Results 06/05/22 08:32 05/01/23 07:31 PG Care Time/CCT Total # of Minutes Spent Total Time Spent with Patient: Total time spent is greater than 50% in coordination of care (as documented) at patient's floor/unit and/or counseling patient: Coding Level of Care Code 85668 SUB INP/OBS CARE 3/50MIN Diagnoses Multifocal pneumonia J18.9 COPD exacerbation J44.1 Sepsis A41.9 Aortic stenosis I35.0
[2022-06-06] MEDS: cefTRIAXone SODIUM 2,000 MG in DEXTROSE 5% 50 ML IV SCH (14:08)
--- NOTE | 2022-06-06 18:12 | Hospitalist Progress Note ---
Date of Service June 06, 2022 Assessment & Plan (1) Sepsis: Plan: Acute unstable Source multifocal Pneumonia Acute on chronic respiratory failure with hypoxia Follow up blood and urine cultures, negative, sputum gram stain Haemo. influenza, urine legionella is negative Empiric antibiotics with vancomycin, cefepime and doxycycline, now on Ceftriaxone and po doxy discontinue budesonide, continues on Perforomist, and duonebs. Return to [facility] at discharge Patient on 6 liters/minute., NIPPV needed at times concurrent COPD and complex oncological/surgical history s/p lobectomy, consult pulmonology for their recommendations COPD with exacerbation Patient on prednisone 20 mg a day Levalbuterol/iptratroium, formeterol NEB BID, No CO2 retention on ABG Aim O2 sats > 90% (2) Lung cancer: Plan: Stage IIIa squamous cell in 2017 status post right lower lobectomy, patient received chemotherapy and radiation therapy preop Stage Ia adenocarcinoma 01/2019 s/p left upper lobe wedge resection --> no chemo or radiation PET positive enlarging left upper lobe nodule 04/2020 --> s/p SBRT (3) Paroxysmal supraventricular tachycardia: Plan: Likely physiologic no additional significant events on 06/02 Required 3 doses of 5 mg of metoprolol IV on 06/01 increased metoprolol 25 mg PO TID, HR remainin the 90s. (4) Elevated troponin: Plan: Suspect demand-ischemia in setting of hypoxia, sepsis, SVT etc... Plan VTE Prophylaxis - Lovenox 40mg SQ QPM currently in the ICU Admission and Anticipated Discharge Date Admission Date: May 29, 2022 Subjective Patient is improved on 6 L of oxygen however with exertion he becomes fairly significantly dyspneic Unasyn I discontinued at time of discharge Physical Exam Physical Exam: Reasonable air movement without focal loss or wheezing prolonged expiratory phase Card exam is distant but regular extremities are without edema Results & Data Results & Data Vital Signs (Past 12 Hours) Vital Signs Temp Pulse Pulse Pulse Resp BP Pulse Ox 06/06/22 16:00 93 H 06/06/22 15:20 98.1 F 87 18 110/73 94 06/06/22 12:09 97.5 F L 88 19 102/65 91 06/06/22 08:00 90 06/06/22 07:50 97.9 F 90 16 110/68 94 06/06/22 07:15 91 H 18 95 O2 Del Method O2 Flow Rate 06/06/22 16:00 06/06/22 15:20 Nasal Cannula 4 06/06/22 12:09 Oxymask 4 06/06/22 08:00 06/06/22 07:50 High Flow Nasal Cannula 4 06/06/22 07:15 Nasal Cannula 6 PG Care Time/CCT Total # of Minutes Spent Total Time Spent with Patient: Total time spent is greater than 50% in coordination of care (as documented) at patient's floor/unit and/or counseling patient: Coding Level of Care Code 38041 SUB INP/OBS CARE 2/35MIN Diagnoses Sepsis A41.9 Lung cancer C34.90 Paroxysmal supraventricular tachycardia I47.1 Elevated troponin R77.8
[2022-06-06] MEDS: SODIUM CHLOR 7% 4 ML NEB NEB SCH (19:09)
[2022-06-06] MEDS: ENOXAPARIN INJ 40 MG/0.4 ML SYR SQ SCH (21:42)
[2022-06-07] MEDS: ACETAMINOPHEN 325 MG TAB PO PRN (04:31)
[2022-06-07] MEDS: FORMOTEROL 20 MCG/2 ML VIAL NEB SCH (07:16)
[2022-06-07] MEDS: BUDESONIDE 0.5 MG/2 ML VIAL (PULMICORT) NEB SCH (07:16)
[2022-06-07] MEDS: SODIUM CHLOR 7% 4 ML NEB NEB SCH ×3 (07:18→15:41)
--- NOTE | 2022-06-07 08:26 | Pulmonology Progress Note ---
Date of Service June 07, 2022 Assessment & Plan (1) Multifocal pneumonia: (2) COPD exacerbation: (3) Sepsis: (4) Aortic stenosis: Plan CT chest 05/29/2022 personally reviewed: Severe centrilobular and paraseptal emphysema appreciated bilaterally Consolidative process appreciated bilaterally more on the right lower side more on the right lower side Left upper lobe wedge resection aleksandr in place, right lower lobectomy Significant mediastinal lymphadenopathy likely reactive -- Acute respiratory failure with hypoxia Secondary to multilobar pneumonia Continue with antibiotics Sputum culture growing haemophilus influenza Respiratory bio fire 05/29/2022 negative Patient was positive for COVID 03/14/2022 --COPD with emphysema Gold class C On Stiolto and nebulized budesonide at home. I will discontinue budesonide on discharge PFT 01/18/2022ersonally reviewed: Moderate obstructive lung dysfunction, insignificant bronchodilator response, normal TLC, severe decrease in DLCO (Decreased FVC by 230 mL, no change in FEV1, increased TLC 79-->95%, no change in DLCO compared to 05/2020) FVC 3.30 L 91%, FEV1 1.68 L 61%, FEV1/FVC 51%, ERV 129%, TLC 95%, RV 112%, RV/TLC 118%, DLCO 37% --PET positive left upper lobe nodule s/p SBRT With mild uptake in mediastinal lymph nodes Given that the nodule is right next to the previous staple line --> The possibility of recurrence of adenocarcinoma is high MRI brain 05/26/20 negative for metastasis --History of lung cancer Stage IIIa squamous cell in 2017 status post right lower lobectomy, patient received chemotherapy and radiation therapy preop Stage Ia adenocarcinoma 01/2019 s/p left upper lobe wedge resection --> no chemo or radiation PET positive enlarging left upper lobe nodule 04/2020 --> s/p SBRT --Ex-smoker Greater than [id number] smoking history,quit in 2009 Encouraged regarding abstinence Continue with treatment of COPD as above Plan: Complete course of doxycycline as well as Rocephin for total of 10 days DC nebulized budesonide at home. Add hypertonic saline nebulized along with nebulized DuoNeb twice a day. Patient will need a repeat CT chest done in approximately 8 weeks to make sure the pneumonia is improving Case was discussed with the Covaleski Please note the above document was generated using voice recognition software. It may contain grammatical, syntax or spelling errors.Any formal questions or concerns about the content, text or information contained within the body of this dictation should be directly addressed to the provider for clarification. Admission and Anticipated Discharge Date Admission Date: May 29, 2022 Subjective Patient seen and examined at bedside. No acute distress, no adverse events overnight He was saturating 97% on 4 L nasal cannula. I went down to 2 and half liters. He says he is feeling better. I started him on hypertonic saline yesterday and he did bring up significant amount of phlegm. Minimal hemoptysis. No chest pain No nausea or vomiting, fair appetite Was asking if he could go home today Review of Systems Review of Systems: All systems reviewed & are unremarkable except as noted in Subjective Physical Exam Physical Exam: Constitutional: No acute distress HEENT: EOMI, PERRLA Respiratory system: Decreased air entry bilaterally, no wheeze, no rhonchi, positive crackles bilateral lower lobes more on the right side CVS: S1-S2 positive, positive 4 out of 6 systolic murmur appreciated best at aorta Abdomen: Soft, nontender, nondistended, positive bowel sounds x4 Extremities: +2 pulses bilaterally radialis/ dorsalis pedis, no cyanosis, no edema Neuro: Awake alert oriented x3 Psych: Normal mood and affect G/U: No [place] Skin: no rashes, warm and dry Lymphatic: no cervical or axillary lymphadenopathy Results & Data Results & Data Vital Signs (Past 12 Hours) Vital Signs Temp Pulse Pulse Resp BP Pulse Ox O2 Del Method 06/07/22 08:01 36.5 C 91 H 20 117/70 92 Nasal Cannula 06/07/22 07:18 86 18 92 Nasal Cannula 06/07/22 03:19 37.1 C 87 20 107/63 94 High Flow Nasal Cannula 06/06/22 22:00 92 H 06/06/22 21:30 Nasal Cannula 06/06/22 23:39 37.0 C 83 20 101/64 95 Nasal Cannula O2 Flow Rate 06/07/22 08:01 4 06/07/22 07:18 4 06/07/22 03:19 3 06/06/22 22:00 06/06/22 21:30 4 06/06/22 23:39 4 Laboratory Results 06/05/22 08:32 PG Care Time/CCT Total # of Minutes Spent Total Time Spent with Patient: Total time spent is greater than 50% in coordination of care (as documented) at patient's floor/unit and/or counseling patient: Coding Level of Care Code 01351 SUB INP/OBS CARE 2/35MIN Diagnoses Multifocal pneumonia J18.9 COPD exacerbation J44.1 Sepsis A41.9 Aortic stenosis I35.0
[2022-06-07 08:27] LABS: Creatinine Clr Calc Pharmacy 86.6 ml/min; Est GFR (African American) 107.8 ml/min
[2022-06-07] MEDS: guaiFENesin 600 MG TABCR PO SCH (08:37)
[2022-06-07] MEDS: METOPROLOL TARTRATE 25 MG TAB PO SCH ×2 (08:37→13:45)
[2022-06-07] MEDS: predniSONE 10 MG TABLET PO SCH (08:37)
[2022-06-07] MEDS: cefTRIAXone SODIUM 2,000 MG in DEXTROSE 5% 50 ML IV SCH (14:46)
--- NOTE | 2022-06-07 17:35 | Discharge Summary ---
Date of Service June 07, 2022 Admission HPI Per Admitting Provider Gt Emmanuel is a 76 year old male with COPD and history non-small cell lung cancer status post wedge resection and radiation treatment who presents to the ER with shortness of breath. Initial worsening when he switched from [facility] to [facility] he became progressively more short of breath on May 11. CXR at that time did not show pneumonia. He did not require oxygen prior to this but was started on 2LPM O2 at that time. Since his breathing was getting progressively worse his credit risk analyst treated him for COPD exacerbation on May 25, without repeat CXR, with prednisone and azithromycin and he appeared to get much worse. No fever or chills. Productive cough of brown sputum for the last three days. No chest pain or tightness. No nasal congestion or sinus pain. Due to progressive decline with reduced appetite and weakness This is on a background of COVID-19 diagnosis in March although he only had 3-4 days of mild nasal congestion symptoms with this, without hospitalization and complete resolution of symptoms. In the ER he received an hour long duoneb to good effect for his shortness of breath however he did go into a paroxysmal narrow complex regular tachycardia during the treatment with hour long duoneb and converted back to sinus tachycardia after this. Principal Diagnosis Multifocal pneumonia, haemophilus influenza chronic respiratory failure with home oxygen Discharge Exam lungs with good air movement no wheeze Discharge Data Allergies Allergy/AdvReac Type Severity Reaction Status Date / Time pneumococcal vaccine Allergy Intermediate ARM Verified 05/10/22 13:33 SWELLING codeine AdvReac Intermediate "sick in Verified 05/10/22 13:33 stomach" Consultations 05/29/22 11:24 ED Decision to Admit Stat 05/29/22 11:46 Consult Pulmonology Routine 05/29/22 13:29 Consult Title One Reading Teacher Routine Ordered Studies 05/29/22 10:00 CT angio chest PE protocol Stat Hospital Course (1) Sepsis: Acute multifocal Pneumonia improving Acute on chronic respiratory failure with hypoxia Follow up blood and urine cultures, negative, sputum gram stain Haemo. influenza, urine legionella is negative Empiric antibiotics with vancomycin, cefepime and doxycycline, now on Ceftriaxone and po doxy at discharge discontinue budesonide, continues on Perforomist, and duonebs. Return to [facility] at discharge with hypertonic saline Patient on 4 liters/minute., concurrent COPD and complex oncological/surgical history s/p lobectomy, follow up outpt pulmonary med (2) Lung cancer: Stage IIIa squamous cell in 2017 status post right lower lobectomy, patient received chemotherapy and radiation therapy preop Stage Ia adenocarcinoma 01/2019 s/p left upper lobe wedge resection --> no chemo or radiation PET positive enlarging left upper lobe nodule 04/2020 --> s/p SBRT (3) Paroxysmal supraventricular tachycardia: Likely physiologic no additional significant events on 06/02 Required 3 doses of 5 mg of metoprolol IV on 06/01 increased metoprolol 25 mg PO TID, HR remaining the 90s. consider transition to long acting as outpt (4) Elevated troponin: Suspect demand-ischemia in setting of hypoxia, sepsis, SVT etc... Total Time Total Time Spent Total Time Spent (In Minutes): It required greater than 30 minutes to prepare this patient for discharge Discharge Plan Discharge Items Patient Disposition: Home - Home Health Services Reason For Visit: MULTIFOCAL PNA COPD Discharge Diagnosis: Multifocal pneumonia, haemophilus influenza chronic respiratory failure with home oxygen Activity: Per Instructions section Activity Comment: slowly increase activity Non-emergency contact: Primary Care Provider Call non-emergency contact if: your symptoms worsen Follow-up/Referrals: Morro Wilde MD [Primary Care Provider] - 06/15/22 8:00 am Diet: Regular Addtl Attending Provider Instructions: Dr Vegas has recommended saline nebulizers at home to help break up and mobilize mucus, complete your antibiotics be sure outpt providers coordinate a repeat CT chest in 2 months Pending Studies at Discharge: No Stand-Alone Forms: My [facility] [employer], Smoking Cessation Medications and DC Order Prescriptions: New guaifenesin [Mucinex] 600 mg Tablet Extended Release 12hr 1,200 mg PO BID Qty: 60 0RF dextromethorphan polistirex [Delsym 12 hour] 30 mg/5 mL Suspension,Extended Rel 12 Hr 30 mg PO Q12H PRN (Reason: cough) Qty: 89 0RF prednisone 10 mg Tablet 10 mg PO DAILY Qty: 7 0RF sodium chloride 7 % Solution For Nebulization 4 ml NEB BIDR Qty: 240 0RF doxycycline hyclate 100 mg Capsule 100 mg PO BID Qty: 10 0RF metoprolol tartrate 25 mg Tablet 25 mg PO TID Qty: 90 3RF Continued diphenhydramine HCl [Benadryl Allergy] 25 mg Tablet 25 mg PO HS PRN (Reason: Allergy Symptoms) Qty: 0 acetaminophen [Tylenol Extra Strength] 500 mg tablet 1,000 mg PO Q6H PRN (Reason: Pain or Fever) Qty: 20 (DME) Portable Oxygen Misc See Rx Instructions .MEDSUPPLY Qty: 1 0RF Rx Instructions: Oxygen 4 liters via nasal cannula on exertion with portablility Stiolto Respimat 2.5-2.5 mcg/actuation mist 2 puff inhalation DAILY Qty: 3 4RF (DME) nebulizers [Aeroneb Go Nebulizer] Misc See Rx Instructions .MEDSUPPLY Qty: 1 0RF Rx Instructions: With tubing and supplies. J44.9. J45.9. albuterol sulfate [ProAir HFA] 90 mcg/actuation HFA aerosol inhaler 2 puff inhalation Q6H PRN (Reason: shortness of breath or wheezing) Qty: 8.5 3RF cholecalciferol (vitamin D3) [Vitamin D3] 1,000 unit Capsule 1,000 unit PO 1300 aspirin 81 mg tablet,delayed release (DR/EC) 81 mg PO 1300 Discontinued azithromycin 250 mg tablet See Rx Instructions PO .COMPLEX Qty: 6 0RF Rx Instructions: take 500 mg today (day 1), then 250 mg for 4 days (days 2-5) prednisone 20 mg tablet 20 mg PO .as directed Qty: 15 0RF Rx Instructions: Take 2 tabs p.o. daily for the 3 days followed by 1 tab p.o. daily for 2 days.Stop after total of 5 days. Discharge Orders: Discharge Order (Routine); Ordered 06/07/22 Ordered By: Jabari Coyne Admission Data Admit Date/Time: 05/29/22 12:05 Attending Provider: Jabari Coyne Admit Provider: Shaji Moralez Primary Care Provider: Morro Wilde Other Providers: Shaji Moralez ; Fabrice Clements ; Bull Hyde Other Interventions: Discharge Summary Assessment (RN) Last Done: 06/07/22 13:07 Coding Level of Care Code 81464 INP/OBS DISCH >30 MIN Diagnoses Sepsis A41.9 Lung cancer C34.90 Paroxysmal supraventricular tachycardia I47.1 Elevated troponin R77.8
== END 2022-06-07 17:32 | disposition home or self-care (01) | DRG 871 ==
LOC: ED 09:36 → SUATTDRO 12:05 → 1E 12:05 → 2N 05-31 19:52